=== PATIENT | female | born 1955 | race Caucasian/White ===

== ENCOUNTER 2023-11-17 08:59 | Outpatient (OUT) | payer MEDICARE, SELFPAY ==
[2023-11-17 09:32] LABS: Basophils Absolute Auto 0.1 10^3/uL (0.0-0.1); Basophils Percent Auto 1.1 % (0.2-2.0); Eosinophils Absolute Auto 0.3 10^3/uL (0.0-0.7); Eosinophils Percent Auto 7.1 % (0.9-7.0); Hematocrit 38.1 % (36.0-48.0); Hemoglobin 12.4 g/dL (12.0-16.0); Immature Granulocytes Abs Auto 0.01 10^3/uL (0.00-0.03); Immature Granulocytes Pct Auto 0.2 % (0.0-0.5); Lymphocytes Absolute Auto 1.6 10^3/uL (1.2-3.8); Lymphocytes Percent Auto 35.3 % (20.5-60.0); Mean Corpuscular HGB Conc 32.5 g/dL (29.9-35.2); Mean Corpuscular Hemoglobin 30.2 pg (26.7-34.0); Mean Corpuscular Volume 92.7 fL (81.0-99.0); Mean Platelet Volume 8.6 fL (9.5-13.5); Monocytes Absolute Auto 0.4 10^3/uL (0.3-0.8); Monocytes Percent Auto 8.2 % (1.7-12.0); Neutrophils Absolute Auto 2.2 10^3/uL (1.4-6.5); Neutrophils Percent Auto 48.1 % (43.0-75.0); Platelet Count 325 10^3/uL (150-450); Red Blood Count 4.11 10^6/uL (4.20-5.40); Red Cell Distribution Width 13.1 % (11.0-15.0); White Blood Count 4.6 10^3/uL (4.0-11.0)
[2023-11-17 09:55] LABS: Alanine Aminotransferase 33 U/L (14-59); Albumin Globulin Ratio 0.8; Albumin Level 3.5 g/dL (3.4-5.0); Alkaline Phosphatase 126 U/L (46-116); Anion Gap 15.7; Aspartate Amino Transferase 29 U/L (15-37); BUN Creatinine Ratio 13.7; Bilirubin Total 0.7 mg/dL (0.2-1.0); Calcium 9.5 mg/dL (8.5-10.1); Chloride 102 mmol/L (98-107); Estimated GFR (African America >60 (>=60); Estimated GFR (Non-African Ame >60 (>=60); Globulin 4.2 g/dL; Glucose 103 mg/dL (74-106); Potassium 4.7 mmol/L (3.5-5.1); Sodium 140 mmol/L (136-145); Total Protein 7.7 g/dL (6.4-8.2)
== END 2023-11-17 09:00 | disposition home or self-care (01) ==
LOC: LAB 09:06
PROVIDERS: PCP Family Medicine; Visit Provider Family Medicine
DX: R79.89 Other specified abnormal findings of blood chemistry (principal); R73.09 Other abnormal glucose
CPT/HCPCS: 36415; 80053; 85025

== ENCOUNTER 2024-03-24 11:27 | Outpatient (OUT) | payer MEDICARE, SELFPAY ==
--- NOTE | 2024-03-24 | ECG_ITS ---
The [facility] Test Date: 2024-03-24 Pat Name: RODERICK FAIRBANKS Department: Room: - Gender: Female Community Relations Manager: : 1955 Requested By: MADISON NORTH Order Number: [id number] Reading MD: RUBÉN JUAREZ Measurements Intervals Jakin Rate: 51 P: 68 MT: 162 QRS: 8 QRSD: 140 T: 71 QT: 494 QTc: 458 Interpretive Statements SINUS BRADYCARDIA RIGHT BUNDLE BRANCH BLOCK [120+ ms QRS DURATION, UPRIGHT V1, 40+ ms S IN I/aVL/V4/V5/V6] Compared to ECG 05/26/2019 14:48:16 Sinus tachycardia no longer present Electronically Signed On 03-26-2024 10:44:44 EDT by RUBÉN JUAREZ
== END 2024-03-24 11:28 | disposition home or self-care (01) ==
LOC: CARD 11:30
PROVIDERS: PCP Family Medicine; Visit Provider Family Medicine
DX: R00.1 Bradycardia, unspecified (principal)
CPT/HCPCS: 93005

== ENCOUNTER 2024-04-04 07:36 | Outpatient (RCR) | payer MEDICARE, SELFPAY ==
--- NOTE | 2023-12-03 15:04 | CR1_ITS ---
The [facility] Test Date: 2023-12-03 Pat Name: RODERICK FAIRBANKS Department: Room: - Gender: Female Day Porter: : 1955 Requested By: MADISON NORTH Order Number: [id number] Estiven MD: RUBÉN JUAREZ Interpretive Statements Session Date: Electronically Signed On 12-04-2023 12:13:36 EST by RUBÉN JUAREZ
--- NOTE | 2023-12-29 13:21 | CR1_ITS ---
The [facility] Test Date: 2023-12-29 Pat Name: RODERICK FAIRBANKS Department: Room: - Gender: Female Home Theater Experience Expert: : 1955 Requested By: MADISON NORTH Order Number: [id number] Estiven MD: RUBÉN JUAREZ Interpretive Statements Session Date: Electronically Signed On 12-30-2023 6:58:47 EST by RUBÉN JUAREZ
--- NOTE | 2024-01-26 12:59 | CR1_ITS ---
The [facility] Test Date: 2024-01-26 Pat Name: RODERICK FAIRBANKS Department: Room: - Gender: Female Chief Operating Officer: : 1955 Requested By: MADISON NORTH Order Number: [id number] Estiven MD: RUBÉN JUAREZ Interpretive Statements Session Date: Electronically Signed On 01-26-2024 23:04:04 EST by RUBÉN JUAREZ
--- NOTE | 2024-02-22 15:02 | CR1_ITS ---
The [facility] Test Date: 2024-02-22 Pat Name: RODERICK FAIRBANKS Department: Room: - Gender: Female Annealing Torch Operator: : 1955 Requested By: MADISON NORTH Order Number: [id number] Estiven MD: RUBÉN JUAREZ Interpretive Statements Session Date: Electronically Signed On 02-22-2024 22:58:29 EDT by RUBÉN JUAREZ
--- NOTE | 2024-03-23 14:15 | CR1_ITS ---
The [facility] Test Date: 2024-03-23 Pat Name: RODERICK FAIRBANKS Department: Room: - Gender: Female Clinical Rehab Specialist: : 1955 Requested By: MADISON NORTH Order Number: [id number] Estiven MD: RUBÉN JUAREZ Interpretive Statements Session Date: Electronically Signed On 03-23-2024 15:29:55 EDT by RUBÉN JUAREZ
--- NOTE | 2024-04-04 12:56 | CR1_ITS ---
The [facility] Test Date: 2024-04-04 Pat Name: RODERICK FAIRBANKS Department: Room: - Gender: Female Supervisor Composing Room: : 1955 Requested By: MADISON NORTH Order Number: [id number] Estiven MD: RUBÉN JUAREZ Interpretive Statements Session Date: Electronically Signed On 04-04-2024 22:56:54 EDT by RUBÉN JUAREZ
== END 2024-04-04 13:03 | disposition home or self-care (01) ==
LOC: CR 07:36
PROVIDERS: PCP Family Medicine
DX: Z95.2 Presence of prosthetic heart valve (principal)
CPT/HCPCS: 93798

== ENCOUNTER 2024-05-22 14:14 | Outpatient (RCR) | payer MEDICARE, SELFPAY | END 2024-06-14 17:02 | disposition home or self-care (01) | LOC: PT 14:14 | PROVIDERS: PCP Family Medicine; Visit Provider Family Medicine | DX: M25.511 Pain in right shoulder (principal); M54.89 Other dorsalgia | CPT/HCPCS: 97110; 97161 ==

== ENCOUNTER 2024-12-04 13:25 | Outpatient (OUT) | payer MEDICARE, SELFPAY ==
--- NOTE | 2024-12-04 13:30 | CT_ITS ---
The [address] [address] Patient Name: RODERICK FAIRBANKS MRN: [id number] date: 1955 Sex: F Assigned Patient Location: LAB Current Patient Location: LAB Accession/Order Number: [id number] Exam Date: 12/04/2024 13:55 Report Date: 12/04/2024 15:28 At the request of: MADISON NORTH Procedure: CT angio chest CT angio chest, 12/04/2024 1:55 PM EST INDICATION: Positive D Dimer COMPARISON: Prior CT of the abdomen pelvis dated 05/26/2019 TECHNIQUE: Axial low-dose images of 1 millimeters are obtained from the thoracic outlet with contrast . 3-D MIP images were obtained. Dose reduction techniques were achieved by using automated exposure control and/or adjustment of mA and/or kV according to patient size and/or use of iterative reconstruction technique. FINDINGS: No endoluminal filling defect within the main pulmonary arteries, lobar and lobular branches is noted. There is no obvious right ventricle strain. The ascending aorta measures 3.5 x 3.8 cm and pulmonary bifurcation. There is no suspicious lung lesion. There is bilateral dependent atelectasis. Bilateral centrilobular emphysematous changes are noted. The central tracheobronchial tree is unremarkable. No mediastinal lymph node enlargement by size criteria is noted. No pleural or pericardial effusion is noted. Large hiatal hernia is noted. Hypodensity within the left lobe of liver is stable. The remainder of visualized portions of the solid abdominal organs are unremarkable. Bone: There is no suspicious osteolytic or osteoblastic lesion. Status post median sternotomy. There is diffuse demineralization of bone. CT/CT angio chest IMPRESSION: No evidence of pulmonary embolus in the current study. Electronically authenticated by: CHEL ESCALANTE Date: 12/04/2024 15:28
== END 2024-12-04 13:26 | disposition home or self-care (01) ==
LOC: LAB 13:25
PROVIDERS: PCP Family Medicine; Visit Provider Family Medicine
DX: R79.89 Other specified abnormal findings of blood chemistry (principal)
CPT/HCPCS: 71275; Q9967

== ENCOUNTER 2025-07-17 11:50 | Emergency (ER) | payer MEDICARE, SELFPAY ==
[2025-07-17] VITALS (17 sets, daily range): BP systolic 95–119; BP diastolic 61–86; PULSE 88–108; TEMP 37.7; O2SAT 88–97; BMI 28.8
--- NOTE | 2025-07-17 12:03 | CT_ITS ---
The [address] [address] Patient Name: RODERICK FAIRBANKS MRN: [id number] date: 1955 Sex: F Assigned Patient Location: ED.MAIN Current Patient Location: ED.MAIN Accession/Order Number: [id number] Exam Date: 07/17/2025 13:06 Report Date: 07/17/2025 13:35 At the request of: REGINALDO CHACON DO Procedure: CT angio chest CT ANGIOGRAM OF THE CHEST, PULMONARY EMBOLISM PROTOCOL: CLINICAL INFORMATION: Shortness of breath and chest pain today. COMPARISON: Chest 12/04/2024 TECHNIQUE: Following intravenous injection of contrast CT scans of the chest were obtained using pulmonary embolism protocol. Coronal and sagittal reconstructed images, as well as volume rendered CT pulmonary angiographic images were also submitted.The CT exam was performed using one or more of the following dose reduction techniques: Automated exposure control, adjustment of the MA and/or Kv according to patient size, or use of the iterative reconstruction technique. FINDINGS: Pulmonary Vasculature: Contrast bolus is adequate for evaluation of pulmonary embolism. Pulmonary trunk appears nondilated. No filling defects are identified to suggest pulmonary embolism. Mediastinum : Thoracic aorta is normal in caliber. No pericardial effusion. Aortic valve replacement No lymphadenopathy. Fluid is seen within the distal esophagus without wall thickening. Moderate-sized hiatal hernia. Lungs: Scattered areas of tree-in-bud groundglass. No consolidation pneumothorax or pleural effusion. Smooth septal thickening involving the lung bases. Emphysema. Upper abdomen: No acute findings Soft tissue/bones: Soft tissues surrounding the chest wall demonstrate no acute findings. Osseous structures demonstrate degenerative change. Sternotomy wires are noted. CT/CT angio chest IMPRESSION: NO EVIDENCE OF ACUTE PULMONARY EMBOLISM. SCATTERED AREAS OF TREE-IN-BUD GROUNDGLASS. AN INFECTIOUS PROCESS WITH BRONCHIOLITIS IS SUSPECTED. CT FOLLOW-UP IS RECOMMENDED TO ENSURE RESOLUTION. MODERATE SIZE HIATAL HERNIA WITH FLUID SEEN WITHIN THE DISTAL ESOPHAGUS.. Impression dictated by: Troy Rojas Jr., D.O. 07/17/2025 1:35 PM Dictation Location: [place] [address] Electronically authenticated by: [id number] Y Date: 07/17/2025 13:35
--- NOTE | 2025-07-17 12:04 | ECG_ITS ---
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
--- OUTSIDE RECORDS SUMMARY | 2025-07-17 12:05 | XMS_ITS | Clinical Summary ---
Author Organization [employer] tem Address [id number] [address] [place] [address] Care Team Providers Care Blood Bank Attendant Name Role Phone Raina Anne MD Primary Care Provider [phone] Allergies Active Allergy Reactions Criticality Noted Date Comments Alendronate GI Disturbance 05/10/2018 severe leg cramps Latex Rash Low 05/10/2018 Meloxicam Other (See Comments) 05/10/2018 Shaking and memory changes Morphine Other (See Comments) 05/10/2018 BP changes Sulfa (Sulfonamide Antibiotics) Other (See Comments) 05/10/2018 Unknown childhood Tramadol Confusion 05/10/2018 Medications buPROPion XL (WELLBUTRIN XL) 150 mg 24 hr tablet Take 150 mg by mouth daily. 1 04/07/2018 Active omeprazole (PriLOSEC) 20 mg capsule TAKE 2 CAPSULES BY MOUTH EVERY MORNING 3 02/08/2018 Active amLODIPine (NORVASC) 2.5 mg tablet Take 2.5 mg by mouth daily. Active aspirin 81 mg Take 2 tablets (162 mg total) by mouth in the morning. Active calcium carbonate-vit D3-min (CALCIUM 600 + MINERALS) 600 mg calcium- 400 unit tablet Take by mouth. Active citalopram (CeleXA) 40 mg tablet Take 1 tablet (40 mg total) by mouth in the morning. Active gabapentin (NEURONTIN) 400 mg capsule Take 400 mg by mouth 3 (three) times a day. Active hydroxychloroqu ine (PLAQUENIL) 200 mg tablet Take 400 mg by mouth daily. Active polyethylene glycol (GLYCOLAX) 17 gram packet Take 17 g by mouth daily. Active predniSONE (DELTASONE) 2.5 mg tablet Take 2.5 mg by mouth daily. Active evolocumab (REPATHA SYRINGE) 140 mg/mL syringe Inject 140 mg under the skin every 14 (fourteen) days. Active cycloSPORINE (RESTASIS) 0.05 % ophthalmic emulsion 1 drop 2 (two) times a day. Active tiZANidine (ZANAFLEX) 4 mg tablet Take 4 mg by mouth every 6 (six) hours as needed for muscle spasms. Active rosuvastatin (CRESTOR) 40 mg tablet Take 1 tablet (40 mg total) by mouth in the morning. 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 Ptosis of eyelid, left 03/09/2019 Migraine variant, intractable 12/05/2018 Complicated migraine, intractable 12/05/2018 Ischemic cerebrovascular disease 10/11/2018 Vascular headache, not elsewhere classified 09/23 Vertigo 05/10/2018 Diplopia 05/10/2018 Ptosis of eyelid 05/10/2018 Peripheral polyneuropathy 05/10/2018 Family History Medical History Relation Name Comments Heart disease Father Kidney failure Father Diabetes Mother Heart attack Mother Kidney disease Mother Liver disease Mother Relation Name Status Comments Father Mother Alive Social History Tobacco Use Types Packs/Day Years Used Date Smoking Tobacco: Former Cigarettes Q uit: 02/20/2023 Smokeless Tobacco: Never Tobacco Cessation:Counseling Given: Not Answered Alcohol Use Standard Drinks/Week Comments No 0 (1 standard drink = 0.6 oz pur e alcohol) rarely PHQ-2 Answer Date Recorded Total Score 0 08/31/2023 Childcare Answer Date Recorded Childcare Unknown 05/01/2019 Employment Answer Date Recorded Employment Unknown 05/01/2019 Purpose - Life Answer Date Recorded Purpose and direction in life Unknown Comments No Sex and Gender Information Value Date Recorded Sex Assigned at Not on file Legal Sex Female 12:35 PM EDT Gender Identity Not on file Sexual Orientation Not on file Last Filed Vital Signs Vital Sign Reading Time Taken Comments Blood Pressure 113/76 08/31/2023 10:32 AM EDT Pulse 58 08/31/2023 10:32 AM EDT Temperature - - Respiratory Rate - - Oxygen Saturation - - Inhaled Oxygen Concentration - - Weight 75.1 kg (165 lb 9.6 oz) 08/31/2023 10:32 AM EDT Height 165.1 cm (5' 5 ) 08/31/2023 10:32 AM EDT Body Mass Index 27.56 08/31/2023 10:32 AM EDT Plan of Treatment Health Maintenance Due Date Last Done Comments DTaP,Tdap and Td Vaccines (1 - Tdap) 1976 Zoster (Shingles) Vaccine (1 of 2) 2007 Fall Risk Screening 2022 COVID-19 Vaccine (2023-2 5 season) 2024 10/23/2021, 02/06/2021, 01/16/2021 Adult BMI Screening 08/31/2024 08/31/2023 Depression Screening 08/31/2024 08/31/2023 Tobacco Screening 08/31/2024 08/31/2023 Influenza Vaccine 07/23/2025 10/23/2021, , 08/24/2016 Medical Devices Implanted Type Area Telegraph Service Rater Device Identifier Shelf Expiration Date Model / Serial / Lot Prosthetic Valve- 4 Implanted:Qty: 1 on 10/25/2014 Prosthetic Valve Heart trifecta tissue heart valve [id number]-[id number] / [id number] / Insurance MEDICARE Care Teams Blood Bank Attendant Relationship Specialty Start Date End Date Raina Anne MD [address] [place] [address] PCP - General 12/05/18
--- OUTSIDE RECORDS SUMMARY | 2025-07-17 12:05 | XMS_ITS | Encounter Summary ---
Author Organization [facility] Address [address] [place] [address] Care Team Providers Care Marketing Strategist Name Role Phone Luli Dixon MD Unavailable [phone] Leonardo Venegas MD Unavailable [phone] Alena Rajan MD, PhD Unavailable [phone] Alena Rajan MD, PhD Unavailable [phone] Raina Anne MD Primary Care Provider [phone] Source Comments In the event this information is protected by the Federal Confidentiality of Alcohol and Drug AbusePatient Records regulations: The Federal rules restrict any use of the information to criminally investigate or prosecute any alcohol or drug abuse patient.[facility] Encounter Details Date Type Department Care Team (Late st Contact Info) Description 01/29/2024 Patient Msg Medical Records [address] [place] [address] Provider, Ccf Questionnaire Submission Social History Tobacco Use Types Packs/Day Years Used Date Smoking Tobacco: Former Cigarettes 0.3 30 0 02/1993 - 02/2023 Smokeless Tobacco: Never Alcohol Use Standard Drinks/Week Comments Never 0 (1 standard drink = 0.6 oz pur e alcohol) Area Deprivation Index Answer Date Bishnu rded National Score (1-100), lower number is lower ri sk 61 10/25/2023 State Score (1-10), lower number is lower risk 4 10/25/2023 Data from: https://www.neighborhoodatlas.medicine.[facility]/. Last address used for calculation [address] [place] [address] 10/25/2023 Comments No Sex and Gender Information Value Date Recorded Sex Assigned at Not on file Legal Sex Female 12:53 PM EDT Gender Identity Not on file Sexual Orientation Not on file documented as of this encounter Functional Status * Are you deaf or do you have serious difficulty hearing? Answer Date of Assessment Author Yes 10/30/2023 11:22 AM Ruth Ann Tena RN * Are you blind or do you have serious difficulty seeing, even when wearing glasses? Answer Date of Assessment Author Yes 10/30/2023 11:22 AM Ruth Ann Tena RN * Do you have serious difficulty walking or climbing stairs? Answer Date of Assessment Author Yes 10/30/2023 11:22 AM Ruth Ann Tena RN * Do you have difficulty dressing or bathing? Answer Date of Assessment Author Yes 10/30/2023 11:22 AM Ruth Ann Tena RN * Because of a physical, mental, or emotional condition, do you have difficulty doing errands alone such as visiting a doctor's office or shopping? Answer Date of Assessment Author Yes 10/30/2023 11:22 AM Ruth Ann Tena RN documented as of this encounter Mental Status * Because of a physical, mental, or emotional condition, do you have serious difficulty concentrating, remembering, or making decisions? Answer Entry Date Author Yes 10/30/2023 11:22 AM Ruth Ann Tena RN documented in this encounter Plan of Treatment Not on file documented as of this encounter Visit Diagnoses Not on filedocumented in this encounter Care Teams Marketing Strategist Relationship Specialty Start Date End Date Raina Anne MD [address] [place] [id number] PCP - General Family Medicine 10/25/23 Luli Dixon MD [address] [place], [place] [id number] Surgeon Cardiac Surg 10/04/23 Leonardo Venegas MD [address] [place] [address] Referring Cardiac Surg 10/04/23 Alena Rajan MD, PhD [address] [place] [address] Cardiology 10/08/23 Alena Rajan MD, PhD [address] [place] [address] Primary Staff Physician Cardiology 10/25/23 documented as of this encounter
--- OUTSIDE RECORDS SUMMARY | 2025-07-17 12:05 | XMS_ITS | Encounter Summary ---
Author Organization Address [address] [place] [address] Care Team Providers Care Manager Cafe Name Role Phone Luli Dixon MD Unavailable [phone] Leonardo Venegas MD Unavailable [phone] Alena Rajan MD, PhD Unavailable [phone] Alena Rajan MD, PhD Unavailable [phone] Raina Anne MD Primary Care Provider Source Comments In the event this information is protected by the Federal Confidentiality of Alcohol and Drug AbusePatient Records regulations: The Federal rules restrict any use of the information to criminally investigate or prosecute any alcohol or drug abuse patient. Reason for Visit * Reason Comments PSG Check In Encounter Details Date Type Department Care Team (Late st Contact Info) Description 08/22/2024 Abstract Neurology [address] [place] [address] [facility] [address] [place] [address] PSG Check In Social History Tobacco Use Types Packs/Day Years [...] is lower risk 4 10/25/2023 Data from: https://www.neighborhoodatlas.medicine.[facility]/. Last address used for calculation [address] [facility] [facility] 10/25/2023 Comments No Sex and Gender Information [...] on filedocumented in this encounter Care Teams Manager Cafe Relationship Specialty Start Date End Date Raina Anne MD [address] [place] [address] PCP - General Family Medicine 10/25/23 Luli Dixon MD [address] [place] [address] Surgeon Cardiac Surg 10/04/23 Leonardo Venegas MD [address] [place] [address] Referring Cardiac Surg 10/04/23 Alena Rajan MD, PhD [address] [place] [address] Cardiology 10/08/23 Alena Rajan MD, PhD [address] [place] [address] Primary Staff Physician Cardiology 10/25/23 documented as of this encounter
--- OUTSIDE RECORDS SUMMARY | 2025-07-17 12:05 | XMS_ITS | Encounter Summary ---
Author Organization [facility] Address [address] [place] [address] Care Team Providers Care Director Broadcast Name Role Phone Luli Dixon MD Unavailable [phone] Leonardo Venegas MD Unavailable [phone] Alena Rajan MD, PhD Unavailable [phone] Alena Rajan MD, PhD Unavailable [phone] Raina Anne MD Primary Care Provider [phone] Source Comments In the event this information is protected by the Federal Confidentiality of Alcohol and Drug AbusePatient Records regulations: The Federal rules restrict any use of the information to criminally investigate or prosecute any alcohol or drug abuse patient.[facility] Encounter Details Date Type Department Care Team (Late st Contact Info) Description 12/23/2023 Patient Msg Cardiology [address] [place] [address] Guilherme Ayers MD [address] [place] [address] echocadiogram. Social History Tobacco Use Types Packs/Day Years [...] is lower risk 4 10/25/2023 Data from: https://www.neighborhoodatlas.medicine.[facility]/. Last address used for calculation [address] [place] [address] 10/25/2023 Comments No Sex and Gender Information [...] on filedocumented in this encounter Care Teams Director Broadcast Relationship Specialty Start Date End Date Raina Anne MD [address] [place] [address] PCP - General Family Medicine 10/25/23 Luli Dixon MD [address] [place] [address] Surgeon Cardiac Surg 10/04/23 Leonardo Venegas MD [address] [place] [address] Referring Cardiac Surg 10/04/23 Alena Rajan MD, PhD [address] [facility] [place] [address] Cardiology 10/08/23 Alena Rajan MD, PhD [address] [place] [address] Primary Staff Physician Cardiology 10/25/23 documented as of this encounter
--- OUTSIDE RECORDS SUMMARY | 2025-07-17 12:05 | XMS_ITS | Encounter Summary ---
Author Organization [facility] Address [facility] [place] [address] Care Team Providers Care Cytotechnologist Supervisor Name Role Phone Luli Dixon MD Unavailable [phone] Leonardo Venegas MD Unavailable [phone] Alena Rajan MD, PhD Unavailable [phone] Alena Rajan MD, PhD Unavailable [phone] Raina Anne MD Primary Care Provider [phone] Source Comments In the event this information is protected by the Federal Confidentiality of Alcohol and Drug AbusePatient Records regulations: The Federal rules restrict any use of the information to criminally investigate or prosecute any alcohol or drug abuse patient.[facility] Encounter Details Date Type Department Care Team (Late st Contact Info) Description 04/08/2024 Patient Msg Cardiology [address] [place] [address] Provider, Ccf Checking in - almost 6 months since your valve surgery! Social History Tobacco Use Types Packs/Day Years [...] is lower risk 4 10/25/2023 Data from: https://www.neighborhoodatlas.medicine.[facility]/. Last address used for calculation [address] [facility] [facility] 10/25/2023 Comments No Sex and Gender Information [...] on filedocumented in this encounter Care Teams Cytotechnologist Supervisor Relationship Specialty Start Date End Date Raina Anne MD [address] [place] [address] PCP - General Family Medicine 10/25/23 Luli Dixon MD [address] [place] [address] Surgeon Cardiac Surg 10/04/23 Leonardo Venegas MD [address] [place] [address] Referring Cardiac Surg 10/04/23 Alena Rajan MD, PhD [address] [place] [address] Cardiology 10/08/23 Alena Rajan MD, PhD [address] [place] [address] Primary Staff Physician Cardiology 10/25/23 documented as of this encounter
--- OUTSIDE RECORDS SUMMARY | 2025-07-17 12:05 | XMS_ITS | Encounter Summary ---
Author Organization [facility] Address [address] [place] [address] Care Team Providers Care Detective Precinct Name Role Phone Luli Dixon MD Unavailable [phone] Leonardo Venegas MD Unavailable [phone] Alena Rajan MD, PhD Unavailable [phone] Alena Rajan MD, PhD Unavailable [phone] Raina Anne MD Primary Care Provider [phone] Source Comments In the event this information is protected by the Federal Confidentiality of Alcohol and Drug AbusePatient Records regulations: The Federal rules restrict any use of the information to criminally investigate or prosecute any alcohol or drug abuse patient.[facility] Encounter Details Date Type Department Care Team (Late st Contact Info) Description 01/29/2024 Patient Msg Medical Records [address] [place] [address] Provider, Ccf Questionnaire Submission Social History Tobacco [...] is lower risk 4 10/25/2023 Data from: https://www.neighborhoodatlas.medicine.[facility]/. Last address used for calculation [address] [place] [address] 10/25/2023 Comments No Sex and Gender Information [...] on filedocumented in this encounter Care Teams Detective Precinct Relationship Specialty Start Date End Date Raina Anne MD [address] [place] [address] PCP - General Family Medicine 10/25/23 Luli Dixon MD [address] [place], [place] [address] Surgeon Cardiac Surg 10/04/23 Leonardo Venegas MD [address] [place] [address] Referring Cardiac Surg 10/04/23 Alena Rajan MD, PhD [address] [place] [address] Cardiology 10/08/23 Alena Raajn MD, PhD [address] [place] [address] Primary Staff Physician Cardiology 10/25/23 documented as of this encounter
--- OUTSIDE RECORDS SUMMARY | 2025-07-17 12:05 | XMS_ITS | Encounter Summary ---
Author Organization [facility] Address [address] [place] [address] Care Team Providers Care Instrument Technician Apprentice Name Role Phone Luli Dixon MD Unavailable [phone] Leonardo Venegas MD Unavailable [phone] Alena Rajan MD, PhD Unavailable [phone] Alena Rajan MD, PhD Unavailable [phone] Raina Anne MD Primary Care Provider [phone] Source Comments In the event this information is protected by the Federal Confidentiality of Alcohol and Drug AbusePatient Records regulations: The Federal rules restrict any use of the information to criminally investigate or prosecute any alcohol or drug abuse patient.[facility] Encounter Details Date Type Department Care Team (Late st Contact Info) Description 08/21/2024 Patient Msg Neurology [address] [place] [address] Provider, Ccf Please confirm your sleep study Social History Tobacco Use Types Packs/Day Years Used Date Smoking Tobacco: Former Cigarettes 0.3 30 0 02/1993 - 02/2023 Smokeless Tobacco: Never Alcohol Use Standard Drinks/Week Comments Never 0 (1 standard drink = 0.6 oz pur e alcohol) Area Deprivation Index Answer Date Ibshnu rded National Score (1-100), lower number is lower ri sk 61 10/25/2023 State Score (1-10), lower number is lower risk 4 10/25/2023 Data from: https://www.neighborhoodatlas.medicine.[facility]/. Last address used for calculation [address] [facility] 10/25/2023 Comments No Sex and Gender [...] on filedocumented in this encounter Care Teams Instrument Technician Apprentice Relationship Specialty Start Date End Date Raina Anne MD [address] [place] [address] PCP - General Family Medicine 10/25/23 Luli Dixon MD [address] [place] [address] Surgeon Cardiac Surg 10/04/23 Leonardo Venegas MD [address] [place] [address] Referring Cardiac Surg 10/04/23 Alena Rajan MD, PhD [address] [facility] [place] [address] Cardiology 10/08/23 Alena Rajan MD, PhD [address] [place] [address] Primary Staff Physician Cardiology 10/25/23 documented as of this encounter
--- OUTSIDE RECORDS SUMMARY | 2025-07-17 12:05 | XMS_ITS | Encounter Summary ---
Author Organization [facility] Address [address] [place] [address] Care Team Providers Care Inspector Welded Parts Name Role Phone Luli Dixon MD Unavailable [phone] Leonardo Venegas MD Unavailable [phone] Alena Rajan MD, PhD Unavailable [phone] Alena Rajan MD, PhD Unavailable [phone] Raina Anne MD Primary Care Provider [phone] Source Comments In the event this information is protected by the Federal Confidentiality of Alcohol and Drug AbusePatient Records regulations: The Federal rules restrict any use of the information to criminally investigate or prosecute any alcohol or drug abuse patient.[facility] Encounter Details Date Type Department Care Team (Late st Contact Info) Description 10/25/2024 Patient Msg Cardiology [address] [place] [address] Provider, Cclesly Happy Anniversary! One year since valve surgery! Social History Tobacco Use Types [...] is lower risk 4 10/25/2023 Data from: https://www.neighborhoodatlas.medicine.[facility]/. Last address used for calculation [address] [facility] 10/25/2023 Comments No Sex and Gender Information [...] on filedocumented in this encounter Care Teams Inspector Welded Parts Relationship Specialty Start Date End Date Raina Anne MD [address] [place] [address] PCP - General Family Medicine 10/25/23 Luli Dixon MD [address] [place] [address] Surgeon Cardiac Surg 10/04/23 Leonardo Venegas MD [address] [place] [address] Referring Cardiac Surg 10/04/23 Alena Rajan MD, PhD [address] [place] [address] Cardiology 10/08/23 Alena Rajan MD, PhD [address] [place] [address] Primary Staff Physician Cardiology 10/25/23 documented as of this encounter
--- OUTSIDE RECORDS SUMMARY | 2025-07-17 12:05 | XMS_ITS | Encounter Summary ---
Author Organization [facility] Address [address] [place] [address] Care Team Providers Care Roll Tester Name Role Phone Luli Dixon MD Unavailable [phone] Leonardo Venegas MD Unavailable [phone] Alena Rajan MD, PhD Unavailable [phone] Alena Rajan MD, PhD Unavailable [phone] Raina Anne MD Primary Care Provider [phone] Source Comments In the event this information is protected by the Federal Confidentiality of Alcohol and Drug AbusePatient Records regulations: The Federal rules restrict any use of the information to criminally investigate or prosecute any alcohol or drug abuse patient.[facility] Encounter Details Date Type Department Care Team (Late st Contact Info) Description 08/23/2024 Patient Msg Neurology [address] [place] [address] Provider, Ccf Please confirm your sleep [...] risk 4 10/25/2023 Data from: https://www.neighborhoodatlas.medicine.[facility]/. Last address used for calculation [address] [facility] 10/25/2023 Comments No Sex and Gender [...] on filedocumented in this encounter Care Teams Roll Tester Relationship Specialty Start Date End Date Raina Anne MD [address] [place] [address] PCP - General Family Medicine 10/25/23 Luli Dixon MD [address] [place] [address] Surgeon Cardiac Surg 10/04/23 Leonardo Venegas MD [address] [place] [address] Referring Cardiac Surg 10/04/23 Alena Rajan MD, PhD [address] [facility] [place] [address] Cardiology 10/08/23 Alena Rajan MD, PhD [address] [place] [address] Primary Staff Physician Cardiology 10/25/23 documented as of this encounter
--- OUTSIDE RECORDS SUMMARY | 2025-07-17 12:05 | XMS_ITS | Encounter Summary ---
Author Organization [facility] tem Address [facility] [place] [facility] [id number] [address] [place] [address] Care Team Providers Care Marble Polisher Hand Name Role Phone Raina Anne MD Primary Care Provider [phone] Reason for Visit * Reason Onset Date Comments Insurance 06/30/2023 Encounter Details Date Type Department Care Team (Late st Contact Info) Description 06/30/2023 Telephone [facility] Neurology [address] [place] [address] Jodi Garay Insurance Social History Tobacco Use Types Packs/Day Years Used Date Smoking Tobacco: Every Day Smokeless Tobacco: Never Alcohol Use Standard Drinks/Week Comments No 0 (1 standard drink = 0.6 oz pur e alcohol) rarely Childcare Answer Date Recorded Childcare Unknown 05/01/2019 Employment Answer Date Recorded Employment Unknown 05/01/2019 Purpose - Life Answer Date Recorded Purpose and direction in life Unknown Comments No Sex and Gender Information Value Date Recorded Sex Assigned at Not on file Legal Sex Female 12:35 PM EDT Gender Identity Not on file Sexual Orientation Not on file documented as of this encounter Miscellaneous Notes * Telephone Encounter - Jodi Garya - 06/30/2023 12:47 PM EDT Received call today 06/30/23 12:56 from patient who stated that her MRI order wasn't covered at [facility] and I confirmed that her insurance is not in network with our office and she will be responsible for bills received from office. She said she will need a referral sent to another doctor. I informed her she will need to contact her insurance to find a provider in network in her area and she will need to let us know who she needs referral sent to - she voiced understanding. documented in this encounter Plan of Treatment Not on file documented as of this encounter Visit Diagnoses Not on filedocumented in this encounter Care Teams Marble Polisher Hand Relationship Specialty Start Date End Date Raina Anne MD [address] [place] [id number] PCP - General 12/05/18 documented as of this encounter
--- OUTSIDE RECORDS SUMMARY | 2025-07-17 12:05 | XMS_ITS | Encounter Summary ---
Author Organization [facility] Address [address] [place] [address] Care Team Providers Care Configuration Release Manager Name Role Phone Luli Dixon MD Unavailable [phone] Leonardo Venegas MD Unavailable Alena Rajan MD, PhD Unavailable [phone] Alena Rajan MD, PhD Unavailable [phone] Raina Anne MD Primary Care Provider [phone] Source Comments In the event this information is protected by the Federal Confidentiality of Alcohol and Drug AbusePatient Records regulations: The Federal rules restrict any use of the information to criminally investigate or prosecute any alcohol or drug abuse patient.[facility] Encounter Details Date Type Department Care Team (Late st Contact Info) Description 11/25/2023 Patient Msg Cardiology [address] [place] [address] Provider, Ccf Checking in at one month after valve surgery Social History Tobacco Use Types Packs/Day Years [...] is lower risk 4 10/25/2023 Data from: https://www.neighborhoodatlas.medicine.[facility]/. Last address used for calculation [address] [facility] 10/25/2023 Comments No Sex and Gender Information [...] on filedocumented in this encounter Care Teams Configuration Release Manager Relationship Specialty Start Date End Date Raina Anne MD [facility] [place] [address] PCP - General Family Medicine 10/25/23 Luli Dixon MD [address] [place] [address] Surgeon Cardiac Surg 10/04/23 Leonardo Venegas MD [address] [place] [address] Referring Cardiac Surg 10/04/23 Alena Rajan MD, PhD [address] [place] [address] Cardiology 10/08/23 Alena Rajan MD, PhD [address] [place] [address] Primary Staff Physician Cardiology 10/25/23 documented as of this encounter
--- OUTSIDE RECORDS SUMMARY | 2025-07-17 12:05 | XMS_ITS | Encounter Summary ---
Author Organization [facility] Address [address] [place] [address] Care Team Providers Care Washing Machine Installer Name Role Phone Luli Dixon MD Unavailable [phone] Leonardo Venegas MD Unavailable [phone] Alena Rajan MD, PhD Unavailable [phone] Alena Rajan MD, PhD Unavailable [phone] Raina Anne MD Primary Care Provider [phone] Source Comments In the event this information is protected by the Federal Confidentiality of Alcohol and Drug AbusePatient Records regulations: The Federal rules restrict any use of the information to criminally investigate or prosecute any alcohol or drug abuse patient.[facility] Encounter Details Date Type Department Care Team (Late st Contact Info) Description 01/09/2024 Patient Msg Cardiology [address] [place] [address] Provider, Ccf How are you feeling since your valve surgery? Social History Tobacco Use Types Packs/Day Years [...] is lower risk 4 10/25/2023 Data from: https://www.neighborhoodatlas.medicine.[facility]/. Last address used for calculation [address] [facility] 10/25/2023 Comments No Sex and Gender [...] on filedocumented in this encounter Care Teams Washing Machine Installer Relationship Specialty Start Date End Date Raina Anne MD [address] [place] [address] PCP - General Family Medicine 12/4/23 Luli Dixon MD [address] [place] [address] Surgeon Cardiac Surg 10/04/23 Leonardo Venegas MD [address] [place] [address] Referring Cardiac Surg 10/04/23 Alena Rajan MD, PhD [address] [place] [address] Cardiology 10/08/23 Alena Rajan MD, PhD [address] [place], [place] [address] Primary Staff Physician Cardiology 10/25/23 documented as of this encounter
--- OUTSIDE RECORDS SUMMARY | 2025-07-17 12:05 | XMS_ITS | Clinical Summary ---
Author Organization [facility] Address [address] [place], [place] [address] Care Team Providers Care Roof Tile Layer Name Role Phone Luli Dixon MD Unavailable [phone] Leonardo Venegas MD Unavailable [phone] Alena Rajan MD, PhD Unavailable [phone] Alena Rajan MD, PhD Unavailable [phone] Raina Anne MD Primary Care Provider [phone] Allergies Active Allergy Reactions Criticality Noted Date Comments Alendronate Unknown 10/05/2023 Latex Unknown 10/05/2023 Meloxicam Unknown 10/05/2023 Morphine Unknown 10/05/2023 Pravastatin Other: See Comments 01/12/2024 Sulfa (Sulfonamide Antibiotics) Unknown 09/22 Tramadol Unknown 10/05/2023 Medications omeprazole (PRILOSEC) 40 mg capsule Take 40 mg by mouth. Active citalopram (CELEXA) 40 mg tablet Take 1 tablet by mouth every afternoon. 3 Active aspirin, enteric coated (ASPIRIN, ENTERIC COATED) 81 mg EC tablet Take 81 mg by mouth. Active fluticasone-ume clidin-vilanter (TRELEGY ELLIPTA) 200-62.5-25 mcg inhalation powderIndicatio ns:Chronic cough,Centrilob ular emphysema (HCC) Inhale 1 Puff as instructed once daily. 60 Each 11 5 12/25/19 26 Active rosuvastatin (CRESTOR) 40 mg tablet TAKE 1 TABLET BY MOUTH EVERY DAY 90 tablet 3 5 Active Active Problems Patient Care Coordination No te Formatting of this note migh t be different from the original. Indication for Surgery: Severe bioprosthetic AV stenosis Preop LVEF: 63% Grade I DD Pre-op RVF: Normal. RVSP 39 mmHg. 2+TR. severe prosthetic (pkmn grad 66/43 mmHg). 1+AR. Cath: mild CAD EKG: NSR, CRBBB Cards: Dr. Alena Rajan Postop LVEF: Normal Post-op RVF: Normal Important/Relevant PMH/PSH: s/p AVR '14, CAD, HTN, HLD, TIA, AAA, SLE with secondary fibromyalgia, hyperlipidemia, peripheral neuropathy, abdominal aortic aneurysm, and SLE and secondary fibromyalgia. Preoperative Hospital Course: symptomatic with fatigue and exertional dyspnea Airway Difficulty: Easy, Grade 1 view, Rivera Pacing Wires: Vent wires pulled 10/29/2023 Chronological List of Surgeries and Major Events (Diagnosis): 10/26/2023: Redo Sternotomy x1: Aortic Valve Replacement with 21 Epic Max (removal of 23 mm Trifecta Valve) A/P of Major Active Problems (excluding routine care and common problems): Transfer to SDU on 10/27/2023 (pod 1) - s/p Redo AVR- asa. Surg path reviewed. - h/o Hyperlipidemia- statin - Crestor - Hypertension - (preop on Norvasc)- SBP 115- 120. HR 70s. controlled on Metop. Trend BP - Rhythm: (EKG pre-op: NSR, CRBBB). Prolonged QTc postop. SR on telemetry. monitor, avoid QT prolonging agents - Pulmonary: Post-op respiratory insufficiency, hypoxemia and mild hypercarbia, Atelectasis and Vascular congestion. Weaned to room air, SpO2 97%. CXR reviewed, bibasilar atelectasis, small pleural effusions. continue BPH, diuresis, mobilize OOB, wean O2 as tolerates. - FVO +1.7 kg from admit weight. NA 135. Transition to oral diuretic Monitor - Coagulopathy/Thrombocytopenia- Plt count 205 K- WNL . no blood transfusion requirement, monitor platelets - Endo - Perioperative insulin resistance and hyperglycemia - Insulin gtt transition to SSI. BG controlled on CMP - Post-op Pain - controlled with prn Tylenol and Oxycodone. encourage oob, ambulation with assist. - h/o SLE- not on immunosuppression/steroids recently - h/o peripheral neuropathy and fibromyalgia not on chronic pain medications - h/o depression - mood appropriate. continue home Celexa dose - Chronic constipation- reports had a BM once per week. +flatulence. +BM 10/29 Dispo: [facility] [place]. supportive daughter at bedside. No skilled needs per OT. Cardiac rehab provided education. CM following. Discharge Planning: Anticipated Discharge Date: 10/30 Barriers to Discharge: No Barriers to Discharge Care Management Discharge Needs: none Needs Prior to Discharge: None Problem Noted Date Diagnosed Date Disorder of artery or arteriole 01/04/2024 S/P AVR 12/23/2023 Aortic valve disorder 10/29/2023 Encounter for support and co ordination of transition of care 10/28/2023 Overview (10/30/2023): Indication for Surgery: Severe bioprosthetic AV stenosis Preop LVEF: 63% Grade I DD Pre-op RVF: Normal. RVSP 39 mmHg. 2+TR. severe prosthetic (pkmn grad 66/43 mmHg). 1+AR. Cath: mild CAD EKG: NSR, CRBBB Cards: Dr. Alena Rajan Postop LVEF: Normal Post-op RVF: Normal Important/Relevant PMH/PSH: s/p AVR '14, CAD, HTN, HLD, TIA, AAA, SLE with secondary fibromyalgia, hyperlipidemia, peripheral neuropathy, abdominal aortic aneurysm, and SLE and secondary fibromyalgia. Preoperative Hospital Course: symptomatic with fatigue and exertional dyspnea Airway Difficulty: Easy, Grade 1 view, Rivera Pacing Wires: Vent wires pulled 10/29/2023 Chronological List of Surgeries and Major Events (Diagnosis): 10/26/2023: Redo Sternotomy x1: Aortic Valve Replacement with 21 Epic Max (removal of 23 mm Trifecta Valve) A/P of Major Active Problems (excluding routine care and common problems): Transfer to SDU on 10/27/2023 (pod 1) - s/p Redo AVR- asa. Surg path reviewed. - h/o Hyperlipidemia- statin - Crestor - Hypertension - (preop on Norvasc)- SBP 115- 120. HR 70s. controlled on Metop. Trend BP - Rhythm: (EKG pre-op: NSR, CRBBB). Prolonged QTc postop. SR on telemetry. monitor, avoid QT prolonging agents - Pulmonary: Post-op respiratory insufficiency, hypoxemia and mild hypercarbia, Atelectasis and Vascular congestion. Weaned to room air, SpO2 97%. CXR reviewed, bibasilar atelectasis, small pleural effusions. continue BPH, diuresis, mobilize OOB, wean O2 as tolerates. - FVO +1.7 kg from admit weight. NA 135. Transition to oral diuretic Monitor - Coagulopathy/Thrombocytopenia- Plt count 205 K- WNL . no blood transfusion requirement, monitor platelets - Endo - Perioperative insulin resistance and hyperglycemia - Insulin gtt transition to SSI. BG controlled on CMP - Post-op Pain - controlled with prn Tylenol and Oxycodone. encourage oob, ambulation with assist. - h/o SLE- not on immunosuppression/steroids recently - h/o peripheral neuropathy and fibromyalgia not on chronic pain medications - h/o depression - mood appropriate. continue home Celexa dose - Chronic constipation- reports had a BM once per week. +flatulence. +BM 10/29 Dispo: [place], [place]. supportive daughter at bedside. No skilled needs per OT. Cardiac rehab provided education. CM following. Discharge Planning: Anticipated Discharge Date: 10/30 Barriers to Discharge: No Barriers to Discharge Care Management Discharge Needs: none Needs Prior to Discharge: None Atelectasis 10/27/2023 Coagulopathy 10/26/2023 Cardiac insufficiency following cardiac surgery 10/26/2023 Discharge planning issues 10/25/2023 Overview (10/25/2023): 67 yo female from [place], [place] here for [facility] who may benefit from [facility] Prosthetic aortic valve stenosis 10/05/2023 Overview (10/30/2023): History: severe prosthetic Assessment: s/p 10/26/2023: Redo Sternotomy x1: Aortic Valve Replacement with 21 Epic Max (removal of 23 mm Trifecta Valve) Plan: ASA. Surg path reviewed PPTEE: Post Procedure Run 1 The left ventricle is normal in size. Left ventricular systolic function is mildly decreased. There is trivial mitral valve regurgitation. There is trivial tricuspid valve regurgitation. Epic Max prosthetic aortic valve size #21. The maximum velocity in the aortic valve is 220.0 cm/s. The aortic valve peak gradient is 19 mmHg. Aorta intact post decannulation. Coronary artery disease Dyslipidemia Overview (10/30/2023): Last set of lipids revealed: Total Chol 112, HDL 50, LDL 30, TG 161 (10/29/2023) Plan: continue Crestor Fibromyalgia Essential hypertension Peripheral neuropathy Systemic lupus erythematosus Postoperative pain Resolved Problems Problem Noted Date Diagnosed Date Resolved Date Respiratory failure, post-operative 10/26/2023 06/20/2024 Preop testing 10/25/2023 10/28/2023 Overview (10/25/2023): [facility] PRE[facility]OP CHECKLIST Informed Consent Completed: Yes STS Score: CAD: No Is intended procedure a CABG: No - is a beta todd ordered? No - reason: ni H & P completed: YES Dr. Rajan 10/25/23 PA/LAT: N/A CT: Completed MRI: N/A LE US: N/A Cath: Yes - reviewed: Yes EKG: Completed Is patient on Amiodarone? No Echo: completed EF %: 63 PI's: N/A Carotid: completed Mapping: N/A Dental: Cleared PFT's: N/A Recent Labs 10/25/23 1129 10/25/23 1044 WBC -- 6.00 HB -- 13.5 HCT -- 40.6 PLT -- 237 INR -- 0.9 CREAT 0.90 -- UA: Normal HCG:N/A ABO/ABO Confirmed: Yes Blood ordered: Yes 2 units prbc redo SA Swab: Yes - results: Pending Last Dose of Anticoagulation: remain on 81 mg ASA Anticoagulant & Antiplatelet Medications Patient Encounter Information Not Found Op Note: N/A Pacer Check: NA Implants: yes: 2013 MINI AVR Consults: NA DM: No Cardiac Surgical prep: N/A SIGNATURE: Viviane Smart RN DATE of SERVICE: 10/25/2023 TIME of SERVICE: 2:24 PM CHECKED BY: Immunizations Immunization Administration Dates Next Due COVID-19 original vaccine, a ge 12+ yr, monovalent (Tysdo - PURPLE TOP) 10/23/2021,02/06/2021,01/16/2021 COVID-19 vaccine, age 12+ yr (Spinnakr-Site Tour COMIRNATY) 09/22/2023 COVID-19 vaccine, unspecified formulation 2020,02/06/2021,01/16/2021 influenza (HD-IIV3) vaccine, age 65+ yr, high dose, trivalent, PF (FLUZONE HIGH-DOSE) 08/24/2016 influenza (IIV4) vaccine, ag e 6 mo - 64 yr, quadrivalent, PF (AFLURIA, FLUARIX, FLULAVAL, FLUZONE) 10/23/2021 influenza (aIIV4) vaccine, a ge 65+ yr, quadrivalent, PF (FLUAD QUAD) 09/22/2023 influenza vaccine, unspecified formulation 08/22 pneumococcal conjugate (PCV2 0) vaccine, 20 valent (PREVNAR 20) 09/22/2023 Family History Medical History Relation Comments No Known Problems Brother No Known Problems Daughter Coronary Artery Disease Father Diabetes Father Heart disease Father leaky valve Kidney failure Father Heart Attack Maternal Aunt 1 Heart Attack Maternal Aunt 2 Heart Attack Maternal Grandfather Stroke Maternal Grandmother Arrhythmia Maternal Uncle 1 PPM Coronary Artery Disease Maternal Uncle 2 Bypass Heart Attack Mother Bicuspid aortic valve Niece No Known Problems Paternal Grandfather Stroke Paternal Grandmother No Known Problems Sister 1 No Known Problems Sister 2 No Known Problems Sister 3 No Known Problems Sister 4 No Known Problems Sister 5 No Known Problems Sister 6 No Known Problems Sister 7 No Known Problems Sister 8 RBBB Son Relation Status Comments Brother Alive Daughter Alive Father Maternal Aunt 1 Alive Maternal Aunt 2 Alive Maternal Grandfather Maternal Grandmother Maternal Uncle 1 Alive Maternal Uncle 2 Alive Maternal cousin Alive x3 Sudden cardia c Heart Defect Mother Niece Alive Paternal Grandfather Paternal Grandmother Sister 1 Alive Sister 2 Alive Sister 3 Alive Sister 4 Alive Sister 5 Alive Sister 6 Alive Sister 7 Alive Sister 8 Alive Son Alive Social History Tobacco Use Types Packs/Day Years Used Date Smoking Tobacco: Former Cigarettes 0.3 30 0 02/1993 - 02/2023 Smokeless Tobacco: Never Tobacco Cessation:Counseling Given: Not Answered Alcohol Use Standard Drinks/Week Comments Never 0 (1 standard drink = 0.6 oz pur e alcohol) Area Deprivation Index Answer Date Bishnu rded National Score (1-100), lower number is lower ri sk 61 10/25/2023 State Score (1-10), lower number is lower risk 4 10/25/2023 Data from: https://www.neighborhoodatlas.medicine.[facility]/. Last address used for calculation [address] 10/25/2023 Comments No Sex and Gender Information Value Date Recorded Sex Assigned at Not on file Legal Sex Female 12:53 PM EDT Gender Identity Not on file Sexual Orientation Not on file Last Filed Vital Signs Vital Sign Reading Time Taken Comments Blood Pressure 116/74 12/25/2024 10:11 AM EST Pulse 68 12/25/2024 10:11 AM EST Temperature 36.2 C (97.2 F) 12/25/2024 10:11 AM EST Respiratory Rate 18 12/25/2024 10:11 AM EST Oxygen Saturation 97% 12/25/2024 10:11 AM EST Inhaled Oxygen Concentration - - Weight 72.8 kg (160 lb 7.9 oz) 12/25/2024 10:00 AM EST Height 165.1 cm (5' 5 ) 06/20/2024 11:58 AM EDT Body Mass Index 26.71 06/20/2024 11:58 AM EDT Plan of Treatment Health Maintenance Due Date Last Done Comments Cervical Cancer Screening 1968 Annual PCP Team Chronic Dise ase Visit 1975 Anxiety Screening 1975 Depression Screening 1975 Hepatitis C Screening 1975 DTaP,Tdap,Td Vaccine (1 - Tdap) [address] Colonography 2002 Cologuard (FIT-DNA) 2002 Colonoscopy 2002 Colorectal Cancer Screening 2002 Fecal Occult Blood 2002 Sigmoidoscopy 2002 Shingrix Vaccine (1 of 2) 2007 RSV Vaccine (1 - Risk 60-74 years 1-dose series) 2017 Bone Density Screening 2022 LDL Cholesterol 10/29/2024 10/29/2023 Advance Directive Discussion 11/22/2024 Medicare Advantage Annual We llness Visit 11/22/2024 Influenza Vaccine (#1) 2025 , 09/22/2023, 10/23/2021, Additional history exists Diabetes Screening 03/31/2027 03/31/2024, 0 12/23/2023, 11/10/2023, Additional history exists Lipid Screening 10/29/2028 10/29/2023 Pneumococcal Vaccine: 50+ Completed 09/22/2023 Medical Devices Implanted Type Area Chaperon Device Identifier Shelf Expiration Date Model / Serial / Lot Lane Thk1.65mm Ptfe 4x.5in Cardiovascular Sterile - [id number] Implanted:Qty: 1 on 10/26/2023 at [facility] Implant N/A: Heart [employer]ARD [employer] 04/18/2028 [id number] / / [id number] Valve Aortic Epic Max 21mm - [id number] Implanted:Qty: 1 on 10/26/2023 by Luli Dixon MD at [facility] Valve [employer] 05/26/2027 EMAX-21 / [id number] / Procedures Procedure Name Priority Date/Time Associated Diagnosis Comments COMPREHENSIVE METABOLIC PANEL STAT 03/31/2024 10:56 PM EDT LIPID PANEL, FASTING Routine 10/29/2023 6:12 AM EST from Last 3 Months or Most Recently Relevant to Health Maintenance Results * COMPREHENSIVE METABOLIC PANEL (03/31/2024 10:56 PM EDT) Protein, Total 7.0 6.3 - 8.0 g/dL 03/31/2024 11:31 PM EDT [facility] Albumin 4.2 3.9 - 4.9 g/dL 03/31/2024 11:31 PM EDT [facility] Calcium, Total 9.1 8.5 - 10.2 mg/dL 03/31/2024 11:31 PM EDT [facility] Bilirubin, Total 0.6 0.2 - 1.3 mg/dL 03/31/2024 11:31 PM EDT [facility] Alkaline Phosphatase 77 34 - 123 U/L 03/31/2024 11:31 PM [facility] AST 19 13 - 35 U/L 03/31/2024 11:31 PM [facility] ALT 12 7 - 38 U/L 03/31/2024 11:31 PM [facility] Glucose 96 74 - 99 mg/dL 03/31/2024 11:31 PM [facility] Comment: The [place] Diabetes Association (ADA) provides guidance for cutoff values for fasting glucose and random glucose. The ADA defines fasting as no caloric intake for at least 8 hours. Fasting plasma glucose results between 100 to 125 mg/dL indicate increased risk for diabetes (prediabetes). Fasting plasma glucose results greater than or equal to 126 mg/dL meet the criteria for diagnosis of diabetes. In the absence of unequivocal hyperglycemia, results should be confirmed by repeat testing. In a patient with classic symptoms of hyperglycemia or hyperglycemic crisis, random plasma glucose results greater than or equal to 200 mg/dL meet the criteria for diagnosis of diabetes. Reference: Standards of Medical Care in Diabetes 2016, [place] Diabetes Association. Diabetes Care. 2016.39(Suppl 1). BUN 13 7 - 21 mg/dL 03/31/2024 11:31 PM [facility] Creatinine 0.77 0.58 - 0.96 mg/dL 03/31/2024 11:31 PM [facility] Sodium 137 136 - 144 mmol/L 03/31/2024 11:31 PM [facility] Potassium 3.9 3.7 - 5.1 mmol/L 03/31/2024 11:31 PM [facility] Chloride 103 97 - 105 mmol/L 03/31/2024 11:31 PM [facility] CO2 22 22 - 30 mmol/L 03/31/2024 11:31 PM [facility] Anion Gap 12 9 - 18 mmol/L 03/31/2024 11:31 PM [facility] Estimated Glomerular Filtration Rate 85 >=60 mL/min/1.7 3m 03/31/2024 11:31 PM [facility] Comment:Estimated Glomerular Filtration Rate (eGFR) is calculated using the 2020 CKD-EPI creatinine equation. This equation utilizes serum creatinine, sex, and age as parameters. The creatinine assay has traceable calibration to isotope dilution- mass spectrometry. Refer to KDIGO guidelines for clinical interpretation. In patients with unstable renal function, e.g. those with acute kidney injury, the eGFR may not accurately reflect actual GFR. Blood BLOOD SPECIMEN / Unknown Venipuncture / Unknown 03/31/2024 10:56 PM EDT 03/31/2024 11:04 PM EDT us Roz Sullivan MD LABORATORY Final Result [facility] [address] [place] [address], * (ABNORMAL) LIPID PANEL BASIC (10/29/2023 6:12 AM EST) Cholesterol, Total 112 <200 mg/dL 10/29/2023 9:42 AM EST [facility] Comment: <200 mg/dL, Desirable 200-239 mg/dL, Borderline high >239 mg/dL, High Triglyceride 161(H) <150 mg/dL 10/29/2023 9:42 AM EST [facility] Comment: <150 mg/dL, Normal 150-199 mg/dL, Borderline high 200-499 mg/dL, High >499 mg/dL, Very high HDL Cholesterol 50 >39 mg/dL 9:42 AM EST [facility] Comment: 40-59 mg/dL, Acceptable >59 mg/dL, High: Negative risk factor for coronary heart disease <40 mg/dL, Low: Positive risk factor for coronary heart disease Non HDL Cholesterol 62 <130 mg/dL 10/29/2023 9:42 AM EST [facility] Comment: <130 mg/dL, Optimal 130-159 mg/dL, Near optimal/above optimal 160-189 mg/dL, Borderline high 190-219 mg/dL, High >219 mg/dL, Very high Secondary prevention optimal non HDL Cholesterol levels are recommended to be <100 mg/dL Fasting Time 8 hrs 10/29/2023 9:42 AM EST [facility] VLDL Cholesterol 32(H) <30 mg/dL 10/29/20 9:42 AM EST [facility] TC:HDL Ratio 2.24 <5.10 10/29/2023 9:42 AM EST [facility] LDL Cholesterol, Calculated 30 <100 mg/dL 10/29/2023 9:42 AM EST [facility] Comment: <100 mg/dL, Optimal 100-129 mg/dL, Near optimal/above optimal 130-159 mg/dL, Borderline high 160-189 mg/dL, High >189 mg/dL, Very high Secondary prevention optimal LDL Cholesterol levels are recommended to be < 70 mg/dL LDL:HDL Ratio 0.60 <2.54 10/29/2023 9:42 AM EST [facility] Comment: Reference: 1. National Cholesterol Education Program ATP III Guideline At-A-Glance Quick Desk Reference: National Heart, Lung, and Blood Dawn. National Institutes of Health. 2001: NIH Publication No. 01-3305. 2. An International Atherosclerosis Society position paper: global recommendations for the management of dyslipidemia: executive summary, Atherosclerosis. 2014: 232(2):410-413. Blood BLOOD SPECIMEN / Unknown Venipuncture / Unknown 10/29/2023 6:12 AM EST 10/29/2023 6:41 AM EST us Michaelle Hoover APRN.[facility] Final Re sult [facility] [address] [place] [address], from Last 3 Months or Most Recently Relevant to Health Maintenance Insurance MEDICARE HMO Care Teams Roof Tile Layer Relationship Specialty Start Date End Date Raina Anne MD [address] [place] [phone] PCP - General Family Medicine 10/25/23 Luli Dixon MD [address] [place], [place] [id number] Surgeon Cardiac Surg 10/04/23 Leonardo Venegas MD [address] [place] [address] Referring Cardiac Surg 10/04/23 Alena Rajan MD, PhD [address] [place] [address] Cardiology 10/08/23 Alena Rajan MD, PhD [address] [place], [place] [id number] Primary Staff Physician Cardiology 10/25/23
--- OUTSIDE RECORDS SUMMARY | 2025-07-17 12:15 | XMS_ITS | CCD ---
Author Organization [facility] Care Team Providers Care Enrollment Management Manager Name Role Phone NADJA RICHTER Admitting Unavailable NADJA RICHTER Attending Unavailable MADISON NORTH Referring Unavailable MADISON NORTH Primary Care Unavailable OR Procedure Practitioner Unavailab NADJA Ervin Surgeon Unavailable OR Procedure Practitioner Unavailab JONO Garcia Surgeon Unavailable Madison North Unavailable TOMASA, DR WOODS Attending Unavailable MOUKARBEL, DR WOODS Consulting Unavailable MOUKATOBIAS, DR WOODS Admitting Unavailable NORTH, DR MADISON Echevarria Primary Care Unavailable ALGHOTHANI, MOHAMAD Attending Unavailable ALGHOTHANI, MOHAMAD Consulting Unavailable ALGHOTHANI, MOHAMAD Admitting Unavailable NORTH, DR MADISON Echevarria Primary Care Unavailable RGACE, SANTI Consulting Unavailable GRACE, SANTI Admitting Unavailable GRACE, SANTI Attending Unavailable NORTH, DR MADISON Echevarria Primary Care Unavailable GRACE, SANTI Consulting Unavailable GRACE, SANTI Admitting Unavailable GRACE, SANTI Attending Unavailable NORTH, DR MADISON Echevarria Primary Care Unavailable ALGHOTHANI, MOHAMAD Consulting Unavailable ALGHOTHANI, MOHAMAD Admitting Unavailable NORTH, DR MADISON Echevarria Primary Care Unavailable ALGHOTHANI, MOHAMAD Attending Unavailable ALGHOTHANI, MOHAMAD Admitting Unavailable ALGHOTHANI, MOHAMAD Attending Unavailable NORTH, DR MADISON Echevarria Primary Care Unavailable TREVA, DR KIERAN Sherwood Consulting Unavailable ALGHOTHANI, MOHAMAD Consulting Unavailable CAN, DR MADISON Echevarria Consulting Unavailable CAN, DR MADISON Echevarria Primary Care Unavailable CAN, DR MADISON Echevarria Admitting Unavailable NORTH, DR MADISON Echevarria Attending Unavailable NORTH, DR MADISON Echevarria Primary Care Unavailable GRACE, SANTI Admitting Unavailable GRACE, SANTI Attending Unavailable GRACE, SANTI Consulting Unavailable Zack MALHOTRA, Luli Washington Unavailable [phone] Km Venegas MD, Leonardo Unavailable Satinder MALHOTRA, PhD, Alena Unavailable Satinder MALHOTRA, PhD, Alena Unavailable Madison North MD Primary Care Provider Madison North MD Primary Care Provider MD Madison North Primary Care Provider KEVIN Richardson Attending Provider Madison North Primary Care Unavailable Bia Richardson Attending Unavailable Bia Richardson Admitting Unavailable DO Paco Thomason Attending Unavailable Andrew Castellanos Attending Unavailable Andrew Castellanos Admitting Unavailable [facility] Cardio, XXXX Consulting Unavailable MADISON NORTH Primary Care Physician [phone] MD Khanh Chaudhari Consulting Unavailable Andrew Castellanos Admitting Unavailable Andrew Castellanos Attending Unavailable Khanh Chaudhari Consulting Unavailable Khanh Chaudhari Consulting Unavailable [facility] Cardio, XXXX Consulting Unavailable NORTH, MADISON E Primary Care Unavailable COZ YATACO, ABIMAEL O Referring Unavailable NORTH, MADISON E Primary Care Unavailable JHONY TOBIN Attending Unavailabl e COZ YATACO, ABIMAEL O Referring Unavailable NORTH, MADISON E Primary Care Unavailable JHONY TOBIN Referring Unavailabl e NORTH, MADISON E Primary Care Unavailable COZ YATACO, ABIMAEL O Referring Unavailable NORTH, MADISON E Primary Care Unavailable COZ YATACO, ABIMAEL O Attending Unavailable COZ YATACO, ABIMAEL O Referring Unavailable NORTH, MADISON E Primary Care Unavailable COZ YATACO, ABIMAEL O Referring Unavailable NORTH, MADISON E Primary Care Unavailable SELF Referring Unavailable NORTH, MADISON E Primary Care Unavailable SELF Referring Unavailable NORTH, MADISON E Primary Care Unavailable COZ YATACO, ABIMAEL O Attending Unavailable SELF Referring Unavailable NORTH, MADISON E Primary Care Unavailable PEGGY GARCIA Attending Unavailable CHASIDY MAY Attending Unavailable Allergies Allergy Classification Reported Allergen(s) Allergy Type Date of Onset Reaction(s) Facility (12 sources) Alendronate; Translations: [Fosamax] Drug Allergy 12-02-19 16 [facility] (20 sources) Latex; Translations: [Latex] Drug allergy (disorder) 01-25-20 13 Eruption of skin (disorder) [facility] (2 sources) meloxicam Drug Allergy 04-27-20 11 [facility] (20 sources) Morphine; Translations: [morphine] Drug Allergy 11-06-20 14 Hives [facility] Comment on above: Onset Date: 02/03/20 19 (11 sources) Sulfonamides (Antibiotic); Translations: [SULFA (SULFONAMIDE ANTIBIOTICS)] Drug allergy (disorder) 04-27-20 11 Hives [facility] (2 sources) traMADol Drug Allergy 12-14-19 14 [facility] (6 sources) Alendronate; Translations: [alendronate] Drug Allergy 05-10-20 18 Unknown, Leg cramps [facility] (20 sources) Latex Propensity to adverse reactions 10-05-20 23 Unknown [facility] (20 sources) meloxicam; Translations: [meloxicam] Drug Allergy 11-09-20 14 Unknown [facility] (12 sources) Pravastatin Drug Allergy 01-12-20 24 Other: See Comments [facility] (3 sources) Sulfonamides (Antibiotic) Drug allergy Unknown [facility] Other (20 sources) Alendronate Drug Allergy 10-05-20 23 Unknown [facility] (20 sources) Morphine; Translations: [morphine] Drug Allergy 02-03-20 19 Unknown [facility] (20 sources) Sulfonamides (Antibiotic) Propensity to adverse reactions to drug 10-05-20 23 Unknown [facility] (20 sources) traMADol; Translations: [TRAMADOL] Drug Allergy 11-09-20 14 Unknown [facility] Comment on above: Onset Date: 02/03/20 19 (1 source) Allergies Reconciled Propensity to adverse reactions Unknown [facility] Other (1 source) Sulf-10 Drug allergy 01-26-20 19 Unknown [facility] Other (1 source) Mobic *ANALGESICS - ANTI-INFLAMMATOR Y* Propensity to adverse reactions 01-26-20 Comment:Freete xt Needs Updated. [facility] Other (1 source) patient allergy list reviewed by nurse or physicia Propensity to adverse reactions 05-29-20 Comment:Done [facility] Other (7 sources) Alendronate Drug Allergy 01-12-20 Hives [facility] (7 sources) Mobic *ANALGESICS - ANTI-INFLA Allergy to substance 11-17-20 Comment:Freete xt Needs Updated. [facility] Comment on above: Free Text Allergy: M obic *ANALGESICS - ANTI-INFLAMMATORY*; Onset Date: 01/25/2019 (12 sources) Sulfonamides (Antibiotic); Translations: [sulfa drugs] Propensity to adverse reactions (disorder) Unsure [facility] Rep[facility] Medications Current Medications Medication Drug Class(es) Dates Sig (Normalized) Sig (Original) acetaminophen 325 mg oral tablet (4 sources) Start: 10-30-2023 End: 11-29-2023 take 2 tablets by mouth every four hours as needed acetaminophen (TYLENOL) 325 mg tablet Take 2 tablets by mouth every 4 hours as needed for pain. 120 tablet 1 10/30/2023 11/29/2023 Active Comment on above: Take 2 tablets by mo [facility] every 4 hours as needed for pain. [id number] 200 actuat albuterol 0.09 mg/actuat metered dose inhaler (3 sources) beta2-Adrenergic Agonist Start: 08-25-2024 take 1 puff(s) by inhalation every four to six hours as needed Albuterol Sulfate 90 mcg/actuation HFA aerosol inhaler Active 2 PUFF INHALATION EVERY 4-6 HOURS as needed for bronchospasm 8.5 August 24, 2024 11:00pm Albuterol (Eqv-ProAir HFA) 90 mcg/inh inhalation aerosol (1 source) Start: 11-18-2024 Albuterol (Eqv-ProAir HFA) 90 mcg/inh inhalation aerosol Refill(s) 0 Start Date: 11/18/24 Status: Ordered amoxicillin 875 mg / clavulanate 125 mg oral tablet (9 sources) Penicillin-class Antibacterial Start: 11-20-2024 take 1 tablet by mouth every twelve hours Augmentin 875 mg oral tablet = 1 tab(s), Oral, q12hr, # 8 tab(s), Refills(s) 0, Pharmacy: [facility]/pharmacy #[id number], 162.6, cm, 11/18/24 6:11:00 EST, Height/Length Dosing, 72.6, kg, 11/18/24 6:11:00 EST, Weight Dosing Start Date: 11/20/24 Status: Ordered Start: 09-06-2024 End: 11-24-2024 take 1 tablet by mouth twice daily Amoxicillin-Pot Clavulanate 875-125 mg tablet Discontinued 1 TAB PO Twice daily September 05, 2024 11:00pm November 24, 2024 11:05am Start: 02-01-2024 End: 04-05-2024 take 1 tablet by mouth twice daily Amoxicillin-Pot Clavulanate 875-125 mg tablet Discontinued 1 TAB PO Twice daily January 31, 2024 11:00pm April 05, 2024 7:39am Aspir-81 81 MG (3 sources) take 1 tablet by mouth once in the morning Aspir-81 81 MG 1 tablet Orally Q am for 30 day(s) Active aspirin 81 mg delayed release oral tablet (20 sources) Platelet Aggregation Inhibitor, Nonsteroidal Anti-inflammatory Drug Start: 01-12-2024 take 1 tablet by mouth once daily aspirin 81 mg Oral EC Tab 81 mg = 1 tab(s), Oral, Daily, Refills(s) 0 Start Date: 11/18/24 Status: Ordered aspirin, enteric coated (ASPIRIN, ENTERIC COATED) 81 mg EC tablet Take 162 mg by mouth. 0 Active Comment on above: Take 162 mg by mouth . Take 81 mg by mouth. azithromycin 250 mg oral tablet (1 source) Macrolide Antimicrobial Start: 11-20-20 take 2 tablets by mouth once daily azithromycin 250 mg Tab 500 mg = 2 tab(s), Oral, Daily, # 4 tab(s), Refills(s) 0, Pharmacy: [facility]/pharmacy #[id number], 162.6, cm, 11/18/24 6:11:00 EST, Height/Length Dosing, 72.6, kg, 11/18/24 6:11:00 EST, Weight Dosing Start Date: 11/20/24 Status: Ordered citalopram 40 mg oral tablet (20 sources) Serotonin Reuptake Inhibitor Start: 04-26-20 End: 10-31-20 take 1 tablet by mouth once daily Citalopram 40 mg tablet Active 0 .ROUTE .COMPLEX 90 October 31, 2024 8:29am TAKE 1 TABLET BY MOUTH EVERY DAY Start: 07-22-2023 End: 04-26-2024 take 1 tablet by mouth once citalopram (CELEXA) 40 mg tablet Take 1 tablet by mouth every afternoon. 07/22/2023 Active Comment on above: Take 1 tablet by matt every afternoon. ergocalciferol 1.25 mg oral capsule (2 sources) Provitamin D2 Compound Start: 11-24-19 take 1 capsule by mouth every week Ergocalciferol (Vitamin D2) (Vitamin D2) 1,250 mcg (50,000 unit) capsule Active 1250 MCG PO every week November 24, 2024 12:00am Start: 11-20-2024 take 1 capsule by mo [facility] every week ergocalciferol 50,000 intl units Cap 50,000 International_Unit = 1 cap(s), Oral, qWeek, # 4 cap(s), Refills(s) 0, Pharmacy: [facility]/pharmacy #[id number], 162.6, cm, 11/18/24 6:11:00 EST, Height/Length Dosing, 72.6, kg, 11/18/24 6:11:00 EST, Weight Dosing Start Date: 11/20/24 Status: Ordered Gnhpddpxelu-Tbexcjmiz-Kzanky er (3 sources) Start: 08-25-2024 Iacmwcdwins-Zyudukfbc-Wscfdb er (Trelegy Ellipta) 200-62.5-25 mcg blister with device Active INHALATION August 24, 2024 11:00pm Start: 08-25-2024 Fluticasone-Um eclidin-Vilanter (Trelegy Ellipta) 200-62.5-25 mcg blister with device Active INHALATION August 25, 2024 12:00am fdjvizymdvl-eyzzqhreu-sukcwg er (TRELEGY ELLIPTA) 200-62.5-25 mcg inhalation powder (6 sources) Start: 12-25-2024 End: 12-25-2025 take 1 puff(s) by inhalation once daily asiwijmdsvs-sybmfhbqq-rrytgjki (TRELEGY ELLIPTA) 200-62.5-25 mcg inhalation powder Indications: Chronic cough , Centrilobular emphysema (HCC) Inhale 1 Puff as instructed once daily. 60 Each 11 12/25/2024 12/25/2025 Active Start: 06-20-2024 End: 12-25-2024 take 1 puff(s) by inhalation once daily tsdiyqweqqe-zmgbgokxb-ordlvxle (TRELEGY ELLIPTA) 200-62.5-25 mcg inhalation powder Indications: Chronic cough , Centrilobular emphysema (HCC) Inhale 1 Puff as instructed once daily. 60 Each 5 06/20/2024 12/25/2024 Discontinued Start: 06-20-2024 End: 12-17-2024 take 1 puff(s) by inhalation once daily hmxghxfzsox-bgsiblpqf-csyyhouq (TRELEGY ELLIPTA) 200-62.5-25 mcg inhalation powder Indications: Chronic cough , Centrilobular emphysema (HCC) Inhale 1 Puff as instructed once daily. 60 Each 5 06/20/2024 12/17/2024 Active Iron (1 source) Iron Active oxyCODONE hydrochloride 5 mg oral tablet (4 sources) Opioid Agonist Start: 3 End: 3 take 1 tablet by mouth every six hours as needed for pain oxyCODONE IR (ROXICODONE) 5 mg immediate release tablet Indications: Postoperative pain Take 1 tablet by mouth every 6 hours as needed for pain for up to 7 days. 28 tablet 0 10/30/2023 11/06/2023 Active Comment on above: Take 1 tablet by [place] every 6 hours as needed for pain for up to 7 days. potassium chloride 20 meq powder for oral solution (4 sources) Start: 3 End: 3 take 20 mEq by mouth once daily potassium chloride (KLOR-CON) 20 mEq packet Take 20 mEq by mouth once daily for 10 days. 10 Packet 0 10/30/2023 11/09/2023 Active Comment on above: Take 20 mEq by mouth once daily for 10 days. rosuvastatin calcium 40 mg oral tablet (20 sources) HMG-CoA Reductase Inhibitor Start: 3 End: 5 take 1 tablet by mouth once daily rosuvastatin (CRESTOR) 40 mg tablet TAKE 1 TABLET BY MOUTH EVERY DAY 90 tablet 3 03/23/2025 Active Comment on above: Take 40 mg by mouth. Take 1 tablet by matt th once daily. Trelegy Ellipta 200 mcg-62.5 mcg-25 mcg/inh inhalation powder (1 source) Start: Trelegy Ellipta 200 mcg-62.5 mcg-25 mcg/inh inhalation powder 1 inh, Inhalation, Daily, Refill(s) 0 Start Date: 11/18/24 Status: Ordered Completed/Discontinued Medications Medication Drug Class(es) Dates Sig (Normalized) Sig (Original) amLODIPine 5 mg oral tablet (16 sources) Dihydropyridine Calcium Channel Todd End: 06-20-2024 take 1 tablet by mouth every twenty-four hours amLODIPine (NORVASC) 5 mg tablet Take 5 mg by mouth every 24 hours. 0 06/20/2024 Discontinued amLODIPine (NORV ASC) 2.5 mg tablet Take 2.5 mg by mouth. 0 Suspended take 1 tablet by matt th every twenty-four hours amLODIPine Besylate 5 MG 1 tablet Orally Once a day Active Comment on above: Take 2.5 mg by mouth . bisacodyl 10 mg rectal suppository (14 sources) Stimulant Laxative Start: 01-12-2024 End: 05-21-2024 Bisacodyl (Dulcolax (Bisacodyl)) 10 mg suppository Discontinued 10 MG OR Daily as needed January 12, 2024 12:00am May 21, 2024 12:14pm Start: 10-31-2023 End: 01-29-2024 take 2 tablets by mouth once daily bisacodyl EC (DULCOLAX) 5 mg EC tablet Take 2 tablets by mouth once daily. 60 tablet 2 10/31/2023 01/29/2024 Active Dulcolax Active Comment on above: Take 2 tablets by mo ut once daily. 24 hr buPROPion hydrochloride 150 mg extended release oral tablet (3 sources) Aminoketone Start: 8 End: take 1 tablet by mouth every twenty-four hours buPROPion XL (WELLBUTRIN XL) 150 mg 24 hr tablet Take 150 mg by mouth. 0 04/07/2018 10/25/2023 Discontinued Comment on above: Take 150 mg by mouth . calcium carbonate-Vit D3-minerals (CALTRATE) 600 mg calcium- 400 unit tab (3 sources) End: calcium carbonate-Vit D3-minerals (CALTRATE) 600 mg calcium- 400 unit tab Take by mouth as directed. 0 10/25/2023 Discontinued calcium carbonat e-Vit D3-minerals (CALTRATE) 600 mg calcium- 400 unit tab Take by mouth as directed. 0 Active Comment on above: Take by mouth as dir ected. cefdinir 300 mg oral capsule (3 sources) Cephalosporin Antibacterial Start: 08-25-20 End: 09-06-20 24 take 1 capsule by mouth twice daily Cefdinir 300 mg capsule Discontinued 300 MG PO Twice daily August 24, 2024 11:00pm September 06, 2024 7:14am cephalexin 500 mg oral capsule (4 sources) Cephalosporin Antibacterial Start: 05-21-20 End: 08-25-20 take 1 capsule by mouth three times daily Cephalexin 500 mg capsule Discontinued 500 MG PO Three times daily 11 06May 20, 2024 11:00pm August 25, 2024 8:24am ciprofloxacin 250 mg oral tablet (3 sources) Quinolone Antimicrobial Start: 05-26-20 End: 08-25-20 take 1 tablet by mouth every twelve hours Ciprofloxacin Hcl 250 mg tablet Discontinued 250 MG PO Every 12 hours 08 26May 25, 2024 11:00pm August 25, 2024 8:24am cycloSPORINE (RESTASIS) 0.05 % ophthalmic emulsion (3 sources) End: 10-25-20 cycloSPORINE (RESTASIS) 0.05 % ophthalmic emulsion 1 Drop. 0 10/25/2023 Discontinued cycloSPORINE (RE STASIS) 0.05 % ophthalmic emulsion 1 Drop. 0 Active Comment on above: 1 Drop. esomeprazole 40 mg delayed release oral capsule (6 sources) Proton Pump Inhibitor End: 024 take 1 capsule by mouth once daily esomeprazole (NEXIUM) 40 mg capsule Take 1 capsule by mouth once daily. 0 06/20/2024 Discontinued 1 ml evolocumab 140 mg/ml prefilled syringe (5 sources) PCSK9 Inhibitor End: 023 inject 140 mg by subcutaneous injection every other week evolocumab 140 mg/mL Inject 140 mg subcutaneously every 2 weeks. 0 10/25/2023 Discontinued Comment on above: Inject 140 mg subcut aneously every 2 weeks. furosemide 20 mg oral tablet (5 sources) Loop Diuretic Start: End: take 1 tablet by mouth once daily furosemide (LASIX) 20 mg tablet Take 1 tablet by mouth once daily for 10 days. 10 tablet 0 10/30/2023 12/23/2023 Discontinued (Course of therapy completed) Comment on above: Take 1 tablet by matt th once daily for 10 days. gabapentin 400 mg oral capsule (5 sources) Anti-epileptic Agent End: 023 gabapentin (NEURONTIN) 400 mg capsule Take 400 mg by mouth. 0 10/25/2023 Discontinued take 1 tablet by mouth twice dwain ly Neurontin 300 mg one tablet Orally twice a day for 30 day(s) Active Comment on above: Take 400 mg by mouth . hydroxychloroquine sulfate 200 mg oral tablet (5 sources) Antimalarial, Antirheumatic Agent End: 10-25-20 hydrOXYchloroQUINE (PLAQUENIL) 200 mg tablet Take 400 mg by mouth. 0 10/25/2023 Discontinued take 1 tablet by matt th every twenty-four hours Plaquenil 200 MG 1 tablet with food or milk Orally Once a day Active Comment on above: Take 400 mg by mouth . 24 hr metoprolol succinate 25 mg extended release oral tablet (20 sources) beta-Adrenergic Todd Start: 11-19-2024 End: 11-19-2024 metoprolol succinate 25 mg ER Tab 12.5 mg = 0.5 tab(s), Tab-ER, Oral, NOW, Start date 11/19/24 11:06:00 AM EST, Hold for sbp 110 or less or HR 55 or less, 11/19/24 11:06:00 EST Start Date: 11/19/24 Stop Date: 11/19/24 Status: Completed Start: 06-20-2024 End: 06-20-2025 take 0.5 tablet by mouth once daily metoprolol tartrate, short acting, (LOPRESSOR) 25 mg tablet Take 0.5 tablets by mouth once daily. 45 tablet 3 06/20/2024 12/25/2024 Discontinued (Other) Start: 05-21-2024 End: 11-24-2024 Metoprolol Tartrate 25 mg ta blet Discontinued 12.5 MG PO Once May 21, 2024 12:15pm November 24, 2024 10:51am Start: 05-21-2024 take 12.5 mg by mouth once Met oprolol Tartrate Active 12.5 MG PO Once May 21, 2024 1:15pm Start: 01-12-2024 End: 05-21-2024 take 1 tablet by mouth twice daily Metoprolol Tartrate 25 mg tablet Discontinued 12.5 MG PO Twice daily January 12, 2024 12:00am May 21, 2024 12:16pm FreeText[employer] tablet twice a day; Note: Source Status: Taking; Provider: Can Wallace ( ) Start: 01-12-2024 End: 05-21-2024 take 1 tablet by mouth twice daily Metoprolol Tartrate Discontinued 12.5 MG PO Twice daily January 12, 2024 1:00am May 21, 2024 1:16pm [employer] tablet twice a day; Note: Source Status: Taking; Provider: Can Wallace ( ) Start: 01-04-2024 End: 01-03-2025 take 0.5 tablet by mouth every twelve hours metoprolol tartrate, short acting, (LOPRESSOR) 25 mg tablet Take 0.5 tablets by mouth every 12 hours. 90 tablet 3 01/04/2024 06/20/2024 Discontinued Start: 10-30-2023 End: 01-28-2024 take 1 tablet by mouth every twelve hours metoprolol tartrate, short acting, (LOPRESSOR) 25 mg tablet Take 1 tablet by mouth every 12 hours. 180 tablet 0 10/30/2023 01/04/2024 Discontinued take 1 tablet by matt th every twelve hours Metoprolol Tartrate 25 MG 1 tablet twice a day Active Comment on above: Take 1 tablet by matt th every 12 hours. Take 0.5 tablets by mouth every 12 hours. mupirocin 0.02 mg/mg topical ointment (1 source) RNA Synthetase Inhibitor Antibacterial Start: mupirocin (BACTROBAN) 2 % ointment Apply a small amount in each nostril using a cotton swab twice the day before surgery and once the morning of surgery. 22 g 0 10/25/2023 Suspended Comment on above: Apply a small amount in each nostril using a cotton swab twice the day before surgery and once the morning of surgery. omeprazole 40 mg delayed release oral capsule (20 sources) Proton Pump Inhibitor Start: 3 End: 4 take 1 capsule by mouth once daily Omeprazole 40 mg capsule,delayed release(DR/EC) Discontinued 40 MG PO Daily January 12, 2024 12:00am May 21, 2024 12:16pm [employer] capsule 30 minutes before morning meal Orally Once a day; Note: Source Status: Taking; Refills: 3; Qty: 90 Capsule; Provider: Can Echevarria Start: 02-06-2010 take 1 capsule by mo [facility] every twelve hours Omeprazole 20 MG 1 capsule Orally BID for 30 day(s) Jan, Active Comment on above: Take 40 mg by mouth. phenazopyridine hydrochloride 200 mg oral tablet (4 sources) Start: 4 End: 4 take 1 tablet by mouth three times daily as needed for pain Phenazopyridine (Pyridium) 200 mg tablet Discontinued 200 MG PO Three times daily as needed for pain 9 3 May 20, 2024 11:00pm August 25, 2024 8:24am predniSONE 2.5 mg oral tablet (5 sources) End: 3 predniSONE (DELTASONE) 2.5 mg tablet Take 2.5 mg by mouth. 0 10/25/2023 Discontinued Prednisone 1 tab Oral Active Comment on above: Take 2.5 mg by mouth . therapeutic multivitamin-minerals (THERA-M PLUS) 9 mg iron-400 mcg tablet (5 sources) Start: 10-31-2023 End: 12-23-2023 therapeutic multivitamin-minerals (THERA-M PLUS) 9 mg iron-400 mcg tablet Take 1 tablet by mouth daily with breakfast. 30 tablet 2 10/31/2023 12/23/2023 Discontinued (Course of therapy completed) Start: 10-31-2023 End: 01-29-2024 therapeutic multivitamin-min erals (THERA-M PLUS) 9 mg iron-400 mcg tablet Take 1 tablet by mouth daily with breakfast. 30 tablet 2 10/31/2023 01/29/2024 Active Comment on above: Take 1 tablet by matt daily with breakfast. tiZANidine 4 mg oral tablet (3 sources) Central alpha-2 Adrenergic Agonist End: 3 take 1 tablet by mouth every six hours as needed tiZANidine (ZANAFLEX) 4 mg tablet Take 4 mg by mouth every 6 hours as needed. 0 10/25/2023 Discontinued Comment on above: Take 4 mg by mouth e very 6 hours as needed. topiramate 25 mg oral tablet (6 sources) End: 4 take 1 tablet by mouth twice daily topiramate (TOPAMAX) 25 mg tablet Take 25 mg by mouth two times a day. 0 06/20/2024 Discontinued Problems Active Problems Problem Classification Problem Date Documented Da te Episodic/Chronic Abdominal hernia (6 sources) Hiatal hernia; Translations: [Hiatal hernia] Episodic Acute myocardial infarction (9 sources) Non-ST elevation (NSTEMI) myocardial infarction; Translations: [I21.4] Onset: 4 Chronic Aortic; peripheral; and visceral artery aneurysms (2 sources) Aortic ectasia, unspecified site; Translations: [Aortic ectasia, unspecified site] Onset: 2 Chronic Cardiac dysrhythmias (1 source) Cardiac arrhythmia, unspecified; Translations: [Cardiac arrhythmia, unspecified] Onset: 9 Chronic Cardiac dysrhythmias (9 sources) Bradycardia; Translations: [Bradycardia, unspecified] 03-24-2024 Episodic Chronic obstructive pulmonary disease and bronchiectasis (5 sources) Centriacinar emphysema; Translations: [Centrilobular emphysema] Onset: 4 06-20-2024 Chronic Chronic obstructive pulmonary disease and bronchiectasis (3 sources) Bronchitis; Translations: [Bronchitis, not specified as acute or chronic] 09-04-2024 Episodic Coagulation and hemorrhagic disorders (18 sources) Blood coagulation disorder; Translations: [Coagulation defect, unspecified] Onset: 3 10-26-2023 Chronic Complications of surgical procedures or medical care (18 sources) Cardiac insufficiency following cardiac surgery; Translations: [Postprocedural cardiac insufficiency following cardiac surgery] Onset: 3 10-26-2023 Chronic Conditions associated with dizziness or vertigo (3 sources) Dizziness; Translations: [Dizziness] Episodic Coronary atherosclerosis and other heart disease (20 sources) Atherosclerotic heart disease of [place] coronary artery without angina pectoris; Translations: [Coronary arteriosclerosis] Onset: 3 10-26-2023 Chronic Deficiency and other anemia (1 source) Anemia; Translations: [Anemia, unspecified] Onset: 4 Episodic Diabetes mellitus without complication (1 source) Other abnormal glucose Episodic Diseases of white blood cells (1 source) Elevated white blood cell count, unspecified; Translations: [Leukocytosis, unspecified type] Onset: 4 Chronic Disorders of lipid metabolism (20 sources) Pure hypercholesterolemia; Translations: [Pure hypercholesterolemia] Onset: 2 10-26-2023 Chronic Esophageal disorders (10 sources) Gastroesophageal reflux disease; Translations: [GERD [Gastroesophageal reflux disease]] Onset: 9 Chronic Essential hypertension (20 sources) Hypertensive disorder; Translations: [Essential (primary) hypertension] Onset: 4 10-26-2023 Chronic Genitourinary symptoms and ill-defined conditions (10 sources) Blood in urine; Translations: [Hematuria] Onset: 9 05-21-2024 Episodic Headache; including migraine (3 sources) Headache; Translations: [Headache, Unspecified] Episodic Heart valve disorders (20 sources) Aortic valve stenosis; Translations: [Aortic stenosis] Onset: 2 Chronic Malaise and fatigue (9 sources) Fatigue; Translations: [Fatigue] Onset: 9 Episodic Mood disorders (5 sources) Major depressive disorder, single episode, unspecified; Translations: [Depression] Onset: 4 Chronic Mood disorders (1 source) Mood disorders; Translations: [Depression, unspecified] Nonspecific chest pain (20 sources) Tight chest; Translations: [Chest pressure] Onset: 3 Episodic Nutritional deficiencies (3 sources) Vitamin D deficiency; Translations: [Vitamin D deficiency, unspecified] Chronic Osteoporosis (7 sources) Osteoporosis; Translations: [Osteoporosis 5th Digit] Onset: 9 Chronic Other aftercare (1 source) Long-term current use of drug therapy; Translations: [Other 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 terminal operator (current) drug therapy] Onset: 4 Episodic Other aftercare (1 source) Encounter for follow-up examination after completed treatment for conditions other than malignant neoplasm; Translations: [Other follow-up examination] 11-24-2024 Episodic Other bone disease and musculoskeletal deformities (1 source) Idiopathic aseptic necrosis of left femur; Translations: [Idiopathic aseptic necrosis of left femur] Chronic Other circulatory disease (18 sources) Disorder of artery; Translations: [Disorder of arteries and arterioles, unspecified] Onset: 4 10-07-2023 Chronic Other circulatory disease (3 sources) Ecchymosis; Translations: [Ecchymosis] Episodic Other circulatory disease (1 source) Elevated blood-pressure reading, without diagnosis of hypertension; Translations: [Elevated blood-pressure reading, without diagnosis of hypertension] Episodic Other circulatory disease (1 source) History of transient ischemic attack; Translations: [Personal history of transient ischemic attack (TIA), and cerebral infarction without residual deficits] Onset: 4 Episodic Other connective tissue disease (3 sources) Pain in limb; Translations: [Lower extremity pain] Episodic Other connective tissue disease (3 sources) Muscle weakness; Translations: [Muscle weakness] Episodic Other connective tissue disease (18 sources) Fibromyalgia; Translations: [Fibromyalgia] 10-26-2023 Episodic Other ear and sense organ disorders (3 sources) Otalgia; Translations: [Earache] Episodic Other ear and sense organ disorders (1 source) Impacted cerumen; Translations: [Impacted cerumen, left ear] Episodic Other ear and sense organ disorders (1 source) Otalgia, unspecified ear; Translations: [Otalgia, unspecified ear] Episodic Other gastrointestinal disorders (2 sources) Constipation; Translations: [Constipation, unspecified] Episodic Other gastrointestinal disorders (1 source) Constipation, unspecified; Translations: [Constipation] Episodic Other infections; including parasitic (3 sources) Post-viral disorder; Translations: [Post-COVID syndrome] 04-05-2024 Chronic Other infections; including parasitic (3 sources) Personal history of other infectious and parasitic diseases; Translations: [History of COVID-19] 04-05-2024 Episodic Other lower respiratory disease (4 sources) Shortness of breath; Translations: [SHORTNESS OF BREATH] Onset: 3 Episodic Other lower respiratory disease (2 sources) Dyspnea; Translations: [Dyspnea, unspecified] 04-05-2024 Episodic Other lower respiratory disease (1 source) Snoring; Translations: [Snoring] 06-20-2024 Episodic Other nervous system disorders (18 sources) Peripheral nerve disease ; Translations: [Polyneuropathy, unspecified] 10-26-2023 Chronic Other nervous system disorders (18 sources) Postoperative pain ; Translations: [Other acute postprocedural pain] 10-26-2023 Episodic Other non-traumatic joint disorders (9 sources) Pain in right shoulder; Translations: [Right shoulder pain] 03-24-2024 Episodic Other nutritional; endocrine; and metabolic disorders (1 source) Body mass index 25-29 - overweight; Translations: [Body mass index (BMI) 26.0-26.9, adult] Episodic Other upper respiratory disease (1 source) Allergic rhinitis; Translations: [Allergic rhinitis, unspecified] Chronic Other upper respiratory infections (4 sources) Chronic sinusitis; Translations: [Sinusitis, Chronic] Chronic Other upper respiratory infections (14 sources) Viral upper respiratory tract infection; Translations: [Acute upper respiratory infection, unspecified] 01-21-2024 Episodic Otitis media and related conditions (4 sources) Left mastoiditis; Translations: [Unspecified mastoiditis, left ear] 09-06-2024 Episodic Pneumonia (except that caused by tuberculosis or sexually transmitted disease) (9 sources) Pneumonia, unspecified organism; Translations: [J18.9] Onset: 4 Episodic Residual codes; unclassified (3 sources) Tobacco user; Translations: [Tobacco use disorder, current] Episodic Spondylosis; intervertebral disc disorders; other back problems (20 sources) Backache; Translations: [Back pain] Onset: 9 04-05-2024 Episodic Substance-related disorders (1 source) Nicotine dependence, cigarettes, uncomplicated; Translations: [NICOTINE DEPEND CIGARETTES UNCOMP] Onset: 3 Chronic Systemic lupus erythematosus and connective tissue disorders (20 sources) Systemic lupus erythematosus; Translations: [Systemic lupus erythematosus, unspecified] Onset: 9 10-26-2023 Chronic Unclassified (1 source) CONTACT W/AND (SUSP) EXPOS COVID-19; Translations: [CONTACT W/AND (SUSP) EXPOS COVID-19] Onset: 3 Unclassified (1 source) Post-COVID syndrome; Translations: [Post-COVID syndrome] Onset: 4 Unclassified (1 source) History of COVID-19; Translations: [History of COVID-19] Onset: 4 Urinary tract infections (5 sources) Acute urinary tract infection; Translations: [Urinary tract infection, site not specified] 05-21-2024 Episodic Viral infection (7 sources) Disease caused by 2019-nCoV; Translations: [COVID-19] 02-01-2024 Episodic Past or Other Problems Problem Classification Problem Date Documented Da te Episodic/Chronic Administrative/social admission (20 sources) Discharge status; Translations: [Encounter for administrative examinations, unspecified] Onset: 10-25-2023 10-25-2023 Episodic Blindness and vision defects (1 source) Unspecified visual disturbance; Translations: [Unspecified visual disturbance] Onset: 01-25-2019 Episodic Complication of device; implant or graft (20 sources) Prosthetic aortic valve stenosis; Translations: [Stenosis of other cardiac prosthetic devices, implants and grafts, initial encounter] Onset: 10-05-2023 10-05-2023 Episodic Complications of surgical procedures or medical care (19 sources) Postprocedural respiratory failure; Translations: [Acute postprocedural respiratory failure] Onset: 10-26-2023 Resolved: 06-20-2024 10-26-2023 Episodic Immunizations and screening for infectious disease (4 sources) Contact with or exposure to other viral diseases; Translations: [Exposure to 2018 novel coronavirus] Onset: 06-20-2024 01-21-2024 Episodic Other gastrointestinal disorders (1 source) Other constipation; Translations: [Other constipation] Onset: 01-25-2019 Episodic Other lower respiratory disease (2 sources) Dyspnea, unspecified; Translations: [DYSPNEA UNSPECIFIED] Onset: 03-15-2023 Episodic Other lower respiratory disease (4 sources) Chronic cough; Translations: [Chronic cough] Onset: 06-20-2024 06-20-2024 Episodic Other lower respiratory disease (1 source) Other forms of dyspnea; Translations: [LONGO (dyspnea on exertion)] Onset: 03-31-2024 Episodic Other nervous system disorders (1 source) Altered sensation of skin; Translations: [Disturbance of skin sensation] Onset: 01-25-2019 Episodic Other screening for suspected conditions (not mental disorders or infectious disease) (5 sources) Other specified abnormal findings of blood chemistry; Translations: [Blood chemistry abnormal] Onset: 03-31-2024 Episodic Pleurisy; pneumothorax; pulmonary collapse (17 sources) Atelectasis; Translations: [Atelectasis] Onset: 10-27-2023 10-28-2023 Episodic Residual codes; unclassified (1 source) Insomnia, unspecified; Translations: [Insomnia, unspecified] Onset: 01-25-2019 Episodic Results Test Name Value Interpretation Reference Range Facility Office Visiton 02-26-2025 Follow-up visit [id number] Jailene Fairbanks 1955 F Date Provider Department Center 02/26/2025 Amado-PEGGY GARCIA SANDIE [facility] Family History Problem Relation Age of Onset Coronary artery disease Mother Coronary artery disease Father Family Status - Relation Status Age at Mother Father Sister Alive Brother Alive Level of Service:68095 OR OFFICE/OUTPATIENT ESTABLISHED MOD MDM 30 MIN Normal [facility] CNOVon 12-25-2024 CNOV Office Visit (PMNA11 ) JAILENE FAIRBANKS ([id number]) 1955 F Date Time Provider Department 12/25/24 10:30 AM ABIMAEL LUNA [id number] During your visit today, we recorded the following information about you: Temperature Pulse Respiration Blood pressure 97.2 degrees 68/minute 18/minute 116/74 Abimael Luna MD 12/25/2024 11:06 AM Signed . DEPARTMENT OF PULMONARY MEDICINE OUTPATIENT VISIT DATE December 25, 2024 OUTPATIENT VISIT TYPE ESTABLISHED PATIENT Ms. Fairbanks is a 69 year old female who presents to the [facility] [place] for follow up on chronic cough and shortness of breath. HPI: 69 year old female with past medical history of hypertension, hyperlipidemia, possible lupus, and aortic valve replacement who is here today for follow up on cough and shortness of breath. She was recently admitted to the hospital for concern of ACS and pneumonia. She was hospitalized for 3 days. She reported her symptoms were shortness of breath and pain in the mid back. Since then, she reports shortness of breath that occurs at rest. She describes it is associated with fluttering sensation in the chest. She has not had a Holter in several years. She is doing well from the respiratory standpoint. She is using the inhaler on a regular basis. The cough has improved significantly. Review of Systems: GEN: No fevers/chills, night sweats, or weight changes HENT: No rhinorrhea, pharyngitis, sinus drainage, congestion, or oral ulcers EYES: No sudden vision changes CV: No chest pain, palpitations RESP: As above GI: No nausea/vomiting/consti pation/diarrhea, no acid reflux : No dysuria, no hematuria MSK: No joint swelling NEURO: No sudden weakness or numbness SKIN: No rash Past Medical History: PAST MEDICAL HISTORY Diagnosis Date AAA (abdominal aortic aneurysm) (HCC) Coronary artery disease Dyslipidemia Fibromyalgia Hypertension Irregular heart beat Peripheral neuropathy Prosthetic aortic valve stenosis Systemic lupus erythematosus (HCC) TIA (transient ischemic attack) Unsure when- Comfirmed with Neurology Past Surgical History: PAST SURGICAL HISTORY Procedure Laterality Date ANKLE SURGERY HX Left HEMORRHOID;BAND LIGAT, SNGL/MUL HYSTERECTOMY LEFT HEART CATH,PERCUTANEOUS multiple PAST SURGICAL HISTORY OF 10/25/2014 AVR PAST SURGICAL HISTORY OF C section x2 PAST SURGICAL HISTORY OF R tibia and fibula surgery Work and Social Histories: Social History Tobacco Use Smoking status: Former Current packs/day: 0.00 Average packs/day: 0.3 packs/day for 30.0 years (7.5 ttl pk-yrs) Types: Cigarettes Start date: 02/1993 Quit date: 02/2023 Years since quittin.8 Smokeless tobacco: Never Substance Use Topics Alcohol use: Never Drug use: Never Occupation/Exposures: Unchanged since last office visit Family History: FAMILY HISTORY Problem Relation Age of Onset Heart Attack Mother Heart disease Father leaky valve Kidney failure Father Coronary Artery Disease Father Diabetes Father No Known Problems Sister No Known Problems Sister No Known Problems Sister No Known Problems Sister No Known Problems Sister No Known Problems Sister No Known Problems Sister No Known Problems Sister No Known Problems Brother Stroke Maternal Grandmother Heart Attack Maternal Grandfather Stroke Paternal Grandmother No Known Problems Paternal Grandfather other (Bicuspid aortic valve) Niece Heart Attack Maternal Aunt Heart Attack Maternal Aunt Arrhythmia Maternal Uncle PPM Coronary Artery Disease Maternal Uncle Bypass other (RBBB) Son No Known Problems Daughter Allergies: Alendronate, Latex, Meloxicam, Morphine, Pravastatin, Sulfa (Sulfonamide Antibiotics), and Tramadol Outpatient Medications: rosuvastatin (CRESTOR) 40 mg tablet Take 1 tablet by mouth once daily. omeprazole (PRILOSEC) 40 mg capsule Take 40 mg by mouth. citalopram (CELEXA) 40 mg tablet Take 1 tablet by mouth every afternoon. aspirin, enteric coated (ASPIRIN, ENTERIC COATED) 81 mg EC tablet Take 81 mg by mouth. fluticasone-umeclidin- vilanter (TRELEGY ELLIPTA) 200-62.5-25 mcg inhalation powder Inhale 1 Puff as instructed once daily. metoprolol tartrate, short acting, (LOPRESSOR) 25 mg tablet Take 0.5 tablets by mouth once daily. PHYSICAL EXAMINATION BP 116/74 Pulse 68 Temp (Src) 97.2 (Temporal) Resp 18 SpO2 97% General appearance: well appearing, in no acute distress, and alert Skin: skin color, texture, turgor normal, no rashes or lesions Respiratory: Lungs clear to auscultation. No wheezing, rhonchi, rales. Percussion normal, good diaphragmatic excursion. Cardiovascular: RRR without murmur, gallop, or rubs. No ectopy S1, S2 normal. Neurological Examination: Alert and Oriented to Place, Person, Time and Situation and Patient follows c (more content not included)... Normal [facility] NITRIC OXIDE, EXHALEDon 02-0 Troy Caceres, [employer] 12/25/2024 10:05 AM ALLERGY AND IMMUNOLOGY ORAL EXHALED NITRIC OXIDE SERVICE DATE: 12/25/2024 SERVICE TIME: 10:04 AM Oral Exhaled Nitric Oxide measurement: 6.0 (ppb) Normal: Adult <25 ppb, pediatric (<12 years) <20 ppb High Normal / Increased: Adult 25-50 ppb, pediatric (<12 years) 20-35 ppb Moderately raised exhaled Nitric Oxide may indicate underlying inflammation, but note that: Cold and influenza can raise exhaled Nitric Oxide and some patients have higher baseline exhaled Nitric Oxide levels than others. High: Adult >50 ppb, pediatric (<12 years) >35 ppb Indicative of ongoing eosinophilic inflammation. Symptomatic patient likely to respond to steroids. Possible causes (if already on steroids): Poor compliance, recent allergen exposure, steroid dose inadequate, and steroid resistance. Note that not all patients with high exhaled nitric oxide levels display symptoms. Oral Exhaled Nitric Oxide measurement (Previous Encounters) Test Date Oral Exhaled Nitric Oxide (ppb) 12/25/2024 6.0 NAME: Troy Caceres, [employer] PATIENT NAME: Jailene Fairbanks DATE: December 25, 2024 TIME: 10:04 AM [facility] Office Visiton 12-04-2024 Follow-up visit [id number] Jailene Fairbanks 1955 F Date Provider Department Center 12/04/2024 [id number] MAY SANDIE [facility] Family History Problem Relation Age of Onset Coronary artery disease Mother Coronary artery disease Father Family Status - Relation Status Age at Mother Father Level of Service:94187 OR OFFICE/OUTPATIENT ESTABLISHED MOD MDM 30 MIN Reason for Visit and Comments: Valve Disorder [3372] Hypertension [787077] - Says metoprolol was recently stopped due to hypotension. Hyperlipidemia [182] - Lipids were drawn on 11/19/2024 while inpatient. Post-Cath [731] - Had heart cath 2 weeks ago while admitted to [facility] for NSTEMI. Coronary Artery Disease [187] Normal [facility] Coding Queryon 11-27-2024 Coding Query Coding Query From: Earl VELAZQUEZ, Alexandra To: Andrew Castellanos DO; Cc: Hansa Dior; Sent: 11/24/2024 14:54:18 EST ! Subject: Coding Query Due Date/Time: 11/27/2024 14:54:00 EST Caller Name: JAILENE FAIRBANKS; Caller Number: H Documentation in the medical record indicates this patient has been admitted with or diagnosed as having: NSTEMI The following is also documented in the medical record: dc summary-Troponins continued to be trended and did increase to as high as 190. Due to patient's history cardiology was consulted and followed patient. Due to patient's history cardiology recommended heart cath. D-dimer was done and was negative so PE was ruled out. IV antibiotics were continued for pneumonia treatment. Patient remained on room air throughout stay. Labs were monitored. Patient had left heart cath on 11/20 which was negative. Echo was done and was negative for acute findings. Based on your medical judgment, can you please clarify if the diagnosis is: [___]Ruled in [___]Ruled out [___]Other (please specify): In responding to this request, please exercise your independent professional judgement. The fact that a question is asked does not imply that any particular answer is desired or expected. Thank you! Alexandra [phone] ruled out From: Andrew Castellanos DO To: Alexandra Elliott RN; Sent: 11/27/2024 07:28:04 EST Subject: RE: Coding Query Caller Name: JAILENE FAIRBANKS; Caller Number: H [facility] Coding Queryon 11-24-2024 Coding Query Coding Query From: Alexandra Elliott RN To: Andrew Castellanos DO; Cc: Hansa Dior; Sent: 11/24/2024 14:54:18 EST ! Subject: Coding Query Due Date/Time: 11/27/2024 14:54:00 EST Caller Name: JAILENE FAIRBANKS; Caller Number: H Documentation in the medical record indicates this patient has been admitted with or diagnosed as having: NSTEMI The following is also documented in the medical record: dc summary-Troponins continued to be trended and did increase to as high as 190. Due to patient's history cardiology was consulted and followed patient. Due to patient's history cardiology recommended heart cath. D-dimer was done and was negative so PE was ruled out. IV antibiotics were continued for pneumonia treatment. Patient remained on room air throughout stay. Labs were monitored. Patient had left heart cath on 11/20 which was negative. Echo was done and was negative for acute findings. Based on your medical judgment, can you please clarify if the diagnosis is: [___]Ruled in [___]Ruled out [___]Other (please specify): In responding to this request, please exercise your independent professional judgement. The fact that a question is asked does not imply that any particular answer is desired or expected. Thank you! Alexandra [phone] [facility] Interdisciplinary Note - Gómez e Manageron 11-23-2024 Interdisciplinary Note - Fan Mail Clerk Interdisciplinary Note - Fan Mail Clerk SW spoke with patient in room. Daughter in room. Patient is alert and oriented and participates in discharge planning. Patient is from home lives with spouse. Dr. Castellanos is following, see notes, saw patient earlier today. Patient was admitted on 11/18/24. Has a consult with Cardio. Patient verified PCP, insurance and DME. Reviewed Medicare rights second copy given, denies any questions. This patient will have family transport home. Patient white board updated, and SW contact information provided. There was a consult to review Advance Directives. Patient did not want a copy at this time. Patient d/c before able to complete consult. [facility] Comment on above: Result Comment: Elec tronically Signed By: Ana PORTERW, Ronit\.br\Date and Time Signed: 11/23/24 14:32 EST C Sputumon 11-22-2024 Bacteria identified Respiratory culture Nom (Sput) Microbiology PROCEDURE: Sputum Culture [R1] SOURCE: Sputum BODY SITE: COLLECTED DATE/TIME: 11/20/2024 10:35 EST RECEIVED DATE/TIME: 11/20/2024 11:35 EST START DATE/TIME: 11/20/2024 11:35 EST FREE TEXT SOURCE: Andrew Castellanos DO. Jasmin BOWMAN, Andrew Paul. FINAL REPORTS Final Report [] Verified Date/Time: 11/22/2024 10:45 EST 1+ Normal upper respiratory freeman isolated STAINS Gram Stain Report [] Verified Date/Time: 11/21/2024 08:54 EST Occasional White Blood Cells Occasional epithelial cells Occasional Gram Positive Cocci Performing Locations R1: [facility], [address] [place] [address], [id number] , , Normal [facility] Comment on above: Performed By: #### [id number] #### [facility] [address] [place] [id number] U Legi Agon 11-22-2024 L. pneumophila 1 Ag IA Ql (U) Negative Invalid Interpretation Code Negative [facility] Comment on above: Result Comment: Pres umptive negative for L. pneumophila serogroup 1 antigen in urine, suggesting no recent or current infection. Legionnaires' disease cannot be ruled out since other serogroups and species may also cause disease. Performed at: [facility] [id number] [place], [place] [id number] MD Will Glass Performed By: #### 2 [id number] #### [facility] [address] [place] [phone] MRSA Screenon 11-21-2024 MRSA DNA FACUNDO+probe Ql (Unsp spec) Microbiology PROCEDURE: MRSA Screen [R1] SOURCE: Nasal BODY SITE: COLLECTED DATE/TIME: 11/19/2024 13:15 EST RECEIVED DATE/TIME: 11/19/2024 14:24 EST START DATE/TIME: 11/19/2024 14:24 EST FREE TEXT SOURCE: SALVATORE ESCALERACNP-BROOKS, Munira CHASE AGACNP-BROOKS, Munira FINAL REPORTS Final Report [] Verified Date/Time: 11/21/2024 10:18 EST MRSA Negative. Performing Locations R1: This test was performed at: [facility], [address] [place] [address], [id number]- , , Normal [facility] Comment on above: Performed By: #### 1 [id number] #### [facility] [address] [place] [id number] CHEMISTRYOrdered By: SYSTEM SYSTEM on 11-20-2024 25-hydroxyvitamin D3 [Mass/Vol] 20.4 ng/mL Low 30.0 - 100.0 ng/mL Remisol Chem CHEMISTRYOrdered By: Yuiry Zimmerman on 11-20-2024 HbA1c (Bld) [Mass fraction] 5.8 % Normal <=5.9% [facility] ChemAutoSS [id number] 11-20-2024 HbA1c (Bld) [Mass fraction] 5.8 % Normal <=5.9 [facility] Comment on above: Performed By: #### 7 [id number] #### [facility] [address] [place] [address] Inpatient Patient Summaryon 11-20-2024 Inpatient Patient Summary Inpatient Patient Summary JAILENE FAIRBANKS :1955 Visit Date:11/18/2024 Inpatient Discharge Instructions Your Care Team Admitting Physician - Andrew Castellanos DO Consulting Physician - Fara MALHOTRA, Khanh Shields [facility] Cardio, XXXX Reason for Your Visit Back pain Your Diagnosis Pneumonia NSTEMI (non-ST elevated myocardial infarction) Elevated d-dimer Aortic valve stenosis Anemia COPD with asthma Hypertension HLD (hyperlipidemia) Depression Chronic GERD History of TIA (transient ischemic attack) On deep vein thrombosis (DVT) prophylaxis Back pain Chills Shortness of breath Tests Performed Legionella Antigen Urine -- Results Pending -- Sputum Culture -- Results Pending -- CV Cardiovascular -- Results Pending -- Echo Transthoracic Complete XR Chest Single View Please visit your patient portal for your results or contact your primary care physician. This Is Your Medications List albuterol (Albuterol (Eqv-ProAir HFA) 90 mcg/inh inhalation aerosol) amoxicillin-clavulanat e (Augmentin 875 mg oral tablet) aspirin (aspirin 81 mg Oral EC Tab) azithromycin (azithromycin 250 mg Tab) citalopram (citalopram 40 mg Tab) ergocalciferol (ergocalciferol 50,000 intl units Cap) fluticasone/umeclidini um/vilanterol (Trelegy Ellipta 200 mcg-62.5 mcg-25 mcg/inh inhalation powder) omeprazole (omeprazole 40 mg Cap-DR) rosuvastatin (rosuvastatin 40 mg Tab) [Image Removed: STOP]Stop taking these medications metoprolol (metoprolol succinate 25 mg ER Tab) Procedure History Cardiac catheterization, left heart (11/20/2024), Aortic valve, Aortic valve. Discharge Vitals Temperature (Axillary) 36.7 ???C Heart Rate (Monitored) 59 Respiratory Rate 17 Blood Pressure 102/67 Weight 74 kg What to do next Instructions From Your Doctor Event Name Event Result Pending Diagnostic Test Results None Discharge Instructions Please return to ER if symptoms change or worsen. Please follow-up with PCP as instructed. New Follow Up Appointments after Discharge Follow Up with Follow up with Count Team Clerk When: Follow Up with CAN MALHOTRA, NATALY WALLACE When: Within 3 to 5 days Comments: Call for followup appointment Where: [address] [place] [address]- Medications What How Much When Instructions Next Dose New amoxicillin-clavulanat e (Augmentin 875 mg oral tablet) 1 Tablets By Mouth Every 12 hours Pickup at [facility]/pharmacy #[id number] 11/21 at 9AM New azithromycin (azithromycin 250 mg Tab) 2 Tablets By Mouth Every day Pickup at [facility]/pharmacy #[id number] 11/21 at 9AM New ergocalciferol (ergocalciferol 50,000 intl units Cap) 1 Capsules By Mouth Every week Pickup at [facility]/pharmacy #[id number] 11/27 Unchanged albuterol (Albuterol (Eqv-ProAir HFA) 90 mcg/ inh inhalation aerosol) 11/20 as ordered Unchanged aspirin (aspirin 81 mg Oral EC Tab) 1 Tablets By Mouth Every day 11/21 resume Unchanged citalopram (citalopram 40 mg Tab) 1 Tablets By Mouth Every day 11/21 at 9AM Unchanged fluticasone/ umeclidinium/ vilanterol (Trelegy Ellipta 200 mcg-62.5 mcg-25 mcg/ inh inhalation powder) 1 Inhalation Inhalation Every day 11/21 at 9AM Unchanged omeprazole (omeprazole 40 mg Cap-DR) 1 Capsules By Mouth Every day 11/21 at 9AM Unchanged rosuvastatin (rosuvastatin 40 mg Tab) 1 Tablets By Mouth Every day 11/21 at 9AM Pharmacy Information [facility]/pharmacy #[id number]: [address], [place] [id number] [phone] What How Much When Comments Stop Taking metoprolol (metoprolol succinate 25 mg ER Tab) 0.5 Tablets By Mouth Every day Test Results CBC BMP WBC: 8.7 E9/L (11/19/24 07:05:00) Glucose Lvl: 95 mg/dL (11/19/24 07:05:00) RBC: 4 E12/L Low (11/19/24 07:05:00) BUN: 11 mg/dL (11/19/24 07:05:00) HGB: 11.9 gm/dL Low (11/19/24 07:05:00) Creatinine: 0.7 mg/dL (11/19/24 07:05:00) Hct: 35.2 % (11/19/24 07:05:00) BUN/Creat Ratio: 16 (11/19/24 07:05:00) MCV: 87.5 fL (11/19/24 07:05:00) Sodium Lvl: 137 mmol/L (11/19/24 07:05:00) MCH: 29.7 pg (11/19/24 07:05:00) Potassium Lvl: 3.8 mmol/L (11/19/24 07:05:00) MCHC: 33.9 gm/dL (11/19/24 07:05:00) Chloride: 104 mmol/L (11/19/24 07:05:00) RDW: 14.7 % High (11/19/24 07:05:00) CO2: 25 mmol/L (11/19/24 07:05:00) Platelet: 224 E9/L (11/19/24 07:05:00) AGAP: 12 mEq/L (11/19/24 07:05:00) MPV: 7.5 fL (11/19/24 07:05:00) Calcium Lvl: 8.8 mg/dL Low (11/19/24 07:05:00) Allergies Fosamax (Leg cramps) Latex (Rash) meloxicam (Tremors) morphine (Unsure) sulfa drugs (Unsure) Problems Ongoing - Any problem that you are currently receiving treatment for. Aortic valve stenosis Chronic GERD COPD without exacerbation Depression HLD (hyperlipidemia) Hypertension [employer] [place], [place] CARDIOVASCULAR DISCHARGE INSTRUCTIONS Diet: ??? Resume pre-procedure diet. ??? Increase water intake the next 2 days to flush dye out of the b (more content not included)... Normal [facility] Vitamin D 25 Hydroxyon 11-20 25-hydroxyvitamin D3 [Mass/Vol] 20.4 ng/mL Low 30.0-100.0 [facility] Comment on above: Performed By: #### 5 [id number] #### [facility] [address] [place] [address] BMPon 11-19-2024 Anion gap [Moles/Vol] 12 mmol/L Normal 6-16 [facility] Comment on above: Performed By: #### 2 [id number] #### [facility] [address] [place] [address] Calcium [Mass/Vol] 8.8 mg/dL Low 8.9-11.1 [facility] Comment on above: Performed By: #### 2 [id number] #### [facility] [address] [place] [address] Chloride [Moles/Vol] 104 mmol/L Normal 101-111 [facility] Comment on above: Performed By: #### 2 [id number] #### [facility] [address] [place] [address] CO2 [Moles/Vol] 25 mmol/L Normal 21-31 [facility] Comment on above: Performed By: #### 2 [id number] #### [facility] [address] [place] [address] Creatinine [Mass/Vol] 0.7 mg/dL Normal 0.5-1.3 [facility] Comment on above: Performed By: #### 2 [id number] #### [facility] [address] [place] [address] Glucose [Mass/Vol] 95 mg/dL Normal 55-199 [facility] Comment on above: Performed By: #### 2 [id number] #### [facility] [address] [place] [address] Potassium [Moles/Vol] 3.8 mmol/L Normal 3.5-5.3 [facility] Comment on above: Performed By: #### 2 [id number] #### [facility] [address] [place] [address] Sodium [Moles/Vol] 137 mmol/L Normal 135-145 [facility] Comment on above: Performed By: #### 2 [id number] #### [facility] [address] [place] [address] Urea nitrogen [Mass/Vol] 11 mg/dL Normal 5-21 [facility] Comment on above: Performed By: #### 2 [id number] #### [facility] [address] [place] [address] Urea nitrogen/Creatinine [Mass ratio] 16 No Units Normal 10-20 [facility] Comment on above: Performed By: #### 2 [id number] #### [facility] [address] [place] [address] CBC w/ Auto Diffon 4 RBC size Nom (Bld) NORMAL Invalid Interpretation Code [facility] Comment on above: Performed By: #### 2 [id number] #### [facility] [address] [place] [address] Basophils/100 WBC (Bld) 0.3 % Normal 0.0-2.0 [facility] Comment on above: Performed By: #### 2 [id number] #### [facility] [address] [place] [address] Basophils/Leukocytes Auto (Bld) [Pure # fraction] 0.0 E9/L Normal 0.0-0.2 [facility] Comment on above: Performed By: #### 2 [id number] #### [facility] [address] [place] [address] Eosinophils (Bld) [#/Vol] 0.1 E9/L Normal 0.0-0.5 [facility] Comment on above: Performed By: #### 2 517051 #### [facility] [address] [place] [address] Eosinophils/100 WBC (Bld) 1.3 % Normal 0.0-8.0 [facility] Comment on above: Performed By: #### 2 [id number] #### [facility] [address] [place] [address] Erythrocyte distribution width (RBC) [Ratio] 14.7 % High 10.9-14.2 [facility] Comment on above: Performed By: #### 2 [id number] #### [facility] [address] [place] [address] Hematocrit (Bld) [Volume fraction] 35.2 % Normal 34.0-46.0 [facility] Comment on above: Performed By: #### 2 [id number] #### [facility] [address] [place] [address] Hemoglobin (Bld) [Mass/Vol] 11.9 g/dL Low 12.0-16.0 [facility] Comment on above: Performed By: #### 2 [id number] #### [facility] [address] [place] [address] Lymphocytes (Bld) [#/Vol] 1.9 E9/L Normal 1.0-4.0 [facility] Comment on above: Performed By: #### 2 [id number] #### [facility] [address] [place] [address] Lymphocytes/100 WBC (Bld) 21.5 % Normal 14.0-50.0 [facility] Comment on above: Performed By: #### 2 [id number] #### [facility] [address] [place] [address] MCH (RBC) [Entitic mass] 29.7 pg Normal 27.0-34.0 [facility] Comment on above: Performed By: #### 2 800394 #### [facility] [address] [place] [address] MCHC (RBC) [Mass/Vol] 33.9 g/dL Normal 31.4-36.0 [facility] Comment on above: Performed By: #### 2 [id number] #### [facility] [address] [place] [address] MCV (RBC) [Entitic vol] 87.5 fL Normal 80.0-100.0 [facility] Comment on above: Performed By: #### 2 [id number] #### [facility] [address] [place] [address] Monocytes (Bld) [#/Vol] 0.4 E9/L Normal 0.2-1.0 [facility] Comment on above: Performed By: #### 2 [id number] #### [facility] [address] [place] [address] Neutrophils (Bld) [#/Vol] 6.3 E9/L Normal 2.0-7.5 [facility] Comment on above: Performed By: #### 2 [id number] #### [facility] [address] [place] [address] Neutrophils/100 WBC (Bld) 72.6 % Normal 36.0-75.0 [facility] Comment on above: Performed By: #### 2 [id number] #### [facility] [address] [place] [address] Platelet mean volume (Bld) [Entitic vol] 7.5 fL Normal 6.4-10.8 [facility] Comment on above: Performed By: #### 2 [id number] #### [facility] [address] [place] [address] Platelets (Bld) [#/Vol] 224.0 E9/L Normal 150.0-500.0 [facility] Comment on above: Performed By: #### 2 [id number] #### [facility] [address] [place] [address] RBC (Bld) [#/Vol] 4.0 E12/L Low 4.3-5.9 [facility] Comment on above: Performed By: #### 2 [id number] #### [facility] [address] [place] [address] WBC corrected for nucl RBC Auto (Bld) [#/Vol] 8.7 E9/L Normal 4.0-11.0 [facility] Comment on above: Performed By: #### 2 [id number] #### [facility] [address] [place] [address] CHEMISTRYOrdered By: SYSTEM SYSTEM on 11-19-2024 Albumin [Mass/Vol] 3.8 g/dL Normal 3.3 - 5.0 gm/dL [facility] Albumin/Globulin [Mass ratio] 1.3 {ratio} Normal 1.1 - 2.2 [facility] ALP [Catalytic activity/Vol] 58 [iU]/d Normal 21 - 98 Int._Unit/L [facility] ALT No additional P-5'-P [Catalytic activity/Vol] 8 [iU]/d Normal 6 - 46 Int._Unit/L [facility] Anion gap [Moles/Vol] 12 mmol/L Normal 6 - 16 mEq/L [facility] AST [Catalytic activity/Vol] 14 [iU]/d Normal 5 - 43 Int._Unit/L [facility] Bilirubin [Mass/Vol] 1.2 mg/dL High 0.0 - 1 .1 mg/dL [facility] Bilirubin.direct [Mass/Vol] 0.2 mg/dL Normal 0.0 - 0.4 mg/dL [facility] Bilirubin.indirect [Mass or moles/Vol] 1.0 mg/dL High 0.1 - 0.9 mg/dL [facility] Calcium [Mass/Vol] 8.8 mg/dL Low 8.9 - 11. 1 mg/dL [facility] Chloride [Moles/Vol] 104 mmol/L Normal 101 - 1 11 mmol/L [facility] Cholesterol [Mass/Vol] 124 mg/dL Normal 120 - 200 mg/dL [facility] Cholesterol in HDL [Mass/Vol] 71 mg/dL Invalid Interpretation Code [facility] Comment on above: Result Comment: '>= 60 LOW RISK' '<= 40 HIGH RISK' Cholesterol in LDL [Mass/Vol] 32 mg/dL Normal <=129mg/dL [facility] Cholesterol in VLDL [Mass/Vol] 22 mg/dL Normal 7 - 40 mg/dL [facility] CO2 [Moles/Vol] 25 mmol/L Normal 21 - 31 mmol/L [facility] Cobalamin (Vitamin B12) [Mass/Vol] 134 pg/mL Normal 50 - 1500 pg/mL [facility] Creatinine [Mass/Vol] 0.7 mg/dL Normal 0.5 - 1.3 mg/dL [facility] eGFR 95 mL/min/1.73 m2 Normal >=59mL/min / 1.73 m2 [facility] Ferritin [Mass/Vol] 99 ng/mL Normal 11 - 307 ng/mL [facility] Folate [Mass/Vol] 13.7 ng/mL Normal >=6.7ng/mL [facility] Globulin (S) [Mass/Vol] 2.9 g/dL Normal 1.4 - 4.0 gm/dL [facility] Glucose [Mass/Vol] 95 mg/dL Normal 55 - 199 mg/dL [facility] Iron [Mass/Vol] 49 ug/dL Normal 35 - 153 mcg/dL [facility] Iron binding capacity [Mass/Vol] 343 ug/dL Normal 250 - 400 mcg/dL [facility] LDH 183 [iU]/d Normal 93 - 218 Int._Unit/L [facility] Potassium [Moles/Vol] 3.8 mmol/L Normal 3.5 - 5.3 mmol/L [facility] Protein [Mass/Vol] 6.7 g/dL Normal 6.0 - 7.8 gm/dL [facility] Sodium [Moles/Vol] 137 mmol/L Normal 135 - 145 mmol/L [facility] Transferrin [Mass/Vol] 245 mg/dL Normal 200 - 370 mg/dL [facility] Triglyceride [Mass/Vol] 109 mg/dL Normal <=149mg/dL [facility] TSH Qn 0.73 m[IU]/L Normal 0.34 - 5.60 mcIU/mL [facility] Urea nitrogen [Mass/Vol] 11 mg/dL Normal 5 - 21 mg/dL [facility] Urea nitrogen/Creatinine [Mass ratio] 16 mg/mg Normal 10 - 20 [facility] Ferritinon 11-19-2024 Ferritin [Mass/Vol] 99 ng/mL Normal 11-307 [facility] Comment on above: Performed By: #### 2 [id number] #### [facility] [address] [place] [address] Folateon 11-19-2024 Folate [Mass/Vol] 13.7 ng/mL Normal >=6.7 [facility] Comment on above: Performed By: #### 2 [id number] #### [facility] [address] [place] [address] HEMATOLOGYOrdered By: SYSTEM SYSTEM on 11-19-2024 Basophils/100 WBC (Bld) 0.3 % Normal 0.0 - 2.0 % [facility] Basophils/Leukocytes Auto (Bld) [Pure # fraction] 0.0 E9/L Normal 0.0 - 0.2 E9/L [facility] Eosinophils (Bld) [#/Vol] 0.1 E9/L Normal 0.0 - 0.5 E9/L [facility] Eosinophils/100 WBC (Bld) 1.3 % Normal 0.0 - 8.0 % [facility] Erythrocyte distribution width (RBC) [Ratio] 14.7 % High 10.9 - 14.2 % [facility] Hematocrit (Bld) [Volume fraction] 35.2 % Normal 34.0 - 46.0 % [facility] Hemoglobin (Bld) [Mass/Vol] 11.9 g/dL Low 12.0 - 16.0 gm/dL [facility] Lymphocytes (Bld) [#/Vol] 1.9 E9/L Normal 1.0 - 4.0 E9/L [facility] Lymphocytes/100 WBC (Bld) 21.5 % Normal 14.0 - 50.0 % [facility] MCH (RBC) [Entitic mass] 29.7 pg Normal 27. 0 - 34.0 pg [facility] MCHC (RBC) [Mass/Vol] 33.9 g/dL Normal 31.4 - 36.0 gm/dL [facility] MCV (RBC) [Entitic vol] 87.5 fL Normal 80.0 - 100.0 fL [facility] Monocytes (Bld) [#/Vol] 0.4 E9/L Normal 0.2 - 1.0 E9/L [facility] Monocytes/100 WBC (Bld) 4.3 % Normal 4.0 - 14.0 % [facility] Neutrophils (Bld) [#/Vol] 6.3 E9/L Normal 2.0 - 7.5 E9/L [facility] Neutrophils/100 WBC (Bld) 72.6 % Normal 36.0 - 75.0 % [facility] Platelet mean volume (Bld) [Entitic vol] 7.5 fL Normal 6.4 - 10.8 fL [facility] Platelets (Bld) [#/Vol] 224.0 E9/L Normal 150. 0 - 500.0 E9/L [facility] RBC (Bld) [#/Vol] 4.0 E12/L Low 4.3 - 5.9 E12/L [facility] RBC size Nom (Bld) NORMAL *NA* (11/19/24 7:05 AM) Invalid Interpretation Code [facility] Reticulocytes/100 RBC (Bld) 1.4 % Normal 0.5 - 2.2 % [facility] WBC corrected for nucl RBC Auto (Bld) [#/Vol] 8.7 E9/L Normal 4.0 - 11.0 E9/L [facility] Hep Func Panelon 11-19-2024 Albumin [Mass/Vol] 3.8 g/dL Normal 3.3-5.0 [facility] Comment on above: Performed By: #### 2 [id number] #### [facility] [address] [place] [address] Albumin/Globulin (S) [Mass conc ratio] 1.3 Normal 1.1-2.2 [facility] Comment on above: Performed By: #### 2 [id number] #### [facility] [address] [place] [address] ALP [Catalytic activity/Vol] 58 Int._Unit/L Normal 21-98 [facility] Comment on above: Performed By: #### 2 [id number] #### [facility] [address] [place] [address] ALT No additional P-5'-P [Catalytic activity/Vol] 8 Int._Unit/L Normal 6-46 [facility] Comment on above: Performed By: #### 2 [id number] #### [facility] [address] [place] [address] AST [Catalytic activity/Vol] 14 Int._Unit/L Normal 5-43 [facility] Comment on above: Performed By: #### 2 [id number] #### [facility] [address] [place] [address] Bilirubin [Mass/Vol] 1.2 mg/dL High 0.0-1.1 [facility] Comment on above: Performed By: #### 2 847797 #### [facility] [address] [place] [address] Bilirubin.direct [Mass/Vol] 0.2 mg/dL Normal 0.0-0.4 [facility] Comment on above: Performed By: #### 2 [id number] #### [facility] [address] [place] [address] Bilirubin.indirect [Mass or moles/Vol] 1.0 mg/dL High 0.1-0.9 [facility] Comment on above: Performed By: #### 2 [id number] #### [facility] [address] [place] [address] Globulin (S) [Mass/Vol] 2.9 g/dL Normal 1.4-4.0 [facility] Comment on above: Performed By: #### 2 [id number] #### [facility] [address] [place] [address] Protein [Mass/Vol] 6.7 g/dL Normal 6.0-7.8 [facility] Comment on above: Performed By: #### 2 [id number] #### [facility] [address] [place] [address] Ironon 11-19-2024 Iron [Mass/Vol] 49 microgram/dL Normal 35-153 [facility] Comment on above: Performed By: #### 2 [id number] #### [facility] [address] [place] [address] LDHon 11-19-2024 LDH 183 Int._Unit/L Normal 93-218 [facility] Comment on above: Performed By: #### 2 [id number] #### [facility] [address] [place] [address] Laboratory - Microbiology an d Antimicrobial susceptibilityOrdered By: Lindsay Kapoor on 11-19-2024 MRSA DNA FACUNDO+probe Ql (Unsp spec) MRSA Negative. [facility] Lipid Panelon 11-19-2024 Cholesterol [Mass/Vol] 124 mg/dL Normal 120-200 [facility] Comment on above: Performed By: #### 2 [id number] #### [facility] [address] [place] [address] Cholesterol in HDL [Mass/Vol] 71 mg/dL Invalid Interpretation Code [facility] Comment on above: Result Comment: '>= 60 LOW RISK' '<= 40 HIGH RISK' Performed By: #### 2 [id number] #### [facility] [address] [place] [address] Cholesterol in LDL [Mass/Vol] 32 mg/dL Normal <=129 [facility] Comment on above: Performed By: #### 2 632237 #### [facility] [address] [place] [address] Cholesterol in VLDL [Mass/Vol] 22 mg/dL Normal 7-40 [facility] Comment on above: Performed By: #### 2 [id number] #### [facility] [address] [facility] [place] [address] Triglyceride [Mass/Vol] 109 mg/dL Normal <=149 [facility] Comment on above: Performed By: #### 2 [id number] #### [facility] [address] [place] [address] MICRO OTHER TESTSOrdered By: Kam Ochoa on 11-19-2024 Occult blood panel (Stl) Negative (11/19/24 8:14 PM) Normal Negative [facility] Man Sero Retic Counton 11-19-2024 Reticulocytes/100 RBC (Bld) 1.4 % Normal 0.5-2.2 [facility] Comment on above: Performed By: #### 2 [id number] #### [facility] [address] [place] [address] Stl Oclt Bldon 11-19-2024 Occult blood panel (Stl) Negative Normal Negative [facility] Comment on above: Performed By: #### 2 [id number] #### [facility] [address] [place] [address] TIBC Calculatedon 11-19-2024 Iron binding capacity [Mass/Vol] 343 microgram/dL Normal 250-400 [facility] Comment on above: Performed By: #### 1 [id number] #### [facility] [address] [place] [address] Transferrin [Mass/Vol] 245 mg/dL Normal 200-370 [facility] Comment on above: Performed By: #### 1 [id number] #### [facility] [address] [place] [address] TSH With T4fr Reflexon 11-19 TSH Qn 0.73 m[IU]/L Normal 0.34-5.60 [facility] Comment on above: Performed By: #### 1 [id number] #### [facility] [address] [place] [address] Vit B12on 11-19-2024 Cobalamin (Vitamin B12) [Mass/Vol] 134 pg/mL Normal 50-1500 [facility] Comment on above: Performed By: #### 2 545140 #### [facility] [address] [place] [address] eGFRon 11-19-2024 eGFR 95 mL/min/1.73 m2 Normal >=59 [facility] Comment on above: Performed By: #### 1 [id number] #### [facility] [address] [place] [address] BMPon 11-18-2024 Anion gap [Moles/Vol] 12 mmol/L Normal 6-16 [facility] Comment on above: Performed By: #### 2 790714 #### [facility] [address] [place] [address] Calcium [Mass/Vol] 8.6 mg/dL Low 8.9-11.1 [facility] Comment on above: Performed By: #### 2 [id number] #### [facility] [address] [place] [address] Chloride [Moles/Vol] 108 mmol/L Normal 101-111 [facility] Comment on above: Performed By: #### 2 808557 #### [facility] [address] [place] [address] CO2 [Moles/Vol] 22 mmol/L Normal 21-31 [facility] Comment on above: Performed By: #### 2 784962 #### [facility] [address] [place] [address] Creatinine [Mass/Vol] 0.7 mg/dL Normal 0.5-1.3 [facility] Comment on above: Performed By: #### 2 [id number] #### [facility] [address] [place] [address] Glucose [Mass/Vol] 108 mg/dL Normal 55-199 [facility] Comment on above: Performed By: #### 2 874356 #### [facility] [address] [place] [address] Potassium [Moles/Vol] 3.9 mmol/L Normal 3.5-5.3 [facility] Comment on above: Performed By: #### 2 534607 #### [facility] [address] [place] [address] Sodium [Moles/Vol] 138 mmol/L Normal 135-145 [facility] Comment on above: Performed By: #### 2 789046 #### [facility] [address] [place] [address] Urea nitrogen [Mass/Vol] 16 mg/dL Normal 5-21 [facility] Comment on above: Performed By: #### 2 051735 #### [facility] [address] [place] [address] Urea nitrogen/Creatinine [Mass ratio] 23 No Units High 10-20 [facility] Comment on above: Performed By: #### 2 235390 #### [facility] [address] [place] [address] BNPon 11-18-2024 Int Ctr BNP Pass Normal [facility] Comment on above: Performed By: #### 1 [id number] #### [facility] [address] [place] [address] Natriuretic peptide B (Bld) [Mass/Vol] 122 pg/mL High 5-80 [facility] Comment on above: Performed By: #### 1 [id number] #### [facility] [address] [place] [address] CBC w/ Auto Diffon 11-18- 4 Basophils/100 WBC (Bld) 0.6 % Normal 0.0-2.0 [facility] Comment on above: Performed By: #### 2 [id number] #### [facility] [address] [place] [address] Basophils/Leukocytes Auto (Bld) [Pure # fraction] 0.1 E9/L Normal 0.0-0.2 [facility] Comment on above: Performed By: #### 2 [id number] #### [facility] [address] [place] [address] Eosinophils (Bld) [#/Vol] 0.0 E9/L Normal 0.0-0.5 [facility] Comment on above: Performed By: #### 2 [id number] #### [facility] [address] [place] [address] Eosinophils/100 WBC (Bld) 0.4 % Normal 0.0-8.0 [facility] Comment on above: Performed By: #### 2 666854 #### [facility] [address] [place] [address] Erythrocyte distribution width (RBC) [Ratio] 14.3 % High 10.9-14.2 [facility] Comment on above: Performed By: #### 2 [id number] #### [facility] [address] [place] [address] Hematocrit (Bld) [Volume fraction] 36.6 % Normal 34.0-46.0 [facility] Comment on above: Performed By: #### 2 [id number] #### [facility] [address] [place] [address] Hemoglobin (Bld) [Mass/Vol] 12.5 g/dL Normal 12.0-16.0 [facility] Comment on above: Performed By: #### 2 [id number] #### [facility] [address] [place] [address] Lymphocytes (Bld) [#/Vol] 1.0 E9/L Normal 1.0-4.0 [facility] Comment on above: Performed By: #### 2 106228 #### [facility] [address] [place] [address] Lymphocytes/100 WBC (Bld) 11.6 % Low 14.0-50.0 [facility] Comment on above: Performed By: #### 2 778237 #### [facility] [address] [place] [address] MCH (RBC) [Entitic mass] 29.8 pg Normal 27.0-34.0 [facility] Comment on above: Performed By: #### 2 [id number] #### [facility] [address] [place] [address] MCHC (RBC) [Mass/Vol] 34.2 g/dL Normal 31.4-36.0 [facility] Comment on above: Performed By: #### 2 592970 #### [facility] [address] [place] [address] MCV (RBC) [Entitic vol] 87.1 fL Normal 80.0-100.0 [facility] Comment on above: Performed By: #### 2 086251 #### [facility] [address] [place] [address] Monocytes (Bld) [#/Vol] 0.3 E9/L Normal 0.2-1.0 [facility] Comment on above: Performed By: #### 2 381004 #### [facility] [address] [place] [address] Neutrophils (Bld) [#/Vol] 7.0 E9/L Normal 2.0-7.5 [facility] Comment on above: Performed By: #### 2 [id number] #### [facility] [address] [place] [address] Neutrophils/100 WBC (Bld) 83.6 % High 36.0-75.0 [facility] Comment on above: Performed By: #### 2 894615 #### [facility] [address] [place] [address] Platelet 198.0 E9/L Normal 150.0-500.0 [facility] Comment on above: Performed By: #### 2 585113 #### [facility] [address] [place] [address] Platelet mean volume (Bld) [Entitic vol] 7.0 fL Normal 6.4-10.8 [facility] Comment on above: Performed By: #### 2 [id number] #### [facility] [address] [place] [address] RBC (Bld) [#/Vol] 4.2 E12/L Low 4.3-5.9 [facility] Comment on above: Performed By: #### 2 489850 #### [facility] [address] [place] [address] WBC corrected for nucl RBC Auto (Bld) [#/Vol] 8.3 E9/L Normal 4.0-11.0 [facility] Comment on above: Performed By: #### 2 [id number] #### [facility] [address] [place] [address] CHEMISTRYOrdered By: SYSTEM SYSTEM on 11-18-2024 Troponin HS 159.00 pg/mL Invalid Interpretation Code 10.10 - 27.10 pg/mL Remisol Chem Comment on above: Result Comment: Crit ical Result Verified by Previous Result Critical Result I_TnIHS:159.0 Called to and read back by: DEVENDRA ALFORD at: 11/18/2024 17:45:46 by:[email or web address] Interpretive Data: T he 95% CI (Confidence Interval) PPV (Positive Predictive Value) for myocardial infarction in females is 38 pg/mL, in males 51 pg/mL. The results should be used in conjunction with clinical conditions of myocardial infarction. ([employer] High Sensitivity Troponin I Instructions For Use, [employer], June 2018) Troponin HS 195.50 pg/mL Invalid Interpretation Code 10.10 - 27.10 pg/mL Remisol Chem Comment on above: Result Comment: Crit ical Result Verified by Previous Result Critical Result I_TnIHS:195.5 Called to and read back by: JADA MANRIQUE at: 11/18/2024 15:16:33 by:[email or web address] Interpretive Data: T he 95% CI (Confidence Interval) PPV (Positive Predictive Value) for myocardial infarction in females is 38 pg/mL, in males 51 pg/mL. The results should be used in conjunction with clinical conditions of myocardial infarction. (Access High Sensitivity Troponin I Instructions For Use, [employer], June 2018) Troponin HS 156.40 pg/mL Invalid Interpretation Code 10.10 - 27.10 pg/mL Remisol Chem Comment on above: Result Comment: Crit ical Result I_TnIHS:156.4 Called to and read back by: BRIDGETTE OBANDO at: 11/18/2024 12:34:44 by:[email or web address] Critical Result Verified by Previous Result Interpretive Data: T he 95% CI (Confidence Interval) PPV (Positive Predictive Value) for myocardial infarction in females is 38 pg/mL, in males 51 pg/mL. The results should be used in conjunction with clinical conditions of myocardial infarction. ([employer] High Sensitivity Troponin I Instructions For Use, [employer], June 2018) Lactic Acid Lvl 1.9 mmol/L Normal 0.5 - 2.2 mmol/L Remisol Chem Anion gap [Moles/Vol] 12 mmol/L Normal 6 - 16 mEq/L Remisol Chem Calcium [Mass/Vol] 8.6 mg/dL Low 8.9 - 11. 1 mg/dL Remisol Chem Chloride [Moles/Vol] 108 mmol/L Normal 101 - 1 11 mmol/L Remisol Chem CO2 [Moles/Vol] 22 mmol/L Normal 21 - 31 mmol/L Remisol Chem Creatinine [Mass/Vol] 0.7 mg/dL Normal 0.5 - 1.3 mg/dL Remisol Chem eGFR 95 mL/min/1.73 m2 Normal >=59mL/min / 1.73 m2 Remisol Chem Glucose [Mass/Vol] 108 mg/dL Normal 55 - 199 mg/dL Remisol Chem Potassium [Moles/Vol] 3.9 mmol/L Normal 3.5 - 5.3 mmol/L Remisol Chem Procalcitonin 0.11 ng/mL Normal 0.00 - 0.50 ng/mL Remisol Chem Comment on above: Interpretive Data: < 0.5 ng/mL Low risk of severe sepsis and/or shock >2.0 ng/mL High risk of severe sepsis and/or shock Concentrations under 0.5 ng/mL do not exclude local infections or systemic infections in their initial stages (e.g.. under six hours from onset of illness). PCT concentrations between 0.5 and 2.0 ng/mL should be interpreted with consideration of the patient's history. In this range, it is recommended to retest PCT within 6 to 24 hours. Sodium [Moles/Vol] 138 mmol/L Normal 135 - 145 mmol/L Remisol Chem Urea nitrogen [Mass/Vol] 16 mg/dL Normal 5 - 21 mg/dL Remisol Chem Urea nitrogen/Creatinine [Mass ratio] 23 mg/mg High 10 - 20 Remisol Chem CHEMISTRYOrdered By: Pinky Duncan se on 11-18-2024 Natriuretic peptide B (Bld) [Mass/Vol] 122 pg/mL High 5 - 80 pg/mL [facility] [employer] COAGULATIONOrdered By: Pinky Salazar on 11-18-2024 Fibrin D-dimer FEU (PPP) [Mass/Vol] 547 ng/mL FEU Invalid Interpretation Code 215 - 500 ng/mL FEU [facility] Auto Coag Comment on above: Result Comment: Resu lts Verified By Repeat Analysis Results Called To Jada Manrique/aMnnie By ruiz And Read Back For Confirmation On 11/18/2024 15:00:46 EST. Interpretive Data: T his assay is intended for use as an aid in the diagnosis of DVT or PE. These conditions cannot be excluded with certainty solely on the basis of a D-dimer concentration being within the reference range This D-Dimer assay may be used in conjunction with a non-high clinical pretest probability assessment to exclude deep-vein thrombosis(DVT). For exclusion of venous thrombosis or pulmonary embolism the analyte D-Dimer should not be used as an aid in patients with: Therapeutic dose anticoagulant therapy for >24 hours Fibrinolytic therapy within previous 7 days Trauma or surgery within previous 4 weeks Disseminated malignacies Aortic aneurysm Sepsis, severe infections, pneumonia, severe skin infections Liver cirrhosis aPTT Coag (PPP) [Time] 27.5 s Normal 25.1 - 36.5 second(s) [facility] Auto Coag Comment on above: Interpretive Data: P arameter 15 days - 4 weeks 1 - 5 months 6 - 11 months 1 - 5 years 6 - 10 years 11 - 17 years PTT Mean: 35.4 (27.6-45.6) Mean: 33.5 (24.8-40.7) Mean: 32.4 (25.1-40.7) Mean: 31.6 (24.0-39.2) Mean: 31.6 (26.9-38.7) Mean: 31.0 (24.6-38.4) Pediatric Reference ranges were obtained from a study by Harry Cameron et al. prepared from 1437 samples obtained at 7 different centers using the same coagulation reagent and instrumentation as [facility]. Currently there are no coagulation studies available worldwide for children to 14 days, and no normal ranges. Heparin therapeutic range (represented by Anti-Factor Xa activity of 0.2 - 0.4 U/mL) corresponds to PTT of 56.6 - 109.0 sec. INR Coag (PPP) [Relative time] 0.86 {INR} Invalid Interpretation Code [facility] Auto Coag Comment on above: Interpretive Data: I NR results are specifically intended to assess patients stabilized on long-term Anticoagulation therapy suggested INR s Less Intensive Anticoagulation 2.0 3.0 Conventional Range 3.0 4.5 PT Coag (PPP) [Time] 9.6 s Normal 9.4 - 1 2.5 second(s) [facility] Auto Coag Comment on above: Interpretive Data: 1 5 days - 4 weeks 1 - 5 months 6 -11 months 1-5 years 6-10 years 11 -17 years Mean: 11.2 (9.5-12.6) Mean: 11.0 (9.7-12.8) Mean: 11.0 (9.8-13.0) Mean: 11.3 (9.9-13.4) Mean: 11.7 (10.0-14.6) Mean: 11.8 (10.0 - 14.1) Pediatric Reference ranges were obtained from a study by Harry Cameron et alClaudia prepared from 1437 samples obtained at 7 different centers using the same coagulation reagent and instrumentation as [facility]. Currently there are no coagulation studies available worldwide for children to 14 days, and no normal ranges. D-Dimeron 11-18-2024 Fibrin D-dimer FEU (PPP) [Mass/Vol] 547 [id number] Abnormal 215-500 [facility] Comment on above: Result Comment: Resu lts Verified By Repeat Analysis Results Called To Jada Manrique/Mannie By ruiz And Read Back For Confirmation On 11/18/2024 15:00:46 EST. This assay is intended for use as an aid in the diagnosis of DVT or PE. These conditions cannot be excluded with certainty solely on the basis of a D-dimer concentration being within the reference range This D-Dimer assay may be used in conjunction with a non-high clinical pretest probability assessment to exclude deep-vein thrombosis(DVT). For exclusion of venous thrombosis or pulmonary embolism the analyte D-Dimer should not be used as an aid in patients with: Therapeutic dose anticoagulant therapy for >24 hours Fibrinolytic therapy within previous 7 days Trauma or surgery within previous 4 weeks Disseminated malignacies Aortic aneurysm Sepsis, severe infections, pneumonia, severe skin infections Liver cirrhosis Performed By: #### [id number] #### [facility] [address] [place] [address] ED Clinical Summaryon 2023 ED Clinical Summary ED Clinical Summary [address] [address] ED Clinical Summary Person Information Name: JAILENE FAIRBANKS/[facility] Age: 69 Years : 1955 Sex: Female Language: Cymro PCP: MADISON NORTH MD Marital Status: MRN: Visit Id: Visit Reason: Back pain; Chills; Shortness of breath; CARDIAC Speciality: Acuity: 3 Enc Type: Inpatient Med Service: Medical Arrival: 11/18/2024 06:00:16 Discharge: LOS: 000 11:19 Checkin: 11/18/2024 06:00:16 Checkout: 11/18/2024 17:19:01 Dispo Type: Admitted as IP to this [facility] EVENTS: Event Name Event Status Request Date/Time Start Date/Time Complete Date/Time Arrive Complete 11/18/2024 06:00:16 11/18/2024 06:00:16 11/18/2024 06:00:16 Document Home Meds Request 11/18/2024 06:00:16 Triage Complete 11/18/2024 06:00:16 11/18/2024 06:11:02 11/18/2024 06:11:02 Dr Exam Complete 11/18/2024 06:01:08 11/18/2024 06:01:08 11/18/2024 06:01:08 Registration Complete 11/18/2024 06:01:08 11/18/2024 06:01:21 11/18/2024 06:30:35 Bed Assign Complete 11/18/2024 06:01:22 11/18/2024 06:01:22 11/18/2024 06:01:22 RN Exam Complete 11/18/2024 06:01:22 11/18/2024 06:27:37 11/18/2024 06:27:37 EKG Complete 11/18/2024 06:01:40 11/18/2024 06:03:58 Pending Labs Complete 11/18/2024 06:01:40 11/18/2024 08:39:28 Lab Complete 11/18/2024 06:01:40 11/18/2024 06:58:57 Patient Care Request 11/18/2024 06:01:40 RT Request 11/18/2024 06:01:40 X-Ray Complete 11/18/2024 06:01:40 11/18/2024 06:16:21 11/18/2024 06:49:39 Swab Complete 11/18/2024 06:01:40 11/18/2024 06:34:52 Pending Labs Complete 11/18/2024 06:16:54 11/18/2024 06:16:54 11/18/2024 06:38:51 Lab Complete 11/18/2024 06:16:54 11/18/2024 06:16:54 11/18/2024 06:38:51 Reg Complete Request 11/18/2024 06:30:35 Reg Bed Request Complete 11/18/2024 06:30:35 11/18/2024 06:30:35 11/18/2024 06:30:35 Wet Read Complete 11/18/2024 06:49:39 11/18/2024 07:12:59 11/18/2024 07:12:59 Dr Exam Complete 11/18/2024 07:08:23 11/18/2024 07:08:23 11/18/2024 07:08:23 Registration Complete 11/18/2024 07:08:23 11/18/2024 07:25:40 11/18/2024 07:25:40 Pending Labs Inlab 11/18/2024 07:14:12 Lab Inlab 11/18/2024 07:14:12 Meds Admin Complete 11/18/2024 07:14:12 11/18/2024 07:32:54 Pending Labs Complete 11/18/2024 07:15:13 11/18/2024 07:15:13 11/18/2024 07:15:14 Consult Request 11/18/2024 07:20:44 Hospitalist Consult Request 11/18/2024 07:20:44 Admit Request 11/18/2024 08:41:44 Patient Care Request 11/18/2024 08:41:44 Patient Care Request 11/18/2024 08:41:45 Patient Care Request 11/18/2024 08:41:45 Patient Care Request 11/18/2024 08:41:46 Patient Care Request 11/18/2024 08:41:46 Medicare Form Complete 11/18/2024 08:41:47 11/18/2024 08:56:17 Patient Care Request 11/18/2024 08:41:47 Patient Care Request 11/18/2024 08:41:47 Pending Labs Complete 11/18/2024 11:18:20 11/18/2024 12:34:53 Lab Complete 11/18/2024 11:18:20 11/18/2024 12:34:53 Patient Care Request 11/18/2024 11:22:51 Pending Labs Request 11/18/2024 11:22:51 Lab Request 11/18/2024 11:22:51 Meds Admin Request 11/18/2024 11:22:51 RT Tx/ABG Request 11/18/2024 11:22:51 Pending Labs Cancel 11/18/2024 11:38:45 11/18/2024 11:38:45 11/18/2024 11:51:48 Pending Labs Complete 11/18/2024 11:52:12 11/18/2024 11:52:12 11/18/2024 12:15:18 Pending Labs Complete 11/18/2024 12:37:34 11/18/2024 15:16:41 Pending Labs Complete 11/18/2024 13:55:31 11/18/2024 15:00:49 Lab Complete 11/18/2024 13:55:31 11/18/2024 15:00:49 Consult Request 11/18/2024 13:55:56 Pending Labs Inlab 11/18/2024 15:27:09 Echo Request 11/18/2024 15:27:29 Inpatient Bed Ready Complete 11/18/2024 17:19:02 11/18/2024 17:19:02 11/18/2024 17:19:02 ADDRESS: [address] [place] [phone] PHYS DOC NOTES: Addendum by Ryan Lange DO on November 18, 2024 07:19:59 EST MEDICAL INFORMATION: Prescriptions Given: PATIENT EDUCATION INFORMATION: Instructions: Follow up: DIAGNOSIS: 3:Depression; 4:Chronic GERD; 5:COPD without exacerbation; 6:Hypertension; 7:HLD (hyperlipidemia); 8:Aortic valve stenosis Normal [facility] ED Note-Physicianon 11-18-20 ED Note-Physician ED Note-Physician Basic Information Time Seen: Paco Thomason DO 11/18/2024 06:01 History of Present Illness HPI: Patient is a 69-year-old female with past medical history of COPD and aortic valve replacement who presents the ED via EMS from home for shortness of breath and upper back tightness. Patient states that tonight she woke from sleep feeling a tight sensation across her upper back as well as increased shortness of breath. She is also also have a cough as well as malaise. She denies fever or chills. She does have some mild nausea but no vomiting. She denies any chest pain or palpitations. ROS: Pertinent review of systems conducted and is negative except as noted above. Physical exam: General: nontoxic appearing and in no distress HEENT: Mucous membranes moist Neuro: awake and alert Neck: supple, trachea midline Card: Heart regular rate and rhythm no murmur Resp: Lungs clear to auscultation no wheeze or rhonchi Abd: Soft and nondistended. No tenderness to palpation with no rebound or guarding. Ext: No gross deformity or edema Physical Exam Vitals & Measurements T: 37.2 ???C(Oral) HR: 79(Peripheral) RR: 20 BP: 121/70 SpO2: 93% HT: 162.56 cm WT: 72.57 kg BMI: 27.46 Medical Decision Making MEDICAL DECISION MAKING Number and Complexity of Problems Differential Diagnosis: [] [facility] Data External documents reviewed: N/A My EKG interpretation: Noted in chart if applicable My CT interpretation: N/A My X-ray interpretation: Noted in chart if applicable My Ultrasound interpretation: N/A Decision rules/scores evaluated: N/A Discussed with: N/A Treatment and Disposition ED Course: Patient is nontoxic-appearing and in no distress. She describes upper back tightness as well as shortness of breath. Will obtain a cardiac workup. The ED as well as COVID and flu swabs. Patient was signed out to the oncoming physician pending final workup and disposition. Shared decision making: As above Code status: N/A Assessment/Plan Shortness of breath (R06.02: Shortness of breath) Orders: B-Type Natriuretic Peptide Basic Metabolic Panel CBC w/ Auto Diff ECG 12 Lead Adult ED Cardiac Monitoring eGFR Influenza A&B Ag Oxygen Saturation Oxygen Therapy PT & PTT Rapid COVID Antigen ([facility]) Saline Lock Insert Troponin 0 Hr. Troponin 1 Hr. XR Chest Single View Disposition Plan Discharge Prescription List Prescriptions No active prescription medications Follow-up No qualifying data available Problem List/Past Medical History Ongoing No qualifying data Historical No qualifying data Medications Inpatient No active inpatient medications Home No active home medications Allergies No active allergies Lab Results WBC: 8.3 E9/L (11/18/24 06:13:00) RBC: 4.2 E12/L Low (11/18/24 06:13:00) HGB: 12.5 gm/dL (11/18/24 06:13:00) Hct: 36.6 % (11/18/24 06:13:00) MCV: 87.1 fL (11/18/24 06:13:00) MCH: 29.8 pg (11/18/24 06:13:00) MCHC: 34.2 gm/dL (11/18/24 06:13:00) RDW: 14.3 % High (11/18/24 06:13:00) Platelet: 198 E9/L (11/18/24 06:13:00) MPV: 7 fL (11/18/24 06:13:00) Neutro Auto: 83.6 % High (11/18/24 06:13:00) Lymph Auto: 11.6 % Low (11/18/24 06:13:00) Grant Auto: 3.8 % Low (11/18/24 06:13:00) Eos Auto: 0.4 % (11/18/24 06:13:00) Basophil Auto: 0.6 % (11/18/24 06:13:00) Neutro Absolute: 7 E9/L (11/18/24 06:13:00) Lymph Absolute: 1 E9/L (11/18/24 06:13:00) Grant Absolute: 0.3 E9/L (11/18/24 06:13:00) Eos Absolute: 0 E9/L (11/18/24 06:13:00) Basophil Absolute: 0.1 E9/L (11/18/24 06:13:00) PT: 9.6 second(s) (11/18/24 06:13:00) INR: 0.86 (11/18/24 06:13:00) PTT: 27.5 second(s) (11/18/24 06:13:00) Glucose Lvl: 108 mg/dL (11/18/24 06:13:00) BUN: 16 mg/dL (11/18/24 06:13:00) Creatinine: 0.7 mg/dL (11/18/24 06:13:00) eGFR: 95 mL/min/1.73 m2 (11/18/24 06:13:00) BUN/Creat Ratio: 23 High (11/18/24 06:13:00) Sodium Lvl: 138 mmol/L (11/18/24 06:13:00) Potassium Lvl: 3.9 mmol/L (11/18/24 06:13:00) Chloride: 108 mmol/L (11/18/24 06:13:00) CO2: 22 mmol/L (11/18/24 06:13:00) AGAP: 12 mEq/L (11/18/24 06:13:00) Calcium Lvl: 8.6 mg/dL Low (11/18/24 06:13:00) Troponin HS: 36.2 pg/mL High (11/18/24 06:13:00) Influenzae A Ag: NEGATIVE1 (11/18/24 06:11:00) Influenzae B Ag: NEGATIVE1 (11/18/24 06:11:00) Rapid COVID Ag: Not Detected (11/18/24 06:11:00) Rapid COV Int NEG Ctl: Pass (11/18/24 06:11:00) Rapid COV Int POS Ctl: Pass (11/18/24 06:11:00) Diagnostic Results No qualifying data available. EKG Results EC11/18/24: SINUS RHYTHM RIGHT BUNDLE BRANCH BLOCK [120+ ms QRS DURATION, UPRIGHT V1, 40+ ms S IN I/aVL/V4/V5/V6] ABNORMAL ECG Signed By: Paco Thomason DO 11/18/2024 06:04:32 Patient signed out to me by the prior physician I did review full workup here in the emergency department. Blood cultures and lactate were obtained because of the patchy right-sided infiltrates on the chest x-ray. Patient is started on IV Rocephin given Zithrom (more content not included)... Normal [facility] Comment on above: Result Comment: Elec tronically Signed By: Ryan Lange DO\.br\Date and Time Signed: 11/18/24 07:20 EST ED Note-Physician ED Note-Physician Basic Information Time Seen: Paco Thomason DO 11/18/2024 06:01 History of Present Illness HPI: Patient is a 69-year-old female with past medical history of COPD and aortic valve replacement who presents the ED via EMS from home for shortness of breath and upper back tightness. Patient states that tonight she woke from sleep feeling a tight sensation across her upper back as well as increased shortness of breath. She is also also have a cough as well as malaise. She denies fever or chills. She does have some mild nausea but no vomiting. She denies any chest pain or palpitations. ROS: Pertinent review of systems conducted and is negative except as noted above. Physical exam: General: nontoxic appearing and in no distress HEENT: Mucous membranes moist Neuro: awake and alert Neck: supple, trachea midline Card: Heart regular rate and rhythm no murmur Resp: Lungs clear to auscultation no wheeze or rhonchi Abd: Soft and nondistended. No tenderness to palpation with no rebound or guarding. Ext: No gross deformity or edema Physical Exam Vitals & Measurements T: 37.2 ???C(Oral) HR: 79(Peripheral) RR: 20 BP: 121/70 SpO2: 93% HT: 162.56 cm WT: 72.57 kg BMI: 27.46 Medical Decision Making MEDICAL DECISION MAKING Number and Complexity of Problems Differential Diagnosis: [] [facility] Data External documents reviewed: N/A My EKG interpretation: Noted in chart if applicable My CT interpretation: N/A My X-ray interpretation: Noted in chart if applicable My Ultrasound interpretation: N/A Decision rules/scores evaluated: N/A Discussed with: N/A Treatment and Disposition ED Course: Patient is nontoxic-appearing and in no distress. She describes upper back tightness as well as shortness of breath. Will obtain a cardiac workup. The ED as well as COVID and flu swabs. Patient was signed out to the oncoming physician pending final workup and disposition. Shared decision making: As above Code status: N/A Assessment/Plan Shortness of breath (R06.02: Shortness of breath) Orders: B-Type Natriuretic Peptide Basic Metabolic Panel CBC w/ Auto Diff ECG 12 Lead Adult ED Cardiac Monitoring eGFR Influenza A&B Ag Oxygen Saturation Oxygen Therapy PT & PTT Rapid COVID Antigen ([facility]) Saline Lock Insert Troponin 0 Hr. Troponin 1 Hr. XR Chest Single View Disposition Plan Discharge Prescription List Prescriptions No active prescription medications Follow-up No qualifying data available Problem List/Past Medical History Ongoing No qualifying data Historical No qualifying data Medications Inpatient No active inpatient medications Home No active home medications Allergies No active allergies Lab Results WBC: 8.3 E9/L (11/18/24 06:13:00) RBC: 4.2 E12/L Low (11/18/24 06:13:00) HGB: 12.5 gm/dL (11/18/24 06:13:00) Hct: 36.6 % (11/18/24 06:13:00) MCV: 87.1 fL (11/18/24 06:13:00) MCH: 29.8 pg (11/18/24 06:13:00) MCHC: 34.2 gm/dL (11/18/24 06:13:00) RDW: 14.3 % High (11/18/24 06:13:00) Platelet: 198 E9/L (11/18/24 06:13:00) MPV: 7 fL (11/18/24 06:13:00) Neutro Auto: 83.6 % High (11/18/24 06:13:00) Lymph Auto: 11.6 % Low (11/18/24 06:13:00) Grant Auto: 3.8 % Low (11/18/24 06:13:00) Eos Auto: 0.4 % (11/18/24 06:13:00) Basophil Auto: 0.6 % (11/18/24 06:13:00) Neutro Absolute: 7 E9/L (11/18/24 06:13:00) Lymph Absolute: 1 E9/L (11/18/24 06:13:00) Grant Absolute: 0.3 E9/L (11/18/24 06:13:00) Eos Absolute: 0 E9/L (11/18/24 06:13:00) Basophil Absolute: 0.1 E9/L (11/18/24 06:13:00) PT: 9.6 second(s) (11/18/24 06:13:00) INR: 0.86 (11/18/24 06:13:00) PTT: 27.5 second(s) (11/18/24 06:13:00) Glucose Lvl: 108 mg/dL (11/18/24 06:13:00) BUN: 16 mg/dL (11/18/24 06:13:00) Creatinine: 0.7 mg/dL (11/18/24 06:13:00) eGFR: 95 mL/min/1.73 m2 (11/18/24 06:13:00) BUN/Creat Ratio: 23 High (11/18/24 06:13:00) Sodium Lvl: 138 mmol/L (11/18/24 06:13:00) Potassium Lvl: 3.9 mmol/L (11/18/24 06:13:00) Chloride: 108 mmol/L (11/18/24 06:13:00) CO2: 22 mmol/L (11/18/24 06:13:00) AGAP: 12 mEq/L (11/18/24 06:13:00) Calcium Lvl: 8.6 mg/dL Low (11/18/24 06:13:00) Troponin HS: 36.2 pg/mL High (11/18/24 06:13:00) Influenzae A Ag: NEGATIVE1 (11/18/24 06:11:00) Influenzae B Ag: NEGATIVE1 (11/18/24 06:11:00) Rapid COVID Ag: Not Detected (11/18/24 06:11:00) Rapid COV Int NEG Ctl: Pass (11/18/24 06:11:00) Rapid COV Int POS Ctl: Pass (11/18/24 06:11:00) Diagnostic Results No qualifying data available. EKG Results EC11/18/24: SINUS RHYTHM RIGHT BUNDLE BRANCH BLOCK [120+ ms QRS DURATION, UPRIGHT V1, 40+ ms S IN I/aVL/V4/V5/V6] ABNORMAL ECG Signed By: Paco Thomason DO 11/18/2024 06:04:32 Normal [facility] Comment on above: Result Comment: Elec tronically Signed By: Paco Thomason DO\.br\Date and Time Signed: 11/18/24 06:51 EST ED Patient Education Noteon 11-18-2024 ED Patient Education Note ED Patient Education Note Normal [facility] ED Patient Summaryon 024 ED Patient Summary ED Patient Summary [place] [id number] Patient Discharge Instructions Person Information Name: JAILENE FAIRBANKS Age: 69 Years Arrival Date: 11/18/2024 06:00:16 Discharge Diagnosis: 3:Depression; 4:Chronic GERD; 5:COPD without exacerbation; 6:Hypertension; 7:HLD (hyperlipidemia); 8:Aortic valve stenosis Primary Care Physician: MADISON NORTH MD Provider Information Primary Provider: Paco Thomason DO Advanced Endoscopy Specialty Technician:None The exam and treatment you received in the Emergency Department were for an urgent problem and are not intended as complete care. It is important that you follow up with a doctor, nurse practitioner, or physician???s photographer assistant for ongoing care. If your symptoms become worse or you do not improve as expected and you are unable to reach your usual health care provider, you should return to the Emergency Department. We are available 24 hours a day. JAILENE FAIRBANKS has been given the following list of patient education materials, prescriptions and follow-up instructions: Follow-up Instructions: In the event that this physician does not participate in your insurance network, please consult with your insurance company to find a nearby participating provider. Patient Education Materials: A MESSAGE TO ALL PATIENTS REGARDING OPIOIDS PRESCRIPTION OPIOIDS: WHAT YOU NEED TO KNOW Prescription opioids can be used to help relieve zcagqatt-[id number] pain and are often prescribed following a surgery or injury, or for certain health conditions. These medications can be an important part of the treatment but also come with serious risks. It is important to work with your healthcare provider to make sure you are getting the safest, most effective care. WHAT ARE THE RISKS AND SIDE EFFECTS OF OPIOID USE? Prescription opioids carry serious risks of addiction and overdose, especially with prolonged use. An opioid overdose, often marked by slowed breathing, can cause sudden . The use of prescription opioids can have a number of side effects as well, even when taken as directed: ??? Tolerance???meaning you might need to take more of the medication for the same pain relief ??? Physical dependence???meaning you have symptoms of withdrawal when a medication is stopped ??? Increased sensitivity to pain ??? Constipation ??? Nausea, vomiting, and dry mouth ??? Sleepiness and dizziness ??? Confusion ??? Depression ??? Low levels of testosterone that can result in lower sex drive, energy, and strength ??? Itching and sweating RISKS ARE GREATER WITH: ??? History of drug misuse, substance use disorder, or overdose ??? Mental health conditions (such as depression or anxiety) ??? Sleep apnea ??? Older age (65 years and older) ??? Avoid alcohol while taking prescription opioids. Also, unless specifically advised by your health care provider, medications to avoid include: ??? Benzodiazepines (such as Xanax or Valium) ??? Muscle relaxants (such as Soma or Flexeril) ??? Hypnotics (such as Ambien or Lunesta) ??? Other prescription opioids KNOW YOUR OPTIONS Talk to your health care provider about ways to manage your pain that don???t involve prescription opioids. Some of these options may actually work better and have fewer risks and side effects. Options may include: ??? Pain relievers such as acetaminophen, ibuprofen, and naproxen ??? Some medication that are also used for depression or seizures ??? Physical therapy and exercise ??? Cognitive behavioral therapy, a psychological, goal-directed approach, in which patients learn how to modify physical, behavioral, and emotional triggers of pain and stress. IF YOU ARE PRESCRIBED OPIOIDS FOR PAIN: ??? Never take opioids in greater amounts or more often than prescribed. ??? Follow up with your primary health care provider. o Work together to create a plan on how to manage your pain. o Talk about ways to help manage your pain that don???t involve prescription opioids. o Talk about any and all concerns and side effects. ??? Help prevent misuse and abuse o Never sell or share prescription opioids. o Never use another person???s prescription opioids. ??? Store prescription opioids in a secure place and out of reach of others (this may include visitors, children, friends, and family). ??? Safely dispose of unused prescription opioids: Find your community drug take-back program or your pharmacy mail-back program, or flush them down the toilet, following guidance from the Food and Drug Administration (www.fda.gov/Drugs/Res ourcesForYou). ??? Visit www.cdc.gov/drugoverdo se to learn about the risks of opioids abuse and overdose. ??? If you believe you may be struggling with addiction, tell your health care advocate and ask for guidance or call [facility]S National Helpline at 1- (more content not included)... Normal [facility] Documentationon 11-18-20 EMS Documentation Report Please click on link to see report Normal [facility] Comment on above: Result Comment: Miss ruby Attachment - attachment exceeds size limitation [id number] Can be viewed in source system HEMATOLOGYOrdered By: SYSTEM SYSTEM on 11-18-2024 Basophils/100 WBC (Bld) 0.6 % Normal 0.0 - 2.0 % Remisol Heme Basophils/Leukocytes Auto (Bld) [Pure # fraction] 0.1 E9/L Normal 0.0 - 0.2 E9/L Remisol Heme Eosinophils (Bld) [#/Vol] 0.0 E9/L Normal 0.0 - 0.5 E9/L Remisol Heme Eosinophils/100 WBC (Bld) 0.4 % Normal 0.0 - 8.0 % Remisol Heme Erythrocyte distribution width (RBC) [Ratio] 14.3 % High 10.9 - 14.2 % Remisol Heme Hematocrit (Bld) [Volume fraction] 36.6 % Normal 34.0 - 46.0 % Remisol Heme Hemoglobin (Bld) [Mass/Vol] 12.5 g/dL Normal 12.0 - 16.0 gm/dL Remisol Heme Lymphocytes (Bld) [#/Vol] 1.0 E9/L Normal 1.0 - 4.0 E9/L Remisol Heme Lymphocytes/100 WBC (Bld) 11.6 % Low 14.0 - 50.0 % Remisol Heme MCH (RBC) [Entitic mass] 29.8 pg Normal 27. 0 - 34.0 pg Remisol Heme MCHC (RBC) [Mass/Vol] 34.2 g/dL Normal 31.4 - 36.0 gm/dL Remisol Heme MCV (RBC) [Entitic vol] 87.1 fL Normal 80.0 - 100.0 fL Remisol Heme Monocytes (Bld) [#/Vol] 0.3 E9/L Normal 0.2 - 1.0 E9/L Remisol Heme Monocytes/100 WBC (Bld) 3.8 % Low 4.0 - 14.0 % Remisol Heme Neutrophils (Bld) [#/Vol] 7.0 E9/L Normal 2.0 - 7.5 E9/L Remisol Heme Neutrophils/100 WBC (Bld) 83.6 % High 36.0 - 75.0 % Remisol Heme Platelet 198.0 E9/L Normal 150.0 - 500.0 E9/L Remisol Heme Platelet mean volume (Bld) [Entitic vol] 7.0 fL Normal 6.4 - 10.8 fL Remisol Heme RBC (Bld) [#/Vol] 4.2 E12/L Low 4.3 - 5.9 E12/L Remisol Heme WBC corrected for nucl RBC Auto (Bld) [#/Vol] 8.3 E9/L Normal 4.0 - 11.0 E9/L Remisol Heme Influenza A&B Agon Influenzae A Ag Negative Normal Negative [facility] Comment on above: Performed By: #### 1 [id number] #### [facility] [address] [place] [address] Influenzae B Ag Negative Normal Negative [facility] Comment on above: Result Comment: Test sensitivity and specificity vary for age group, specimen type, antigen types, and prevalence of disease. Test results must be evaluated in conjunction with other clinical data available to the physician. Individuals who received nasally administered Influenza A vaccine may have positive test results up to 3 days after vaccination. Performed By: #### 1 [id number] #### [facility] [address] [place] [address] Lactic Acidon 11-18-2024 Lactic Acid Lvl 1.9 mmol/L Normal 0.5-2.2 [facility] Comment on above: Performed By: #### 2 [id number] #### [facility] [address] [place] [address] MICRO OTHER TESTSOrdered By: Bita Gaviria on 11-18-2024 Influenzae A Ag Negative (11/18/24 6:11 AM) Normal Negative [facility] Man Sero Influenzae B Ag Negative 3 (11/18/24 6:11 AM) Normal Negative [facility] Comment on above: Interpretive Data: T est sensitivity and specificity vary for age group, specimen type, antigen types, and prevalence of disease. Test results must be evaluated in conjunction with other clinical data available to the physician. Individuals who received nasally administered Influenza A vaccine may have positive test results up to 3 days after vaccination. Rapid COV Int NEG Ctl Pass (11/18/24 6:11 AM) Normal [facility] Man Sero Rapid COV Int POS Ctl Pass (11/18/24 6:11 AM) Normal [facility] Man Sero SARS-CoV+SARS-CoV-2 (COVID-19) Ag IA.rapid Ql (Resp) Not Detected 15 (11/18/24 6:11 AM) Normal Not Detected [facility] Comment on above: Interpretive Data: Liliana [employer]ha [employer] Veritor System for Rapid Detection of SARS-CoV-2 is a chromatographic digital immunoassay intended for the direct and qualitative detection of SARS-CoV-2 nucleocapsid antigens in nasal swabs from individuals who are suspected of COVID-19 by their healthcare provider within the first five days of the onset of symptoms. Negative results should be treated as presumptive, do not rule out SARS-CoV-2 infection and should not be used as the sole basis for treatment or patient management decisions, including infection control decisions. Negative results should be considered in the context of a patient s recent exposures, history and the presence of clinical signs and symptoms consistent with COVID-19, and confirmed with a molecular assay, if necessary, for patient management. For in vitro diagnostic use. In the [place], only for use under an Emergency Use Authorization. In the [place], this test has not been FDA cleared or approved; this test has been authorized by FDA under an EUA for use by authorized laboratories; use by laboratories certified under the CLIA, 42 U.S.C. 263a, that meet requirements to perform moderate, high, or waived complexity tests and at the Point of Care (POC), i.e., in patient care settings operating under a CLIA Certificate of Waiver, Certificate of Compliance, or Certificate of Accreditation. This test has been authorized only for the detection of proteins from SARS-CoV-2, not for any other viruses or pathogens; and, in the [facility], this test is only authorized for the duration of the declaration that circumstances exist justifying the authorization of emergency use of in vitro diagnostics for detection and/or diagnosis of the virus that causes COVID-19 under Section 564(b)(1) of the Act, 21 U.S.C. 360bbb-3(b)(1), unless the authorization is terminated or revoked sooner. No Panel InformationOrdered By: ANGPROCESSSERVER MICROBIOLOGY on 11-18-2024 Blood Culture Charcoal No growth at 2 da ys. Final to follow at 7 days. [facility] Blood Culture Charcoal No growth at 2 da ys. Final to follow at 7 days. [facility] PT & PTTon 11-18-2024 aPTT Coag (PPP) [Time] 27.5 second(s) Normal 25.1-36.5 [facility] Comment on above: Result Comment: Para meter 15 days - 4 weeks 1 - 5 months 6 - 11 months 1 - 5 years 6 - 10 years 11 - 17 years PTT Mean: 35.4 (27.6-45.6) Mean: 33.5 (24.8-40.7) Mean: 32.4 (25.1-40.7) Mean: 31.6 (24.0-39.2) Mean: 31.6 (26.9-38.7) Mean: 31.0 (24.6-38.4) Pediatric Reference ranges were obtained from a study by shaneka Leon al. prepared from 1437 samples obtained at 7 different centers using the same coagulation reagent and instrumentation as [facility]. Currently there are no coagulation studies available worldwide for children to 14 days, and no normal ranges. Heparin therapeutic range (represented by Anti-Factor Xa activity of 0.2 - 0.4 U/mL) corresponds to PTT of 56.6 - 109.0 sec. Performed By: #### 1 [id number] #### [facility] [address] [place] [address] INR Coag (PPP) [Relative time] 0.86 {INR} Invalid Interpretation Code [facility] Comment on above: Result Comment: INR results are specifically intended to assess patients stabilized on long-term Anticoagulation therapy suggested INR???s ???Less Intensive Anticoagulation??? 2.0 ??? 3.0 Conventional Range 3.0 ??? 4.5 Performed By: #### 1 [id number] #### [facility] [address] [place] [address] PT Coag (PPP) [Time] 9.6 second(s) Normal 9.4-12.5 [facility] Comment on above: Result Comment: 15 d ays - 4 weeks 1 - 5 months 6 -11 months 1-5 years 6-10 years 11 -17 years Mean: 11.2 (9.5-12.6) Mean: 11.0 (9.7-12.8) Mean: 11.0 (9.8-13.0) Mean: 11.3 (9.9-13.4) Mean: 11.7 (10.0-14.6) Mean: 11.8 (10.0 - 14.1) Pediatric Reference ranges were obtained from a study by Harry Cameron et al. prepared from 1437 samples obtained at 7 different centers using the same coagulation reagent and instrumentation as [facility]. Currently there are no coagulation studies available worldwide for children to 14 days, and no normal ranges. Performed By: #### 1 [id number] #### [facility] [address] [place] [address] Pre-Arrival Noteon Pre-Arrival Note Pre-Arrival Note Pre-Arrival Summary Name: , Current Date: 11/18/2024 06:01:38 EST Gender: Female Date of : Age: 69 Pre-Arrival Type: EMS ETA: 11/18/2024 05:57:00 EST Primary Care Physician: Presenting Problem: Pre-Arrival User: Alexei Aparicio RN Referring Source: Location: Completion Date/Time: 11/18/2024 05:27:00 [facility] Emergency Department Pre-Hospital Report Form Vital Signs: 128/80, hr78, rr20, spo2 96% Pre-Hospital Report: Treatment in Route: Response to Treatment: Misc. Issues: Normal [facility] Procalcitoninon 11-18-2024 Procalcitonin .11 ng/mL Normal .00-.50 [facility] Comment on above: Result Comment: <0.5 ng/mL Low risk of severe sepsis and/or shock >2.0 ng/mL High risk of severe sepsis and/or shock Concentrations under 0.5 ng/mL do not exclude local infections or systemic infections in their initial stages (e.g.. under six hours from onset of illness). PCT concentrations between 0.5 and 2.0 ng/mL should be interpreted with consideration of the patient's history. In this range, it is recommended to retest PCT within 6 to 24 hours. Performed By: #### 2 [id number] #### [facility] [address] [place] [address] Rapid COVID Antigen ([facility])on 11-18-2024 Rapid COV Int NEG Ctl Pass Normal [facility] Comment on above: Performed By: #### 2 [id number] #### [facility] [address] [place] [address] Rapid COV Int POS Ctl Pass Normal [facility] Comment on above: Performed By: #### 2 [id number] #### [facility] [address] [place] [address] SARS-CoV+SARS-CoV-2 (COVID-19) Ag IA.rapid Ql (Resp) Not detected Normal Not Detected [facility] Comment on above: Result Comment: The [employer]??? System for Rapid Detection of SARS-CoV-2 is a chromatographic digital immunoassay intended for the direct and qualitative detection of SARS-CoV-2 nucleocapsid antigens in nasal swabs from individuals who are suspected of COVID-19 by their healthcare provider within the first five days of the onset of symptoms. Negative results should be treated as presumptive, do not rule out SARS-CoV-2 infection and should not be used as the sole basis for treatment or patient management decisions, including infection control decisions. Negative results should be considered in the context of a patient???s recent exposures, history and the presence of clinical signs and symptoms consistent with COVID-19, and confirmed with a molecular assay, if necessary, for patient management. For in vitro diagnostic use. In the [place], only for use under an Emergency Use Authorization. In the [place], this test has not been FDA cleared or approved; this test has been authorized by FDA under an EUA for use by authorized laboratories; use by laboratories certified under the CLIA, 42 U.S.C. ???263a, that meet requirements to perform moderate, high, or waived complexity tests and at the Point of Care (POC), i.e., in patient care settings operating under a CLIA Certificate of Waiver, Certificate of Compliance, or Certificate of Accreditation. This test has been authorized only for the detection of proteins from SARS-CoV-2, not for any other viruses or pathogens; and, in the [facility], this test is only authorized for the duration of the declaration that circumstances exist justifying the authorization of emergency use of in vitro diagnostics for detection and/or diagnosis of the virus that causes COVID-19 under Section 564(b)(1) of the Act, 21 U.S.C. ??? 360bbb-3(b)(1), unless the authorization is terminated or revoked sooner. Performed By: #### 2 [id number] #### [facility] [address] [place] [address] Troponinon 11-18-2024 Troponin HS 156.40 pg/mL Abnormal 10.10-27.10 [facility] Comment on above: Result Comment: Crit ical Result I_TnIHS:156.4 Called to and read back by: BRIDGETTE OBANDO at: 11/18/2024 12:34:44 by:ARNAUD Critical Result Verified by Previous Result The 95% CI (Confidence Interval) PPV (Positive Predictive Value) for myocardial infarction in females is 38 pg/mL, in males 51 pg/mL. The results should be used in conjunction with clinical conditions of myocardial infarction. (Access High Sensitivity Troponin I Instructions For Use, [employer], June 2018) Performed By: #### 2 [id number] #### [facility] [address] [place] [address] Troponin 0 Hr.on 11-18-2024 Troponin HS 36.20 pg/mL High 10.10-27.10 [facility] Comment on above: Result Comment: The 95% CI (Confidence Interval) PPV (Positive Predictive Value) for myocardial infarction in females is 38 pg/mL, in males 51 pg/mL. The results should be used in conjunction with clinical conditions of myocardial infarction. (Access High Sensitivity Troponin I Instructions For Use, [employer], June 2018) Performed By: #### 1 [id number] #### [facility] [address] [place] [address] Troponin 1 Hr.on 11-18-2024 Troponin HS 71.00 pg/mL Abnormal 10.10-27.10 [facility] Comment on above: Order Comment: 713 Result Comment: Crit ical Result I_TnIHS:71.0 Called to and read back by: JADA MANRIQUE at: 11/18/2024 08:39:16 by:ARNAUD The 95% CI (Confidence Interval) PPV (Positive Predictive Value) for myocardial infarction in females is 38 pg/mL, in males 51 pg/mL. The results should be used in conjunction with clinical conditions of myocardial infarction. (Access High Sensitivity Troponin I Instructions For Use, [employer], June 2018) Performed By: #### 1 [id number] #### [facility] [address] [place] [address] Troponin 3 Hr.on 11-18-2024 Troponin HS 159.00 pg/mL Abnormal 10.10-27.10 [facility] Comment on above: Result Comment: Crit ical Result Verified by Previous Result Critical Result I_TnIHS:159.0 Called to and read back by: DEVENDRA ALFORD at: 11/18/2024 17:45:46 by:[id number] The 95% CI (Confidence Interval) PPV (Positive Predictive Value) for myocardial infarction in females is 38 pg/mL, in males 51 pg/mL. The results should be used in conjunction with clinical conditions of myocardial infarction. (Access High Sensitivity Troponin I Instructions For Use, [employer], June 2018) Performed By: #### 1 [id number] #### [facility] [address] [place] [address] Troponin HS 195.50 pg/mL Abnormal 10.10-27.10 [facility] Comment on above: Result Comment: Crit ical Result Verified by Previous Result Critical Result I_TnIHS:195.5 Called to and read back by: JADA MANRIQUE at: 11/18/2024 15:16:33 by:[id number] The 95% CI (Confidence Interval) PPV (Positive Predictive Value) for myocardial infarction in females is 38 pg/mL, in males 51 pg/mL. The results should be used in conjunction with clinical conditions of myocardial infarction. (Access High Sensitivity Troponin I Instructions For Use, [employer]June 2018) Performed By: #### 1 [id number] #### [facility] [address] [place] [address] XR Chest Single Viewon 11-18 XR Chest Single View Exam Date/Time: 11/18/2024 06:49 EST Reason for Exam: Chest pain Report IMPRESSION: RIGHT LUNG OPACITIES MAY REPRESENT PNEUMONIA IN THE APPROPRIATE CLINICAL SETTING HOWEVER CONTINUED FOLLOW-UP IS RECOMMENDED TO ENSURE RESOLUTION. EXAM: XR Chest Single View History: Chest pain Technique: Portable AP view of the chest. Comparison: None available Findings: Evidence of thoracic surgery. The cardiomediastinal silhouette is within normal limits. Patchy opacities of the right midlung and right lung base. No pneumothorax or pleural effusion. No acute osseous abnormality. Ordering Provider: Paco Thomason FINAL REPORT Dictated: 11/18/2024 8:53 am Aneudy Perez DO Signed (Electronic Signature): 11/18/2024 8:53 am Signed by: Aneudy Perez DO Transcribed by: AJ Technologist: MARY BEHT Technical Comments Radiation Dose: Ka,r in mGy = 0 DAP = 0 Normal [facility] eGFRon 11-18-2024 eGFR 95 mL/min/1.73 m2 Normal >=59 [facility] Comment on above: Performed By: #### 1 [id number] #### [facility] [address] [place] [address] A1AT SerPl-mCncon 06-20-2024 Alpha 1 antitrypsin [Mass/Vol] 158 mg/dL Normal 90-200 [facility] Comment on above: Order Comment: Speci men Type: BLOOD SPECIMENOrdering Facility: [facility] Address: [address] [place] [address] Performed By: #### 1 [id number], [id number] ####[facility] LABCLIA [id number] [place] [address] [place] ALDOLASE BLDon 06-20-2024 Aldolase [Catalytic activity/Vol] 5.5 mU/mL 1.5 - 8.1 U/L [facility] Comment on above: This test was poly hdz and its performance characteristics determined by [facility]'s [facility] [place] ([facility]). It has not been cleared or approved by the FDA. [facility] is regulated under CLIA as qualified to perform high-complexity testing. This test is used for clinical purposes. It should not be regarded as investigational or for research. [employer]on 06-20 A. alternata IgE Qn (S) <0.35 Normal <0.[address] [facility] Comment on above: Order Comment: Speci men Type: BLOOD SPECIMENOrdering Facility: [facility] Address: [address] [place] [address] Performed By: #### I NHALE ####[facility] LABIA [id number] [address] [place] A. alternata IgE RAST class (S) Class 0 Normal Class 0 [facility] Comment on above: Order Comment: Speci men Type: BLOOD SPECIMENOrdering Facility: [facility] Address: [address] [place] [address] Performed By: #### I NHALE ####[facility] LABIA [id number] [address] A. fumigatus IgE Qn (S) <0.35 Normal <0.[address] [facility] Comment on above: Order Comment: Speci men Type: BLOOD SPECIMENOrdering Facility: [facility] Address: [address] [place] [address] Performed By: #### I NHALE ####[facility] LABIA [id number] [place] [address] [place] Performed By: #### 6 025-1, [id number] ####[facility] LABIA [id number] [place] [address] [place] A. fumigatus IgE RAST class (S) Class 0 Normal Class 0 [facility] Comment on above: Order Comment: Speci men Type: BLOOD SPECIMENOrdering Facility: [facility] Address: [address] [place] [address] Performed By: #### I NHALE ####[facility] LABCLIA [id number] [place] [address] [place] Performed By: #### 6 025-1, 18071-0 ####[facility] LABCLIA [id number] [place] [address] [place] Cambodian house dust mite IgE Qn (S) <0.35 Normal <0.35 [facility] Comment on above: Order Comment: Speci men Type: BLOOD SPECIMENOrdering Facility: [facility] Address: [address] [place] [address] Performed By: #### I NHALE ####[facility] LABCLIA [id number] [place] [address] [place] Cambodian house dust mite IgE RAST class (S) Class 0 Normal Class 0 [facility] Comment on above: Order Comment: Speci men Type: BLOOD SPECIMENOrdering Facility: [facility] Address: [address] [place] [address] Performed By: #### I NHALE ####[facility] LABCLIA [id number] [place] [address] [place] Boxelder IgE Qn (S) <0.35 Normal <0.35 [facility] Comment on above: Order Comment: Speci men Type: BLOOD SPECIMENOrdering Facility: [facility] Address: [address] [place] [address] Performed By: #### I NHALE ####[facility] LABCLIA [id number] [place] [address] [place] Boxelder IgE RAST class (S) Class 0 Normal Class 0 [facility] Comment on above: Order Comment: Speci men Type: BLOOD SPECIMENOrdering Facility: [facility] Address: [address] [place] [address] Performed By: #### I NHALE ####[facility] LABCLIA [id number] [place] [address] [place] C. herbarum IgE Qn (S) <0.35 Normal <0.35 [facility] Comment on above: Order Comment: Speci men Type: BLOOD SPECIMENOrdering Facility: [facility] Address: [address] [place] [address] Performed By: #### I NHALE ####[facility] LABCLIA [id number] [place] [address] [place] C. herbarum IgE RAST class (S) Class 0 Normal Class 0 [facility] Comment on above: Order Comment: Speci men Type: BLOOD SPECIMENOrdering Facility: [facility] Address: [address] [place] [address] Performed By: #### I NHALE ####[facility] LABCLIA [id number] [place] [address] [place] Cat dander IgE Qn (S) <0.35 Normal <0.35 [facility] Comment on above: Order Comment: Speci men Type: BLOOD SPECIMENOrdering Facility: [facility] Address: [address] [place] [address] Performed By: #### I NHALE ####[facility] LABIA [id number] [place] [address] [place] Cat dander IgE RAST class (S) Class 0 Normal Class 0 [facility] Comment on above: Order Comment: Speci men Type: BLOOD SPECIMENOrdering Facility: [facility] Address: [address] [place] [address] Performed By: #### I NHALE ####[facility] LABIA [id number] [place] [address] [place] Common Ragweed IgE Qn (S) <0.35 Normal <0.35 [facility] Comment on above: Order Comment: Speci men Type: BLOOD SPECIMENOrdering Facility: [facility] Address: [address] [place] [address] Performed By: #### I NHALE ####[facility] LABCLIA [id number] [place] [address] [place] Common Ragweed IgE RAST class (S) Class 0 Normal Class 0 [facility] Comment on above: Order Comment: Speci men Type: BLOOD SPECIMENOrdering Facility: [facility] Address: [address] [place] [address] Performed By: #### I NHALE ####[facility] LABCLIA [id number] [place] [address] [place] Dog dander IgE Qn (S) <0.35 Normal <0.35 [facility] Comment on above: Order Comment: Speci men Type: BLOOD SPECIMENOrdering Facility: [facility] Address: [address] [place] [address] Performed By: #### I NHALE ####[facility] LABCLIA [id number] [place] [address] [place] Dog dander IgE RAST class (S) Class 0 Normal Class 0 [facility] Comment on above: Order Comment: Speci men Type: BLOOD SPECIMENOrdering Facility: [facility] Address: [address] [place] [address] Performed By: #### I NHALE ####[facility] LABCLIA [id number] [place] [address] [place] Cymro plantain IgE Qn (S) <0.35 Normal <0.35 [facility] Comment on above: Order Comment: Speci men Type: BLOOD SPECIMENOrdering Facility: [facility] Address: [address] [place] [address] Performed By: #### I NHALE ####[facility] LABCLIA [id number] [address] [place] [address] [place] Cymro plantain IgE RAST class (S) Class 0 Normal Class 0 [facility] Comment on above: Order Comment: Speci men Type: BLOOD SPECIMENOrdering Facility: [facility] Address: [address] [place] [address] Performed By: #### I NHALE ####[facility] LABCLIA [id number] [place] [address] [place] Goosefoot IgE Qn (S) <0.35 Normal <0.35 [facility] Comment on above: Order Comment: Speci men Type: BLOOD SPECIMENOrdering Facility: [facility] Address: [address] [place] [address] Performed By: #### I NHALE ####[facility] LABCLIA [id number] [place] [address] [place] Goosefoot IgE RAST class (S) Class 0 Normal Class 0 [facility] Comment on above: Order Comment: Speci men Type: BLOOD SPECIMENOrdering Facility: [facility] Address: [address] [place] [address] Performed By: #### I NHALE ####[facility] LABCLIA [id number] [place] [address] [place] House dust [place] IgE Qn (S) <0.35 Normal <0.35 [facility] Comment on above: Order Comment: Speci men Type: BLOOD SPECIMENOrdering Facility: [facility] Address: [address] [place] [address] Performed By: #### I NHALE ####[facility] LABCLIA [id number] [place] [address] [place] House dust IgE RAST class (S) Class 0 Normal Class 0 [facility] Comment on above: Order Comment: Speci men Type: BLOOD SPECIMENOrdering Facility: [facility] Address: [address] [place] [address] Performed By: #### I NHALE ####[facility] LABCLIA [id number] [place] [address] [place] blue grass IgE Qn (S) <0.35 Normal <0.35 [facility] Comment on above: Order Comment: Speci men Type: BLOOD SPECIMENOrdering Facility: [facility] Address: [address] [place] [address] Performed By: #### I NHALE ####[facility] LABCLIA [id number] [place] [address] [place] blue grass IgE RAST class (S) Class 0 Normal Class 0 [facility] Comment on above: Order Comment: Speci men Type: BLOOD SPECIMENOrdering Facility: [facility] Address: [address] [place] [address] Performed By: #### I NHALE ####[facility] LABCLIA [id number] [place] [address] [place] P. notatum IgE Qn (S) <0.35 Normal <0.35 [facility] Comment on above: Order Comment: Speci men Type: BLOOD SPECIMENOrdering Facility: [facility] Address: [address] [place] [address] Performed By: #### I NHALE ####[facility] LABCLIA [id number] [place] [address] [place] P. notatum IgE RAST class (S) Class 0 Normal Class 0 [facility] Comment on above: Order Comment: Speci men Type: BLOOD SPECIMENOrdering Facility: [facility] Address: [address] [place] [address] Performed By: #### I NHALE ####[facility] LABCLIA [id number] [place] [address] [place] Micah IgE Qn (S) <0.35 Normal <0.35 [facility] Comment on above: Order Comment: Speci men Type: BLOOD SPECIMENOrdering Facility: [facility] Address: [address] [place] [address] Performed By: #### I NHALE ####[facility] LABCLIA [id number] [place] [address] [place] Micah IgE RAST class (S) Class 0 Normal Class 0 [facility] Comment on above: Order Comment: Speci men Type: BLOOD SPECIMENOrdering Facility: [facility] Address: [address] [place] [address] Performed By: #### I NHALE ####[facility] LABCLIA [id number] [place] [address] [place] IgE Qn (S) <0.35 Normal <0.35 [facility] Comment on above: Order Comment: Speci men Type: BLOOD SPECIMENOrdering Facility: [facility] Address: [address] [place] [address] Performed By: #### I NHALE ####[facility] LABCLIA [id number] [place] [address] [place] IgE RAST class (S) Class 0 Normal Class 0 [facility] Comment on above: Order Comment: Speci men Type: BLOOD SPECIMENOrdering Facility: [facility] Address: [address] [place] [address] Performed By: #### I NHALE ####[facility] LABCLIA [id number] [place] [address] [place] [id number] 2023 Alpha 1 antitrypsin [Mass/Vol] 158 mg/dL 90 - 200 mg/dL [facility] SHARRI BY IFA SCREENon 06-20-20 24 Nuclear Ab Ql (S) Negative Normal Negative [facility] Comment on above: Order Comment: Speci men Type: BLOOD SPECIMENOrdering Facility: [facility] Address: [address] [place] [address] Result Comment: Anti -nuclear antibody test is used as an aid in diagnosis of systemic autoimmune diseases. Where positive and clinically warranted, follow-up using disease-specific testing is recommended. Low positive titers are not uncommon with advanced age, certain chronic infections, and malignancies among others. Test methodology: Indirect fluorescence immunoassay (IFA) using HEp-2 cells. Performed By: #### A NCA ANAIFS ####[facility] LABCLIA [id number] [place] [address] [place] ANTI NEUTRO CYTO ABon 2023 INTERPRETATION (ANCA) Weak P-ANCA patter n on confirmatory indirect immunofluorescence but negative anti-Proteinase III and anti-Myeloperoxidase results on multiplex flow immunoassay. This combination may suggest non-specific reactivity due to other autoimmune diseases, idiopathic pulmonary fibrosis, or P-ANCA vasculitis in remission. Anti nuclear antibody test may be considered. Clinical correlation is required. Normal [facility] Comment on above: Order Comment: Speci men Type: BLOOD SPECIMENOrdering Facility: [facility] Address: [address] [place] [address] Performed By: #### A NCA ANAIFS ####[facility] [id number] [place] [address] [place] Myeloperoxidase Ab Qn (S) <0.2 Normal <1.0 [facility] Comment on above: Order Comment: Speci pavithra Type: BLOOD SPECIMENOrdering Facility: [facility] Address: [address] [place] [address] Performed By: #### A NCA ANAIFS ####[facility] LABIA [id number] [place] [address] [place] Neutrophil cytoplasmic Ab.classic IF Ql (S) Negative Normal Negative [facility] Comment on above: Order Comment: Cindyi men Type: BLOOD SPECIMENOrdering Facility: [facility] Address: [address] [place] [address] Performed By: #### A NCA ANAIFS ####[facility] LABCLIA [id number] [place] [address] [place] Neutrophil cytoplasmic Ab.perinuclear IF Ql (S) Positive Abnormal Negative [facility] Comment on above: Order Comment: Speci men Type: BLOOD SPECIMENOrdering Facility: [facility] Address: [address] [place] [address] Performed By: #### A NCA, ANAIFS ####[facility] LABCLIA [id number] [place] [address] [place] Proteinase 3 Ab Qn (S) <0.2 Normal <1.0 [facility] Comment on above: Order Comment: Speci men Type: BLOOD SPECIMENOrdering Facility: [facility] Address: [address] [place] [address] Performed By: #### A NCA, ANAIFS ####[facility] LABIA [id number] [place] [address] [place] STAFF REVIEW (ANCA) Reviewed by Avinash Aparicio, Ph.D D(ABMLI) Normal [facility] Comment on above: Order Comment: Speci men Type: BLOOD SPECIMENOrdering Facility: [facility] Address: [address] [place] [address] Performed By: #### A NCA, ANAIFS ####[facility] LABIA [id number] [place] [address] [place] Activated partial thrombopla stin time (APTT).factor substitution in platelet poor plaon 06-20-2024 aPTT.factor substitution immediately after 1:4 addition of normal plasma Coag (PPP) [Time] 32.4 seconds 32.0-45.7 [facility] Activated partial thrombopla stin time (aPTT) using hexagonal phase phospholipid in plon 06-20-2024 aPTT W excess hexagonal phase phospholipid Coag (PPP) [Time] 45.6 seconds 34.0-51.8 [facility] Aldolase SerPl-cCncon 2023 Aldolase [Catalytic activity/Vol] 5.5 mU/mL Normal 1.5-8.1 [facility] Comment on above: Order Comment: Speci men Type: BLOOD SPECIMENOrdering Facility: [facility] Address: [address] [place] [address] Result Comment: This test was developed and its performance characteristics determined by [facility] [place] [facility] [place] ([facility]). It has not been cleared or approved by the FDA. -[facility] is regulated under CLIA as qualified to perform high-complexity testing. This test is used for clinical purposes. It should not be regarded as investigational or for research. Performed By: #### 1 761-6 ####[facility] LABCLIA [id number] [place] [address] [place] Aldolase [Catalytic activity /Vol]on 06-20-2024 Interpretation and review of laboratory results Normal [facility] Alternaria alternata IgE Ab [Units/volume] in Serumon 06-20-2024 A. alternata IgE Qn (S) <0.35 kU/l <0.35 [facility] Cambodian house dust mite IgE Ab [Units/volume] in Serumon 06-20-2024 Cambodian house dust mite IgE Qn (S) <0.35 kU/l <0.35 [facility] Anti factor Xa assayon 06-20 Heparin anti Xa Qn (Nonbiological fluid) <0.10 <0.10 [facility] Comment on above: This test was develo ped and its performance characteristics determined by [facility] [place] [facility] [place] ([facility]). It has not been cleared or approved by the FDA. -[facility] is regulated under CLIA as qualified to perform high-complexity testing. This test is used for clinical purposes. It should not be regarded as investigational or for research. Aspergillus fumigatus IgE Ab [Units/volume] in Serumon 06-20-2024 A. fumigatus IgE Qn (S) <0.35 kU/l <0.35 [facility] BETA 2 GLYCOPROTEIN, IGGon 0 06-20-2024 Beta 2 glycoprotein 1 IgG IA Qn <9 Normal <20 [facility] Comment on above: Order Comment: Speci pavithra Type: BLOOD SPECIMENOrdering Facility: [facility] Address: [address] [place] [address] Result Comment: <20 SGU Negative 20-80 SGU Low Positive >80 SGU High Positive These results were obtained with the [employer] QUANTA Lite B2 GPI IgG LILIAM. B2 GPI IgG values obtained with different manufacturers' assay methods may not be used interchangeably. The magnitude of the reported IgG levels cannot be correlated to an endpoint titer. Performed By: #### B ETA2G, BETA2M, 5076-5, ARSLAN MCCURDY ####[facility] LABCLIA [id number] [place] [address] [place] BETA 2 GLYCOPROTEIN, IGMon 0 06-20-2024 Beta 2 glycoprotein 1 IgM IA Qn 9 [facility]U Normal <20 [facility] Comment on above: Order Comment: Dustin arshad Type: BLOOD SPECIMENOrdering Facility: [facility] Address: [address] [place] [address] Result Comment: <20 SMU Negative 20-80 [facility]U Low Positive >80 [facility] High positive These results were obtained with the [employer] QUANTA Lite B2 GPI IgM LILIAM. B2 GPI IgM values obtained with different manufacturers' assay methods may not be used interchangeably. The magnitude of the reported IgM levels cannot be correlated to an endpoint titer. Performed By: #### B ETA2G, BETA2M, 5076-5, ARSLAN MCCURDY ####[facility] LABCLIA [id number] [place] [address] [place] Basophils Auto (Bld) [#/Vol] on 06-20-2024 Basophils (Bld) [#/Vol] 0.06 10*3/uL <0.11 [facility] Basophils/100 WBC Auto (Bld) on 06-20-2024 Basophils/100 WBC (Bld) 1.0 % [facility] Beta 2 glycoprotein 1 IgG Ab [Units/volume] in Serumon 06-20-2024 Beta 2 glycoprotein 1 IgG Qn (S) <9 SGU <20 [facility] Comment on above: <20 SGU [id number] 0 SGU Low Positive>80 SGU High PositiveThese results were obtained with the [employer] QUANTA Lite B2 GPI IgG LILIAM. B2 GPI IgG values obtained with different manufacturers' assay methods may not be used interchangeably. The magnitude of the reported IgG levels cannot be correlated to an endpoint titer. Beta 2 glycoprotein 1 IgM Ab [Units/volume] in Serumon 06-20-2024 Beta 2 glycoprotein 1 IgM Qn (S) 9 SMU <20 [facility] Comment on above: <20 SMU [id number] 0 SMU Low Positive>80 SMU High positiveThese results were obtained with the [employer] QUANTA Lite B2 GPI IgM LILIAM. B2 GPI IgM values obtained with different manufacturers' assay methods may not be used interchangeably. The magnitude of the reported IgM levels cannot be correlated to an endpoint titer. Blood manual differential co mment interpretation narrativeon 06-20-2024 Manual differential comment Gonzalez (Bld) [Interp] Auto [facility] Boxelder IgE Ab [Units/volum e] in Serumon 06-20-2024 Boxelder IgE Qn (S) <0.35 kU/l <0.35 [facility] C3 COMPLEMENTon 06-20-2024 Complement C3 [Mass/Vol] 159 mg/dL 86 - 166 mg/dL [facility] C3 SerPl-mCncon 06-20-2024 Complement C3 [Mass/Vol] 159 mg/dL Normal 86-166 [facility] Comment on above: Order Comment: Speci men Type: BLOOD SPECIMENOrdering Facility: [facility] Address: [address] [place] [address] Performed By: #### 4 485-9, 4498-2 ####[facility] LABCLIA [id number] [place] [address] [place] C4 COMPLEMENTon 06-20-2024 Complement C4 [Mass/Vol] 32 mg/dL 13 - 46 mg/dL [facility] C4 SerPl-mCncon 06-20-2024 Complement C4 [Mass/Vol] 32 mg/dL Normal 13-46 [facility] Comment on above: Order Comment: Speci men Type: BLOOD SPECIMENOrdering Facility: [facility] Address: [address] [place] [address] Performed By: #### 4 485-9, 4498-2 ####[facility] LABCLIA [id number] [address] CARDIOLIPIN IGG ABSon 2023 Cardiolipin IgG IA Qn (S) <9.0 Normal <15.0 [facility] Comment on above: Order Comment: Speci men Type: BLOOD SPECIMENOrdering Facility: [facility] Address: [address] [place] [address] Result Comment: <15 GPL Negative 15-20 GPL Indeterminate >20 GPL Positive The following results were obtained with the [employer] QUANTA Lite FRANCA IgG III LILIAM. Cardiolipin IgG values obtained with the different manufacturers' assay methods may not be used interchangeably. The magnitude of the reported IgG levels cannot be correlated to an endpoint titer. Performed By: #### B ETA2G, BETA2M, 5076-5, ARSLAN MCCURDY ####[facility] LABCLIA [id number] [place] [address] [place] CARDIOLIPIN IGM ABSon 2023 Cardiolipin IgM IA Qn (S) 9.6 MPL Normal <12.5 [facility] Comment on above: Order Comment: Speci men Type: BLOOD SPECIMENOrdering Facility: [facility] Address: [address] [place] [address] Result Comment: <12. 5 MPL Negative 12.5-20 MPL Indeterminate >20 MPL Positive The following results were obtained with the [employer] QUANTA Lite FRANCA IgM III LILIAM. Cardiolipin IgM values obtained with the different manufacturers' assay methods may not be used interchangeably. The magnitude of the reported IgM levels cannot be correlated to an endpoint titer. ??? Performed By: #### B ETA2G, BETA2M, 5076-5, ARSLAN MCCURDY ####[facility] LABCLIA [id number] [place] [address] [place] CBC W Auto Differential pane l (Bld)on 06-20-2024 Basophils (Bld) [#/Vol] 0.06 10*3/uL [facility] Basophils/100 WBC (Bld) 1.0 % [facility] Differential cell count method Nom (Bld) Auto [facility] Eosinophils (Bld) [#/Vol] 0.15 10*3/uL [facility] Eosinophils/100 WBC (Bld) 2.6 % [facility] Erythrocyte distribution width (RBC) [Ratio] 13.2 % 11.5 - 15.0 % [facility] Hematocrit (Bld) [Volume fraction] 40.5 % 36.0 - 46.0 % [facility] Hemoglobin (Bld) [Mass/Vol] 13.1 g/dL 11.5 - 15.5 g/dL [facility] Immature granulocytes (Bld) [#/Vol] [facility] Immature granulocytes/100 WBC (Bld) 0.2 % [facility] Lymphocytes (Bld) [#/Vol] 2.60 10*3/uL [facility] Lymphocytes/100 WBC (Bld) 44.8 % [facility] MCH (RBC) [Entitic mass] 29.2 pg 26. 0 - 34.0 pg [facility] MCHC (RBC) [Mass/Vol] 32.3 g/dL 30.5 - 36.0 g/dL [facility] MCV (RBC) [Entitic vol] 90.4 fL 80.0 - 100.0 fL [facility] Monocytes (Bld) [#/Vol] 0.37 10*3/uL [facility] Monocytes/100 WBC (Bld) 6.4 % [facility] Neutrophils (Bld) [#/Vol] 2.62 10*3/uL [facility] Neutrophils/100 WBC (Bld) 45.0 % [facility] Nucleated RBC (Bld) [#/Vol] [facility] Nucleated RBC/100 WBC (Bld) [Ratio] 0.0 % /100 WBC [facility] Platelet mean volume (Bld) [Entitic vol] 9.5 fL 9.0 - 12.7 fL [facility] Platelets (Bld) [#/Vol] 291 10*3/uL [facility] RBC (Bld) [#/Vol] 4.48 10*6/uL 3.90 - 5.2 0 m/uL [facility] WBC (Bld) [#/Vol] 5.81 10*3/uL [facility] Basophils (Bld) [#/Vol] 0.06 10*3/uL Normal <0.11 [facility] Comment on above: Order Comment: Speci men Type: BLOOD SPECIMENOrdering Facility: [facility] Address: [address] [place] [address] Performed By: #### 5 7021-8 ####[facility] LABCLIA [id number] [place] [address] [place] Basophils/100 WBC (Bld) 1.0 % Normal [facility] Comment on above: Order Comment: Speci men Type: BLOOD SPECIMENOrdering Facility: [facility] Address: [address] [place] [address] Performed By: #### 5 7021-8 ####[facility] LABCLIA [id number] [place] [address] [place] Differential cell count method Nom (Bld) Auto Normal [facility] Comment on above: Order Comment: Speci men Type: BLOOD SPECIMENOrdering Facility: [facility] Address: [address] [place] [address] Performed By: #### 5 7021-8 ####[facility] LABCLIA [id number] [place] [address] [place] Eosinophils (Bld) [#/Vol] 0.15 10*3/uL Normal <0.46 [facility] Comment on above: Order Comment: Speci men Type: BLOOD SPECIMENOrdering Facility: [facility] Address: [address] [place] [address] Performed By: #### 5 7021-8 ####[facility] LABCLIA [id number] [place] [address] [place] Eosinophils/100 WBC (Bld) 2.6 % Normal [facility] Comment on above: Order Comment: Speci men Type: BLOOD SPECIMENOrdering Facility: [facility] Address: [address] [place] [address] Performed By: #### 5 7021-8 ####[facility] LABIA [id number] [place] [address] [place] Erythrocyte distribution width (RBC) [Ratio] 13.2 % Normal 11.5-15.0 [facility] Comment on above: Order Comment: Speci men Type: BLOOD SPECIMENOrdering Facility: [facility] Address: [address] [place] [address] Performed By: #### 5 7021-8 ####[facility] LABIA [id number] [place] [address] [place] Hematocrit (Bld) [Volume fraction] 40.5 % Normal 36.0-46.0 [facility] Comment on above: Order Comment: Speci men Type: BLOOD SPECIMENOrdering Facility: [facility] Address: [address] [place] [address] Performed By: #### 5 7021-8 ####[facility] LABIA [id number] [place] [address] [place] Hemoglobin (Bld) [Mass/Vol] 13.1 g/dL Normal 11.5-15.5 [facility] Comment on above: Order Comment: Speci men Type: BLOOD SPECIMENOrdering Facility: [facility] Address: [address] [place] [address] Performed By: #### 5 7021-8 ####[facility] LABIA [id number] [place] [address] [place] Immature granulocytes (Bld) [#/Vol] 10*3/uL Normal <0.10 [facility] Comment on above: Order Comment: Speci men Type: BLOOD SPECIMENOrdering Facility: [facility] Address: [address] [place] [address] Performed By: #### 5 7021-8 ####[facility] LABCLIA [id number] [place] [address] [place] Immature granulocytes/100 WBC (Bld) 0.2 % Normal [facility] Comment on above: Order Comment: Speci men Type: BLOOD SPECIMENOrdering Facility: [facility] Address: [address] [place] [address] Performed By: #### 5 7021-8 ####[facility] LABCLIA [id number] [place] [address] [place] Lymphocytes (Bld) [#/Vol] 2.60 10*3/uL Normal 1.00-4.00 [facility] Comment on above: Order Comment: Speci men Type: BLOOD SPECIMENOrdering Facility: [facility] Address: [address] [place] [address] Performed By: #### 5 7021-8 ####[facility] LABIA [id number] [place] [address] [place] Lymphocytes/100 WBC (Bld) 44.8 % Normal [facility] Comment on above: Order Comment: Speci men Type: BLOOD SPECIMENOrdering Facility: [facility] Address: [address] [place] [address] Performed By: #### 5 7021-8 ####[facility] LABIA [id number] [place] [address] [place] MCH (RBC) [Entitic mass] 29.2 pg Normal 26.0-34.0 [facility] Comment on above: Order Comment: Speci men Type: BLOOD SPECIMENOrdering Facility: [facility] Address: [address] [place] [address] Performed By: #### 5 7021-8 ####[facility] LABCLIA [id number] [place] [address] [place] MCHC (RBC) [Mass/Vol] 32.3 g/dL Normal 30.5-36.0 [facility] Comment on above: Order Comment: Speci men Type: BLOOD SPECIMENOrdering Facility: [facility] Address: [address] [place] [address] Performed By: #### 5 7021-8 ####[facility] LABCLIA [id number] [place] [address] [place] MCV (RBC) [Entitic vol] 90.4 fL Normal 80.0-100.[address] [facility] Comment on above: Order Comment: Speci men Type: BLOOD SPECIMENOrdering Facility: [facility] Address: [address] [place] [address] Performed By: #### 5 7021-8 ####[facility] LABCLIA [id number] [place] [address] [place] Monocytes (Bld) [#/Vol] 0.37 10*3/uL Normal <0.87 [facility] Comment on above: Order Comment: Speci men Type: BLOOD SPECIMENOrdering Facility: [facility] Address: [address] [place] [address] Performed By: #### 5 7021-8 ####[facility] LABCLIA [id number] [place] [address] [place] Monocytes/100 WBC (Bld) 6.4 % Normal C [facility] Comment on above: Order Comment: Speci men Type: BLOOD SPECIMENOrdering Facility: [facility] Address: [address] [place] [address] Performed By: #### 5 7021-8 ####[facility] LABCLIA [id number] [place] [address] [place] Neutrophils (Bld) [#/Vol] 2.62 10*3/uL Normal 1.45-7.50 [facility] Comment on above: Order Comment: Speci men Type: BLOOD SPECIMENOrdering Facility: [facility] Address: [address] [place], [place] [address] Performed By: #### 5 7021-8 ####[facility] LABCLIA [id number] [place] [address] [place] Neutrophils/100 WBC (Bld) 45.0 % Normal [facility] Comment on above: Order Comment: Speci men Type: BLOOD SPECIMENOrdering Facility: [facility] Address: [address] [place] [address] Performed By: #### 5 7021-8 ####[facility] LABCLIA [id number] [place] [address] [place] Nucleated RBC (Bld) [#/Vol] 10*3/uL Normal <0.01 [facility] Comment on above: Order Comment: Speci men Type: BLOOD SPECIMENOrdering Facility: [facility] Address: [address] [place] [address] Performed By: #### 5 7021-8 ####[facility] LABIA [id number] [place] [address] [place] Nucleated RBC/100 WBC (Bld) [Ratio] 0.0 /100 WBC Normal [facility] Comment on above: Order Comment: Speci men Type: BLOOD SPECIMENOrdering Facility: [facility] Address: [address] [place] [address] Performed By: #### 5 7021-8 ####[facility] LABIA [id number] [place] [address] [place] Platelet mean volume (Bld) [Entitic vol] 9.5 fL Normal 9.0-12.7 [facility] Comment on above: Order Comment: Speci men Type: BLOOD SPECIMENOrdering Facility: [facility] Address: [address] [place] [address] Performed By: #### 5 7021-8 ####[facility] LABIA [id number] [address] [id number] [address] [place] Platelets (Bld) [#/Vol] 291 10*3/uL Normal 150-400 [facility] Comment on above: Order Comment: Speci men Type: BLOOD SPECIMENOrdering Facility: [facility] Address: [address] [place] [address] Performed By: #### 5 7021-8 ####[facility] LABCLIA [id number] [place] [address] [place] RBC (Bld) [#/Vol] 4.48 10*6/uL Normal 3.90-5.20 [facility] Comment on above: Order Comment: Speci men Type: BLOOD SPECIMENOrdering Facility: [facility] Address: [address] [place] [address] Performed By: #### 5 7021-8 ####[facility] LABIA [id number] [place] [address] [place] WBC (Bld) [#/Vol] 5.81 10*3/uL Normal 3.70-11.00 [facility] Comment on above: Order Comment: Speci men Type: BLOOD SPECIMENOrdering Facility: [facility] Address: [address] [place] [address] Performed By: #### 5 7021-8 ####[facility] LABIA [id number] [place] [address] [place] CK SerPl-cCncon 06-20-2024 CK [Catalytic activity/Vol] 61 U/L Normal 42-196 [facility] Comment on above: Order Comment: Speci men Type: BLOOD SPECIMENOrdering Facility: [facility] Address: [address] [place] [address] Performed By: #### 1 825-9, 2157-6 ####[facility] LABIA [id number] [place] [address] [place] CNOVon 06-20-2024 CNOV Office Visit (RHEUMN ) JAILENE FAIRBANKS ([id number]) 1955 F Date Time Provider Department 06/20/24 12:00 PM JHONY TOBIN RHEUMN During your visit today, we recorded the following information about you: Temperature Pulse Blood pressure Weight 97.4 degrees 60/minute 110/75 72.6 kg Height 1.651 m Jhony Tobin MD 06/21/2024 7:11 PM Signed Rheumatology Office Visit Note Date of Service: June 20, 2024 Reason for Consultation: Concern for lupus Consult Requested By: Abimael Luna MD HPI: This is a 68 year old female with PMH significant for COPD/emphysema, HTN, hyperlipidemia and aortic valve replacement who presents for concern of lupus Patient first diagnosed with presumed lupus around 10 years ago Symptoms included Raynaud's in hands/feet, photsensiitivity and + SHARRI Started on plaquenil which she took for 3 years, did not noticed any difference so eventually weaned herself of it. Since, raynauds has continued during winter time without digital ulcers. Otherwise, has been struggling with LONGO, had improved with aortic valve replacement last year but following surgery symptoms returned. 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 Started on trelegy with improvement in symptoms. Otherwise, denies active oral/nasal ulcers, sinus symptoms, sicca symptoms, lymphadenopathy, fever/weight changes, chest pain/palpitations, pleurisy, hemoptysis, raynaud's, digital ulcers, skin thickening or other rashes, clots or miscarriages, joint pain/swelling. Family Hx - cousin with MS. Emery non contributory PAST MEDICAL HISTORY Diagnosis Date AAA (abdominal aortic aneurysm) (HCC) Coronary artery disease Dyslipidemia Fibromyalgia Hypertension Irregular heart beat Peripheral neuropathy Prosthetic aortic valve stenosis Systemic lupus erythematosus (HCC) TIA (transient ischemic attack) Unsure when- Comfirmed with Neurology PAST SURGICAL HISTORY Procedure Laterality Date ANKLE SURGERY HX Left HEMORRHOID;BAND LIGAT, SNGL/MUL HYSTERECTOMY LEFT HEART CATH,PERCUTANEOUS multiple PAST SURGICAL HISTORY OF 10/25/2014 AVR PAST SURGICAL HISTORY OF C section x2 PAST SURGICAL HISTORY OF R tibia and fibula surgery FAMILY HISTORY Problem Relation Age of Onset Heart Attack Mother Heart disease Father leaky valve Kidney failure Father Coronary Artery Disease Father Diabetes Father No Known Problems Sister No Known Problems Sister No Known Problems Sister No Known Problems Sister No Known Problems Sister No Known Problems Sister No Known Problems Sister No Known Problems Sister No Known Problems Brother Stroke Maternal Grandmother Heart Attack Maternal Grandfather Stroke Paternal Grandmother No Known Problems Paternal Grandfather other (Bicuspid aortic valve) Niece Heart Attack Maternal Aunt Heart Attack Maternal Aunt Arrhythmia Maternal Uncle PPM Coronary Artery Disease Maternal Uncle Bypass other (RBBB) Son No Known Problems Daughter Social History Tobacco Use Smoking status: Former Packs/day: 0.25 Years: 30.00 Additional pack years: 0.00 Total pack years: 7.50 Types: Cigarettes Quit date: 02/2023 Years since quittin.3 Smokeless tobacco: Never Substance Use Topics Alcohol use: Never Drug use: Never Current Outpatient Medications Medication Sig fluticasone-umeclidin- vilanter (TRELEGY ELLIPTA) 200-62.5-25 mcg inhalation powder Inhale 1 Puff as instructed once daily. metoprolol tartrate, short acting, (LOPRESSOR) 25 mg tablet Take 0.5 tablets by mouth once daily. rosuvastatin (CRESTOR) 40 mg tablet Take 1 tablet by mouth once daily. omeprazole (PRILOSEC) 40 mg capsule Take 40 mg by mouth. citalopram (CELEXA) 40 mg tablet Take 1 tablet by mouth every afternoon. aspirin, enteric coated (ASPIRIN, ENTERIC COATED) 81 mg EC tablet Take 81 mg by mouth. No current facility-administered medications for this visit. No data to display Review Of Systems: A complete 14 review of system was performed and otherwise unremarkable except as detailed above. PHQ9 No data to display Reference Values for PHQ9 0 - 4: Minimal Depression 5 - 9: Mild Depression 10 - 14: Moderate Depression 15 - 19: Moderately Severe Depression 20 - 27: Severe Depression Physical Exam: BP 110/75 Pulse 60 Temp 36.3 ?C (97.4 ?F) (Temporal) Ht 165.1 cm (5' 5 ) Wt 72.6 kg (160 lb) BMI 26.63 kg/m? Physical Exam Constitutional: Appearance: Normal appearance. HENT: Head: Normocephalic and atraumatic. Nose: Nose normal. Mouth/Throat: Mouth: Mucous membranes are moist. Pharynx: Oropharynx is clear. Eyes: Extraocular Movements: Extraocular movements intact. Conjunctiva/sclera: Conjunctivae normal. Pupils: Pupils are equal, round, and reactive to light. Cardiovascular: Rate and Rh (more content not included)... Normal [facility] Office Visit (PMNA11 ) JAILENE FAIRBANKS ([id number]) 1955 F Date Time Provider Department 06/20/24 9:30 AM ABIMAEL LUNA PMNA11 During your visit today, we recorded the following information about you: Temperature Pulse Respiration Blood pressure 97.4 degrees 60/minute 18/minute 110/75 Weight 72.8 kg Abimael Luna MD 06/20/2024 11:03 AM Signed . DEPARTMENT OF PULMONARY MEDICINE OUTPATIENT VISIT DATE June 20, 2024 OUTPATIENT VISIT TYPE CONSULTATION Ms. Fairbanks presents to the [facility] [place], consultation requested by Dr. Madison North for an opinion regarding cough and shortness of breath. My final recommendations/evalua tion will be communicated back to the requesting physician by way of shared medical record or letter via US mail. HPI: Ms. Fairbanks is a 68 year old female with past medical history of hypertension, hyperlipidemia, possible lupus, and aortic valve replacement who is here today for evaluation of cough and shortness of breath. The patient reports that she was having exertional shortness of breath prior to surgery. It improved after surgery, however, she notices a decline again. She describes the episodes as shortness of breath on exertion, not associated with chest pain, nausea, vomiting, diaphoresis, lightheadedness. At times, she has an intermittent cough. She endorses postnasal drip. She has allergies for which she takes an antihistamine. She also endorses reflux that is managed with omeprazole. She used to smoke about a half pack per day for about 30 years, quit a year ago. Patient denies symptoms consistent with childhood asthma and reports limitation to exercise during teenage years. She has a strong family history of asthma. She snores and has witnessed episodes of apnea. She reports clear triggers to her symptoms including humid weather, strong smells, exposure to cats. Review of Systems: GEN: No fevers/chills, night sweats, or weight changes HENT: No rhinorrhea, pharyngitis, sinus drainage, congestion, or oral ulcers EYES: No sudden vision changes CV: No chest pain, palpitations RESP: As above GI: No nausea/vomiting/consti pation/diarrhea, : No dysuria, no hematuria MSK: No joint swelling NEURO: No sudden weakness or numbness SKIN: No rash The remainder of the review of systems is noncontributory Past Medical History: PAST MEDICAL HISTORY Diagnosis Date AAA (abdominal aortic aneurysm) (HCC) Coronary artery disease Dyslipidemia Fibromyalgia Hypertension Irregular heart beat Peripheral neuropathy Prosthetic aortic valve stenosis Systemic lupus erythematosus (HCC) TIA (transient ischemic attack) Unsure when- Comfirmed with Neurology Past Surgical History: PAST SURGICAL HISTORY Procedure Laterality Date ANKLE SURGERY HX Left HEMORRHOID;BAND LIGAT, SNGL/MUL HYSTERECTOMY LEFT HEART CATH,PERCUTANEOUS multiple PAST SURGICAL HISTORY OF 10/25/2014 AVR PAST SURGICAL HISTORY OF C section x2 PAST SURGICAL HISTORY OF R tibia and fibula surgery Work and Social Histories: Social History Tobacco Use Smoking status: Former Packs/day: 0.25 Years: 30.00 Additional pack years: 0.00 Total pack years: 7.50 Types: Cigarettes Quit date: 02/2023 Years since quittin.3 Smokeless tobacco: Never Substance Use Topics Alcohol use: Never Drug use: Never Occupation/Exposures: 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 Home Environment: Visible mold No, water damage No. Family History: FAMILY HISTORY Problem Relation Age of Onset Heart Attack Mother Heart disease Father leaky valve Kidney failure Father Coronary Artery Disease Father Diabetes Father No Known Problems Sister No Known Problems Sister No Known Problems Sister No Known Problems Sister No Known Problems Sister No Known Problems Sister No Known Problems Sister No Known Problems Sister No Known Problems Brother Stroke Maternal Grandmother Heart Attack Maternal Grandfather Stroke Paternal Grandmother No Known Problems Paternal Grandfather other (Bicuspid aortic valve) Niece Heart Attack Maternal Aunt Heart Attack Maternal Aunt Arrhythmia Maternal Uncle PPM Coronary Artery Disease Maternal Uncle Bypass other (RBBB) Son No Known Problems Daughter Allergies: Alendronate, Latex, Meloxicam, Morphine, Sulfa (Sulfonamide Antibiotics), and Tramadol Outpatient Medications: rosuvastatin (CRESTOR) 40 mg tablet Take 1 tablet by mouth once daily. omeprazole (PRILOSEC) 40 mg capsule Take 40 mg by mouth. citalopram (CELEXA) 40 mg tablet Take 1 tablet by mouth every afternoon. aspirin, enteric coated (ASPIRIN, ENTERIC COATED) 81 mg EC tablet Take 81 mg by mo (more content not included)... Normal [facility] CREATINE KINASE/CKon 024 CK [Catalytic activity/Vol] 61 U/L 42 - 196 U/L [facility] CT biopsyon 06-20-2024 CT biopsy 5.5 U/L 1.5-8.1 [facility] Comment on above: This test was poly ped and its performance characteristics determined by [facility]'s [facility] [place] ([facility]). It has not been cleared or approved by the FDA. [facility] is regulated under CLIA as qualified to perform high-complexity testing. This test is used for clinical purposes. It should not be regarded as investigational or for research. Cardiolipin IgA Ab [Units/vo lume] in Serum by Immunoassayon 06-20-2024 Cardiolipin IgA IA Qn (S) [APL'U] <12.0 [facility] Comment on above: <12 APL Negative 12- 20 APL Indeterminate >20 APL Positive The following results were obtained with the [employer] QUANTA Lite FRANCA IgA III LILIAM. Cardiolipin IgA values obtained with the different manufacturers' assay methods may not be used interchangeably. The magnitude of the reported IgA levels cannot be correlated to an endpoint titer. Cardiolipin IgA Ser IA-aCnco n 06-20-2024 Cardiolipin IgA IA Qn (S) <9.0 Normal <12.0 [facility] Comment on above: Order Comment: Speci men Type: BLOOD SPECIMENOrdering Facility: [facility] Address: [address] [place] [address] Result Comment: <12 APL Negative 12-20 APL Indeterminate >20 APL Positive The following results were obtained with the [employer] QUANTA Lite FRANCA IgA III LILIAM. Cardiolipin IgA values obtained with the different manufacturers' assay methods may not be used interchangeably. The magnitude of the reported IgA levels cannot be correlated to an endpoint titer. Performed By: #### B ETA2G, BETA2M, 5076-5, CARDI, CARDI ####[facility] LABCLIA [id number] [facility] [id number] [place] [address] [place] Cardiolipin IgG Ab [Units/vo lume] in Serum by Immunoassayon 06-20-2024 Cardiolipin IgG IA Qn (S) <9.0 GPL <15.0 [facility] Comment on above: <15 GPL [id number] GPL Indeterminate>20 GPL PositiveThe following results were obtained with the [employer] QUANTA Lite FRANCA IgG III LILIAM. Cardiolipin IgG values obtained with the different manufacturers' assay methods may not be used interchangeably. The magnitude of the reported IgG levels cannot be correlated to an endpoint titer. Cardiolipin IgM Ab [Units/vo lume] in Serum by Immunoassayon 06-20-2024 Cardiolipin IgM IA Qn (S) 9.6 MPL <12.5 [facility] Comment on above: <12.5 MPL Negative 1 2.5-20 MPL Indeterminate >20 MPL Positive The following results were obtained with the [employer] QUANTA Lite FRANCA IgM III LILIAM. Cardiolipin IgM values obtained with the different manufacturers' assay methods may not be used interchangeably. The magnitude of the reported IgM levels cannot be correlated to an endpoint titer.??? Centromere Ab IF Ql (S)on Centromere Ab Qn (S) <0.2 Normal <1.0 [facility] Comment on above: Order Comment: Speci men Type: BLOOD SPECIMEN [facility] Facility: [facility] Address: [address] [place] [address] Result Comment: Anti -centromere antibody is used as in aid in diagnosis of systemic sclerosis. Clinical correlation is required. Test Methodology: Multiplex flow immunoassay. Performed By: #### D NAAB #### [facility] LAB CLIA [id number] [address] [place] [address] [place] CENTROMERE AB QUAL Negative Normal Negative [facility] Comment on above: Order Comment: Speci men Type: BLOOD SPECIMEN [facility]ing Facility: [facility] Address: [address] [place] [address] Performed By: #### D NAAB #### [facility] CLIA [id number] [address] [place] [address] [place] Chromatin Ab Qnon 06-20-2024 CHROMATIN AB QUAL Negative Normal Negative [facility] Comment on above: Order Comment: Speci men Type: BLOOD SPECIMEN [facility]ing Facility: [facility] Address: [address] [place] [address] Performed By: #### D NAAB #### [facility] CLIA [id number] [address] [place] [address] [place] Chromatin Ab SerPl-aCncon Chromatin Ab Qn <0.2 Normal <1.0 [facility] Comment on above: Order Comment: Speci men Type: BLOOD SPECIMEN Ordering Facility: [facility] Address: [address] [place] [address] Result Comment: Test Methodology: Multiplex flow immunoassay. Performed By: #### D NAAB #### [facility] CLIA [id number] [address] [place] [address] [place] Cladosporium herbarum IgE Ab [Units/volume] in Serumon 06-20-2024 C. herbarum IgE Qn (S) <0.35 kU/l <0.35 [facility] Cyclic citrullinated peptide IgG Qnon 06-20-2024 CCP ANTIBODY IGG QUALITATIVE Negative Normal Negative [facility] Comment on above: Order Comment: Speci men Type: BLOOD SPECIMENOrdering Facility: [facility] Address: [address] [place] [address] Performed By: #### 3 3935-8 ####[facility] LABCLIA [id number] [place] [address] [place] DNA ANTIBODY DS BLDon 2023 DNA ANTIBODY 37 IU/mL Normal <=200 [facility] Comment on above: Order Comment: Speci men Type: BLOOD SPECIMEN [facility]ing Facility: [facility] Address: [address] [place] [address] Result Comment: Nega tive: <200 IU/mL Equivocal: 201-300 IU/mL Moderate Positive: 301-800 IU/mL Strong Positive: >801 IU/mL Performed By: #### D NAAB #### [facility] CLIA [id number] [address] [place] [address] [place] DNA ANTIBODY QUALITATIVE INTERPRETATION Negative Normal Negative [facility] Comment on above: Order Comment: Speci men Type: BLOOD SPECIMEN Ordering Facility: [facility] Address: [address] [place] [address] Performed By: #### D NAAB #### [facility] CLIA [id number] [address] [place] [address] [place] Dilute Diego's viper venom time (DRVVT) confirmatory teston 06-20-2024 dRVVT actual/normal Coag (PPP) [Relative time] 46.1 seconds 34.2-47.9 [facility] dRVVT actual/normal Coag (PPP) [Relative time] 0.0 delta seconds <7.1 [facility] Dog dander IgE Ab [Units/vol ume] in Serumon 06-20-2024 Dog dander IgE Qn (S) <0.35 kU/l <0.35 [facility] RAMON Jo1 Ab Ser-aCncon 2023 Ella-1 extractable nuclear Ab Qn (S) <0.2 Normal <1.0 [facility] Comment on above: Order Comment: Speci men Type: BLOOD SPECIMENOrdering Facility: [facility] Address: [address] [place] [address] Performed By: #### 2 9374-6, 27900-6, 10766-0, 12653-5, 50339-5, 69230-2, 92235-8, 32523-4 ####[facility] LABCLIA [id number] [place] [address] [place] RAMON [employer] DESIGNER Ab Ser-aCncon 2023 Ribonucleoprotein extractable nuclear Ab Qn (S) <0.2 Normal <1.0 [facility] Comment on above: Order Comment: Speci men Type: BLOOD SPECIMEN Ordering Facility: [facility] Address: [address] [place] [address] Performed By: #### D NAAB #### [facility] CLIA [id number] [address] [place] [address] [place] Order Comment: Speci men Type: BLOOD SPECIMENOrdering Facility: [facility] Address: [address] [place] [address] Performed By: #### 2 9374-6, 99876-8, 48724-2, 48483-8, 92774-1, 02517-3, 05060-8, 00045-2 ####[facility] [facility] LABCLIA [id number] [place] [address] [place] SM IgG Ser-aCncon 2023 Bradley extractable nuclear IgG Qn (S) <0.2 Normal <1.0 [facility] Comment on above: Order Comment: Speci men Type: BLOOD SPECIMENOrdering Facility: [facility] Address: [address] [place] [address] Performed By: #### 2 9374-6, 50389-5, 26534-6, 58176-9, 90753-5, 50555-1, 33549-0, 62249-4 ####[facility] LABCLIA [id number] [place] [address] [place] SS-A Ab Ser-aCncon 06-20 Sjogrens syndrome-A extractable nuclear Ab Qn (S) <0.2 Normal <1.0 [facility] Comment on above: Order Comment: Speci men Type: BLOOD SPECIMENOrdering Facility: [facility] Address: [address] [place] [address] Result Comment: Test Methodology: Multiplex flow immunoassay. Performed By: #### 2 9374-6, 72533-1, 92380-1, 80571-7, 87069-7, 97441-2, 40218-5, 24438-5 ####[facility] LABCLIA [id number] [place] [address] [place] SS-B Ab Ser-aCncon 06-20 Sjogrens syndrome-B extractable nuclear Ab Qn (S) <0.2 Normal <1.0 [facility] Comment on above: Order Comment: Speci men Type: BLOOD SPECIMEN Ordering Facility: [facility] Address: [address] [place] [address] Result Comment: Anti -SSB (anti-La) antibody is used as an aid in diagnosis of a variety of systemic autoimmune diseases, especially for Sjogren's syndrome and systemic lupus erythematosus. Clinical correlation is required. Test Methodology: Multiplex flow immunoassay. Performed By: #### D NAAB #### [facility] LAB CLIA [id number] [address] [place] [address] [place] Eosinophils/100 WBC Auto (Bl d)on 06-20-2024 Eosinophils/100 WBC (Bld) 2.6 % [facility] Erythrocyte distribution wid th Auto (RBC) [Ratio]on 06-20-2024 Erythrocyte distribution width (RBC) [Ratio] 13.2 % 11.5-15.0 [facility] Hematocrit Auto (Bld) [Volum e fraction]on 06-20-2024 Hematocrit (Bld) [Volume fraction] 40.5 % 36.0-46.0 [facility] Hemoglobin [Mass/volume] in Bloodon 06-20-2024 Hemoglobin (Bld) [Mass/Vol] 13.1 g/dL 11.5-15.5 [facility] House dust Anna Mark I gE Ab [Units/volume] in Serumon 06-20-2024 House dust [place] Mark IgE Qn (S) <0.35 kU/l <0.35 [facility] INR in Platelet poor plasma by Coagulation assayon 06-20-2024 INR Coag (PPP) [Relative time] 1.0 {INR} 0.9-1.3 [facility] Comment on above: Vitamin K Antagonist (VKA) Therapeutic Range: INR 2 to 3 (Target INR of 2.5)Note: For patients treated with VKA drugs, such as warfarin, the [place] [employer] 2012 Guideline recommends a therapeutic INR range of 2 to 3 (target INR of 2.5). This recommendation includes high-risk patients with antiphospholipid syndrome with previous arterial or venous thromboembolism, current-generation mechanical or bioprosthetic aortic heart valve replacement.Note: Patients with mechanical aortic valve replacement and additional risk factors for thromboembolic events (atrial fibrillation, previous thromboembolism, LV dysfunction, hypercoagulable conditions) or an older generation mechanical AVR (i.e., ball in-Cage) or any mechanical MVR should have a INR therapeutic range of 2.5 to 3.5 (target INR of 3).Porsche GH, et al. Chest 2012, 141:7S-47SNishimura RA, et al. JAC 2017, 70: 252-289 IgE SerPl-aCncon 06-20-2024 IgE Qn 105.0 kU/l Normal <114.0 [facility] Comment on above: Order Comment: Speci men Type: BLOOD SPECIMENOrdering Facility: [facility] Address: [address] [place] [address] Performed By: #### 6 025-1, 27965-8 ####[facility] LABCLIA [id number] [place] [address] [place] IgE [Units/volume] in Serum or Plasmaon 06-20-2024 IgE Qn 105.0 kU/l <114.0 [facility] Ella-1 extractable nuclear Ab Qn (S)on 06-20-2024 ELLA 1 ANTIBODY QUAL Negative Normal Negative [facility] Comment on above: Order Comment: Speci men Type: BLOOD SPECIMENOrdering Facility: [facility] Address: [address] [place] [address] Result Comment: Anti -ELLA-1 antibody is used as an aid in diagnosis of polymyositis and dermatomyositis especially with pulmonary involvement. A negative result cannot rule out polymyositis or dermatomyositis. Clinical correlation is required. Test Methodology: Multiplex flow immunoassay. Performed By: #### 2 9374-6, 71248-4, 12781-7, 99767-4, 25792-1, 27929-8, 59425-1, 28515-9 ####[facility] LABCLIA [id number] [place] [address] [place] blue grass IgE Ab [ Units/volume] in Serumon 06-20-2024 [place] blue grass IgE Qn (S) <0.35 kU/l <0.35 [facility] LUNG DIFFUSION CAPACITY (NIK O)on 06-20-2024 DLCO (ml/min/mmHg) 11.36 ml/min/mmHg [facility] DLCO/VA (ml/min/mmHg/L) 2.95 ml/m in/mmHg /L [facility] HVV33-91% POST (L/S) 1.56 L/S [facility] QBH18-11% PRE (L/S) 1.23 L/S [facility] FEV1 PRE (L) 1.89 L [facility] FEV1/FVC POST (%) 68 % [facility] FEV1/FVC PRE (%) 71 % [facility] FEV1_POST (L) 2.02 L [facility] FVC POST (L) 2.97 L [facility] FVC PRE (L) 2.68 L [facility] PEF POST (L/S) 4.94 L/S [facility] PEF PRE (L/S) 5.16 L/S [facility] VA (L) 3.85 L [facility] LUPUS PANELon 06-20-2024 aPTT Coag (Bld) [Time] 34.8 s Normal 30.2-43.0 Cl [facility] Comment on above: Order Comment: Speci men Type: BLOOD SPECIMENOrdering Facility: [facility] Address: [address] [place] [address] Performed By: #### L UPPL ####[facility] LABIA [id number] [place] [address] [place] aPTT Coag (Bld) [Time] 33.9 s Normal 31.5-38.3 [facility] Comment on above: Order Comment: Speci men Type: BLOOD SPECIMENOrdering Facility: [facility] Address: [address] [place] [address] Performed By: #### L UPPL ####[facility] [id number] [place] [address] [place] aPTT Coag (Bld) [Time] 28.6 s Normal 24.0-35.1 [facility] Comment on above: Order Comment: Speci men Type: BLOOD SPECIMENOrdering Facility: [facility] Address: [address] [place] [address] Performed By: #### L UPPL ####[facility] [id number] [place] [address] [place] aPTT W excess hexagonal phase phospholipid Coag (PPP) [Time] 45.6 seconds Normal 34.0-51.8 [facility] Comment on above: Order Comment: Speci men Type: BLOOD SPECIMENOrdering Facility: [facility] Address: [address] [place] [address] Performed By: #### L UPPL ####[facility] [id number] [place] [address] [place] Coagulation factor X activated act Coag Qn (PPP) <0.10 Normal <0.10 [facility] Comment on above: Order Comment: Speci men Type: BLOOD SPECIMENOrdering Facility: [facility] Address: [address] [place] [address] Result Comment: This test was developed and its performance characteristics determined by [facility]'s [facility] [place] ([facility]). It has not been cleared or approved by the FDA. -[facility] is regulated under CLIA as qualified to perform high-complexity testing. This test is used for clinical purposes. It should not be regarded as investigational or for research. Performed By: #### L UPPL ####[facility] [id number] [address] STATES OF [facility] Delta dRVVT Coag (PPP) [Time diff] 0.0 delta seconds Normal <7.1 [facility] Comment on above: Order Comment: Speci men Type: BLOOD SPECIMENOrdering Facility: [facility] Address: [address] [place] [address] Performed By: #### L UPPL ####[facility] [id number] [address] [place] dRVVT Coag (PPP) [Time] 31.0 s Low 32.0-45.[address] [facility] Comment on above: Order Comment: Speci men Type: BLOOD SPECIMENOrdering Facility: [facility] Address: [address] [place] [address] Performed By: #### L UPPL ####[facility] [id number] [address] OF [place] dRVVT factor substitution immediately after 1:2 addition of normal plasma Coag (PPP) [Time] 32.4 seconds Normal 32.0-45.7 [facility] Comment on above: Order Comment: Speci men Type: BLOOD SPECIMENOrdering Facility: [facility] Address: [address] [place] [address] Performed By: #### L UPPL ####[facility] [id number] [address] [place] dRVVT W excess hexagonal phase phospholipid actual/normal Coag (PPP) [Relative time] 46.1 seconds Normal 34.2-47.9 [facility] Comment on above: Order Comment: Speci men Type: BLOOD SPECIMENOrdering Facility: [facility] Address: [address] [place] [address] Performed By: #### L UPPL ####[facility] LABCLIA [id number] [place] [address] [place] dRVVT/dRVVT.excess phospholipid Coag (PPP) [Ratio] 0.96 Normal <1.32 [facility] Comment on above: Order Comment: Speci men Type: BLOOD SPECIMENOrdering Facility: [facility] Address: [address] [place] [address] Performed By: #### L UPPL ####[facility] LABCLIA [id number] [place] [address] [place] PLATELET NEUT 0.0 Seconds Normal <1.9 [facility] Comment on above: Order Comment: Speci men Type: BLOOD SPECIMENOrdering Facility: [facility] Address: [address] [place] [address] Performed By: #### L UPPL ####[facility] LABIA [id number] [place] [address] [place] Thrombin time Coag (PPP) [Time] 17.6 seconds Normal <18.6 [facility] Comment on above: Order Comment: Speci men Type: BLOOD SPECIMENOrdering Facility: [facility] Address: [address] [place] [address] Performed By: #### L UPPL ####[facility] LABIA [id number] [place] [address] [place] Laboratory - Chemistry and C hemistry - challengeon 06-20-2024 Protein/Creatinine (U) [Mass ratio] 0.19 mg/mg High <0.15 [facility] Comment on above: Adult Proteinuria Ca tegories: <0.15 mg/mg is considered normal to mildly increased 0.15 - 0.50 mg/mg is considered moderately increased >0.50 mg/mg is considered severely increased KDIGO. (2013). KDIGO 2012 Clinical Practice Guideline for the Evaluation and Management of Chronic Kidney Disease. Official Journal of the International Society of Nephrology, 3(1), 1-150. Order Comment: Speci men Type: URINE SPECIMENOrdering Facility: [facility] Address: [address] [place] [address] Result Comment: Adul t Proteinuria Categories: <0.15 mg/mg is considered normal to mildly increased 0.15 - 0.50 mg/mg is considered moderately increased >0.50 mg/mg is considered severely increased KDIGO. (2013). KDIGO 2012 Clinical Practice Guideline for the Evaluation and Management of Chronic Kidney Disease. Official Journal of the International Society of Nephrology, 3(1), 1-150. Performed By: #### 2 890-2 ####[facility] LABCLIA [id number] [place] [address] [place] Bilirubin Ql (U) Negative Negative [facility] Glucose (U) [Mass/Vol] Negative Negative [facility] Ketones Ql (U) Negative Negative [facility] pH (U) 5.5 [pH] <8.5 [facility] Specific gravity (U) [Rel density] 1.025 1.005-1.030 [facility] CK [Catalytic activity/Vol] 61 U/L 42-196 [facility] Laboratory - Hematology and Cell countson 06-20-2024 Eosinophils (Bld) [#/Vol] 0.15 10*3/uL <0.46 [facility] Immature granulocytes/100 WBC (Bld) 0.2 % [facility] Laboratory - Specimen inform ationon 06-20-2024 Appearance (U) Clear Clear [facility] Color (U) Yellow Yellow [facility] Laboratory - Urinalysison Bacteria LM.HPF (Urine sed) [#/Area] Negative Negative [facility] Hyaline casts LM Ql (Urine sed) 1-3 /LPF Abnormal 0 /LPF [facility] Leukocyte esterase Test strip Ql (U) Negative Negative [facility] Nitrite Ql (U) Negative Negative [facility] Protein Ql (U) 1+ Abnormal Negative [facility] Leukocytes [#/volume] correc bob for nucleated erythrocytes in Blood by Automated counon 06-20-2024 WBC corrected for nucl RBC Auto (Bld) [#/Vol] 5.81 k/uL 3.70-11.00 [facility] Lymphocytes Auto (Bld) [#/Vo l]on 06-20-2024 Lymphocytes (Bld) [#/Vol] 2.60 10*3/uL 1.00-4.00 [facility] Lymphocytes/100 WBC Auto (Bl d)on 06-20-2024 Lymphocytes/100 WBC (Bld) 44.8 % [facility] MCH Auto (RBC) [Entitic mass ]on 06-20-2024 MCH (RBC) [Entitic mass] 29.2 pg 26.0-34.0 [facility] MCHC Auto (RBC) [Mass/Vol]on 06-20-2024 MCHC (RBC) [Mass/Vol] 32.3 g/dL 30.5-36.0 Fir [facility] MCV Auto (RBC) [Entitic vol] on 06-20-2024 MCV (RBC) [Entitic vol] 90.4 fL 80.0-100.0 F [facility] Monocytes Auto (Bld) [#/Vol] on 06-20-2024 Monocytes (Bld) [#/Vol] 0.37 10*3/uL <0.87 [facility] Monocytes/100 WBC Auto (Bld) on 06-20-2024 Monocytes/100 WBC (Bld) 6.4 % F [facility] Myeloperoxidase Ab [Units/vo lume] in Serum by Immunoassayon 06-20-2024 Myeloperoxidase Ab IA Qn (S) <0.2 AI <1.0 [facility] Neutrophils Auto (Bld) [#/Vo l]on 06-20-2024 Neutrophils (Bld) [#/Vol] 2.62 10*3/uL 1.45-7.50 [facility] Neutrophils/100 WBC Auto (Bl d)on 06-20-2024 Neutrophils/100 WBC (Bld) 45.0 % [facility] No Panel Informationon 06-20 Interpretation and review of laboratory results Normal [facility] Interpretation and review of laboratory results Normal [facility] Interpretation and review of laboratory results Abnormal [facility] Urine Occult Blood Negative Negative [facility] Urine Random Creatinine 142.8 mg/dL 20.0-300.0 [facility] Urine RBC 3-5 /HPF Abnormal 0-2 /HPF [facility] Urine Squamous Epithelial Cells None Seen [HPF] [facility] Urine Urobilinogen 0.2 EU/dL 0.2-1.0 EU/dL [facility] Urine WBC 0-5 /HPF 0-5 /HPF [facility] Dilute Diego Viper Venom Screen 31.0 seconds Low 32.0-45.7 [facility] Lupus Anticoag DRVVT Screen Ratio 0.96 <1.32 [facility] Platelet Neutralization 0.0 s <1.9 F [facility] [address] [place] [address] Test Date: 2024-06-20 Pat Name: JAILENE FAIRBANKS Department: Room: 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 Start of test and EOFE criteria met. Medications and Allergies were reviewed for possible drug interactions per policy. No contraindications or sensitivities were noted. Meds taken: NO before testing. 2 puffs Albuterol (180 mcg) delivered by MDI via holding chamber. HR pre =60/min, HR post =62/min. Current ATS/ERS acceptability and repeatability standards for DLCO met with 2 acceptable maneuvers. Post BD: Current ATS/ERS acceptability and repeatability standards for spirometry met. Start of test and EOFE criteria met.//XY IMPRESSION: Spirometry is normal. There is no significant response to bronchodilator. The diffusing capacity (corrected for hemoglobin) is reduced. The reduced kCO (DLCO/VA) reflects an alteration of the normal transfer/diffusion of CO from the alveolar regions to the blood. Clinical correlation recommended. Electronically Signed On 06-20-2024 12:42:31 EDT by Troy Corona MD ID: [id number] Name: JAILENE FAIRBANKS Race: White Ht: 63.74 in Wt: 160.50 lbs Age: 68 Gender: Female : 1955 Dx: Personal history of COVID-19 Smoking Hx: Non-smoker Doctor: ABIMAEL LUNA Test Date: 06/20/2024 Site: Tech: [employer]os PRE-BRONCH POST-BRONCH Pre LLN Pred ULN %Pred Post %Pred %Chg SPIROMETRY FVC (L) 2.68 2.00 2.80 3.62 95 2.97 106 10 FEV1 (L) 1.89 1.55 2.20 2.81 85 2.02 91 5 FEV1/FVC 0.71 0.67 0.79 0.89 89 0.68 85 -3 PEF L/s (L/sec) 5.16 4.15 5.85 7.55 88 4.94 84 -4 FEF50 (L/sec) 2.15 1.55 3.16 4.77 67 2.25 71 5 FIF50 (L/sec) 2.95 2.99 1 FEF50/FIF50 0.73 90-100 0.75 3 FIVC (L) 2.59 2.82 8 HEA46-02 (L/sec) 1.23 0.95 1.99 3.43 61 1.56 78 26 Time (sec) 10.53 14.12 34 FET PEF (sec) 0.12 0.09 -23 PETER (L) 0.09 0.11 24 Vol Extrap % (%) 3 4 11 LUNG DIFFUSION DLCOunc (ml/min/mmHg) 11.36 14.62 20.79 26.96 54 VA (L) 3.85 3.92 5.02 6.12 76 DLunc/VA (ml/min/mmHg/L) 2.95 3.04 4.35 5.67 67 BHT (sec) 10.80 IVC (L) 2.59 Comments: Pre BD: Current ATS/ERS acceptability and repeatability standards for spirometry met. Start of test and EOFE criteria met. Medications and Allergies were reviewed for possible drug interactions per policy. No contraindications or sensitivities were noted. Meds taken: NO before testing. 2 puffs Albuterol (180 mcg) delivered by MDI via holding chamber. HR pre =60/min, HR post =62/min. Current ATS/ERS acceptability and repeatability standards for DLCO met with 2 acceptable maneuvers. Post BD: Current ATS/ERS acceptability and repeatability standards for spirometry met. Start of test and EOFE criteria met.//XY PULMONARY FUNCTION LAB [facility] Alternaria alternata IgE Allergen Class 0 Class 0 [facility] Anti p155/140 (TIF-1a/y) Negative Negative [facility] Comment on above: Performed By: MYAH robbins[address] [place] [id number] Director: Jacobo Velasco MD, PhDCLIA Number: [id number] Anti-Centromere Ab Interpretation Negative Negative [facility] Anti-Double Strand DNA Antibody 37 [IU]/mL <=200 [facility] Comment on above: Negative: <200 IU/mL Equivocal: 201-300 IU/mLModerate Positive: 301-800 IU/mLStrong Positive: >801 IU/mL Anti-ds DNA IgG Ab (Crithidia) Negative Negative [facility] Anti-Phospholipid Antibody Interp [facility] Anti-Bradley Antibody Interpretation Negative Negative [facility] Comment on above: Anti-Sm (Bradley) anti body is used as an aid in diagnosis of systemic lupus erythematosus and its presence is associated with renal disease. A negative result cannot rule out systemic lupus erythematosus. Clinical correlation is required. Test Methodology: Multiplex flow immunoassay. Aspergillus fumigatus Allergen IgE Class 0 Class 0 [facility] Cat Dander IgE Allergen Class 0 Class 0 F [facility] Chromatin Qualitative Negative Negative [facility] Cladosporium herbarum IgE Allergen Class 0 Class 0 [facility] Common Ragweed Allergen IgE Ab Class 0 Class 0 [facility] Cyclic Citrullinated Peptide IgG Ab <15 Units <20 [facility] Cyclic Citrullinated Peptide Interp Negative Negative [facility] Dermatophagoides farinae IgE Allerg Class 0 Class 0 [facility] Dog Dander IgE Allergen Class 0 Class 0 F [facility] EJ Antibody Negative Negative [facility] Cymro Plantain Allergen IgE Ab Class 0 Class 0 [facility] Goosefoot Allergen Class 0 Class 0 [facility] Housed[facility] & Mites Allergen IgE Ab Class 0 Class 0 [facility] Immature Granulocyte # (Auto) <0.03 k/uL <0.10 [facility] ELLA-1 Antibody Interpretation Negative Negative [facility] Comment on above: Anti-ELLA-1 antibody i s used as an aid in diagnosis of polymyositis and dermatomyositis especially with pulmonary involvement. A negative result cannot rule out polymyositis or dermatomyositis. Clinical correlation is required.Test Methodology: Multiplex flow immunoassay. [place] Blue (April) Grass IgE Ab Class 0 Class 0 [facility] Alcantar's Quarters/Goosefoot IgE Intrp <0.35 kU/l <0.35 [facility] Maple Tree Allergen IgE Antibody Class 0 Class 0 [facility] MDA5 Antibody Negative Negative [facility] Miscellaneous Test Comment See Note [facility] Comment on above: INTERPRETIVE INFORMA TION: Dermatomyositis and Polymyositis PanelIf present, myositis-specific antibodies (MSA) are specific for myositis, and may be useful in establishing diagnosis as well as prognosis. MSAs are generally regarded as mutually exclusive with rare exceptions; the occurrence of two or more MSAs should be carefully evaluated in the context of patient's clinical presentation. Myositis-associated antibodies (MAA) may be found in patients with CTD, including overlap syndromes, and are generally not specific for myositis. The following table will help in identifying the association of any antibodies found as either MSAs or Zhang. Antibody Specificity . . . . . . . . . . . . MSA . . . . MAAJo-1 (histidyl-tRNA synthetase) Ab, IgG . . XPL-12 (alanyl-tRNA synthetase) Antibody . . XPL-7 (threonyl-tRNA synthetase) Antibody . . XEJ (glycyl-tRNA synthetase) Antibody . . . . XOJ (isoleucyl-tRNA synthetase) Antibody . . XSRP (Signal Recognition Particle) Ab . . . . XMi-2 (nuclear helicase protein) Antibody . . XP155/140 Antibody . . . . . . . . . . . . . XTIF-1 gamma (155 kDA) Ab . . . . . . . . . XSAE1 (SUMO activating enzyme) Ab . . . . . . XMDA5 (CADM-140) Ab . . . . . . . . . . . . . XNXP2 (Nuclear matrix protein-2) Ab . . . . . XThis test was developed and its performance characteristics determined by [facility]. It has not been cleared or approved by the [place] Food and Drug Administration. This test was performed in a CLIA certified laboratory and is intended for clinical purposes. Myositis SAE1 (SUMO Act Enzyme) Ab Negative Negative [facility] Myositis TIF1-gamma Antibody Negative Negative [facility] NXP-2 Antibody Negative Negative [facility] OJ Antibody Negative Negative [facility] Penicillium notatum Allergen (RAST) <0.35 kU/l <0.35 [facility] Penicillium notatum IgE Antibody Class 0 Class 0 [facility] Perinuclear ANCA (p-ANCA) Antibody Positive Abnormal Negative [facility] PL-12 Antibody Negative Negative [facility] PL-7 Antibody Negative Negative [facility] WEB SITE DESIGNER Antibody <0.2 AI <1.0 [facility] WEB SITE DESIGNER Antibody Interpretation Negative Negative [facility] Scl-70 (Scleroderma) Antibody <0.2 AI <1.0 [facility] Comment on above: Scl-70/Scleroderma a ntibody test is used as an aid in diagnosis of systemic sclerosis especially the diffuse cutaneous form. A negative result cannot rule out systemic sclerosis. The final interpretation should consider clinical picture and other test results such as anti-centromere antibody. Test Methodology: Multiplex flow immunoassay. Scl-70 Antibody Negative Negative [facility] Signal Recognition Particle (SRP) Negative Negative [facility] SS-A Antibody Interpretation Negative Negative [facility] SS-B Antibody Interpretation Negative Negative [facility] Micah Grass Allergen IgE Antibody Class 0 Class 0 [facility] [facility] All[facility]en IgE Ab Class 0 Class 0 [facility] Nucleated RBC Auto (Bld) [#/ Vol]on 06-20-2024 Nucleated RBC (Bld) [#/Vol] 10*3/uL <0.01 [facility] Nucleated erythrocytes [Pres ence] in Blood by Automated counton 06-20-2024 Nucleated RBC Auto Ql (Bld) 0.0 /100{WBC} [facility] POLYMYOSITIS AND DERMATOMYOS ITIS PANELon 06-20-2024 EJ (GLYCYL-TRNA SYNTHETASE) ANTIBODY Negative Normal Negative [facility] Comment on above: Order Comment: Cindyi pavithra Type: BLOOD SPECIMENOrdering Facility: [facility] Address: [address] [place] [address] Performed By: #### M YOSPL ####[facility] [id number] [place] [address] ELLA-1 (HISTIDYL-TRNA SYNTHETASE) AB, IGG 1 AU/mL Normal 0-40 [facility] Comment on above: Order Comment: Cindyi pavithra Type: BLOOD SPECIMENOrdering Facility: [facility] Address: [address] [place] [address] Result Comment: INTE RPRETIVE INFORMATION: Ella-1 Antibody, IgG 29 AU/mL or less.........Negative 30-40 AU/mL..............Equivocal 41 AU/mL or greater......Positive Presence of Ella-1 (antihistidyl transfer RNA [t-RNA] synthetase) antibody is associated with polymyositis and may also be seen in patients with dermatomyositis. Ella-1 antibody is associated with pulmonary involvement (interstitial lung disease), Raynaud phenomenon, arthritis, and shift mechanic's hands (implicated in antisynthetase syndrome). Performed By: #### M YOSPL ####[facility]IESCLIA [id number] [place] [address] MDA5 (CADM-140) AB Negative Normal Negative [facility] Comment on above: Order Comment: Cindyi pavithra Type: BLOOD SPECIMENOrdering Facility: [facility] Address: [address] [place] [address] Performed By: #### M YOSPL ####[facility]CLIA [id number] [place] [address] ME-2 (NUCLEAR HELICASE PROTEIN) ANTIBODY Negative Normal Negative [facility] Comment on above: Order Comment: Cindyi pavithra Type: BLOOD SPECIMENOrdering Facility: [facility] Address: [address] [place] [address] Performed By: #### M YOADRIENNEL ####[facility] [id number] [place] [address] MYOSITIS INTERPRETIVE INFORMATION See Note Normal [facility] Comment on above: Order Comment: Speci men Type: BLOOD SPECIMENOrdering Facility: [facility] Address: [address] [place], [place] [id number] Result Comment: INTE RPRETIVE INFORMATION: Dermatomyositis and Polymyositis Panel If present, myositis-specific antibodies (MSA) are specific for myositis, and may be useful in establishing diagnosis as well as prognosis. MSAs are generally regarded as mutually exclusive with rare exceptions; the occurrence of two or more MSAs should be carefully evaluated in the context of patient's clinical presentation. Myositis-associated antibodies (MAA) may be found in patients with CTD, including overlap syndromes, and are generally not specific for myositis. The following table will help in identifying the association of any antibodies found as either MSAs or Zhang. Antibody Specificity . . . . . . . . . . . . MSA . . . . MAA Ella-1 (histidyl-tRNA synthetase) Ab, IgG . . X PL-12 (alanyl-tRNA synthetase) Antibody . . X PL-7 (threonyl-tRNA synthetase) Antibody . . X EJ (glycyl-tRNA synthetase) Antibody . . . . X OJ (isoleucyl-tRNA synthetase) Antibody . . X SRP (Signal Recognition Particle) Ab . . . . X Mi-2 (nuclear helicase protein) Antibody . . X P155/140 Antibody . . . . . . . . . . . . . X TIF-1 gamma (155 kDA) Ab . . . . . . . . . X SAE1 (SUMO activating enzyme) Ab . . . . . . X MDA5 (CADM-140) Ab . . . . . . . . . . . . . X NXP2 (Nuclear matrix protein-2) Ab . . . . . X This test was developed and its performance characteristics determined by [facility]. It has not been cleared or approved by the [place] Food and Drug Administration. This test was performed in a CLIA certified laboratory and is intended for clinical purposes. Performed By: #### M YOSPL ####[facility]IESCLIA [id number] [place] [address] NXP2 (NUCLEAR MATRIX PROTEIN-2) AB Negative Normal Negative [facility] Comment on above: Order Comment: Speci men Type: BLOOD SPECIMENOrdering Facility: [facility] Address: [address] [place] [address] Performed By: #### M YOSPL ####[facility]IESCLIA [id number] [place] [address] OJ (ISOLEUCYL-TRNA SYNTHETASE) ANTIBODY Negative Normal Negative [facility] Comment on above: Order Comment: Speci men Type: BLOOD SPECIMENOrdering Facility: [facility] Address: [address] [place] [address] Performed By: #### M YOSPL ####[facility]IESCLIA [id number] [place] [address] P155/140 ANTIBODY Negative Normal Negative [facility] Comment on above: Order Comment: Speci men Type: BLOOD SPECIMENOrdering Facility: [facility] Address: [address] [place] [address] Result Comment: Perf ormed By: [facility] [address] [place] [address] Parking Enforcement Technician: Jacobo Velasco MD, PhD CLIA Number: [id number] Performed By: #### M YOSPL ####[facility]IESCLIA [id number] [place] [address] PL-12 (ALANYL-TRNA SYNTHETASE) ANTIBODY Negative Normal Negative [facility] Comment on above: Order Comment: Speci men Type: BLOOD SPECIMENOrdering Facility: [facility] Address: [address] [place] [address] Performed By: #### M YOSPL ####[facility]IESCLIA [id number] [place] [address] PL-7 (THREONYL-TRNA SYNTHETASE) ANTIBODY Negative Normal Negative [facility] Comment on above: Order Comment: Speci men Type: BLOOD SPECIMENOrdering Facility: [facility] Address: [address] [place] [address] Performed By: #### M YOSPL ####[facility] HOSPITALIA [id number] [place] [address] SAE1 (SUMO ACTIVATING ENZYME) AB Negative Normal Negative [facility] Comment on above: Order Comment: Specyadira arshad Type: BLOOD SPECIMENOrdering Facility: [facility] Address: [address] [place] [address] Performed By: #### M YOSPL ####[facility]ENTERCLIA [id number] [place] [address] SRP (SIGNAL RECOGNITION PARTICLE) AB Negative Normal Negative [facility] Comment on above: Order Comment: Dustin arshad Type: BLOOD SPECIMENOrdering Facility: [facility] Address: [address] [place] [address] Performed By: #### M YOSPL ####[facility] CENTERCLIA [id number] [place] [address] TIF-1 GAMMA (155 KDA) AB Negative Normal Negative [facility] Comment on above: Order Comment: Speci pavithra Type: BLOOD SPECIMENOrdering Facility: [facility] Address: [address] [place] [address] Performed By: #### M YOSPL ####[facility] HOSPITALIA [id number] [place] [address] PT panel Coag (PPP)on 2023 INR Coag (PPP) [Relative time] 1.0 {INR} Normal 0.9-1.3 [facility] Comment on above: Order Comment: Dustin arshad Type: BLOOD SPECIMEN [facility]ing [facility]: [facility] Address: [address] [place] [address] Result Comment: Krystina min K Antagonist (VKA) Therapeutic Range: INR 2 to 3 (Target INR of 2.5) Note: For patients treated with VKA drugs, such as warfarin, the [place] [employer] 2012 Guideline recommends a therapeutic INR range of 2 to 3 (target INR of 2.5). This recommendation includes high-risk patients with antiphospholipid syndrome with previous arterial or venous thromboembolism, current-generation mechanical or bioprosthetic aortic heart valve replacement. Note: Patients with mechanical aortic valve replacement and additional risk factors for thromboembolic events (atrial fibrillation, previous thromboembolism, LV dysfunction, hypercoagulable conditions) or an older generation mechanical AVR (i.e., ball in-Cage) or any mechanical MVR should have a INR therapeutic range of 2.5 to 3.5 (target INR of 3). Porsche LÓPEZ, et al. Chest 2012, 141:7S-47S Tom RUBIO, et al. [facility] 2017, 70: 252-289 Performed By: #### D NAAB #### [facility] CLIA [id number] [address] [place] [address] [place] PT Coag (PPP) [Time] 10.3 s Normal 9.7-13.0 [facility] Comment on above: Order Comment: Speci men Type: BLOOD SPECIMEN [facility]: [facility] Address: [address] [place] [address] Performed By: #### D NAAB #### [facility] CLIA [id number] [address] [place] [address] [place] Platelet mean volume Auto (B ld) [Entitic vol]on 06-20-2024 Platelet mean volume (Bld) [Entitic vol] 9.5 fL 9.0-12.7 [facility] Platelets Auto (Bld) [#/Vol] on 06-20-2024 Platelets (Bld) [#/Vol] 291 10*3/uL 150-400 [facility] Prot/Creat Uron 06-20-2024 Protein (U) [Mass/Vol] 27 mg/dL High 0-20 [facility] Comment on above: Order Comment: Speci men Type: URINE SPECIMENOrdering Facility: [facility] Address: [address] [place] [address] Performed By: #### 2 890-2 ####[facility] LABCLIA [id number] [place] [address] [place] Protein/Creatinine (U) [Mass ratio]on 06-20-2024 Creatinine (U) [Mass/Vol] 142.8 mg/dL Normal 20.0-300.0 [facility] Comment on above: Order Comment: Speci men Type: URINE SPECIMENOrdering Facility: [facility] Address: [address] [place] [address] Performed By: #### 2 890-2 ####[facility] LABCLIA [id number] [address] [place] [address] [place] Proteinase 3 Ab [Units/volum e] in Serum by Immunoassayon 06-20-2024 Proteinase 3 Ab IA Qn (S) <0.2 AI <1.0 [facility] Prothrombin time (PT)on 05-24 PT Coag (PPP) [Time] 10.3 s 9.7-13.0 [facility] RBC Auto (Bld) [#/Vol]on RBC (Bld) [#/Vol] 4.48 10*6/uL 3.90-5.20 [facility] RNA POLYMERASE III ABon 05-24 RNA POLYMERASE III AB 10 Units Normal 0-19 [facility] Comment on above: Order Comment: Speci men Type: BLOOD SPECIMENOrdering Facility: [facility] Address: [address] [place] [address] Result Comment: INTE RPRETIVE INFORMATION: RNA Polymerase III Antibody, IgG 19 Units or less ......Negative 20 - 39 Units .........Weak Positive 40 - 80 Units .........Moderate Positive 81 Units or greater ...Strong Positive The presence of RNA polymerase III IgG antibody, when considered in conjunction with other laboratory and clinical findings, is an aid in the diagnosis of systemic sclerosis (SSc) with increased incidence of skin involvement and renal crisis with the diffuse cutaneous form of SSc. RNA polymerase III IgG antibody occur in about 11-23 percent of SSc patients, and typically in the absence of anti-centromere and anti-Scl-70 antibodies. A negative result indicates no detectable IgG antibodies to the dominant antigen of RNA polymerase III and does not rule out the possibility of SSc. False-positive results may also occur due to non-specific binding of immune complexes. Strong clinical correlation is recommended. If clinical suspicion remains, consider additional testing for other antibodies associated with SSc, including centromere, Scl-70, U3-WEB SITE DESIGNER, PM/Scl, or Th/To. Performed By: [facility] [address] [place] [address] Parking Enforcement Technician: Jacobo Velasco MD, PhD CLIA Number: [id number] Performed By: #### R NAIII ####[facility]OR[facility]IESCLIA [id number] [place] [id number] RNA polymerase III IgG Ab [U nits/volume] in Serum or Plasma by Immunoassayon 06-20-2024 RNA polymerase III IgG IA Qn 10 Units 0-19 [facility] Comment on above: INTERPRETIVE INFORMA TION: RNA Polymerase III Antibody, IgG 19 Units or less ......Negative 20 - 39 Units .........Weak Positive 40 - 80 Units .........Moderate Positive 81 Units or greater ...Strong PositiveThe presence of RNA polymerase III IgG antibody, when considered in conjunction with other laboratory and clinical findings, is an aid in the diagnosis of systemic sclerosis (SSc) with increased incidence of skin involvement and renal crisis with the diffuse cutaneous form of SSc. RNA polymerase III IgG antibody occur in about 11-23 percent of SSc patients, and typically in the absence of anti-centromere and anti-Scl-70 antibodies.A negative result indicates no detectable IgG antibodies to the dominant antigen of RNA polymerase III and does not rule out the possibility of SSc. False-positive results may also occur due to non-specific binding of immune complexes. Strong clinical correlation is recommended.If clinical suspicion remains, consider additional testing for other antibodies associated with SSc, including centromere, Scl-70, U3-WEB SITE DESIGNER, PM/Scl, or Th/To.Performed By: [facility] [place], [place] [address]Owzxixcdsr Director: Jacobo Velasco MD, PhDCLIA Number: [id number] Ribonucleoprotein extractabl e nuclear Ab Qn (S)on 06-20-2024 ANTI-WEB SITE DESIGNER QUAL Negative Normal Negative [facility] Comment on above: Order Comment: Speci men Type: BLOOD SPECIMENOrdering Facility: [facility] Address: [address] [place] [address] Performed By: #### 2 9374-6, 36301-0, 70380-3, 18447-4, 86669-5, 51328-4, 73704-6, 91472-5 ####[facility] LABCLIA [id number] [address] [address] [place] RIBOSOMAL WEB SITE DESIGNER QUAL Negative Normal Negative [facility] Comment on above: Order Comment: Specyadira arshad Type: BLOOD SPECIMEN [facility]: [facility] Address: [address] [place] [address] Result Comment: Anti -Ribosomal RNA (Ribosomal P) antibody is used as an aid in diagnosis of systemic autoimmune diseases especially systemic lupus erythematosus and mixed connective tissue disease. Cross-reactivity with Anti-bradley antibody is not uncommon. Clinical correlation is required. Test Methodology: Multiplex flow immunoassay. Performed By: #### D NAAB #### [facility] CLIA [id number] [address] [place] [address] [place] Ribosomal P Ab [Units/volume ] in Serumon 06-20-2024 Ribosomal P Ab Qn (S) Negative Negative [facility] Comment on above: Anti-Ribosomal RNA ( Ribosomal P) antibody is used as an aid in diagnosis of systemic autoimmune diseases especially systemic lupus erythematosus and mixed connective tissue disease. Cross-reactivity with Anti-bradley antibody is not uncommon. Clinical correlation is required. Test Methodology: Multiplex flow immunoassay. SCL-70 extractable nuclear I gG IA Qn (S)on 06-20-2024 SCLERODERMA AB QUAL Negative Normal Negative [facility] Comment on above: Order Comment: Dustin arshad Type: BLOOD SPECIMENOrdering Facility: [facility] Address: [address] [place] [address] Performed By: #### 2 9374-6, 19667-7, 51196-7, 85625-7, 33927-4, 49886-0, 88569-3, 17041-0 ####[facility] LABCLIA [id number] [place] [address] [place] SCLERODERMA IGG AB <0.2 Normal <1.0 [facility] Comment on above: Order Comment: Speci men Type: BLOOD SPECIMENOrdering Facility: [facility] Address: [address] [place] [address] Result Comment: Scl- 70/Scleroderma antibody test is used as an aid in diagnosis of systemic sclerosis especially the diffuse cutaneous form. A negative result cannot rule out systemic sclerosis. The final interpretation should consider clinical picture and other test results such as anti-centromere antibody. Test Methodology: Multiplex flow immunoassay. Performed By: #### 2 9374-6, 10141-3, 41572-3, 21953-0, 02657-2, 93594-2, 42928-4, 90968-3 ####[facility] LABCLIA [id number] [place] [address] [place] Serum Cymro plantain IgE a ntibody assay (units/volume)on 06-20-2024 Cymro plantain IgE Qn (S) <0.35 kU/l <0.35 [facility] Serum Ella-1 extractable nucle ar antibody assay (units/volume)on 06-20-2024 Ella-1 extractable nuclear Ab Qn (S) 1 AU/mL 0-40 [facility] Comment on above: INTERPRETIVE INFORMA TION: Ella-1 Antibody, IgG 29 AU/mL or less.........Negative 30-40 AU/mL..............Equivocal 41 AU/mL or greater......PositivePresence of Ella-1 (antihistidyl transfer RNA [t-RNA] synthetase) antibody is associated with polymyositis and may also be seen in patients with dermatomyositis. Ella-1 antibody is associated with pulmonary involvement (interstitial lung disease), Raynaud phenomenon, arthritis, and shift mechanic's hands (implicated in antisynthetase syndrome). Serum Sjogrens syndrome-A ex tractable nuclear antibody assay (units/volume)on 06-20-2024 Sjogrens syndrome-A extractable nuclear Ab Qn (S) <0.2 AI <1.0 [facility] Comment on above: Test Methodology: Mu ltiplex flow immunoassay. Serum Sjogrens syndrome-B ex tractable nuclear antibody assay (units/volume)on 06-20-2024 Sjogrens syndrome-B extractable nuclear Ab Qn (S) <0.2 AI <1.0 [facility] Comment on above: Anti-SSB (anti-La) a ntibody is used as an aid in diagnosis of a variety of systemic autoimmune diseases, especially for Sjogren's syndrome and systemic lupus erythematosus. Clinical correlation is required. Test Methodology: Multiplex flow immunoassay. Serum Bradley extractable nucl ear antigen (RAMON) antibody assay (units/volume)on 06-20-2024 Bradley extractable nuclear Ab Qn (S) <0.2 AI <1.0 [facility] Serum [id number] me asurementon 06-20-2024 Alpha 1 antitrypsin [Mass/Vol] 158 mg/dL 90-200 [facility] Serum cat dander IgG antibod y assay (units/volume)on 06-20-2024 Cat dander IgG Qn (S) <0.35 kU/l <0.35 [facility] Serum centromere protein B a ntibody assay (units/volume)on 06-20-2024 Centromere protein B Ab Qn (S) <0.2 AI <1.0 [facility] Comment on above: Anti-centromere anti body is used as in aid in diagnosis of systemic sclerosis. Clinical correlation is required. Test Methodology: Multiplex flow immunoassay. Serum classic neutrophil cyt oplasmic antibody titer by immunofluorescenceon 06-20-2024 Neutrophil cytoplasmic Ab.classic IF (S) [Titer] Negative Negative [facility] Serum mitochondria M2 IgG an tibody assay (units/volume)on 06-20-2024 Mitochondria M2 IgG Qn (S) Negative Negative [facility] Serum nuclear antibody titer on 06-20-2024 Nuclear Ab (S) [Titer] Negative Negative [facility] Comment on above: Anti-nuclear antibod y test is used as an aid in diagnosis of systemic autoimmune diseases. Where positive and clinically warranted, follow-up using disease-specific testing is recommended. Low positive titers are not uncommon with advanced age, certain chronic infections, and malignancies among others.Test methodology: Indirect fluorescence immunoassay (IFA) using HEp-2 cells. Serum or plasma chromatin an tibody assay (units/volume)on 06-20-2024 Chromatin Ab Qn <0.2 AI <1.0 [facility] Comment on above: Test Methodology: Mu ltiplex flow immunoassay. Serum or plasma complement C 3 measurement (mass/volume)on 06-20-2024 Complement C3 [Mass/Vol] 159 mg/dL 86-166 [facility] Serum or plasma complement C 4 measurement (mass/volume)on 06-20-2024 Complement C4 [Mass/Vol] 32 mg/dL 13-46 [facility] Serum short ragweed specific IgE antibody assayon 06-20-2024 Common Ragweed IgE Qn (S) <0.35 kU/l <0.35 [facility] Sjogrens syndrome-A extracta ble nuclear Ab Qn (S)on 06-20-2024 SSA ANTIBODY QUAL Negative Normal Negative [facility] Comment on above: Order Comment: Speci men Type: BLOOD SPECIMENOrdering Facility: [facility] Address: [address] [place] [address] Performed By: #### 2 9374-6, 57478-9, 94579-4, 40906-3, 82707-1, 76104-7, 93483-5, 88326-5 ####[facility] LABCLIA [id number] [place] [address] [place] Sjogrens syndrome-B extracta ble nuclear Ab Qn (S)on 06-20-2024 SSB ANTIBODY QUAL Negative Normal Negative [facility] Comment on above: Order Comment: Speci men Type: BLOOD SPECIMEN [facility]ing [facility]: [facility] Address: [address] [place] [address] Performed By: #### D NAAB #### [facility] CLIA [id number] [address] [place] [address] [place] Bradley extractable nuclear Ig G Qn (S)on 06-20-2024 SM ANTIBODY QUAL Negative Normal Negative [facility] Comment on above: Order Comment: Speci men Type: BLOOD SPECIMENOrdering Facility: [facility] Address: [address] [place] [address] Result Comment: Anti -Sm (Bradley) antibody is used as an aid in diagnosis of systemic lupus erythematosus and its presence is associated with renal disease. A negative result cannot rule out systemic lupus erythematosus. Clinical correlation is required. Test Methodology: Multiplex flow immunoassay. Performed By: #### 2 9374-6, 22084-4, 86937-1, 72338-7, 73766-1, 83595-2, 90158-8, 75092-1 ####[facility] LABCLIA [id number] [place] [address] [place] TH/TO ANTIBODYon 06-20-2024 Th-To Ab Line blot Ql (S) Negative Normal Negative [facility] Comment on above: Order Comment: Speci men Type: BLOOD SPECIMEN [facility] Address: [address] [place] [address] Performed By: #### D NAAB #### [facility] CLIA [id number] [address] [place] [address] [place] TT plason 06-20-2024 Thrombin time Coag (PPP) [Time] 17.6 seconds <18.6 [facility] Th-To Ab [Units/volume] in S maye by Line bloton 06-20-2024 Th-To Ab Line blot Qn (S) Negative Negative [facility] Micah IgE Ab [Units/volume ] in Serumon 06-20-2024 Micah IgE Qn (S) <0.35 kU/l <0.35 [facility] Urinalysis complete panel (U )on 06-20-2024 Bacteria LM.HPF (Urine sed) [#/Area] Negative Negative /HPF [facility] Bilirubin Ql (U) Negative Negative [facility] Clarity (Unsp spec) Clear Clear Jamil [facility] Color (U) Yellow [facility] Epithelial cells LM.HPF (Urine sed) [#/Area] None Seen /HPF [facility] Glucose Test strip (U) [Mass/Vol] Negative Negative [facility] Hem[facility]l (U) [facility] Hyaline casts (Urine sed) [#/Area] 1-3 /LPF Abnormal 0 /LPF [facility] Ketones Ql (U) Negative Negative [facility] Leukocyte esterase Test strip Ql (U) Negative Negative [facility] Nitrite Ql (U) Negative Negative [facility] pH (U) 5.5 [pH] NINF - 8.5 [facility] Protein (U) [Mass/Vol] 1+ Abnormal Negative [facility] RBC LM.HPF (Urine sed) [#/Area] 3-5 /HPF Abnormal 0-2 /HPF [facility] Specific gravity (U) [Rel density] 1.025 1.005 - 1.030 [facility] Urobilinogen Ql (U) 0.2 EU/dL 0.2-1.0 EU/dL [facility] WBC LM.HPF (Urine sed) [#/Area] 0-5 /HPF 0-5 /HPF [facility] This test was developed and its performance characteristics determined by [facility]'s [facility] [place] ([facility] It has not been cleared or approved by the FDA. -[facility] is regulated under CLIA as qualified to perform high-complexity testing. This test is used for clinical purposes. It should not be regarded as investigational or for research. [facility] Bacteria LM.HPF (Urine sed) [#/Area] Negative Normal Negative [facility] Comment on above: Order Comment: Speci men Type: BLOOD SPECIMEN Ordering Facility: [facility] Address: [address] [place] [address] Performed By: #### D NAAB #### [facility] CLIA [id number] [address] [place] [address] [place] Bilirubin Ql (U) Negative Normal Negative [facility] Comment on above: Order Comment: Speci men Type: BLOOD SPECIMEN Ordering Facility: [facility] Address: [address] [place] [address] Performed By: #### D NAAB #### [facility] CLIA [id number] [address] [place] [address] [place] Clarity (Unsp spec) Clear Normal Clear [facility] Comment on above: Order Comment: Speci men Type: BLOOD SPECIMEN Ordering Facility: [facility] Address: [address] [place] [address] Performed By: #### D NAAB #### [facility] CLIA [id number] [address] [place] [address] [place] [facility] Color (U) Yellow Normal Yellow [facility] Comment on above: Order Comment: Speci men Type: BLOOD SPECIMEN Ordering Facility: [facility] Address: [address] [place] [address] Performed By: #### D NAAB #### [facility] CLIA [id number] [address] [place] [address] [place] Epithelial cells LM.HPF (Urine sed) [#/Area] None Seen Normal [facility] Comment on above: Order Comment: Speci men Type: BLOOD SPECIMEN Ordering Facility: [facility] Address: [address] [place] [address] Performed By: #### D NAAB #### [facility] CLIA [id number] [address] [place] [address] [place] Glucose Test strip (U) [Mass/Vol] Negative Normal Negative [facility] Comment on above: Order Comment: Speci men Type: BLOOD SPECIMEN Ordering Facility: [facility] Address: [address] [place] [address] Performed By: #### D NAAB #### [facility] CLIA [id number] [address] [place] [address] [place] Hemoglobin Ql (U) Negative Normal Negative [facility] Comment on above: Order Comment: Speci men Type: BLOOD SPECIMEN Ordering Facility: [facility] Address: [address] [place] [address] Performed By: #### D NAAB #### [facility] CLIA [id number] [address] [place] [address] [place] Hyaline casts (Urine sed) [#/Area] 1-3 /LPF Abnormal 0 /LPF [facility] Comment on above: Order Comment: Speci men Type: BLOOD SPECIMEN Ordering Facility: [facility] Address: [address] [place] [address] Performed By: #### D NAAB #### [facility] CLIA [id number] [address] [place] [address] [place] Ketones Ql (U) Negative Normal Negative [facility] Comment on above: Order Comment: Speci men Type: BLOOD SPECIMEN Ordering Facility: [facility] Address: [address] [place] [address] Performed By: #### D NAAB #### [facility] CLIA [id number] [address] [place] [address] [place] Leukocyte esterase Test strip Ql (U) Negative Normal Negative [facility] Comment on above: Order Comment: Speci men Type: BLOOD SPECIMEN Ordering Facility: [facility] Address: [address] [place] [address] Performed By: #### D NAAB #### [facility] CLIA [id number] [address] [place] [address] [place] Nitrite Ql (U) Negative Normal Negative [facility] Comment on above: Order Comment: Speci men Type: BLOOD SPECIMEN Ordering Facility: [facility] Address: [address] [place] [address] Performed By: #### D NAAB #### [facility] CLIA [id number] [address] [place] [address] [place] pH (U) 5.5 [pH] Normal <8.5 [facility] Comment on above: Order Comment: Speci men Type: BLOOD SPECIMEN Ordering Facility: [facility] Address: [address] [place] [address] Performed By: #### D NAAB #### [facility] CLIA [id number] [address] [place] [address] [place] Protein (U) [Mass/Vol] 1+ Abnormal Negative Cl [facility] Comment on above: Order Comment: Speci men Type: BLOOD SPECIMEN Ordering Facility: [facility] Address: [address] [place] [address] Performed By: #### D NAAB #### [facility] CLIA [id number] [address] [place] [address] [place] RBC LM.HPF (Urine sed) [#/Area] 3-5 /HPF Abnormal 0-2 /HPF [facility] Comment on above: Order Comment: Speci men Type: BLOOD SPECIMEN Ordering Facility: [facility] Address: [address] [place] [address] Performed By: #### D NAAB #### [facility] CLIA [id number] [address] [place] [address] [place] Specific gravity (U) [Rel density] 1.025 Normal 1.005-1.030 [facility] Comment on above: Order Comment: Speci men Type: BLOOD SPECIMEN Ordering Facility: [facility] Address: [address] [place] [address] Performed By: #### D NAAB #### [facility] CLIA [id number] [address] [place] [address] [place] Urobilinogen Ql (U) 0.2 EU/dL Normal 0.2-1.0 EU/dL [facility] Comment on above: Order Comment: Speci men Type: BLOOD SPECIMEN Ordering Facility: [facility] Address: [address] [place] [address] Performed By: #### D NAAB #### [facility] CLIA [id number] [address] [place] [address] [place] WBC LM.HPF (Urine sed) [#/Area] 0-5 /HPF Normal 0-5 /HPF [facility] Comment on above: Order Comment: Speci men Type: BLOOD SPECIMEN Ordering Facility: [facility] Address: [address] [place] [address] Performed By: #### D NAAB #### [facility] CLIA [id number] [address] [place] [address] [place] [address] [place] Urine protein/creatinine rat ioon 06-20-2024 Protein/Creatinine (U) [Ratio] 0.19 mg/mg High <0.15 [facility] Comment on above: Adult Proteinuria Ca tegories:<0.15 mg/mg is considered normal to mildly increased0.15 - 0.50 mg/mg is considered moderately increased>0.50 mg/mg is considered severely increasedKDIGO. (2013). KDIGO 2012 Clinical Practice Guideline for the Evaluation and Management of Chronic Kidney Disease. Official Journal of the International Society of Nephrology, 3(1), 1150. [place] IgE Ab [Units/volu me] in Serumon 06-20-2024 [place] IgE Qn (S) <0.35 kU/l <0.35 [facility] XR CHEST 2V FRONTAL/LATon XR CHEST 2V FRONTAL/LAT * * *Final Repor t* * * DATE OF EXAM: Jun 20 2024 8:28AM AOX 5291 - XR CHEST 2V FRONTAL/LAT / PROCEDURE REASON: Dyspnea, unspecified type * * * * Physician Interpretation * * * * EXAMINATION: CHEST RADIOGRAPH (2 VIEW FRONTAL and LATERAL) CLINICAL HISTORY: Dyspnea, unspecified type MQ: XC2_6 EXAM DATE/TIME: 06/20/2024 8:28 AM COMPARISON: PA and lateral CXR 04/01/2024 RESULT: Lines, tubes, and devices: None. Lungs and pleura: The lungs are clear of consolidation. There is been improvement of linear/discoid atelectasis or scarring noted at the left lung base on the prior exam. No pleural effusion or pneumothorax is identified. Cardiomediastinal silhouette: Again demonstrated are postoperative changes of median sternotomy and aortic valve replacement. The heart size and pulmonary vascular pattern are within normal limits. There is a small hiatal hernia. Bones and soft tissues: There are mild degenerative changes in the thoracic spine. IMPRESSION: No acute disease identified in the lungs or mediastinum. Mercerizing Range Feeder: JONI Transcribe Date/Time: Jun 20 2024 2:17P Dictated by : ISIDRA ROBERTS MD This examination was interpreted and the report reviewed and electronically signed by: ISIDRA ROBERTS MD on Jun 20 2024 2:18PM EST [id number] Normal [facility] XR Chest PA and Lateralon IMPRESSION: No acute disease identified in the lungs or mediastinum. Mercerizing Range Feeder: JONI Transcribe Date/Time: Jun 20 2024 2:17P Dictated by : ISIDRA ROBERTS MD This examination was interpreted and the report reviewed and electronically signed by: ISIDRA ROBERTS MD on Jun 20 2024 2:18PM EST DIVISION OF RADIOLOGY * * *Final Report* * * DATE OF EXAM: Jun 20 2024 8:28AM AOX 5291 - XR CHEST 2V FRONTAL/LAT / PROCEDURE REASON: Dyspnea, unspecified type * * * * Physician Interpretation * * * * EXAMINATION: CHEST RADIOGRAPH (2 VIEW FRONTAL & LATERAL) CLINICAL HISTORY: Dyspnea, unspecified type MQ: XC2_6 EXAM DATE/TIME: 06/20/2024 8:28 AM COMPARISON: PA and lateral CXR 04/01/2024 RESULT: Lines, tubes, and devices: None. Lungs and pleura: The lungs are clear of consolidation. There is been improvement of linear/discoid atelectasis or scarring noted at the left lung base on the prior exam. No pleural effusion or pneumothorax is identified. Cardiomediastinal silhouette: Again demonstrated are postoperative changes of median sternotomy and aortic valve replacement. The heart size and pulmonary vascular pattern are within normal limits. There is a small hiatal hernia. Bones and soft tissues: There are mild degenerative changes in the thoracic spine. DIVISION OF RADIOLOGY Provider, [facility] - 06/20/2024 * * *Final Report* * * DATE OF EXAM: Jun 20 2024 8:28AM AOX 5291 - XR CHEST 2V FRONTAL/LAT / PROCEDURE REASON: Dyspnea, unspecified type * * * * Physician Interpretation * * * * EXAMINATION: CHEST RADIOGRAPH (2 VIEW FRONTAL & LATERAL) CLINICAL HISTORY: Dyspnea, unspecified type MQ: XC2_6 EXAM DATE/TIME: 06/20/2024 8:28 AM COMPARISON: PA and lateral CXR 04/01/2024 RESULT: Lines, tubes, and devices: None. Lungs and pleura: The lungs are clear of consolidation. There is been improvement of linear/discoid atelectasis or scarring noted at the left lung base on the prior exam. No pleural effusion or pneumothorax is identified. Cardiomediastinal silhouette: Again demonstrated are postoperative changes of median sternotomy and aortic valve replacement. The heart size and pulmonary vascular pattern are within normal limits. There is a small hiatal hernia. Bones and soft tissues: There are mild degenerative changes in the thoracic spine. IMPRESSION IMPRESSION: No acute disease identified in the lungs or mediastinum. Mercerizing Range Feeder: PSCB Transcribe Date/Time: Jun 20 2024 2:17P Dictated by : ISIDRA ROBERTS MD This examination was interpreted and the report reviewed and electronically signed by: ISIDRA ROBERTS MD on Jun 20 2024 2:18PM [facility] Radiology Study observation (narrative) [facility] XR Chest PA and LateralOrder ed By: Ccf Provider on 06-20-2024 [facility] aPTT Coag (PPP) [Time]on aPTT Coag (Bld) [Time] 28.6 s 24.0-35.1 [facility] aPTT Coag (Bld) [Time] 34.8 s 30.2-43.0 [facility] aPTT PPPon 06-20-2024 aPTT Coag (PPP) [Time] 28.5 s Normal 23.0-32.4 [facility] Comment on above: Order Comment: Speci men Type: BLOOD SPECIMEN Ordering Facility: [facility] Address: [address] [place] [address] Performed By: #### D NAAB #### [facility] CLIA [id number] [address] [place] [address] [place] aPTT.lupus sensitive.factor substitution in Platelet poor plasma by Coagulation assayon 06-20-2024 aPTT.lupus sensitive.factor substitution immediately after 4:1 addition of normal plasma Coag (PPP) [Time] 33.9 s 31.5-38.3 [facility] cCP IgG SerPl-aCncon 024 Cyclic citrullinated peptide IgG Qn <15 Normal <20 [facility] Comment on above: Order Comment: Speci men Type: BLOOD SPECIMENOrdering Facility: [facility] Address: [address] [place] [address] Performed By: #### 3 [id number] ####[facility] [id number] [address] [id number] [address] [place] Urine Cultureon 05-21-2024 Bacteria identified Cx Nom (U) ORGANISM: Escherichia coli (MDRO) (O:ESCCOLMDRO) [place] Count 20,000 Organism Comments Suspected Extended Spectrum Beta Lactamase. ESBL1 Confirmatory Tests are Needed to ESBL2 Differentiate ESBL From Other Beta Lactamases. Aerobic MAGALI Charge (NMIC56) --- SUSCEPTIBILITY -- ORGANISM: O:ESCCOLMDRO ANTIBIOTIC INTERPRETATION MAGALI Amikacin S <16 Amoxacillin/K Clavulanate R >16 Ampicillin R >16 Ampicillin/Sulbactam R >16 Aztreonam R 16 Cefazolin R >16 Cefepime S <2 Ceftazidime R >16 Ceftazidime/Avibactam S <4 Ceftolozane/Tazobactam S <2 Ceftriaxone R >32 Cefuroxime R >16 Ciprofloxacin S <0.25 Ertapenem S <0.5 Gentamicin S <2 Levofloxacin S <0.5 Meropenem S <1 Meropenem/Vaborbactam S <2 Nitrofurantoin S <32 Piperacillin/Tazobacta m S <8 Tetracycline S <4 Tigecycline S <2 Tobramycin S <2 Trimethoprim/Sulfameth oxazole S <0.5 S = SUSCEPTIBLE I = INTERMEDIATE R = RESISTANT BLANK = DATA NOT AVAILABLE, OR DRUG NOT ADVISABLE OR TESTED R* = RESISTANCE DUE TO EXTENDED SPECTRUM BETA-LACTAMASES ESBL = EXTENDED SPECTRUM BETA-LACTAMASE TFG = THYMIDINE-DEPENDENT STRAIN JORGE LUIS = BETA-LACTAMASE POSITIVE IB = INDUCIBLE BETA-LACTAMASE. APPEARS IN PLACE OF 'S' WITH SPECIES KNOWN TO POSSESS INDUCIBLE BETA-LACTAMASES. POTENTIALLY THEY MAY BECOME RESISTANT TO ALL B-LACTAM DRUGS. PERFORMED BY: [facility] [address] [id number] PATHOLOGIST MANUFACTURING PRODUCTION TECHNICIAN NIKO BACH M.D. Normal [facility] Comment on above: Performed By: #### C UU #### [facility] [address] [id number] [facility] Bacteria Bld Culton 04-01-20 24 Bacteria identified Cx Nom (Bld) CULTURE, BLOOD: No growth 5 days Normal [facility] Comment on above: Performed By: #### 6 00-7 ####[facility] [id number] [facility] [place] [id number] [place] Bacterial blood cultureOrder ed By: Madison North on 04-01-2024 Bacteria identified Cx Nom (Bld) [facility] CT CHEST WO IVCONon 04-01-[address] CHEST WO IVCON * * *Final Report* * * DATE OF EXAM: Apr 01 2024 5:33AM [facility] 0541 - CT CHEST WO IVCON / PROCEDURE REASON: Respiratory illness, nondiagnostic xray * * * * Physician Interpretation * * * * EXAMINATION: CHEST CT WITHOUT CONTRAST CLINICAL HISTORY: Further characterization of left lower findings on chest radiograph. Leukocytosis. Technique: Spiral CT acquisition of the chest from the thoracic inlet to the upper abdomen without contrast. MQ: CTCWO_6 CT Radiation dose: Integrated Dose-length product (DLP) for this visit = 320 mGy*cm CT Dose Reduction Employed: Automated exposure control (AEC) Comparison: CTA chest 10/25/2023 RESULT: Limitations: None. Lines, tubes, and devices: None. Lung parenchyma and airways: Mildly hyperinflated lungs with centrilobular emphysematous changes with mild peribronchial thickening consistent with chronic bronchitis/COPD. The central airways are patent. Bilateral peripheral groundglass and bandlike opacities most compatible with atelectasis/scarring. Mild subpleural reticulation in the anterior left upper lobe (4:83), unchanged from prior CTA 10/25/2023. No new focal consolidation. No suspicious pulmonary nodule. Pleural space: No pleural effusion. No pleural thickening. No pneumothorax. Lower neck, lymph nodes, and mediastinum: The imaged thyroid gland is normal. Small sliding-type hiatal hernia containing the gastric fundus with no distention or findings to suggest acute obstruction. No lymphadenopathy in the supraclavicular, axillary, mediastinal, or hilar regions. Heart, pericardium, and thoracic vessels: The thoracic aorta and main pulmonary artery are normal in caliber. Aortic valve replacement. The cardiac chambers are normal in size. Multivessel coronary artery atherosclerotic calcifications are noted, although the study is not optimized for coronary assessment. No pericardial effusion or thickening. Bones and soft tissues: Median sternotomy. No destructive bone lesion. Chest wall is unremarkable. Upper abdomen: No acute abnormality in the imaged upper abdomen. The gallbladder size is at the upper limits of normal Localizer images: Unremarkable. IMPRESSION: No CT evidence of acute abnormality. No thoracic lymphadenopathy. Mercerizing Range Feeder: JONI Transcribe Date/Time: Apr 01 2024 5:57A Dictated by : FARIBA BARBER MD This examination was interpreted and the report reviewed and electronically signed by: JOAO ARANGO MD on Apr 01 2024 6:21AM EST [id number] Normal [facility] D dimer FEU PPP-mCncon 04-01 Fibrin D-dimer FEU (PPP) [Mass/Vol] 570 ng/mL FEU High <500 [facility] Comment on above: Order Comment: Speci men Type: BLOOD SPECIMENOrdering Facility: [facility] Address: [address] [place] [address] Performed By: #### 4 8065-7 ####[facility] LABCLIA [id number] [place] [address] [place] ECHOon 04-01-2024 Echocardiography Echocardiography Report: Transthoracic Echo [facility] ER Date of service: 04/01/2024 5:53:35 AM SUPERVISOR Ordering physician: MARK BUENROSTRO Indication: Shortness of Breath Technologist: Beto Suarez [facility] Fellow: Luis Collazo MD Interpreting physician: Barry Vizcarra MD PATIENT: Name: JAILENE FAIRBANKS : 1955 Age: 68 years Gender: F History of hypertension, dyslipidemia, coronary artery disease and valvular heart disease. Previous cardiovascular interventions: Aortic valve replacement (10/26/2023, 2013) Primary rhythm: sinus. Height: 165.10 cm BSA: 1.82 m Weight: 72.12 kg BMI: 26.5 kg/m Heart rate 60 bpm Blood pressure 117/70 mmHg Technically difficult exam due to suboptimal positioning, body habitus and no access to contrast. Color Doppler was utilized to interrogate the cardiac valves assessed and spectral Doppler was utilized to determine the flow velocities and pressure gradients reported in this exam. MEASUREMENTS: Value Indexed Normal Max aortic dimension 3.8 cm Ao < 3.8 Left atrial volume 45 ml (4ch A-L) 25 ml/m Rossi <= 34 LV ID (diastole) 4.6 cm (2D) 2.53 cm/m LV ID (systole) 2.7 cm (2D) 1.48 cm/m IVS, leaflet tips 1.0 cm (2D) Posterior wall thickness 0.7 cm (2D) Left ventricular mass 128 g (2D) 70 g/m Ejection Fraction 55 % (visual est.) EF > 54 FINDINGS: LEFT VENTRICLE Left ventricular systolic function is normal. Grade I left ventricular diastolic dysfunction. The findings are consistent with normal filling pressures. Mitral annular lateral E/e': 8.0. Mitral annular septal E/e': 11.0. Wall Motion: All scored segments are normal. RIGHT VENTRICLE The right ventricle is normal in size. Right ventricular systolic function is low normal. RV systolic tissue Doppler velocity is 6.4 cm/s. Estimated right ventricular systolic pressure is likely underestimated due to a weak or incomplete tricuspid regurgitation signal and is, at least, 37 mmHg consistent with mild pulmonary hypertension. Estimated right atrial pressure is 8 mmHg based on IVC assessment. LEFT ATRIUM The left atrial cavity is normal in size. Pulmonary Veins: The pulmonary venous pattern showed normal systolic flow. RIGHT ATRIUM The right atrial cavity is normal in size. Inferior Vena Cava: The inferior vena cava appears normal measuring 1.3 cm. The vessel decreases less than 50 percent with inspiration. MITRAL VALVE The mitral valve leaflets are structurally normal. There is mild mitral annular calcification observed posterior. There is no mitral valve regurgitation. The pressure half time is 70 msec. The peak mitral E/A ratio is 0.86. The average mitral E/e' ratio is 9.5. The mitral flow deceleration time is 242 msec. TRICUSPID VALVE The tricuspid valve leaflets are structurally normal. There is mild (1+) tricuspid valve regurgitation. AORTIC VALVE Epic#21 prosthetic valve. There is no aortic valve regurgitation. The peak gradient is 12 mmHg (peak velocity = 176.0 cm/s). The mean gradient is 7 mmHg. The LVOT mean velocity is 68.6 cm/s. The aortic VTI is 39.1 cm. The mean velocity in the aortic valve is 126.0 cm/s. The dimensionless valve index is 0.59. PULMONIC VALVE The pulmonic valve was not seen or not interrogated. There is no pulmonic valve regurgitation. AORTA The visualized aorta is borderline dilated. Measurements - Mid ascending aorta 3.8 cm. CONCLUSIONS: - Technically difficult exam due to suboptimal positioning, body habitus and no access to contrast. - Exam indication: Shortness of Breath - Left ventricular systolic function is normal. EF = 55 5% (visual est.) Grade I left ventricular diastolic dysfunction. - The right ventricle is normal in size. Right ventricular systolic function is low normal. - The visualized aorta is borderline dilated with a maximal dimension of 3.8 cm. - Epic#21 prosthetic aortic valve. There is no aortic valve regurgitation. The peak gradient is 12 mmHg, the mean gradient is 7 mmHg and the dimensionless valve index is 0.59. - Exam was compared with the prior echocardiographic exam performed on 12/23/23; similar findings. * * * Final * * * [employer] : [id number] Normal [facility] ED NOTEon 04-01-2024 ED NOTE HNO ID: [id number] Author: TREMAINE LYN LPN Service: Emergency Medicine Author Type: LICENSED NURSE Type: ED Notes Filed: 04/01/2024 12:10 Note Text: Patient received written and verbal discharge instructions. Patient verbalizes understanding. All questions answered. Instructed to follow up with primary care doctor or follow-up doctor. No acute distress noted upon discharge. Instructed to come back to the emergency room if symptoms worsen. Pt verbalized understanding. All belongings with patient. Pt ambulated with steady gait. Normal [facility] ED PROV NOTEon 04-01-2024 ED PROV NOTE HNO ID: [id number] Author: JONO LEIVA APRN.DEBORAH Service: Emergency Medicine Author Type: Nurse Practitioner Type: ED Provider Notes Filed: 04/01/2024 12:02 Note Text: ED Provider Note Patient Name: Jailene Fairbanks : 1955 SERVICE DATE: 03/31/24 History Patient presents with: Chest Pain: Patient had a aortic valve done in October, the patient has been sob on and off, pain on and off in the chest, cold sweats x 2 days. Patient is a 68-year-old female who has known aortic valve disease who presents to ER with a chief complaint of increasing shortness of breath and dyspnea on exertion. He also has associated pain of the chest and diaphoresis for the last 2 days. No clear exacerbating or alleviating factors. She denies fevers chills. She denies any GI symptoms. Recent travel or sick contacts. PAST MEDICAL HISTORY Diagnosis Date AAA (abdominal aortic aneurysm) (HCC) Coronary artery disease Dyslipidemia Fibromyalgia Hypertension Irregular heart beat Peripheral neuropathy Prosthetic aortic valve stenosis Systemic lupus erythematosus (HCC) TIA (transient ischemic attack) Unsure when- Comfirmed with Neurology PAST SURGICAL HISTORY Procedure Laterality Date ANKLE SURGERY HX Left HEMORRHOID;BAND LIGAT, SNGL/MUL HYSTERECTOMY LEFT HEART CATH,PERCUTANEOUS multiple PAST SURGICAL HISTORY OF 10/25/2014 AVR PAST SURGICAL HISTORY OF C section x2 PAST SURGICAL HISTORY OF R tibia and fibula surgery FAMILY HISTORY Problem Relation Age of Onset Heart Attack Mother Heart disease Father leaky valve Kidney failure Father Coronary Artery Disease Father Diabetes Father No Known Problems Sister No Known Problems Sister No Known Problems Sister No Known Problems Sister No Known Problems Sister No Known Problems Sister No Known Problems Sister No Known Problems Sister No Known Problems Brother Stroke Maternal Grandmother Heart Attack Maternal Grandfather Stroke Paternal Grandmother No Known Problems Paternal Grandfather other (Bicuspid aortic valve) Niece Heart Attack Maternal Aunt Heart Attack Maternal Aunt Arrhythmia Maternal Uncle PPM Coronary Artery Disease Maternal Uncle Bypass other (RBBB) Son No Known Problems Daughter Social History Tobacco Use Smoking status: Former Packs/day: 0.25 Years: 30.00 Additional pack years: 0.00 Total pack years: 7.50 Types: Cigarettes Quit date: 02/2023 Years since quittin.1 Smokeless tobacco: Never Substance and Sexual Activity Alcohol use: Never Drug use: Never Sexual activity: Not on file ALLERGIES Allergen Reactions Alendronate Unknown Latex Unknown Meloxicam Unknown Morphine Unknown Sulfa (Sulfonamide * Unknown Tramadol Unknown Review of Systems Constitutional: Positive for diaphoresis. Negative for chills, fatigue and fever. HENT: Negative for congestion, ear pain, nosebleeds, sore throat and trouble swallowing. Eyes: Negative for pain and visual disturbance. Respiratory: Positive for shortness of breath. Negative for apnea, cough, chest tightness and wheezing. Cardiovascular: Positive for chest pain. Negative for palpitations and leg swelling. Gastrointestinal: Negative for abdominal pain, constipation, diarrhea, nausea and vomiting. Endocrine: Negative for cold intolerance, heat intolerance and polyuria. Genitourinary: Negative for difficulty urinating and frequency. Musculoskeletal: Negative for back pain, joint swelling, myalgias and neck pain. Skin: Negative for color change, rash and wound. Allergic/Immunologic: Negative for immunocompromised state. Neurological: Positive for light-headedness. Negative for dizziness, seizures, syncope, weakness, numbness and headaches. Psychiatric/Behavioral : Negative for hallucinations, self-injury and suicidal ideas. Physical Exam Vitals [03/31/24 2229] BP Pulse Temp Temp src Resp SpO2 Weight Height 137/84 64 36.7 ?C (98 ?F) Oral 20 97 % 72.1 kg (159 lb) -- Physical Exam Vitals and nursing note reviewed. Constitutional: General: She is not in acute distress. Appearance: She is well-developed and normal weight. She is not ill-appearing, toxic-appearing or diaphoretic. HENT: Head: Normocephalic and atraumatic. Nose: Nose normal. Eyes: Extraocular Movements: Extraocular movements intact. Conjunctiva/sclera: Conjunctivae normal. Pupils: Pupils are equal, round, and reactive to light. Neck: Vascular: No JVD. Cardiovascular: Rate and Rhythm: Normal rate and regular rhythm. Pulses: Carotid pulses are 2+ on the right side and 2+ on the left side. Radial pulses are 2+ on the right side and 2+ on the left side. Dorsalis pedis pulses are 2+ on the right side and 2+ on the left side. Posterior tibial pulses are 2+ on the right side and 2+ on the left side. Heart sounds: Murmur heard. No friction rub. Pulmonary: Effort: Pulmonary effort is (more content not included)... Normal [facility] Fibrin D-dimer FEU (PPP) [Ma ss/Vol]on 04-01-2024 D DIMER AGE-RELATED CUTOFF 660 ng/mL FEU Normal [facility] Comment on above: Order Comment: Speci men Type: BLOOD SPECIMENOrdering Facility: [facility] Address: [address] [place] [address] Performed By: #### 4 8065-7 ####[facility] LABCLIA [id number] [place] [address] [place] Fibrin D-dimer [Presence] in Platelet poor plasma by Latex agglutinationon 04-01-2024 Fibrin D-dimer LA Ql (PPP) 570 ng/mL FEU High <500 [facility] No Panel Informationon 04-01 D-Dimer Comment 660 ng/mL FEU [facility] UrinalysisOrdered By: Madison North on 04-01-2024 Urinalysis complete panel (U) [facility] Urinalysis complete panel (U )on 04-01-2024 Bacteria LM.HPF (Urine sed) [#/Area] Negative Normal Negative [facility] Comment on above: Order Comment: Speci men Type: URINE SPECIMENOrdering Facility: [facility] Address: [address] [place] [address] Performed By: #### 2 4356-8 ####[facility] LABCLIA [id number] [place] [address] [place] Bilirubin Ql (U) Negative Normal Negative [facility] Comment on above: Order Comment: Speci men Type: URINE SPECIMENOrdering Facility: [facility] Address: [address] [place] [address] Performed By: #### 2 4356-8 ####[facility] LABCLIA [id number] [place] [address] [place] Clarity (Unsp spec) Clear Normal Clear [facility] Comment on above: Order Comment: Speci men Type: URINE SPECIMENOrdering Facility: [facility] Address: [address] [place] [address] Performed By: #### 2 4356-8 ####[facility] LABCLIA [id number] [place] [address] [place] Color (U) Yellow Normal Yellow [facility] Comment on above: Order Comment: Speci men Type: URINE SPECIMENOrdering Facility: [facility] Address: [address] [place] [address] Performed By: #### 2 4356-8 ####[facility] LABCLIA [id number] [place] [address] [place] Epithelial cells LM.HPF (Urine sed) [#/Area] None Seen Normal [facility] Comment on above: Order Comment: Speci men Type: URINE SPECIMENOrdering Facility: [facility] Address: [address] [place] [address] Performed By: #### 2 4356-8 ####[facility] LABCLIA [id number] [place] [address] [place] Glucose Test strip (U) [Mass/Vol] Negative Normal Negative [facility] Comment on above: Order Comment: Speci men Type: URINE SPECIMENOrdering Facility: [facility] Address: [address] [place] [address] Performed By: #### 2 4356-8 ####[facility] LABCLIA [id number] [place] [address] [place] Hemoglobin Ql (U) Negative Normal Negative [facility] Comment on above: Order Comment: Speci men Type: URINE SPECIMENOrdering Facility: [facility] Address: [address] [place] [address] Performed By: #### 2 4356-8 ####[facility] LABCLIA [id number] [place] [address] [place] Hyaline casts (Urine sed) [#/Area] 0 /[LPF] Normal 0 /LPF [facility] Comment on above: Order Comment: Speci men Type: URINE SPECIMENOrdering Facility: [facility] Address: [address] [place] [address] Performed By: #### 2 4356-8 ####[facility] LABCLIA [id number] [place] [address] [place] Ketones Ql (U) Negative Normal Negative [facility] Comment on above: Order Comment: Speci men Type: URINE SPECIMENOrdering Facility: [facility] Address: [address] [place] [address] Performed By: #### 2 4356-8 ####[facility] LABCLIA [id number] [place] [address] [place] Leukocyte esterase Test strip Ql (U) Trace Abnormal Negative [facility] Comment on above: Order Comment: Speci men Type: URINE SPECIMENOrdering Facility: [facility] Address: [address] [place] [address] Performed By: #### 2 4356-8 ####[facility] LABCLIA [id number] [place] [address] [place] Nitrite Ql (U) Negative Normal Negative [facility] Comment on above: Order Comment: Speci men Type: URINE SPECIMENOrdering Facility: [facility] Address: [address] [place] [address] Performed By: #### 2 4356-8 ####[facility] LABCLIA [id number] [place] [address] [place] pH (U) 6.0 [pH] Normal <8.5 [facility] Comment on above: Order Comment: Speci men Type: URINE SPECIMENOrdering Facility: [facility] Address: [address] [place] [address] Performed By: #### 2 4356-8 ####[facility] LABIA [id number] [place] [address] [place] Protein (U) [Mass/Vol] Negative Normal Negative [facility] Comment on above: Order Comment: Speci men Type: URINE SPECIMENOrdering Facility: [facility] Address: [address] [place] [address] Performed By: #### 2 4356-8 ####[facility] LABIA [id number] [place] [address] [place] RBC LM.HPF (Urine sed) [#/Area] 0-2 /HPF Normal 0-2 /HPF [facility] Comment on above: Order Comment: Speci men Type: URINE SPECIMENOrdering Facility: [facility] Address: [address] [place] [address] Performed By: #### 2 4356-8 ####[facility] [id number] [place] [address] [place] Specific gravity (U) [Rel density] 1.012 Normal 1.005-1.030 [facility] Comment on above: Order Comment: Speci men Type: URINE SPECIMENOrdering Facility: [facility] Address: [address] [place] [address] Performed By: #### 2 4356-8 ####[facility] [id number] [place] [address] [place] Urobilinogen Ql (U) 0.2 EU/dL Normal 0.2-1.0 EU/dL [facility] Comment on above: Order Comment: Speci men Type: URINE SPECIMENOrdering Facility: [facility] Address: [address] [place] [address] Performed By: #### 2 4356-8 ####[facility] [id number] [place] [address] [place] WBC LM.HPF (Urine sed) [#/Area] 0-5 /HPF Normal 0-5 /HPF [facility] Comment on above: Order Comment: Speci men Type: URINE SPECIMENOrdering Facility: [facility] Address: [address] [place] [id number] Performed By: #### 2 4356-8 ####[facility] LABCLIA [id number] [facility] [id number] [place] XR CHEST 2V FRONTAL/LATon XR CHEST 2V FRONTAL/LAT * * *Final Repor t* * * DATE OF EXAM: Apr 01 2024 1:34AM EGX [id number] - XR CHEST 2V FRONTAL/LAT / PROCEDURE REASON: Chest Pain * * * * Physician Interpretation * * * * EXAMINATION: CHEST RADIOGRAPH (2 VIEW FRONTAL and LATERAL) CLINICAL HISTORY: Chest Pain MQ: [id number] EXAM DATE/TIME: 04/01/2024 1:34 AM COMPARISON: Chest radiograph 11/10/2023 RESULT: Lines, tubes, and devices: Status post median sternotomy and aortic valve replacement. Lungs and pleura: Redemonstration of left lower lobe bandlike densities consistent with chronic atelectasis/scarring. No significant pleural effusion or pneumothorax. No focal consolidation. Cardiomediastinal silhouette: Stable cardiomediastinal silhouette. Bones and soft tissues: Hiatal hernia. Degenerative changes in the thoracic spine. IMPRESSION: No acute radiographic abnormality. Redemonstration of bandlike densities in left lower lobe consistent with chronic atelectasis/scarring. Hiatal hernia. [employer]cer[employer] Range Feeder: JONI Transcribe Date/Time: Apr 01 2024 1:35A Dictated by : FARIBA BARBER MD This examination was interpreted and the report reviewed and electronically signed by: JOAO ARANGO MD on Apr 01 2024 1:57AM EST [id number] Normal [facility] Basophils Auto (Bld) [#/Vol] on 03-31-2024 Basophils (Bld) [#/Vol] 0.04 10*3/uL <0.11 [facility] Basophils/100 WBC Auto (Bld) on 03-31-2024 Basophils/100 WBC (Bld) 0.4 % F [facility] Blood manual differential co mment interpretation narrativeon 03-31-2024 Manual differential comment Gonzalez (Bld) [Interp] Auto [facility] CBC W Auto Differential pane l (Bld)on 03-31-2024 Basophils (Bld) [#/Vol] 0.04 10*3/uL Normal <0.11 [facility] Comment on above: Order Comment: Speci men Type: BLOOD SPECIMEN [facility]ing Facility: [facility] Address: [address] [place] [address] Performed By: #### 5 7021-8 #### [facility] LAB CLIA [id number] [address] [place] [address] [place] Basophils/100 WBC (Bld) 0.4 % Normal C [facility] Comment on above: Order Comment: Speci men Type: BLOOD SPECIMEN Ordering Facility: [facility] Address: [address] [place] [address] Performed By: #### 5 7021-8 #### [facility] LAB CLIA [id number] [address] [place] [address] [place] Differential cell count method Nom (Bld) Auto Normal [facility] Comment on above: Order Comment: Speci men Type: BLOOD SPECIMEN Ordering Facility: [facility] Address: [address] [place] [address] Performed By: #### 5 7021-8 #### [facility] CLIA [id number] [address] [place] [address] [place] Eosinophils (Bld) [#/Vol] 0.14 10*3/uL Normal <0.46 [facility] Comment on above: Order Comment: Speci men Type: BLOOD SPECIMEN Ordering Facility: [facility] Address: [address] [place] [address] Performed By: #### 5 7021-8 #### [facility] CLIA [id number] [address] [place] [address] [place] Eosinophils/100 WBC (Bld) 1.3 % Normal [facility] Comment on above: Order Comment: Speci men Type: BLOOD SPECIMEN [facility]ing Facility: [facility] Address: [address] [place] [address] Performed By: #### 5 7021-8 #### [facility] CLIA [id number] [address] [place] [address] [place] Erythrocyte distribution width (RBC) [Ratio] 14.0 % Normal 11.5-15.0 [facility] Comment on above: Order Comment: Speci men Type: BLOOD SPECIMEN Ordering Facility: [facility] Address: [address] [place] [address] Performed By: #### 5 7021-8 #### [facility] LAB CLIA [id number] [address] [place] [address] [place] Hematocrit (Bld) [Volume fraction] 36.7 % Normal 36.0-46.0 [facility] Comment on above: Order Comment: Speci men Type: BLOOD SPECIMEN Ordering Facility: [facility] Address: [address] [place] [address] Performed By: #### 5 7021-8 #### [facility] CLIA [id number] [address] [place] [address] [place] Hemoglobin (Bld) [Mass/Vol] 12.3 g/dL Normal 11.5-15.5 [facility] Comment on above: Order Comment: Speci men Type: BLOOD SPECIMEN Ordering Facility: [facility] Address: [address] [place] [address] Performed By: #### 5 7021-8 #### [facility] CLIA [id number] [address] [place] [address] [place] Immature granulocytes (Bld) [#/Vol] 0.03 10*3/uL Normal <0.10 [facility] Comment on above: Order Comment: Speci men Type: BLOOD SPECIMEN [facility]ing Facility: [facility] Address: [address] [place] [address] Performed By: #### 5 7021-8 #### [facility] CLIA [id number] [address] [place] [address] [place] Immature granulocytes/100 WBC (Bld) 0.3 % Normal [facility] Comment on above: Order Comment: Speci men Type: BLOOD SPECIMEN Ordering Facility: [facility] Address: [address] [place] [address] Performed By: #### 5 7021-8 #### [facility] CLIA [id number] [address] [place] [address] [place] Lymphocytes (Bld) [#/Vol] 2.91 10*3/uL Normal 1.00-4.00 [facility] Comment on above: Order Comment: Speci men Type: BLOOD SPECIMEN Ordering Facility: [facility] Address: [address] [place] [address] Performed By: #### 5 7021-8 #### [facility] CLIA [id number] [address] [place] [address] [place] Lymphocytes/100 WBC (Bld) 26.4 % Normal [facility] Comment on above: Order Comment: Speci men Type: BLOOD SPECIMEN Ordering Facility: [facility] Address: [address] [place] [address] Performed By: #### 5 7021-8 #### [facility] CLIA [id number] [address] [place] [address] [place] MCH (RBC) [Entitic mass] 28.7 pg Normal 26.0-34.0 [facility] Comment on above: Order Comment: Speci men Type: BLOOD SPECIMEN Ordering Facility: [facility] Address: [address] [place] [address] Performed By: #### 5 7021-8 #### [facility] CLIA [id number] [address] [place] [address] [place] MCHC (RBC) [Mass/Vol] 33.5 g/dL Normal 30.5-36.0 [facility] Comment on above: Order Comment: Speci men Type: BLOOD SPECIMEN Ordering Facility: [facility] Address: [address] [place] [address] Performed By: #### 5 7021-8 #### [facility] CLIA [id number] [address] [place] [address] [place] MCV (RBC) [Entitic vol] 85.7 fL Normal 80.0-100.[address] [facility] Comment on above: Order Comment: Speci men Type: BLOOD SPECIMEN Ordering Facility: [facility] Address: [address] [place] [address] Performed By: #### 5 7021-8 #### [facility] CLIA [id number] [address] [place] [address] [place] Monocytes (Bld) [#/Vol] 0.49 10*3/uL Normal <0.87 [facility] Comment on above: Order Comment: Speci men Type: BLOOD SPECIMEN Ordering Facility: [facility] Address: [address] [place] [address] Performed By: #### 5 7021-8 #### [facility] CLIA [id number] [address] [place] [address] [place] Monocytes/100 WBC (Bld) 4.5 % Normal [facility] Comment on above: Order Comment: Speci men Type: BLOOD SPECIMEN Ordering Facility: [facility] Address: [address] [place] [address] Performed By: #### 5 7021-8 #### [facility] CLIA [id number] [address] [place] [address] [place] Neutrophils (Bld) [#/Vol] 7.40 10*3/uL Normal 1.45-7.50 [facility] Comment on above: Order Comment: Speci men Type: BLOOD SPECIMEN Ordering Facility: [facility] Address: [address] [place] [address] Performed By: #### 5 7021-8 #### [facility] CLIA [id number] [address] [place] [address] [place] Neutrophils/100 WBC (Bld) 67.1 % Normal [facility] Comment on above: Order Comment: Speci men Type: BLOOD SPECIMEN Ordering Facility: [facility] Address: [address] [place] [address] Performed By: #### 5 7021-8 #### [facility] CLIA [id number] [address] [place] [address] [place] Nucleated RBC (Bld) [#/Vol] 10*3/uL Normal <0.01 [facility] Comment on above: Order Comment: Speci men Type: BLOOD SPECIMEN Ordering Facility: [facility] Address: [address] [place] [address] Performed By: #### 5 7021-8 #### [facility] CLIA [id number] [address] [place] [address] [place] Nucleated RBC/100 WBC (Bld) [Ratio] 0.0 /100 WBC Normal [facility] Comment on above: Order Comment: Speci men Type: BLOOD SPECIMEN Ordering Facility: [facility] Address: [address] [place] [address] Performed By: #### 5 7021-8 #### [facility] CLIA [id number] [address] [place] [address] [place] Platelet mean volume (Bld) [Entitic vol] 9.0 fL Normal 9.0-12.7 [facility] Comment on above: Order Comment: Speci men Type: BLOOD SPECIMEN Ordering Facility: [facility] Address: [address] [place] [address] Performed By: #### 5 7021-8 #### [facility] CLIA [id number] [address] [place] [address] [place] Platelets (Bld) [#/Vol] 233 10*3/uL Normal 150-400 [facility] Comment on above: Order Comment: Speci men Type: BLOOD SPECIMEN Ordering Facility: [facility] Address: [address] [place] [address] Performed By: #### 5 7021-8 #### [facility] CLIA [id number] [address] [place] [address] [place] RBC (Bld) [#/Vol] 4.28 10*6/uL Normal 3.90-5.20 [facility] Comment on above: Order Comment: Speci men Type: BLOOD SPECIMEN Ordering Facility: [facility] Address: [address] [place] [address] Performed By: #### 5 7021-8 #### [facility] CLIA [id number] [address] [place] [address] [place] WBC (Bld) [#/Vol] 11.01 10*3/uL High 3.70-11.00 [facility] Comment on above: Order Comment: Speci men Type: BLOOD SPECIMEN Ordering Facility: [facility] Address: [address] [place] [address] Performed By: #### 5 7021-8 #### [facility] CLIA [id number] [address] [place] [address] [place] Comprehensive metabolic 2000 panelon 03-31-2024 Albumin [Mass/Vol] 4.2 g/dL Normal 3.9-4.9 [facility] Comment on above: Order Comment: Speci men Type: BLOOD SPECIMENOrdering Facility: [facility] Address: [address] [place] [address] Performed By: #### 2 4323-8, 86912-0, [id number], 49720-9 ####[facility] LABCLIA [id number] [place] [address] [place] ALP [Catalytic activity/Vol] 77 U/L Normal 34-123 [facility] Comment on above: Order Comment: Speci men Type: BLOOD SPECIMENOrdering Facility: [facility] Address: [address] [place] [address] Performed By: #### 2 4323-8, 38801-5, [id number], 83806-6 ####[facility] LABCLIA [id number] [place] [address] [place] [place] ALT [Catalytic activity/Vol] 12 U/L Normal 7-38 [facility] Comment on above: Order Comment: Speci men Type: BLOOD SPECIMENOrdering Facility: [facility] Address: [address] [place] [address] Performed By: #### 2 4323-8, 62884-3, [id number], 80556-2 ####[facility] LABCLIA [id number] [place] [address] [place] Anion gap [Moles/Vol] 12 mmol/L Normal 9-18 [facility] Comment on above: Order Comment: Speci men Type: BLOOD SPECIMENOrdering Facility: [facility] Address: [address] [place] [address] Performed By: #### 2 4323-8, 02564-4, [id number], 07990-1 ####[facility] LABCLIA [id number] [place] [address] [place] AST [Catalytic activity/Vol] 19 U/L Normal 13-35 [facility] Comment on above: Order Comment: Speci men Type: BLOOD SPECIMENOrdering Facility: [facility] Address: [address] [place] [address] Performed By: #### 2 4323-8, 19457-8, [id number], 96946-2 ####[facility] LABCLIA [id number] [place] [id number] [place] Bilirubin [Mass/Vol] 0.6 mg/dL Normal 0.2-1.3 [facility] Comment on above: Order Comment: Speci men Type: BLOOD SPECIMENOrdering Facility: [facility] Address: [address] [place] [address] Performed By: #### 2 4323-8, 78749-3, [id number], 90142-3 ####[facility] LABCLIA [id number] [place] [address] [place] Calcium [Mass/Vol] 9.1 mg/dL Normal 8.5-10.2 [facility] Comment on above: Order Comment: Speci men Type: BLOOD SPECIMENOrdering Facility: [facility] Address: [address] [place] [address] Performed By: #### 2 4323-8, 54018-5, [id number], 81684-4 ####[facility] LABCLIA [id number] [place] [address] [place] Chloride [Moles/Vol] 103 mmol/L Normal 97-105 [facility] Comment on above: Order Comment: Speci men Type: BLOOD SPECIMENOrdering Facility: [facility] Address: [address] [place] [address] Performed By: #### 2 4323-8, 71716-5, [id number], 40231-9 ####[facility] LABCLIA [id number] [place] [address] [place] CO2 [Moles/Vol] 22 mmol/L Normal 22-30 [facility] Comment on above: Order Comment: Speci men Type: BLOOD SPECIMENOrdering Facility: [facility] Address: [address] [place] [address] Performed By: #### 2 4323-8, 08254-3, [id number], 38622-8 ####[facility] LABCLIA [id number] [place] [address] [place] Creatinine [Mass/Vol] 0.77 mg/dL Normal 0.58-0.96 [facility] Comment on above: Order Comment: Dustin arshad Type: BLOOD SPECIMENOrdering Facility: [facility] Address: [address] [place] [address] Performed By: #### 2 4323-8, 23847-2, [id number], 77091-7 ####[facility] LABCLIA [id number] [address] STATES OF [facility] Creatinine and Glomerular filtration rate.predicted panel (S/P/Bld) 85 mL/min/1.73m??? Normal >=60 [facility] Comment on above: Order Comment: Dustin arshad Type: BLOOD SPECIMENOrdering Facility: [facility] Address: [address] [place] [address] Result Comment: Veronica mated Glomerular Filtration Rate (eGFR) is calculated using the 2020 CKD-EPI creatinine equation. This equation utilizes serum creatinine, sex, and age as parameters. The creatinine assay has traceable calibration to isotope dilution-mass spectrometry. Refer to KDIGO guidelines for clinical interpretation. In patients with unstable renal function, e.g. those with acute kidney injury, the eGFR may not accurately reflect actual GFR. Performed By: #### 2 4323-8, 16620-3, [id number], 80680-0 ####[facility] LABCLIA [id number] [place] [address] [place] Glucose [Mass/Vol] 96 mg/dL Normal 74-99 [facility] Comment on above: Order Comment: Dustin arshad Type: BLOOD SPECIMENOrdering Facility: [facility] Address: [address] [place] [address] Result Comment: The [place] Diabetes Association (ADA) provides guidance for cutoff [...] Standards of Medical Care in Diabetes 2016, [place] [employer] Association. Diabetes Care. 2016.39(Suppl 1). Performed By: #### 2 4323-8, 02356-1, [id number], 94923-4 ####[facility] LABCLIA [id number] [place] [address] [place] Potassium [Moles/Vol] 3.9 mmol/L Normal 3.7-5.1 [facility] Comment on above: Order Comment: Speci men Type: BLOOD SPECIMENOrdering Facility: [facility] Address: [address] [place] [address] Performed By: #### 2 4323-8, 56865-5, [id number], 10733-8 ####[facility] LABCLIA [id number] [place] [address] [place] Protein [Mass/Vol] 7.0 g/dL Normal 6.3-8.0 [facility] Comment on above: Order Comment: Cindyi men Type: BLOOD SPECIMENOrdering Facility: [facility] Address: [address] [place] [address] Performed By: #### 2 4323-8, 22286-4, [id number], 60160-2 ####[facility] LABCLIA [id number] [place] [address] [place] Sodium [Moles/Vol] 137 mmol/L Normal 136-144 [facility] Comment on above: Order Comment: Speci men Type: BLOOD SPECIMENOrdering Facility: [facility] Address: [address] [place] [address] Performed By: #### 2 4323-8, 96607-2, [id number], 77764-0 ####[facility] LABCLIA [id number] [place] [address] [facility] [place] Urea nitrogen [Mass/Vol] 13 mg/dL Normal 7-21 [facility] Comment on above: Order Comment: Speci men Type: BLOOD SPECIMENOrdering Facility: [facility] Address: [address] [place] [address] Performed By: #### 2 4323-8, 71772-9, [id number], 68785-8 ####[facility] LABCLIA [id number] [address] [place] [id number] 03-31-2024 ECG01 Ventricular Rate : 6 6 BPM Atrial Rate : 66 BPM P-R Interval : 150 ms QRS Duration : 132 ms Q-T Interval : 496 ms QTC Calculation(Bazett) : 519 ms Calculated P [place] : 15 degrees Calculated R [place] : -6 degrees Calculated T [place] : 17 degrees NORMAL SINUS RHYTHM COMPLETE RIGHT BUNDLE BRANCH BLOCK ABNORMAL ECG Confirmed by PAIGE NORWOOD M.D. ([id number]), story editor DA WEINSTEIN ([id number]) on 04/02/2024 7:54:58 AM NAME : JAILENE FAIRBANKS PID : [id number] : 1955 Gender : Female Race : ORD : Procedure Date : Mar 31 2024 22:33:14 Edit Date : Apr 02 2024 07:55:03 Diagnosis: NORMAL SINUS RHYTHM COMPLETE RIGHT BUNDLE BRANCH BLOCK ABNORMAL ECG Confirmed by PAIGE NORWOOD M.D. (Kathy), story editor DA WEINSTEIN ([id number]) on 04/02/2024 7:54:58 AM Test Reason : Location : 2 : EDNS 001 Overread By : PAIGE NORWOOD M.D. Edited By : DA WEINSTEIN Referred By : , Acquired by : Monica DALEY [facility] ED PROV NOTEon 03-31-2024 ED PROV NOTE HNO ID: [id number] Author: MARK BUENROSTRO MD Service: Emergency Medicine Author Type: Physician Type: ED Provider Notes Filed: 04/01/2024 07:37 Note Text: ED Provider Note Patient Name: Jailene Fairbanks : 1955 SERVICE DATE: 5/10/24 History Patient presents with: Chest Pain: Patient had a aortic valve done in October, the patient has been sob on and off, pain on and off in the chest, cold sweats x 2 days. HPI Jailene Fairbanks is a 68 year old female with a PMHx significant for hypertension, bioprosthetic aortic valve replacement x 2, CAD presenting to the ED for dyspnea on exertion. Patient reports over the past few weeks she has had worsening dyspnea on exertion. Reports that she can only move short distances without becoming dyspneic and diaphoretic. Reports associated chest pain during these episodes. At rest, she does not have any symptoms. Reports that she has felt as though she might pass out but has not had syncope. Denies orthopnea, PND, lower extremity edema, fevers, chills. PAST MEDICAL HISTORY Diagnosis Date AAA (abdominal aortic aneurysm) (HCC) Coronary artery disease Dyslipidemia Fibromyalgia Hypertension Irregular heart beat Peripheral neuropathy Prosthetic aortic valve stenosis Systemic lupus erythematosus (HCC) TIA (transient ischemic attack) Unsure when- Comfirmed with Neurology PAST SURGICAL HISTORY Procedure Laterality Date ANKLE SURGERY HX Left HEMORRHOID;BAND LIGAT, SNGL/MUL HYSTERECTOMY LEFT HEART CATH,PERCUTANEOUS multiple PAST SURGICAL HISTORY OF 10/25/2014 AVR PAST SURGICAL HISTORY OF C section x2 PAST SURGICAL HISTORY OF R tibia and fibula surgery FAMILY HISTORY Problem Relation Age of Onset Heart Attack Mother Heart disease Father leaky valve Kidney failure Father Coronary Artery Disease Father Diabetes Father No Known Problems Sister No Known Problems Sister No Known Problems Sister No Known Problems Sister No Known Problems Sister No Known Problems Sister No Known Problems Sister No Known Problems Sister No Known Problems Brother Stroke Maternal Grandmother Heart Attack Maternal Grandfather Stroke Paternal Grandmother No Known Problems Paternal Grandfather other (Bicuspid aortic valve) Niece Heart Attack Maternal Aunt Heart Attack Maternal Aunt Arrhythmia Maternal Uncle PPM Coronary Artery Disease Maternal Uncle Bypass other (RBBB) Son No Known Problems Daughter Social History Tobacco Use Smoking status: Former Packs/day: 0.25 Years: 30.00 Additional pack years: 0.00 Total pack years: 7.50 Types: Cigarettes Quit date: 02/2023 Years since quittin.1 Smokeless tobacco: Never Substance and Sexual Activity Alcohol use: Never Drug use: Never Sexual activity: Not on file ALLERGIES Allergen Reactions Alendronate Unknown Latex Unknown Meloxicam Unknown Morphine Unknown Sulfa (Sulfonamide * Unknown Tramadol Unknown Review of Systems Constitutional: Negative for chills and fever. HENT: Negative for sore throat. Respiratory: Positive for shortness of breath. Negative for cough. Cardiovascular: Positive for chest pain. Negative for leg swelling. Gastrointestinal: Negative for abdominal pain, diarrhea, nausea and vomiting. Genitourinary: Negative for dysuria and hematuria. Musculoskeletal: Negative for myalgias. Skin: Negative for rash. Allergic/Immunologic: Negative for immunocompromised state. Neurological: Positive for light-headedness. Negative for dizziness and syncope. Physical Exam Vitals [03/31/242228] BP Pulse Temp Temp src Resp SpO2 Weight Height 137/84 64 36.7 ?C (98 ?F) Oral 20 97 % 72.1 kg (159 lb) -- Physical Exam Vitals and nursing note reviewed. Constitutional: General: She is not in acute distress. Appearance: Normal appearance. HENT: Head: Normocephalic and atraumatic. Right Ear: External ear normal. Left Ear: External ear normal. Mouth/Throat: Mouth: Mucous membranes are moist. Eyes: Extraocular Movements: Extraocular movements intact. Conjunctiva/sclera: Conjunctivae normal. Cardiovascular: Rate and Rhythm: Normal rate and regular rhythm. Pulses: Normal pulses. Radial pulses are 2+ on the right side and 2+ on the left side. Dorsalis pedis pulses are 2+ on the right side and 2+ on the left side. Heart sounds: Murmur heard. No friction rub. No gallop. Pulmonary: Effort: Pulmonary effort is normal. Breath sounds: No wheezing, rhonchi or rales. Abdominal: General: Bowel sounds are normal. There is no distension. Palpations: Abdomen is soft. Tenderness: There is no abdominal tenderness. Musculoskeletal: General: Normal range of motion. Cervical back: Neck supple. Right lower leg: No edema. Left lower leg: No edema. Skin: General: Skin is warm and dry. Capillary Refill: Capillary refill takes less than 2 seconds. Findings: No rash. (more content not included)... Normal [facility] Eosinophils/100 WBC Auto (Bl d)on 03-31-2024 Eosinophils/100 WBC (Bld) 1.3 % [facility] Erythrocyte distribution wid th Auto (RBC) [Ratio]on 03-31-2024 Erythrocyte distribution width (RBC) [Ratio] 14.0 % 11.5-15.0 [facility] HIGH SENSITIVITY TROPONIN T (INITIAL)on 03-31-2024 Troponin T.cardiac High sensitivity method [Mass/Vol] 9 ng/L Normal <12 [facility] Comment on above: Order Comment: Dustin arshad Type: BLOOD SPECIMENOrdering Facility: [facility] Address: [address] [place] [address] Result Comment: When assessing risk for acute coronary syndromes: In patients undergoing blood draw greater than or equal to 2 hours from symptom onset, with history of very low to moderate risk and non-ischemic ECG, an initial hs-Troponin T less than 12 ng/L AND a 1 hour delta hs-Troponin T less than 3 ng/L should be considered very low risk for 30 day MACE. Performed By: #### 2 4323-8, 47150-1, [id number], 72695-0 ####[facility] LABCLIA [id number] [place] [address] [place] HIGH SENSITIVITY TROPONIN T (SECOND)on 03-31-2024 Troponin T.cardiac High sensitivity method [Mass/Vol] 11 ng/L Normal <12 [facility] Comment on above: Order Comment: Dustin arshad Type: BLOOD SPECIMENOrdering Facility: [facility] Address: [address] [place] [address] Result Comment: When assessing risk for acute coronary syndromes: In patients undergoing blood draw greater than or equal to 2 hours from symptom onset, with history of very low to moderate risk and non-ischemic ECG, an initial hs-Troponin T less than 12 ng/L AND a 1 hour delta hs-Troponin T less than 3 ng/L should be considered very low risk for 30 day MACE. Performed By: #### L [id number] ####[facility] LABCLIA [id number] [place] [address] [place] Hematocrit Auto (Bld) [Volum e fraction]on 03-31-2024 Hematocrit (Bld) [Volume fraction] 36.7 % 36.0-46.0 [facility] Hemoglobin [Mass/volume] in Bloodon 03-31-2024 Hemoglobin (Bld) [Mass/Vol] 12.3 g/dL 11.5-15.5 [facility] Laboratory - Chemistry and C hemistry - challengeon 03-31-2024 Albumin [Mass/Vol] 4.2 g/dL 3.9-4.9 [facility] ALP [Catalytic activity/Vol] 77 U/L 34-123 [facility] ALT [Catalytic activity/Vol] 12 U/L 7-38 [facility] AST [Catalytic activity/Vol] 19 U/L 13-35 [facility] Bilirubin [Mass/Vol] 0.6 mg/dL 0.2-1.3 [facility] Calcium [Mass/Vol] 9.1 mg/dL 8.5-10.2 [facility] Chloride [Moles/Vol] 103 mmol/L 97-105 [facility] CO2 [Moles/Vol] 22 mmol/L 22-30 [facility] Creatinine [Mass/Vol] 0.77 mg/dL 0.58-0.96 [facility] Glucose [Mass/Vol] 96 mg/dL 74-99 [facility] Comment on above: The [place] Diabete s Association (ADA) provides guidance for cutoff values for fasting glucose and random glucose. The ADA defines fasting as no caloric intake for at least 8 hours. Fasting plasma glucose results between 100 to 125 mg/dL indicate increased risk for diabetes (prediabetes).Fasting plasma glucose results greater than or equal to 126 mg/dL meet the criteria for diagnosis of diabetes. In the absence of unequivocal hyperglycemia, results should be confirmed by repeat testing. In a patient with classic symptoms of hyperglycemia or hyperglycemic crisis, random plasma glucose results greater than or equal to 200 mg/dL meet the criteria for diagnosis of diabetes.Reference: Standards of Medical Care in Diabetes 2016, [place] Diabetes Association. Diabetes Care. 2016.39(Suppl 1). Magnesium [Mass/Vol] 2.2 mg/dL 1.7-2.3 [facility] Potassium [Moles/Vol] 3.9 mmol/L 3.7-5.1 [facility] Sodium [Moles/Vol] 137 mmol/L 136-144 [facility] Urea nitrogen [Mass/Vol] 13 mg/dL 7-21 [facility] Laboratory - Hematology and Cell countson 03-31-2024 Eosinophils (Bld) [#/Vol] 0.14 10*3/uL <0.46 [facility] Immature granulocytes (Bld) [#/Vol] 0.03 10*3/uL <0.10 [facility] Immature granulocytes/100 WBC (Bld) 0.3 % [facility] Leukocytes [#/volume] correc bob for nucleated erythrocytes in Blood by Automated counon 03-31-2024 WBC corrected for nucl RBC Auto (Bld) [#/Vol] 11.01 k/uL High 3.70-11.00 [facility] Lymphocytes Auto (Bld) [#/Vo l]on 03-31-2024 Lymphocytes (Bld) [#/Vol] 2.91 10*3/uL 1.00-4.00 [facility] Lymphocytes/100 WBC Auto (Bl d)on 03-31-2024 Lymphocytes/100 WBC (Bld) 26.4 % [facility] MCH Auto (RBC) [Entitic mass ]on 03-31-2024 MCH (RBC) [Entitic mass] 28.7 pg 26.0-34.0 [facility] MCHC Auto (RBC) [Mass/Vol]on 03-31-2024 MCHC (RBC) [Mass/Vol] 33.5 g/dL 30.5-36.0 [facility] MCV Auto (RBC) [Entitic vol] on 03-31-2024 MCV (RBC) [Entitic vol] 85.7 fL 80.0-100.0 [facility] Magnesium SerPl-mCncon 03-31 Magnesium [Mass/Vol] 2.2 mg/dL Normal 1.7-2.3 [facility] Comment on above: Order Comment: Speci men Type: BLOOD SPECIMENOrdering Facility: [facility] Address: [address] [place] [address] Performed By: #### 2 4323-8, 88716-6, [id number], 93660-4 ####[facility] LABCLIA [id number] [facility] [id number] [address] [place] Monocytes Auto (Bld) [#/Vol] on 03-31-2024 Monocytes (Bld) [#/Vol] 0.49 10*3/uL <0.87 [facility] Monocytes/100 WBC Auto (Bld) on 03-31-2024 Monocytes/100 WBC (Bld) 4.5 % [facility] NT-proBNP SerPl-mCncon 03-31 Natriuretic peptide.B prohormone N-Terminal [Mass/Vol] 366 pg/mL High <125 [facility] Comment on above: Order Comment: Speci men Type: BLOOD SPECIMENOrdering Facility: [facility] Address: [address] [place] [address] Performed By: #### 2 4323-8, 02198-3, [id number], 04773-1 ####[facility] LABCLIA [id number] [address] [place] Natriuretic peptide.B prohor ignacio N-Terminal [Mass/volume] in Serum or Plasmaon 03-31-2024 Natriuretic peptide.B prohormone N-Terminal [Mass/Vol] 366 pg/mL High <125 [facility] Neutrophils Auto (Bld) [#/Vo l]on 03-31-2024 Neutrophils (Bld) [#/Vol] 7.40 10*3/uL 1.45-7.50 [facility] Neutrophils/100 WBC Auto (Bl d)on 03-31-2024 Neutrophils/100 WBC (Bld) 67.1 % [facility] No Panel Informationon 03-31 Troponin T Hi Sens Cardiac Interven 11 ng/L <12 [facility] Comment on above: When assessing risk for acute coronary syndromes: In patients undergoing blood draw greater than or equal to 2 hours from symptom onset, with history of very low to moderate risk and non-ischemic ECG, an initial hs-Troponin T less than 12 ng/L AND a 1 hour delta hs-Troponin T less than 3 ng/L should be considered very low risk for 30 day MACE. Estimated GFR (CKD-EPI) 85 mL/min/1.73m??? >=60 [facility] Comment on above: Estimated Glomerular Filtration Rate (eGFR) is calculated using the 2020 CKD-EPI creatinine equation. This equation utilizes serum creatinine, sex, and age as parameters. The creatinine assay has traceable calibration to isotope dilution-mass spectrometry. Refer to KDIGO guidelines for clinical interpretation. In patients with unstable renal function, e.g. those with acute kidney injury, the eGFR may not accurately reflect actual GFR. Nucleated RBC Auto (Bld) [#/ Vol]on 03-31-2024 Nucleated RBC (Bld) [#/Vol] 10*3/uL <0.01 [facility] Nucleated erythrocytes [Pres ence] in Blood by Automated counton 03-31-2024 Nucleated RBC Auto Ql (Bld) 0.0 /100{WBC} [facility] Platelet mean volume Auto (B ld) [Entitic vol]on 03-31-2024 Platelet mean volume (Bld) [Entitic vol] 9.0 fL 9.0-12.7 [facility] Platelets Auto (Bld) [#/Vol] on 03-31-2024 Platelets (Bld) [#/Vol] 233 10*3/uL 150-400 [facility] Protein [Mass/volume] in Ser um or Plasmaon 03-31-2024 Protein [Mass/Vol] 7.0 g/dL 6.3-8.0 [facility] RBC Auto (Bld) [#/Vol]on RBC (Bld) [#/Vol] 4.28 10*6/uL 3.90-5.20 [facility] Serum or plasma anion gap de terminationon 03-31-2024 Anion gap [Moles/Vol] 12 mmol/L 9- [facility] CNPNon 03-24-2024 CNPN Telephone (PATRICIAN) JAILENE FAIRBANKS ([id number]) 1955 F Date Time Provider Department 03/24/24 KELLE DE LEON During your visit today, we recorded the following information about you: Madison Bullock 03/24/2024 12:28 PM Signed March 24, 2024 Patient Contact Number: [phone] Patient last seen within the last year: yes Date of last office visit: 12/23/2023 Reason For Call: Dizziness Physician: Kelle Polanco Patient was informed that non-urgent calls may be returned within the next three business days. Yes Patient went to [facility] and HR is in the 50's had EKG Has been feeling dizzy for a few weeks Emy Rios PA-C 03/24/2024 5:04 PM Signed Called patient and she notes she saw her local doctor and got an EKG done. Her doctor said her heart rate was low (in the 50s). Patient doesn't know what the EKG strip showed. She also has been experiencing dizziness. Discussed taking 6.25 mg BID but would be difficult to cut her pill into quarters. I advised then to take her metoprolol 12.5 mg once daily instead of twice to see how she feels. Advised to monitor heart rate in the morning and at night time to see how it runs. If it starts to run high in the evening time, can trial switching to long acting metoprolol. Patient verbalized understanding and will reach out with further questions or concerns. Emy Garcia PA-C Allergies As of Date: 03/24/2024 Noted Allergy Reaction ALENDRONATE 10/05/2023 16 - Unknown LATEX 10/05/2023 16 - Unknown MELOXICAM 10/05/2023 16 - Unknown MORPHINE 10/05/2023 16 - Unknown SULFA (SULFONAMIDE ANTIBIOTICS) 10/05/2023 16 - Unknown TRAMADOL 10/05/2023 16 - Unknown Date Reviewed: 01/04/2024 Reviewed by: Kelle De Leon MD - Fully Assessed Reason for Visit: Other [3945] Prescriptions as of 03/24/2024 - metoprolol tartrate, short acting, (LOPRESSOR) 25 mg tablet Take 0.5 tablets by mouth every 12 hours. - rosuvastatin (CRESTOR) 40 mg tablet Take 1 tablet by mouth once daily. - omeprazole (PRILOSEC) 40 mg capsule Take 40 mg by mouth. - citalopram (CELEXA) 40 mg tablet Take 1 tablet by mouth every afternoon. - aspirin, enteric coated (ASPIRIN, ENTERIC COATED) 81 mg EC tablet Take 81 mg by mouth. Problem List As Of Date 03/24/2024 Noted Resolved Prosthetic aortic valve stenosis [T82.857A] 10/05/2023 Discharge planning issues [Z75.8] 10/25/2023 Preop testing [Z01.818] 10/25/2023 10/28/2023 Coronary artery disease [I25.10] Dyslipidemia [E78.5] Fibromyalgia [M79.7] Essential hypertension [I10] Peripheral neuropathy [G62.9] Systemic lupus erythematosus (HCC) [M32.9] Postoperative pain [G89.18] Respiratory failure, post-operative (HCC) [J95.*10/26/2023 Coagulopathy (HCC) [D68.9] 10/26/2023 Cardiac insufficiency following cardiac surgery*10/26/2023 Atelectasis [J98.11] 10/27/2023 Encounter for support and coordination of trans*10/28/2023 Aortic valve disorder [I35.9] 10/29/2023 S/P AVR [Z95.2] 12/23/2023 Disorder of artery or arteriole (HCC) [I77.9] 01/04/2024 Encounter Status:Closed by EMY GARCIA on 03/24/24 Normal [facility] No Panel InformationOrdered By: Emy Root on 01-21-2024 COVID/Influenza Antigen (POC) [facility] CREATININE, BLOOD (POC)on Creatinine [Mass/Vol] 0.90 mg/dL 0.7 - 1.4 mg/dL [facility] eGFR (POCT) [facility] CTA CHEST (GATED) W IVCONon 10-25-2023 [facility] Laboratory - Microbiology an d Antimicrobial susceptibilityon 10-25-2023 S. aureus and MRSA panel FACUNDO+probe (Nose) Negative Negative [facility] Covid-19 PCR (CVDTBH)on 01-21 SARS-CoV-2 (COVID-19) RNA FACUNDO+probe Ql (Unsp spec) Not detected Normal NOT DETECTED [facility] Comment on above: Result Comment: This test is not yet approved or cleared by the [place] FDA. When there are no FDA-approved or cleared tests available, and other criteria are met, FDA can make tests available under an emergency access mechanism called an Emergency Use Authorization (EUA). The EUA for this test is supported by the [place] of Health and Human Service's (HHS's) declaration that circumstances exist to justify the emergency use of in vitro diagnostics for the detection and/or diagnosis of the virus that causes COVID-19. This EUA will remain in effect (meaning this test can be used) for the duration of the COVID-19 declaration justifying emergency of IVDs, unless it is terminated or revoked by FDA (after which the test may no longer be used). When diagnostic testing is negative, the possibility of a false negative should be considered in the context of a patient's recent exposures and the presence of clinical signs and symptoms consistent with SARS-CoV-2. Performed By: #### C VDTB #### [facility] [address] [place] [address] Dr. Sharif Barger PROF CHEM 8 (BAS METB)on Anion gap [Moles/Vol] 13.5 mmol/L Normal [place] Comment on above: Performed By: #### B MP #### [facility] [address] [place] [address] Dr. Sharif Barger Calcium [Mass/Vol] 9.1 mg/dL Normal 8.5-10.1 [facility] Comment on above: Performed By: #### B MP #### [facility] [address] [place] [address] Dr. Sharif Barger Chloride [Moles/Vol] 104 mmol/L Normal 98-107 [facility] Comment on above: Performed By: #### B MP #### [facility] [address] [place] [address] Dr. Sharif Barger CO2 [Moles/Vol] 25.0 mmol/L Normal 21.0-32.[address] [facility] Comment on above: Performed By: #### B MP #### [facility] [address] [address] [address] Sharif Barger Creatinine [Mass/Vol] 0.80 mg/dL Normal 0.55-1.02 [facility] Comment on above: Performed By: #### B MP #### [facility] [address] [address] [address] Sharif Barger EGFR-AF AFGHAN >60 Normal >=60 [facility] Comment on above: Performed By: #### B MP #### [facility] [address] [address] [address] Sharif Barger EGFR-NON AF AFGHAN >60 Normal >=60 [facility] Comment on above: Performed By: #### B MP #### [facility] [address] [place] [address] Dr. Sharif Barger Glucose [Mass/Vol] 101 mg/dL Normal 74-106 [facility] Comment on above: Performed By: #### B MP #### [facility] [address] [address] [address] Sharif Barger Potassium [Moles/Vol] 4.5 mmol/L Normal 3.5-5.1 [facility] Comment on above: Performed By: #### B MP #### [facility] [address] [place] [address] Dr. Sharif Barger Sodium [Moles/Vol] 138 mmol/L Normal 136-145 [facility] Comment on above: Performed By: #### B MP #### [facility] [address] [address] [address] Sharif Barger Urea nitrogen [Mass/Vol] 12.0 mg/dL Normal 7.0-18.0 [facility] Comment on above: Performed By: #### B MP #### [facility] [address] [place] [address] Dr. Sharif Barger Urea nitrogen/Creatinine [Mass ratio] 15.0 mg/mg Normal [facility] Comment on above: Performed By: #### B MP #### [facility] [address] [place] [address] Dr. Sharif Barger CBC AUTO DIFFon 02-10-2023 BASO # 0.0 103/ul Normal 0.0-0.1 [facility] Comment on above: Performed By: #### C BC #### [facility] [address] [place] [address] Dr. Sharif Barger Basophils/100 WBC (Bld) 0.7 % Normal 0.2-2.0 [facility] Comment on above: Performed By: #### C BC #### [facility] [address] [place] [address] Dr. Sharif Barger EO # 0.1 103/ul Normal 0.0-0.7 [facility] Comment on above: Performed By: #### C BC #### [facility] [address] [place] [address] Dr. Sharif Barger Eosinophils/100 WBC (Bld) 1.5 % Normal 0.9-7.0 [facility] Comment on above: Performed By: #### C BC #### [facility] [address] [place] [address] Dr. Sharif Barger Erythrocyte distribution width (RBC) [Ratio] 13.2 % Normal 11.0-15.0 [facility] Comment on above: Performed By: #### C BC #### [facility] [address] [place] [address] Dr. Sharif Barger Hematocrit (Bld) [Volume fraction] 39.8 % Normal 36.0-48.0 [facility] Comment on above: Performed By: #### C BC #### [facility] [address] [place] [address] Dr. Sharif Barger Hemoglobin (Bld) [Mass/Vol] 13.1 g/dL Normal 12.0-16.0 [facility] Comment on above: Performed By: #### C BC #### [facility] [address] [place] [address] Dr. Sharif Barger IG # 0.01 10e3/ul Normal 0.00-0.03 [facility] Comment on above: Performed By: #### C BC #### [facility] [address] [place] [address] Dr. Sharif Barger IG % 0.2 % Normal 0.0-0.5 [facility] Comment on above: Performed By: #### C BC #### [facility] [address] [place] [address] Dr. Sharif Barger LYMPH # 2.3 103/ul Normal 1.2-3.8 [facility] Comment on above: Performed By: #### C BC #### [facility] [address] [place] [address] Dr. Sharif Barger Lymphocytes/100 WBC (Bld) 39.0 % Normal 20.5-60.0 [facility] Comment on above: Performed By: #### C BC #### [facility] [address] [place] [address] Dr. Sharif Barger MANUAL DIFF REQ NO Normal [facility] Comment on above: Performed By: #### C BC #### [facility] [address] [place] [address] Dr. Sharif Barger MCH (RBC) [Entitic mass] 29.2 pg Normal 26.7-34.0 [facility] Comment on above: Performed By: #### C BC #### [facility] [address] [place] [address] Dr. Sharif Barger MCHC (RBC) [Mass/Vol] 32.9 g/dL Normal 29.9-35.2 [facility] Comment on above: Performed By: #### C BC #### [facility] [address] [place] [address] Dr. Sharif Barger MCV (RBC) [Entitic vol] 88.8 fL Normal 81.0-99.0 [facility] Comment on above: Performed By: #### C BC #### [facility] [address] [place] [address] Dr. Sharif Barger MONO # 0.4 103/ul Normal 0.3-0.8 [facility] Comment on above: Performed By: #### C BC #### [facility] [address] [place] [address] Dr. Sharif Barger Monocytes/100 WBC (Bld) 6.2 % Normal 1.7-12.0 [facility] Comment on above: Performed By: #### C BC #### [facility] [address] [place] [address] Dr. Sharif Barger NEUT # 3.1 103/ul Normal 1.4-6.5 [facility] Comment on above: Performed By: #### C BC #### [facility] [address] [place] [address] Dr. Sharif Barger Neutrophils/100 WBC (Bld) 52.4 % Normal 43.0-75.0 [facility] Comment on above: Performed By: #### C BC #### [facility] [address] [place] [address] Dr. Sharif Barger Platelet mean volume (Bld) [Entitic vol] 9.5 fL Normal 9.5-13.5 [facility] Comment on above: Performed By: #### C BC #### [facility] [address] [place] [address] Dr. Sharif Barger PLT 234 103/ul Normal 150-450 [facility] Comment on above: Performed By: #### C BC #### [facility] [address] [place] [address] Dr. Sharif Barger RBC 4.48 106/ul Normal 4.20-5.40 [facility] Comment on above: Performed By: #### C BC #### [facility] [address] [place] [address] Dr. Sharif Barger WBC 6.0 103/ul Normal 4.0-11.0 [facility] Comment on above: Performed By: #### C BC #### [facility] [address] [place] [address] Dr. Sharif Barger ECHOCARDIO M/2D COMPLETEon 0 01-27-2023 ECHOCARDIO M/2D COMPLETE Patient: JAILENE FAIRBANKS Exam Date: 01/27/2023 : 1955 Gender:F Ordering : NAAT BAIN Admission #: [id number] Family : DR MADISON NORTH M.D. Order #: [id number] CLICK HERE TO VIEW EXAM ECHOCARDIOGRAM REPORT PROCEDURE: CARDIO PULMONARY ECHOCARDIO M/2D COMP INDICATIONS: Aortic stenosis, H/O AVR; [address] [facility] COMPARISON: None. DESCRIPTION: COMPLETE ECHOCARDIOGRAM Real-time transthoracic echocardiography with 2D, M-mode, spectral and color flow Doppler performed. QUALITY: Technical quality was limited. 65 150# 124/78 HR 59 LEFT VENTRICLE: Normal chamber size. Normal left ventricular wall thickness. Global left ventricular systolic function is normal. No obvious regional wall motion abnormality. LV EF: Visual estimation of left ventricular ejection fraction is 60-65%. DIASTOLIC: Diastolic function is indeterminate. ATRIAL SEPTUM: LEFT ATRIUM: Mild dilatation. RIGHT ATRIUM: Normal chamber size. RIGHT VENTRICLE: Normal chamber size. Normal right ventricular systolic function. TRICUSPID VALVE: Normal mobility and thickness. No stenosis with trivial regurgitation. No evidence of pulmonary hypertension. RVSP 24 mmHg MITRAL VALVE: Mildly thickened with normal mobility. No evidence of mitral valve stenosis. Mitral annular calcification. AORTIC VALVE: Bioprosthetic valve appears well seated in the aortic position with abnormally high Doppler flows suggesting severe stenosis. DVI 0.28 CORNELIUS 0.8 cm?, mean gradient 45 mmHg, peak velocity 4.3 m/s. (previously moderate stenosis; DVI 0.29, mean 23 mmHg 08/27/2021). Mild perivalvular aortic insufficiency. AORTIC ROOT: The aortic sinuses are normal in size. Ascending aorta is mildly enlarged at 4.1 cm. PULMONIC VALVE: Not well visualized. Trivial regurgitation. PERICARDIUM: No evidence of pericardial effusion. IVC: Collapses with inspirations. IVC is normal in size. PLEURA: CONCLUSION: 1. Normal left ventricular systolic function. LVEF is 60 to 65%. 2. Normal right ventricular size and systolic function. 3. Bioprosthetic aortic valve is well-seated. Doppler flows suggest severe bioprosthetic valve stenosis. Mild perivalvular regurgitation. 4. Normal right-sided pressures. 5. Mildly enlarged ascending aorta, measuring 4.1 cm. Adult Echocardiography Procedure Report Left Ventricle Left Atrium Mitral Valve Right Ventricle Aorta Aortic Valve AoV Area (Peak Kimberly): 0.80 cm2, 0.80 cm2, 0.80 cm2, 0.80 cm2, 0.80 cm2, 0.86 cm2, 0.80 cm2, 0.86 cm2 AoV Area (VTI): 0.72 cm2, 0.72 cm2 Peak Velocity(Antegrade Flow): 4.29 m/s, 4.29 m/s Peak Gradient(Antegrade Flow): 73.62 mm[Hg], 73.62 mm[Hg] Mean Velocity(Antegrade Flow): 3.18 m/s Mean Gradient(Antegrade Flow): 44.70 mm[Hg] Velocity Time Integral: 118.63 cm Tricuspid Valve Peak Velocity (Regurgitant Flow): 2.28 m/s Peak Velocity: 0.39 m/s Pulmonic Valve Peak Velocity: 0.75 m/s, 0.90 m/s Right Atrium Dictated by: Peggy Garcia M.D. on 01/28/2023 at 10:07 Approved by: Peggy Garcia M.D. on 01/28/2023 at 10:17 Normal [facility] STRESS/REST MULTIon 12-17 NM STRESS/REST MULTI Patient: JAILENE FIARBANKS Exam Date: 12/17/2022 : 1955 Gender:F Ordering : NATA BAIN Admission #: [id number] Family : Order #: [id number] CLICK HERE TO VIEW EXAM RADIOLOGY REPORT PROCEDURE: RADIONUCLIDE IMAGING STRESS/REST MULTI COMPARISON: None. INDICATIONS: Chest pain TECHNIQUE: Exam Description: Rest/Stress one day protocol gated SPECT Rest Imagin.4 mCi Tc-99m Cardiolite IV on 12/17/2022 Stress Imaging 29.4 mCi Tc-99m Cardiolite IV on 12/17/2022 Exercise Protocol: 0.4 mg Lexiscan given IV Heart Rate (bpm): Rest: 62 Max: 99 PMHR: 63 Blood Pressure: Rest: 110/78 Max: 124/80 Symptoms: Rest and peak stress ECG findings were pending and the exercise portion of the study was pending per attending physician Dr. BARNETT . For more details please see separate cardiac stress test report. FINDINGS: QUALITY OF STUDY: Excellent. PERFUSION DEFECT: None. LOCATION: N/A SIZE: N/A. SEVERITY: N/A. TYPE: N/A. WALL MOTION: Normal. LV SIZE: Normal. 44 mL. TID / TCD: None; 0.9 LVEF: Normal. Calculated EF 79%. SUMMARY: Myocardial perfusion imaging study is NORMAL. CONCLUSION: 1. Normal nuclear medicine myocardial perfusion scan. Dictated by: Kieran Metcalf M.D. on 12/17/2022 at 15:49 Approved by: Kieran Metcalf M.D. on 12/17/2022 at 15:50 Normal [facility] CBC AUTO DIFFon 12-03-2022 BASO # 0.0 103/ul Normal 0.0-0.1 [facility] Comment on above: Performed By: #### C BC #### [facility] [address] [address] [address] Sharif Barger Basophils/100 WBC (Bld) 0.5 % Normal 0.2-2.0 [facility] Comment on above: Performed By: #### C BC #### [facility] [address] [place] [address] Dr. Sharif Barger EO # 0.1 103/ul Normal 0.0-0.7 [facility] Comment on above: Performed By: #### C BC #### [facility] [address] [address] [address] Sharif Barger Eosinophils/100 WBC (Bld) 0.8 % Critically low 0.9-7.0 [facility] Comment on above: Performed By: #### C BC #### [facility] [address] [place] [address] Dr. Sharif Barger Erythrocyte distribution width (RBC) [Ratio] 13.3 % Normal 11.0-15.0 [facility] Comment on above: Performed By: #### C BC #### [facility] [address] [place] [address] Dr. Sharif Barger Hematocrit (Bld) [Volume fraction] 44.8 % Normal 36.0-48.0 [facility] Comment on above: Performed By: #### C BC #### [facility] [address] [place] [address] Dr. Sharif Barger Hemoglobin (Bld) [Mass/Vol] 13.7 g/dL Normal 12.0-16.0 [facility] Comment on above: Performed By: #### C BC #### [facility] [address] [place] [address] Dr. Sharif Barger IG # 0.02 10e3/ul Normal 0.00-0.03 [facility] Comment on above: Performed By: #### C BC #### [facility] [address] [place] [address] Dr. Sharif Barger IG % 0.3 % Normal 0.0-0.5 [facility] Comment on above: Performed By: #### C BC #### [facility] [address] [place] [address] Dr. Sharif Barger LYMPH # 3.3 103/ul Normal 1.2-3.8 [facility] Comment on above: Performed By: #### C BC #### [facility] [address] [place] [address] Dr. Sharif Barger Lymphocytes/100 WBC (Bld) 42.0 % Normal 20.5-60.0 [facility] Comment on above: Performed By: #### C BC #### [facility] [address] [place] [address] Dr. Sharif Barger MANUAL DIFF REQ NO Normal [facility] Comment on above: Performed By: #### C BC #### [facility] [address] [place] [address] Dr. Sharif Barger MCH (RBC) [Entitic mass] 29.2 pg Normal 26.7-34.0 [facility] Comment on above: Performed By: #### C BC #### [facility] [address] [place] [address] Dr. Sharif Barger MCHC (RBC) [Mass/Vol] 30.6 g/dL Normal 29.9-35.2 [facility] Comment on above: Performed By: #### C BC #### [facility] [address] [place] [address] Dr. Sharif Barger MCV (RBC) [Entitic vol] 95.5 fL Normal 81.0-99.0 [facility] Comment on above: Performed By: #### C BC #### [facility] [address] [place] [address] Dr. Sharif Barger MONO # 0.4 103/ul Normal 0.3-0.8 [facility] Comment on above: Performed By: #### C BC #### [facility] [address] [place] [address] Dr. Sharif Barger Monocytes/100 WBC (Bld) 5.5 % Normal 1.7-12.0 [facility] Comment on above: Performed By: #### C BC #### [facility] [address] [place] [address] Dr. Sharif Barger NEUT # 4.0 103/ul Normal 1.4-6.5 [facility] Comment on above: Performed By: #### C BC #### [facility] [address] [place] [address] Dr. Sharif Barger Neutrophils/100 WBC (Bld) 50.9 % Normal 43.0-75.0 [facility] Comment on above: Performed By: #### C BC #### [facility] [address] [place] [address] Dr. Sharif Barger Platelet mean volume (Bld) [Entitic vol] 9.6 fL Normal 9.5-13.5 [facility] Comment on above: Performed By: #### C BC #### [facility] [address] [place] [address] Dr. Sharif Barger PLT 241 103/ul Normal 150-450 [facility] Comment on above: Performed By: #### C BC #### [facility] [address] [place] [address] Dr. Sharif Barger RBC 4.69 106/ul Normal 4.20-5.40 [facility] Comment on above: Performed By: #### C BC #### [facility] [address] [place] [address] Dr. Sharif Barger WBC 7.8 103/ul Normal 4.0-11.0 [facility] Comment on above: Performed By: #### C BC #### [facility] [address] [place] [address] Dr. Sharif Barger PROF CHEM 8 (BAS METB)on 01- 12-2023 Anion gap [Moles/Vol] 12.9 mmol/L Normal [facility] Comment on above: Performed By: #### B MP, TSH #### [facility] [address] [place] [address] Dr. Sharif Barger Calcium [Mass/Vol] 9.7 mg/dL Normal 8.5-10.1 [facility] Comment on above: Performed By: #### B MP, TSH #### [facility] [address] [place] [address] Dr. Sharif Barger Chloride [Moles/Vol] 101 mmol/L Normal 98-107 [facility] Comment on above: Performed By: #### B MP, TSH #### [facility] [address] [place] [address] Dr. Sharif Barger CO2 [Moles/Vol] 28.9 mmol/L Normal 21.0-32.[address] [facility] Comment on above: Performed By: #### B MP, TSH #### [facility] [address] [place] [address] Dr. Sharif Barger Creatinine [Mass/Vol] 0.86 mg/dL Normal 0.55-1.02 [facility] Comment on above: Performed By: #### B MP, TSH #### [facility] [address] [place] [address] Dr. Sharif Barger EGFR-AF AFGHAN >60 Normal >=[address] [facility] Comment on above: Performed By: #### B TAMI, TSH #### [facility] [address] [place] [address] Dr. Sharif Barger EGFR-NON AF AFGHAN >60 Normal >=60 [facility] Comment on above: Performed By: #### B MP, TSH #### [facility] [address] [place] [address] Dr. Sharif Barger Glucose [Mass/Vol] 143 mg/dL Critically high 74-106 [facility] Comment on above: Performed By: #### B MP, TSH #### [facility] [address] [place] [address] Dr. Sharif Barger Potassium [Moles/Vol] 3.8 mmol/L Normal 3.5-5.1 [facility] Comment on above: Performed By: #### B MP, TSH #### [facility] [address] [address] [address] Sharif Barger Sodium [Moles/Vol] 139 mmol/L Normal 136-145 [facility] Comment on above: Performed By: #### B MP, TSH #### [facility] [address] [address] [address] Sharif Barger Urea nitrogen [Mass/Vol] 9.0 mg/dL Normal 7.0-18.0 [facility] Comment on above: Performed By: #### B MP, TSH #### [facility] [address] [place] [address] Dr. Sharif Barger Urea nitrogen/Creatinine [Mass ratio] 10.5 mg/mg Normal [facility] Comment on above: Performed By: #### B TAMI, TSH #### [facility] [address] [place] [address] Dr. Sharif Barger TSHon 12-03-2022 TSH 1.162 uIU/mL Normal 0.358-3.740 [facility] Comment on above: Performed By: #### B MP, TSH #### [facility] [address] [place] [address] Dr. Sharif Barger ECHOCARDIO M/2D COMPLETEon 1 ECHOCARDIO M/2D COMPLETE Patient: JAILENE FAIRBANKS Exam Date: 09/02/2022 : 1955 Gender:F Ordering : SANTI EDWARDS Admission #: [id number] Family : DR MADISON NORTH M.D. Order #: [id number] CLICK HERE TO VIEW EXAM ECHOCARDIOGRAM REPORT PROCEDURE: CARDIO PULMONARY ECHOCARDIO M/2D COMP INDICATIONS: Aortic valve disorder, H/O AVR; [address] pericardial Trifecta, Lupus COMPARISON: None. DESCRIPTION: COMPLETE ECHOCARDIOGRAM Real-time transthoracic echocardiography with 2D, M-mode, spectral and color flow Doppler performed. QUALITY: Technical quality was good. 65 160# 136/82 HR 72 LEFT VENTRICLE: Normal chamber size. Normal left ventricular wall thickness. Global left ventricular systolic function is normal. No regional wall motion abnormalities. LV EF: Visual estimation of left ventricular ejection fraction is 60%. DIASTOLIC: Grade II diastolic dysfunction. ATRIAL SEPTUM: LEFT ATRIUM: Mildly dilated. RIGHT ATRIUM: Normal chamber size. RIGHT VENTRICLE: Normal chamber size. Normal right ventricular systolic function. TRICUSPID VALVE: Normal mobility and thickness. No stenosis with mild regurgitation. No evidence of pulmonary hypertension. RVSP is 24 mmHg MITRAL VALVE: Mildly thickened with normal mobility. No evidence of mitral valve stenosis. Mild mitral annular calcification. Trivial mitral regurgitation. AORTIC VALVE: Severely calcified aortic valve. Doppler velocity suggest moderate aortic valve stenosis. Bioprosthetic valve appears well seated in the aortic position with increased Doppler flows as previously seen. Max velocity 3.5 m/s, DVI 0.28, mean 24 mmHg. (AV velocity; 3.1 m/s 08/27/2021, 2.7 m/s 08/20/2020). Mild aortic regurgitation. AORTIC ROOT: Normal diameter and appearance. Ascending aorta is mildly enlarged at 4.1 cm. PULMONIC VALVE: There is normal thickness and mobility. No stenosis. Trivial regurgitation. PERICARDIUM: No evidence of pericardial effusion. IVC: Collapses with inspirations. IVC is small in size. PLEURA: CONCLUSION: 1. Normal left ventricular systolic function. LVEF is 60%. 2. Grade 2 diastolic dysfunction. 3. Normal right ventricular size and systolic function. 4. Bioprosthetic aortic valve is well-seated with restricted leaflet mobility and abnormally elevated Doppler velocities suggestive of moderate stenosis. Mild prosthesis regurgitation is seen. 5. Mild tricuspid regurgitation. 6. Normal right-sided pressures. 7. Mildly dilated ascending aorta measuring 4.1 cm. Adult Echocardiography Procedure Report Left Ventricle LVEDD (3.7 - 5.6 cm): 4.76 cm LVESD (2.2 - 4.0 cm): 2.94 cm LVPW thickness (0.5 - 1.0 cm): 0.83 cm LVOT Max Gradient: 3.95 mm[Hg], 3.95 mm[Hg] Peak Velocity (LVOT): 0.99 m/s, 0.99 m/s Mean Velocity (LVOT): 0.73 m/s LVOT Diameter 1.93 cm Left Ventricular Ejection Fraction: 68.46 %, 68.46 % Left Atrium LA Volume Index (2D A2C): 48.17 ml, 48.17 ml Left Atrium Systolic Dimension: 3.79 cm Mitral Valve MV E to A Ratio: 0.84 Mitral Valve A-Wave Peak Velocity: 0.77 m/s Mitral Valve E-Wave Peak Velocity: 0.65 m/s Right Ventricle RV Internal Diastolic Dimension: 3.11 cm Aorta AO Root Diam: 3.17 cm, 3.20 cm Ascending Ao Diam: 4.07 cm, 4.04 cm Aortic Valve AoV Area (Peak Kimberly): 0.83 cm2, 0.83 cm2, 0.83 cm2, 0.83 cm2, 0.83 cm2, 0.83 cm2, 0.83 cm2, 0.83 cm2 AoV Area (VTI): 0.93 cm2, 0.93 cm2 Peak Velocity(Antegrade Flow): 3.52 m/s, 3.52 m/s Peak Gradient(Antegrade Flow): 49.50 mm[Hg], 49.50 mm[Hg] Mean Velocity(Antegrade Flow): 2.27 m/s Mean Gradient(Antegrade Flow): 24.30 mm[Hg] Velocity Time Integral: 76.31 cm Tricuspid Valve Peak Velocity (Regurgitant Flow): 2.30 m/s Peak Velocity: 0.38 m/s Pulmonic Valve Peak Velocity: 1.04 m/s, 0.84 m/s Peak Gradient: 4.34 mm[Hg], 2.82 mm[Hg] Right Atrium Dictated by: Peggy Garcia M.D. on 09/03/2022 at 18:48 Approved by: Peggy Garcia M.D. on 09/03/2022 at 18:55 Normal [facility] *MRSA/MSSA DNA NASALon 11-20 *MRSA/MSSA DNA NASAL Clinical Report: (D ) Specimen: NASAL SWAB Collected: 11/20/2019 12:17 Status: Final Last Updated: 11/21/2019 13:08 MSSA DNA (Final) Negative MRSA DNA (Final) Negative Normal [facility] Comment on above: Performed By: #### 3 [id number] #### [address] Operative Reporton 9 Operative Report MR#: [id number] [facility] Pt. Name: Jailene Fairbanks Room #: 4AB [id number] Discharge Date: Birthdate: 1955 OPERATIVE REPORT DATE OF SURGERY: 11/20/2019 SURGEON: Nadja Richter M.D. PREOPERATIVE DIAGNOSIS: Recurrent hiatal hernia. POSTOPERATIVE DIAGNOSIS: Recurrent hiatal hernia. OPERATION PERFORMED: Laparoscopic redo hiatal hernia repair and Hansel fundoplication. ANESTHESIA: General endotracheal anesthesia. INDICATION: The patient is a 64-year-old white female, developed recurrent hiatal hernia. Laparoscopic redo hiatal hernia repair and Hansel fundoplication were offered to the patient. Informed consent was obtained. SURGERY: The patient was brought to the operating room, laid on the operating table in supine position. General anesthesia was initiated. Then, she was converted to lithotomy position. Her abdomen was prepped and draped in the usual sterile fashion. Time-out was completed. Left paraumbilical 5 mm Optiview trocar was inserted under direct visualization. CO2 insufflation was started under direct visualization. A supraumbilical 5 mm trocar, right subcostal 5 mm trocar, left subcostal 12 mm trocar, and subxiphoid 5 mm trocar were inserted. Snake retractor was inserted through the right subcostal, retracted the liver up to visualize the hiatus. Electrocautery hook cautery dissection was performed to take down the adhesion from previous hiatal hernia repair. Right crura was visualized. Right crura dissection was performed with Harmonic scalpel. The dissection was continued towards the anterior crura, then lateral crura. The herniated stomach was reduced. A segment of umbilical tape was inserted into peritoneal cavity. The umbilical tape was used around the distal esophagus for retraction. The dissection was continued into the hiatus to mobilize distal esophagus, at least 2 inch of the distal esophagus was mobilized from the hiatus. The EGD was performed, confirmed without gastroesophageal perforation. The 54-Kittitian bougie was inserted past the GE junction into the stomach. The hiatal hernia was repaired by interrupted 1-0 Surgidac with pledget. One suture was placed behind the esophagus. One suture was placed anterior to the esophagus. The new constructed hiatus loosely around the distal esophagus, which contained 54 bougie. Two marking sutures were placed on the fundus, 1 on anterior wall, 1 on posterior wall. The posterior wall suture was brought from left side to right side, retracted posterior fundus from left side to right side, 360-degree Hansel fundoplication was refashioned with 3 interrupted 1-0 Surgidac interrupted suture. The sutures were also involved in anterior muscular layer of the esophagus. The bougie was removed. Interrupted 1-0 Surgidac suture was placed between anterior crura and Hansel wrap to reconstruct esophageal phrenic ligament. Two more sutures were placed between the anterior esophagus muscular layer and inferior aspect of the wrap to avoid sliding recurrence. The surgery was completed without complication. Minimal blood loss. The EGD was reperformed, confirmed no perforation. The Snake retractor was removed. The CO2 was desufflated. All trocars were removed. The left subxiphoid trocar site fascia was closed by 0 Vicryl interrupted suture, which was placed by Rivera-Mathew needle. The skin was closed by the 4-0 Vicryl subcuticular suture. Surgical glue was applied. The operation was completed without complication. I was present during the entire operation. Electronically Signed by: Nadja Richter M.D. 11/24/2019 04:54 P Nadja Richter M.D. Date Dict: 11/20/2019/04:43 P/Nadja Richter M.D. Date Trans: 11/20/2019 06:02 P/martina [id number] Normal [facility] POC GLUCOSE LABon 11-20-2019 Glucose [Mass/Vol] 95 mg/dL Normal 70-100 [facility] Comment on above: Performed By: #### 8 [id number] #### [facility] [address] [place] [address], [facility] BASIC METABOLIC PANELon 10-22 Calcium [Mass/Vol] 9.7 mg/dL Normal 8.6-10.3 [facility] Comment on above: Performed By: #### 0 0071 #### [facility] [address] [place] [address], [facility] Chloride [Moles/Vol] 100 mmol/L Normal 98-107 [facility] Comment on above: Performed By: #### 0 0071 #### [facility] [address] [place] [address], [facility] CO2 [Moles/Vol] 27 mmol/L Normal 21-31 [facility] Comment on above: Performed By: #### 0 0071 #### [facility] [address] [place] [address], [facility] Creatinine [Mass/Vol] 0.84 mg/dL Normal 0.60-1.20 [facility] Comment on above: Performed By: #### 0 0071 #### [facility] [address] [place] [address], [facility] GFR/1.73 sq M predicted among blacks MDRD (S/P/Bld) [Vol rate/Area] mL/min/{1.73_m2} Normal >60 [facility] Comment on above: Performed By: #### 0 0071 #### [facility] [address] [facility] [place] [address], [facility] GFR/1.73 sq M predicted among non-blacks MDRD (S/P/Bld) [Vol rate/Area] mL/min/{1.73_m2} Normal >60 [facility] Comment on above: Performed By: #### 0 0071 #### [facility] [address] [place] [id number], [facility] Glucose [Mass/Vol] 101 mg/dL High 70-100 [facility] Comment on above: Performed By: #### 0 0071 #### [facility] [address] [place] [id number], [facility] Potassium [Moles/Vol] 4.5 mmol/L Normal 3.5-5.1 [facility] Comment on above: Performed By: #### 0 0071 #### [facility] [address] [facility] Sodium [Moles/Vol] 134 mmol/L Low 136-145 [facility] Comment on above: Performed By: #### 0 0071 #### [facility] [address] [place] [address], [facility] Urea nitrogen [Mass/Vol] 12 mg/dL Normal 7-25 [facility] Comment on above: Performed By: #### 0 0071 #### [facility] [address] [facility] [address] CBC COMPLETE BLOOD COUNTon 01-10-2019 Erythrocyte distribution width (RBC) [Ratio] 12.8 % Normal 11.5-15.0 [facility] Comment on above: Performed By: #### 5 0608 #### [facility] [address] Hematocrit (Bld) [Volume fraction] 42.2 % Normal 36.0-45.0 [facility] Comment on above: Performed By: #### 5 0608 #### [facility] [address] [facility]. [address] Hemoglobin (Bld) [Mass/Vol] 13.8 g/dL Normal 12.0-15.0 [facility] Comment on above: Performed By: #### 5 0608 #### [facility] [address] [place] [address], [facility] MCH (RBC) [Entitic mass] 29.6 pg Normal 27.0-33.0 [facility] Comment on above: Performed By: #### 5 0608 #### [facility] [address] [place] [address], [facility] MCHC (RBC) [Mass/Vol] 32.7 g/dL Normal 32.0-35.0 [facility] Comment on above: Performed By: #### 5 0608 #### [facility] [address] [facility] MCV (RBC) [Entitic vol] 90.6 fL Normal 82.0-98.0 [facility] Comment on above: Performed By: #### 5 0608 #### [facility] [address] Nucleated RBC/100 WBC (Bld) [Ratio] 0 % Normal 0-0 [facility] Comment on above: Performed By: #### 5 0608 #### [facility] [address] PLAT CNT 326 10*3/uL Normal 150-400 [facility] Comment on above: Performed By: #### 5 0608 #### [facility] [address] RBC (Bld) [#/Vol] 4.66 10*6/uL Normal 3.80-5.00 [facility] Comment on above: Performed By: #### 5 0608 #### [facility] [address] WBC (Bld) [#/Vol] 8.77 10*3/uL Normal 4.00-10.60 [facility] Comment on above: Performed By: #### 5 0608 #### [facility] [address] PROTHROMBIN TIMEon 9 INR Coag (PPP) [Relative time] 0.96 {INR} Normal 0.91-1.16 [facility] Comment on above: Result Comment: ACCC P RECOMMENDED INR FOR WARFARIN THERAPY ------- CONDITION INR PROPHYLAXIS OF VENOUS THROMBOSIS 2-3 (HIGH-RISK SURGERY) TREATMENT OF VENOUS THROMBOSIS 2-3 TREATMENT OF PULMONARY EMBOLISM 2-3 PREVENTION OF SYSTEMIC EMBOLISM: 2-3 ACUTE MYOCARDIAL INFARCTION TISSUE HEART VALVES VALVULAR HEART DISEASE ATRIAL FIBRILLATION RECURRENT SYSTEMIC EMBOLISM MECHANICAL HEART VALVE 2.5-3.5 FROM: ORAL ANTICOAGULANTS. MECHANISM OF ACTION, CLINICAL EFFECTIVENESS, AND OPTIMAL THERAPEUTIC RANGE. CHEST 1995;108:231S-246S. Performed By: #### 5 [id number] #### [facility] [address] [place] [address], [facility] PT Coag (PPP) [Time] 12.8 s Normal 12.3-14.8 [facility] Comment on above: Result Comment: ALL RESULTS MUST BE INTERPRETED WITH RESPECT TO BLOOD DRAWING ARTIFACT OR DILUTION ERROR OF ANTICOAGULANT AT THE TIME OF SAMPLING. Performed By: #### 5 [id number] #### [facility] [address] [place] [address], [facility] BASIC METABOLIC PANELon 10-2 Calcium [Mass/Vol] 9.7 mg/dL Normal 8.6-10.3 [facility] Comment on above: Performed By: #### 0 0071 #### [facility] [address] [facility] [place] [address], [facility] Chloride [Moles/Vol] 102 mmol/L Normal 98-107 [facility] Comment on above: Performed By: #### 0 0071 #### [facility] [address] [place] [address], [facility] CO2 [Moles/Vol] 26 mmol/L Normal 21-31 [facility] Comment on above: Performed By: #### 0 0071 #### [facility] [address] [place] [address], [facility] Creatinine [Mass/Vol] 0.74 mg/dL Normal 0.60-1.20 [facility] Comment on above: Performed By: #### 0 0071 #### [facility] [address] [place] [address], [place] GFR/1.73 sq M predicted among blacks MDRD (S/P/Bld) [Vol rate/Area] mL/min/{1.73_m2} Normal >60 [facility] Comment on above: Performed By: #### 0 0071 #### [facility] [address] [place] [address], [place] GFR/1.73 sq M predicted among non-blacks MDRD (S/P/Bld) [Vol rate/Area] mL/min/{1.73_m2} Normal >60 [facility] Comment on above: Performed By: #### 0 0071 #### [facility] [address] [place] [address], [place] Glucose [Mass/Vol] 95 mg/dL Normal 70-100 [facility] Comment on above: Performed By: #### 0 0071 #### [facility] [address] [place] [address], [place] Potassium [Moles/Vol] 4.0 mmol/L Normal 3.5-5.1 [facility] Comment on above: Performed By: #### 0 0071 #### [facility] [address] [place] [address], [place] Sodium [Moles/Vol] 136 mmol/L Normal 136-145 [facility] Comment on above: Performed By: #### 0 0071 #### [facility] [address] [place] [address], [place] Urea nitrogen [Mass/Vol] 18 mg/dL Normal 7-25 [facility] Comment on above: Performed By: #### 0 0071 #### [facility] [address] [place] [address], [place] CBC W/DIFFon 09-12-2019 ABS BASOPHILS 0.1 10*3/uL Normal 0.0-0.2 [facility] Comment on above: Performed By: #### 5 0103 #### [facility] [address] [place] [address], [facility] ABS IMM GRANS 0.0 10*3/uL Normal 0.0-0.2 [facility] Comment on above: Performed By: #### 5 0103 #### [facility] [address] [place] [address], [facility] ABS NEUTROPHILS 3.4 10*3/uL Normal 1.6-7.6 [facility] Comment on above: Performed By: #### 5 0103 #### [facility] [address] Basophils/100 WBC (Bld) 1.1 % High 0.0-1.0 [facility] Comment on above: Performed By: #### 5 0103 #### [facility] [address] [place] [address], [facility] Eosinophils (Bld) [#/Vol] 0.1 10*3/uL Normal 0.0-0.5 [facility] Comment on above: Performed By: #### 5 0103 #### [facility] [address] [place] [address], [facility] Eosinophils/100 WBC (Bld) 0.9 % Normal 0.0-6.0 [facility] Comment on above: Performed By: #### 5 0103 #### [facility] [address] Erythrocyte distribution width (RBC) [Ratio] 12.9 % Normal 11.5-15.0 [facility] Comment on above: Performed By: #### 5 3 #### [facility] [address] [place] [address], [facility] Hematocrit (Bld) [Volume fraction] 41.1 % Normal 36.0-45.0 [facility] Comment on above: Performed By: #### 5 0103 #### [facility] [address] [facility] [place] [address], [facility] Hemoglobin (Bld) [Mass/Vol] 13.6 g/dL Normal 12.0-15.0 [facility] Comment on above: Performed By: #### 5 0103 #### [facility] [address] [facility] [place] [address], [facility] IMMATURE GRANS 0.3 % Normal 0.0-1.0 [facility] Comment on above: Performed By: #### 5 3 #### [facility] [address] [place] [address], [facility] Lymphocytes (Bld) [#/Vol] 2.6 10*3/uL Normal 1.2-4.0 [facility] Comment on above: Performed By: #### 5 0103 #### [facility] [address] [place] [address], [facility] Lymphocytes/100 WBC (Bld) 40.1 % Normal 20.0-45.0 [facility] Comment on above: Performed By: #### 5 0103 #### [facility] [address] [facility] [place] [address], [facility] MCH (RBC) [Entitic mass] 30.0 pg Normal 27.0-33.0 [facility] Comment on above: Performed By: #### 5 0103 #### [facility] [address] [facility] [place] [address], [facility] MCHC (RBC) [Mass/Vol] 33.1 g/dL Normal 32.0-35.0 [facility] Comment on above: Performed By: #### 5 3 #### [facility] [address] [place] [address], [facility] MCV (RBC) [Entitic vol] 90.5 fL Normal 82.0-98.0 [facility] Comment on above: Performed By: #### 0103 #### [facility] [address] [place] [address], [facility] Monocytes (Bld) [#/Vol] 0.4 10*3/uL Normal 0.1-1.0 [facility] Comment on above: Performed By: #### 102 #### [facility] [address] [facility] [place] [address], [facility] MONOS 6.6 % Normal 5.0-12.0 [facility] Comment on above: Performed By: #### 102 #### [facility] [address] [place] [address], [facility] Neutrophils/100 WBC (Bld) 51.0 % Normal 40.0-72.0 [facility] Comment on above: Performed By: #### 102 #### [facility] [address] [facility] [place] [address], [facility] Nucleated RBC/100 WBC (Bld) [Ratio] 0 % Normal 0-0 [facility] Comment on above: Performed By: #### 5 102 #### [facility] [address] [facility] [place] [address], [facility] PLAT CNT 287 10*3/uL Normal 150-400 [facility] Comment on above: Performed By: #### 102 #### [facility] [address] [facility] [place] [address], [facility] RBC (Bld) [#/Vol] 4.54 10*6/uL Normal 3.80-5.00 [facility] Comment on above: Performed By: #### 102 #### [facility] [address] [facility] [place] [address], [facility] WBC (Bld) [#/Vol] 6.56 10*3/uL Normal 4.00-10.60 [facility] Comment on above: Performed By: #### 5 0103 #### [facility] [address] [facility]. [address] PROTHROMBIN TIMEon 9 INR Coag (PPP) [Relative time] 0.92 {INR} Normal 0.91-1.16 [facility] Comment on above: Result Comment: ACCC P RECOMMENDED INR FOR WARFARIN THERAPY ------- CONDITION INR PROPHYLAXIS OF VENOUS THROMBOSIS 2-3 (HIGH-RISK SURGERY) TREATMENT OF VENOUS THROMBOSIS 2-3 TREATMENT OF PULMONARY EMBOLISM 2-3 PREVENTION OF SYSTEMIC EMBOLISM: 2-3 ACUTE MYOCARDIAL INFARCTION TISSUE HEART VALVES VALVULAR HEART DISEASE ATRIAL FIBRILLATION RECURRENT SYSTEMIC EMBOLISM MECHANICAL HEART VALVE 2.5-3.5 FROM: ORAL ANTICOAGULANTS. MECHANISM OF ACTION, CLINICAL EFFECTIVENESS, AND OPTIMAL THERAPEUTIC RANGE. CHEST 1995;108:231S-246S. Performed By: #### 5 6101 #### [address] PT Coag (PPP) [Time] 12.3 s Normal 12.3-14.8 [facility] Comment on above: Result Comment: ALL RESULTS MUST BE INTERPRETED WITH RESPECT TO BLOOD DRAWING ARTIFACT OR DILUTION ERROR OF ANTICOAGULANT AT THE TIME OF SAMPLING. Performed By: #### 5 [id number] #### [address] NM HIDA GALLBLADDER WITH EJE CTION FRACTIONon 09-08-2019 NM HIDA GALLBLADDER WITH EJECTION FRACTION [facility] Department of Radiology [address] [place] [id number] ======== Patient Name: JAILENE FAIRBANKS : 1955 Sex: F Age: Race: White Pt. Location: Patient Status: O Ordered Date: 09/08/2019 5:00:00 AM Completed Date: 09/08/2019 03:11 PM Requesting Provider: NADJA RICHTER Attending Provider: NADJA RICHTER Report Copy To: [facility] Signs & Symptoms: R10.13 Epigastric pain I10 History: [place] mmo auth # [id number] 08/30/19-11/28/2019 [id number] *er Comments: , Appointment Date: 09/08/2019 , Appointment Time: 11 , Appointment Date: 09/08/2019 , Appointment Time: 11 , , , Ordering Provider - NADJA RICHTER MD , Exam: NM HIDA GALLBLADDER WITH EJECTION FRACTION ======== NM HIDA GALLBLADDER WITH EJECTION FRACTION 09/08/2019 3:11 PM EDT SIGNS AND SYMPTOMS: R10.13 Epigastric pain I10 TECHNOLOGIST COMMENTS: RUQ pain 8.7 mCi Tc99m Mebrofenin 8 oz boost given to obtain EF QUESTION FOR THE RADIOLOGIST: , Appointment Date: 09/08/2019 , Appointment Time: 11 , Appointment Date: 09/08/2019 , Appointment Time: 11 , , , Ordering Provider - NADJA RICHTER MD , COMPARISON: None. RADIOPHARMACEUTICAL: CHOLETEC, 8.7 Millicuries, Intravenous FINDINGS: Prompt radiopharmaceutical distribution throughout the liver. Color is visualized 15 minutes into the examination. Small bowel visualized by one hour. At 60 minutes a region of interest was defined around the gallbladder and CK was administered. Gallbladder ejection fraction calculated to be 81% which is normal. IMPRESSION: No evidence of acute cholecystitis. Gallbladder Ejection Fraction: 81% % Electronically signed by:Lenora Saleem. Transcribed by: [email or web address], User Resident: Electronically Signed by: LENORA SALEEM @ 09/08/2019 04:06 PM Normal [facility] Comment on above: Order Comment: , Kirk ointment Date: 09/08/2019 , Appointment Time: 11 , Appointment Date: 09/08/2019 , Appointment Time: 11 , , , Ordering Provider - NADJA RICHTER MD , Vital Signs Date Time Vital Sign Value Performing Clinician Facility 12-25-2024 10:11-0500 Body temperature 97.2 [degF] Abimael Gee MD Work Phone: [facility] 12-25-2024 10:11-0500 Diastolic blood pressure 74 mm[Hg] Abimael Gee MD Work Phone: [facility] 12-25-2024 10:11-0500 Heart rate 68 /min Abimael Gee MD Work Phone: [facility] 12-25-2024 10:11-0500 Respiratory rate 18 /min Abimael Gee MD Work Phone: [facility] 12-25-2024 10:11-0500 SaO2% (BldA) [Mass fraction] 97 % Abimael Gee MD Work Phone: [facility] 12-25-2024 10:11-0500 Systolic blood pressure 116 mm[Hg] Abimael Gee MD Work Phone: [facility] 12-25-2024 10:00-0500 Body mass index (BMI) [Ratio] 26.71 kg/m2 Pul 5 Work Phone: [facility] 12-25-2024 10:00-0500 Body weight 72.8 kg Pulm 5 Work Phone: [facility] 11-24-2024 10:40-0500 Body height 163.83 cm [facility] 11-24-2024 10:40-0500 Body mass index (BMI) [Ratio] 27 kg/m2 [facility] 11-24-2024 10:40-0500 Body temperature 98.4 [degF] [facility] 11-24-2024 10:40-0500 Body weight 72.57 kg [facility] 11-24-2024 10:40-0500 Diastolic blood pressure 83 mm[Hg] [facility] 11-24-2024 10:40-0500 Heart rate 78 /min [facility] 11-24-2024 10:40-0500 SaO2% (BldA) [Mass fraction] 97 % [facility] 11-24-2024 10:40-0500 Systolic blood pressure 135 mm[Hg] [facility] 11-20-2024 17:22-0500 Hourly Rounding [facility] 11-20-2024 17:22-0500 Promise to Return Andrew [facility] 11-20-2024 16:59-0500 Hourly Rounding Andrew [facility] 11-20-2024 16:59-0500 Promise to Return Andrew [facility] 11-20-2024 16:42-0500 Heart rate 59 /min Andrew [facility] 11-20-2024 16:42-0500 SaO2% (BldA) [Mass fraction] 96 % Andrew [facility] 11-20-2024 16:41-0500 Body temperature 98.06 [degF] Andrew [facility] 11-20-2024 16:41-0500 Diastolic blood pressure 67 mm[Hg] Andrew [facility] 11-20-2024 16:41-0500 Mean blood pressure 79 mm[Hg] Andrew [facility] 11-20-2024 16:41-0500 Systolic blood pressure 102 mm[Hg] Andrew [facility] 11-20-2024 15:27-0500 Hourly Rounding [facility] [facility] 15:27-0500 Promise to Return Andrew [facility]aster [facility] 11-20-2024 10:57-0500 Heart rate 63 /min Andrew [facility]aster [facility] 11-20-2024 10:57-0500 SaO2% (BldA) [Mass fraction] 96 % Andrew Paster [facility] 11-20-2024 10:56-0500 Body temperature 98.06 [degF] Andrew Paster [facility] 11-20-2024 10:56-0500 Diastolic blood pressure 63 mm[Hg] Andrew Paster [facility] 11-20-2024 10:56-0500 Mean blood pressure 73 mm[Hg] Andrew Paster [facility] 11-20-2024 10:56-0500 Systolic blood pressure 93 mm[Hg] Andrew Paster [facility] 11-20-2024 07:32-0500 Heart rate 60 /min Andrew Paster [facility] 11-20-2024 07:32-0500 SaO2% (BldA) [Mass fraction] 97 % Andrew Paster [facility] 11-20-2024 07:31-0500 Body temperature 97.34 [degF] Andrew Paster [facility] 11-20-2024 07:31-0500 Diastolic blood pressure 65 mm[Hg] Andrew Paster [facility] 11-20-2024 07:31-0500 Mean blood pressure 78 mm[Hg] Andrew Paster [facility] 11-20-2024 07:31-0500 Systolic blood pressure 105 mm[Hg] Andrew Paster [facility] 11-20-2024 00:00-0500 Body temperature 97.52 [degF] Andrew Paster [facility] 11-20-2024 00:00-0500 Heart rate 65 /min Andrew Paster [facility] 11-20-2024 00:00-0500 Mean blood pressure 85 mm[Hg] Andrew Paster [facility] 11-20-2024 00:00-0500 Respiratory rate 17 /min Andrew Paster [facility] 11-19-2024 19:00-0500 Body temperature 98.24 [degF] Andrew Paster [facility] 11-19-2024 13:41-0500 Blood Pressure Location Andrew Paster [facility] 11-19-2024 13:41-0500 Mean blood pressure 62 mm[Hg] Andrew Paster [facility] 11-19-2024 13:31-0500 Heart rate 76 /min Andrew Paster [facility] 11-19-2024 11:03-0500 Respiratory rate 16 /min Andrew Paster [facility] 11-19-2024 01:00-0500 Blood Pressure Location Andrew Paster [facility] 11-19-2024 01:00-0500 Heart rate 68 /min Andrew Paster [facility] 11-19-2024 01:00-0500 Mean blood pressure 72 mm[Hg] Andrew Paster [facility] 11-18-2024 17:37-0500 Body temperature 97.88 [degF] Andrew Paster [facility] 11-18-2024 17:37-0500 Heart rate 67 /min Andrew Paster [facility] 11-18-2024 17:03-0500 Respiratory rate 22 /min Andrew Paster [facility] 11-18-2024 16:03-0500 Respiratory rate 15 /min Andrew Paster [facility] 11-18-2024 15:08-0500 Respiratory rate 16 /min Andrew Paster [facility] 11-18-2024 06:02-0500 Body temperature 98.96 [degF] Andrew Paster [facility] 09-06-2024 08:14-0400 Body height 163.83 cm [facility] 09-06-2024 08:14-0400 Body mass index (BMI) [Ratio] 27 kg/m2 [facility] 09-06-2024 08:14-0400 Body weight 72.57 kg [facility] 09-06-2024 08:14-0400 Diastolic blood pressure 70 mm[Hg] [facility] 09-06-2024 08:14-0400 Heart rate 70 /min [facility] 09-06-2024 08:14-0400 Respiratory rate 16 /min [facility] 09-06-2024 08:14-0400 SaO2% (BldA) [Mass fraction] 97 % [facility] 09-06-2024 08:14-0400 Systolic blood pressure 100 mm[Hg] [facility] 08-25-2024 08:56-0400 Body height 163.83 cm [facility] 08-25-2024 08:56-0400 Body mass index (BMI) [Ratio] 26.9 kg/m2 [facility] 08-25-2024 08:56-0400 Body temperature 98.8 [degF] [facility] 08-25-2024 08:56-0400 Body weight 72.17 kg [facility] 08-25-2024 08:56-0400 Diastolic blood pressure 72 mm[Hg] [facility] 08-25-2024 08:56-0400 Heart rate 77 /min [facility] 08-25-2024 08:56-0400 Respiratory rate 16 /min [facility] 08-25-2024 08:56-0400 SaO2% (BldA) [Mass fraction] 97 % [facility] 08-25-2024 08:56-0400 Systolic blood pressure 104 mm[Hg] [facility] 06-20-2024 11:58-0400 Body height 165.1 cm Jhony Mercedes MD Work Phone: [facility] 06-20-2024 11:58-0400 Body mass index (BMI) [Ratio] 26.63 kg/m2 Jhony Mercedes MD Work Phone: [facility] 06-20-2024 11:58-0400 Body temperature 97.39 [degF] Jhony Mercedes MD Work Phone: [facility] 06-20-2024 11:58-0400 Body weight 72.58 kg Jhony Mercedes MD Work Phone: [facility] 06-20-2024 11:58-0400 Diastolic blood pressure 75 mm[Hg] Jhony Mercedes MD Work Phone: [facility] 06-20-2024 11:58-0400 Heart rate 60 /min Jhony Mercedes MD Work Phone: [facility] 06-20-2024 11:58-0400 Systolic blood pressure 110 mm[Hg] Jhony Mercedes MD Work Phone: [facility] 06-20-2024 09:15-0400 Body mass index (BMI) [Ratio] 26.71 kg/m2 Abimael Gee MD Work Phone: [facility] 06-20-2024 09:15-0400 Body temperature 97.39 [degF] Abimael Gee MD Work Phone: [facility] 06-20-2024 09:15-0400 Body weight 72.8 kg Abimael Gee MD Work Phone: [facility] 06-20-2024 09:15-0400 Diastolic blood pressure 75 mm[Hg] Abimael Gee MD Work Phone: [facility] 06-20-2024 09:15-0400 Heart rate 60 /min Abimael Gee MD Work Phone: [facility] 06-20-2024 09:15-0400 Respiratory rate 18 /min Abimael Gee MD Work Phone: [facility] 06-20-2024 09:15-0400 SaO2% (BldA) [Mass fraction] 95 % Abimael Gee MD Work Phone: [facility] 06-20-2024 09:15-0400 Systolic blood pressure 110 mm[Hg] Abimael Gee MD Work Phone: [facility] 05-21-2024 13:08-0400 Body height 163.83 cm [facility] 05-21-2024 13:08-0400 Body mass index (BMI) [Ratio] 26 kg/m2 [facility] 05-21-2024 13:08-0400 Body temperature 98.2 [degF] [facility] 05-21-2024 13:08-0400 Body weight 69.85 kg [facility] 05-21-2024 13:08-0400 Diastolic blood pressure 83 mm[Hg] [facility] 05-21-2024 13:08-0400 Heart rate 66 /min [facility] 05-21-2024 13:08-0400 Respiratory rate 16 /min [facility] 05-21-2024 13:08-0400 SaO2% (BldA) [Mass fraction] 93 % [facility] 05-21-2024 13:08-0400 Systolic blood pressure 119 mm[Hg] [facility] 04-05-2024 08:27-0400 Body height 163.83 cm [facility] 04-05-2024 08:27-0400 Body mass index (BMI) [Ratio] 26.9 kg/m2 [facility] 04-05-2024 08:27-0400 Body weight 72.12 kg [facility] 04-05-2024 08:27-0400 Diastolic blood pressure 75 mm[Hg] [facility] 04-05-2024 08:27-0400 Heart rate 73 /min [facility] 04-05-2024 08:27-0400 SaO2% (BldA) [Mass fraction] 97 % [facility] 04-05-2024 08:27-0400 Systolic blood pressure 107 mm[Hg] [facility] 03-24-2024 10:51-0400 Body height 163.83 cm [facility] 03-24-2024 10:51-0400 Body mass index (BMI) [Ratio] 27.2 kg/m2 [facility] 03-24-2024 10:51-0400 Body weight 73.08 kg [facility] 03-24-2024 10:51-0400 Diastolic blood pressure 75 mm[Hg] [facility] 03-24-2024 10:51-0400 Heart rate 55 /min [facility] 03-24-2024 10:51-0400 SaO2% (BldA) [Mass fraction] 95 % [facility] 03-24-2024 10:51-0400 Systolic blood pressure 107 mm[Hg] [facility] 01-21-2024 18:17-0500 Body height 163.83 cm [facility] 01-21-2024 18:17-0500 Body mass index (BMI) [Ratio] 27 kg/m2 [facility] 01-21-2024 18:17-0500 Body temperature 95.7 [degF] [facility] 01-21-2024 18:17-0500 Body weight 72.57 kg [facility] 01-21-2024 18:17-0500 Diastolic blood pressure 58 mm[Hg] [facility] 01-21-2024 18:17-0500 Heart rate 70 /min [facility] 01-21-2024 18:17-0500 Respiratory rate 18 /min [facility] 01-21-2024 18:17-0500 SaO2% (BldA) [Mass fraction] 97 % [facility] 01-21-2024 18:17-0500 Systolic blood pressure 108 mm[Hg] [facility] 01-12-2024 10:19-0500 Body height 163.83 cm [facility] 01-12-2024 10:19-0500 Body mass index (BMI) [Ratio] 26.9 kg/m2 [facility] 01-12-2024 10:19-0500 Body weight 72.29 kg [facility] 01-12-2024 10:19-0500 Diastolic blood pressure 82 mm[Hg] [facility] 01-12-2024 10:19-0500 Heart rate 71 /min [facility] 01-12-2024 10:19-0500 Systolic blood pressure 129 mm[Hg] [facility] 12-23-2023 15:28-0500 Body height 165.1 cm Kelle Wong MD Work Phone: [facility] 12-23-2023 15:28-0500 Body weight 71.85 kg Kelle Wong MD Work Phone: [facility] 12-23-2023 15:28-0500 Diastolic blood pressure 70 mm[Hg] Kelle Wong MD Work Phone: [facility] 12-23-2023 15:28-0500 Heart rate 58 /min Kelle Wong MD Work Phone: [facility] 12-23-2023 15:28-0500 SaO2% (BldA) [Mass fraction] 96 % Kelle Wong MD Work Phone: [facility] 12-23-2023 15:28-0500 Systolic blood pressure 107 mm[Hg] Kelle Wong MD Work Phone: [facility] 11-17-2023 08:30-0500 Body height 163.83 cm [facility] 11-17-2023 08:30-0500 Body mass index (BMI) [Ratio] 27 kg/m2 [facility] Other [facility] Other 11-17-2023 08:30-0500 Body weight 72.49 kg [facility] Other [facility] Other 11-17-2023 08:30-0500 Body weight 72.48 kg [facility] 11-17-2023 08:30-0500 Diastolic blood pressure 75 mm[Hg] [place] [facility] Other [facility] 11-17-2023 08:30-0500 SaO2% (BldA) [Mass fraction] 97 % [facility] Other [facility] Other 11-17-2023 08:30-0500 Systolic blood pressure 112 mm[Hg] [facility] Other [facility] 10-25-2023 08:19-0500 Body height 165.1 cm Alena Rajan MD, PhD Work Phone: [facility] 10-25-2023 08:19-0500 Body weight 74.39 kg Alena Rajan MD, PhD Work Phone: [facility] 10-25-2023 08:19-0500 Diastolic blood pressure 77 mm[Hg] Alena Rajan MD, PhD Work Phone: [facility] 10-25-2023 08:19-0500 Heart rate 67 /min Alena Rajan MD, PhD Work Phone: [facility] 10-25-2023 08:19-0500 SaO2% (BldA) [Mass fraction] 94 % Alena Rajan MD, PhD Work Phone: [facility] 10-25-2023 08:19-0500 Systolic blood pressure 118 mm[Hg] Alena Rajan MD, PhD Work Phone: [facility] 12-03-2022 14:45-0500 Body height 163.83 cm [facility] Other [facility] Other 12-03-2022 14:45-0500 Body mass index (BMI) [Ratio] 27.54 kg/m2 [facility] Other [facility] Other 12-03-2022 14:45-0500 Body weight 73.94 kg [place] [facility] Other [facility] Other 12-03-2022 14:45-0500 Diastolic blood pressure 62 mm[Hg] [facility] Other [facility] Other 12-03-2022 14:45-0500 SaO2% (BldA) [Mass fraction] 97 % [facility] Other [facility] Other 12-03-2022 14:45-0500 Systolic blood pressure 96 mm[Hg] [facility] Other [facility] Other Encounters Encounter Date Encounter Type Care Provider Facility Start: 03-23-2025 End: 03-23-2025 Refmady Wong MD Work Phone: Cardiology Comment on above: Refill Request Start: 02-26-2025 End: 02-26-[address] [facility] Start: 12-25-2024 End: 12-25-2024 Office outpatient visit 15 minutes Abimael Gee MD Work Phone: Pulmonary Medicine Comment on above: Chronic cough; Centrilobular emphysema (HCC) Start: 12-25-2024 End: 12-25-2024 Patient encounter procedure Pulm Fct Lab Main 5 Work Phone: Pulmonary Medicine Comment on above: Spirometry Start: 12-25-2024 End: 12-25-2024 ambulatory ABIMAEL GEE Facility:[facility] Start: 12-04-2024 End: 12-04-[address] [facility] Start: 11-24-2024 End: 11-24-2024 ambulatory [facility] Work Phone: Start: 11-24-2024 End: 11-24-2024 Patient encounter procedure [facility] Work Phone: Start: 11-18-2024 End: 11-20-2024 Evaluation and management of inpatient Andrew Castellanos Facility:[facility] Start: 11-18-2024 Emergency department patient visit DO Irwinmary DennsiClaudia Thomason Facility:[facility] Start: 11-18-2024 End: 11-20-2024 Evaluation and management of inpatient Andrew Castellanos [facility] Start: 09-06-2024 End: 09-06-2024 ambulatory [facility] Work Phone: Start: 09-06-2024 End: 09-06-2024 Patient encounter procedure [facility] Work Phone: Start: 08-25-2024 End: 08-25-2024 ambulatory [facility] Work Phone: Start: 08-25-2024 End: 08-25-2024 Patient encounter procedure [facility] Work Phone: Start: 06-20-2024 [facility] Work Phone: Start: 06-20-2024 End: 06-20-2024 ambulatory JHOYN MERCEDES Facility:[facility] Start: 06-20-2024 End: 06-20-2024 Office outpatient new 60 minutes Jhony Mercedes MD Work Phone: Rheumatology Comment on above: Positive SHARRI (antinu clear antibody); Systemic lupus erythematosus, unspecified SLE type, unspecified organ involvement status (HCC) Start: 06-20-2024 End: 06-20-2024 ambulatory ABIMAEL GEE Facility:[facility] Start: 06-20-2024 End: 06-20-2024 Patient encounter procedure Pulm Fct Lab 1 - A110 Work Phone: Pulmonary Medicine Comment on above: Chronic cough (Prima ry Dx); Centrilobular emphysema (HCC); Positive SHARRI (antinuclear antibody); Systemic lupus erythematosus, unspecified SLE type, unspecified organ involvement status (HCC); Snoring Start: 06-20-2024 End: 06-20-2024 ambulatory JHONY MERCEDES Pulmonary Medicine Comment on above: Spirometry Start: 06-20-2024 End: 06-20-2024 Subsequent hospital visit by physician Xr Chest Main A21 Radiology Comment on above: Dyspnea, unspecified type [R06.00] Start: 05-21-2024 End: 05-21-2024 ambulatory MD [place] Work Phone: [facility] Work Phone: Start: 05-21-2024 End: 05-21-2024 [facility] Work Phone: Start: 04-05-2024 Orders Only Abimael montano MD Work Phone: Respiratory [place] Comment on above: Post-COVID syndrome (Primary Dx); History of COVID-19 Dyspnea, unspecified type (Primary Dx) Start: 04-05-2024 End: 04-05-2024 Patient encounter procedure [facility] Work Phone: Start: 04-01-2024 Non-patient / Non-visit [facility] Work Phone: Start: 03-31-2024 Non-patient / Non-visit [facility] Work Phone: Start: 03-31-2024 End: 04-01-2024 ambulatory [place] [facility] Facility:[facility] Start: 03-24-2024 Telephone encounter Kelle Wong MD Work Phone: Cardiology Comment on above: Other Start: 03-24-2024 End: 03-24-2024 ambulatory [facility] Work Phone: Start: 03-24-2024 End: 03-24-2024 Patient encounter procedure [facility] Work Phone: Start: 02-01-2024 End: 02-01-2024 Patient encounter procedure [facility] Work Phone: Start: 01-21-2024 End: 01-21-2024 Patient encounter procedure [facility] Work Phone: Start: 01-12-2024 End: 01-12-2024 ambulatory [facility] Work Phone: Start: 01-12-2024 End: 01-12-2024 Patient encounter procedure [facility] Work Phone: Start: 01-04-2024 End: 01-04-2024 [facility] Kelle Wong MD Work Phone: Cardiology Comment on above: S/P AVR (Primary Dx) ; Essential hypertension; Disorder of artery or arteriole (HCC) Start: 12-23-2023 End: 12-23-2023 Patient encounter procedure Kelle Wong MD Work Phone: Cardiology Comment on above: S/P AVR (Primary Dx) ; Essential hypertension Start: 11-17-2023 End: 11-17-2023 ambulatory [place] [facility] Other [facility] Other Start: 11-17-2023 Office outpatient vi sit 15 minutes [facility] Start: 11-17-2023 End: 11-17-2023 Patient encounter procedure [facility] Work Phone: Start: 11-05-2023 Telephone encounter Gifty Bell [facility] Comment on above: Follow Up Phone Call (RC follow up call all clear. /) Start: 11-02-2023 Telephone encounter Gifty Bell [facility] Comment on above: Follow Up Phone Call (RC follow up call all clear. /) Start: 11-01-2023 Telephone encounter Henri Bell NOC Comment on above: Follow Up Phone Call (RC f/u 1st attempt/) Start: 10-25-2023 End: 10-25-2023 Preprocedural examination done [facility] Work Phone: [facility] Start: 10-25-2023 End: 10-25-2023 Admission to same day surgery center Anesthesia Clearance Work Phone: 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] Start: 10-25-2023 End: 10-25-2023 Patient encounter procedure Alena Rajan MD, PhD Work Phone: Cardiology Comment on above: Stenosis of prosthet ic aortic valve, initial encounter; Disorder of artery or arteriole (HCC); Pre-operative cardiovascular examination; Aortic valve disorder Encounter for preope rative anesthesiology assessment for cardiac surgery (Primary Dx) Pre-op exam (Primary Dx); Stenosis of prosthetic aortic valve, initial encounter; Disorder of artery or arteriole (HCC); Preop testing Stenosis of prosthet ic aortic valve, initial encounter; Disorder of artery or arteriole (HCC); Pre-operative cardiovascular examination; Aortic valve disorder; Respiratory failure, post-operative (HCC) Start: 10-25-2023 End: 10-28-2023 Patient encounter status Alena Rajan MD, PhD Work Phone: [facility] Start: 10-05-2023 Telephone encounter Luli Dixon MD Work Phone: Cardiothoracic Comment on above: Insurance Inquiry Start: 10-04-2023 Patient encounter status Ceci Dixon MD Work Phone: [facility] Start: 10-04-2023 Telephone encounter Luli Dixon MD Work Phone: Cardiothoracic Comment on above: Referral Information ; Cardiac Preop Checklist Start: 03-11-2023 End: 03-12-[address] PEGGY GARCIA Facility:[facility] Start: 02-15-2023 Encounter for other preprocedural examination SANTI EDWARDS [facility] Start: 02-14-2023 [facility] Start: 02-12-2023 End: 02-12-2023 Encounter for other [facility]procedural [facility] Start: 02-12-2023 End: 02-13-2023 ambulatory SANTI EDWARDS Facility:[facility] Start: 02-10-2023 End: 02-11-2023 ambulatory SANTI EDWARDS Facility:[facility] Start: 01-27-2023 End: 01-28-2023 [facility] Start: 12-17-2022 End: 12-18-2022 [facility] Start: 12-10-2022 End: 12-10-2022 ambulatory [place] [facility] Other [facility] Other Start: 12-10-2022 Telephone encounter [facility] Start: 12-03-2022 End: 12-04-[address] [facility] [facility] Other Start: 12-03-2022 Office outpatient vi sit 15 minutes [facility] Start: 09-02-2022 End: 09-03-[address] [place] [facility] Facility: Start: 11-20-2019 End: 11-21-2019 Patient encounter procedure NAJDA RICHTER Facility:[facility] Procedures Date Procedure Procedure Detail Performing Clinician Start: 12-25-2024 Nitric oxide gas determination Abimael Gee MD Work Phone: Start: 11-20-2024 Catheterization of l eft heart Andrew Castellanos Start: 06-20-2024 Brncdilat rspse spmt ry pre&post-brncdilat admn Abimael Gee MD Work Phone: Start: 06-20-2024 Radiologic exam ches t 2 views Abimael Gee MD Work Phone: Start: 04-01-2024 Blood culture for ba cteria, including anaerobic screen Start: 04-01-2024 Urinalysis Start: 01-21-2024 COVID/Influenza Anti gen (POC) Start: 10-29-2023 Lipid 1996 panel - S maye or Plasma Henri Foreman RN Start: 10-25-2023 Iadna s aureus ampli fied probe tq Luli Dixon MD Work Phone: Start: 10-25-2023 Ct angiography chest w/contrast/noncontrast Luli Dixon MD Work Phone: Start: 10-25-2023 Creatinine [Mass/vol ume] in Serum or Plasma [facility] Provider Start: 11-20-2019 Anes intraperitoneal upper abdomen w/laps nos JONO STAUFFER Start: 11-20-2019 LAPAROSCOPY FUNDOPLASTY NADJA RICHTER Aortic valve structu re (body structure) Andrew Castellanos Screening for malign ant neoplasm of breast [place] [facility] Other Plan of Treatment Date Care Activity Detail Author Start: 10-29-2028 Lipid 1996 panel - S maye or Plasma Lipid Screening [facility] Start: 10-29-2028 Lipid panel Lipid Screening [facility] Start: 03-31-2027 Diabetes Screening Diabetes Screenmd g [facility] Start: 12-23-2026 Diabetes Screening Diabetes Screenmd g [facility] Start: 10-30-2026 Diabetes Screening Diabetes Screenmd g [facility] Start: 10-27-2026 Diabetes Screening Diabetes Screenmd g [facility] Start: 10-25-2026 Diabetes Screening Diabetes Screenmd g [facility] Start: 12-25-2025 BP Controlled (<130/80) BP Controlle d (<130/80) [facility] Start: 06-20-2025 BP Controlled (<130/80) BP Controlle d (<130/80) [facility] Start: 12-23-2024 BP Controlled (<130/80) BP Controlle d (<130/80) [facility] Start: 12-18-2024 End: 12-18-2024 Patient encounter procedure 12/18/2024 10:30 AM EST Office Visit Pulmonary Medicine [address] [place] [address] Abimael Luna MD [address] [place] [address] EST post Covid pt 6 mo f/u w/Coz + PFT Pulmonary Medicine Comment on above: EST post Covid pt 6 mo f/u w/Coz + PFT Start: 12-18-2024 End: 12-18-2024 ambulatory 12/18/2024 10:15 AM EST Procedure Pulmonary Medicine [address] [place] [address] Chronic cough [R05.3] Pulmonary Medicine Comment on above: Chronic cough [R05.3 ] Start: 11-22-2024 Advance Directive Discussion Advance Directive Discussion [facility] Start: 10-29-2024 Hepatitis B surface antibody level LDL Cholesterol [facility] Start: 12-04-2024 BP Controlled (<130/80) BP Controlle d (<130/80) [facility] Start: 08-27-2024 End: 08-27-2024 Patient encounter procedure 08/27/2024 9:15 PM EDT Office Visit Neurology [address] [place] [address] Snoring [R06.83] Neurology Comment on above: Snoring [R06.83] Start: 07-23-2024 Covid-19 Vaccine () Covid-19 Vaccine () [facility] Start: 07-23-2024 Influenza vaccination Influenza Vacc ine (#1) [facility] Start: 06-20-2024 End: 09-19-2024 [facility] [employer] [facility] Comment on above: Expected: 06/20/2024 , Expires: 09/19/2024 Start: 06-20-2024 End: 09-19-2024 SHARRI BY IFA SCREEN [facility] Comment on above: Expected: 06/20/2024 , Expires: 09/19/2024 Start: 06-20-2024 End: 09-19-2024 ANTI NEUTRO CYTO AB [facility] Comment on above: Expected: 06/20/2024 , Expires: 09/19/2024 Start: 06-20-2024 End: 09-19-2024 Aspergillus fumigatus IgE Ab [Units/volume] in Serum [facility] Comment on above: Expected: 06/20/2024 , Expires: 09/19/2024 Start: 06-20-2024 End: 09-19-2024 Cyclic citrullinated peptide IgG Ab [Units/volume] in Serum or Plasma [facility] Comment on above: Expected: 06/20/2024 , Expires: 09/19/2024 Start: 06-20-2024 End: 09-19-2024 DNA ANTIBODY DS BLD [facility] Comment on above: Expected: 06/20/2024 , Expires: 09/19/2024 Start: 06-20-2024 End: 09-19-2024 Extractable nuclear Ab panel - Serum [facility] Comment on above: Expected: 06/20/2024 , Expires: 09/19/2024 Start: 06-20-2024 End: 09-19-2024 IgE [Units/volume] in Serum or Plasma [facility] Comment on above: Expected: 06/20/2024 , Expires: 09/19/2024 Start: 06-20-2024 End: 09-19-[address] [facility] Work Phone: Comment on above: Expected: 06/20/2024 , Expires: 09/19/2024 Start: 06-20-2024 End: 09-19-2024 POLYMYOSITIS AND DERMATOMYOSITIS PANEL [facility] Comment on above: Expected: 06/20/2024 , Expires: 09/19/2024 Start: 06-20-2024 End: 09-19-2024 RNA POLYMERASE III AB [facility] Comment on above: Expected: 06/20/2024 , Expires: 09/19/2024 Start: 06-20-2024 End: 09-19-2024 TH/TO ANTIBODY [facility] Comment on above: Expected: 06/20/2024 , Expires: 09/19/2024 Start: 06-20-2024 End: 06-20-2024 Patient encounter procedure 06/20/2024 9:30 AM EDT Office Visit Pulmonary Medicine [address] [place] [address] Abimael Luna MD [address] [place] [address] dyspnea covid -19 this year wheezing ,dry cough [facility] Comment on above: dyspnea covid -19 th is year wheezing ,dry cough Start: 06-20-2024 End: 06-20-2024 ambulatory Pulmonary Medicine Comment on above: dyspnea covid -19 th is year wheezing ,dry cough Start: 06-20-2024 End: 06-20-2024 Patient encounter procedure 06/20/2024 7:55 AM EDT Appointment Radiology [address] [place] [id number] post covid,dyspnea covid-19 Radiology Comment on above: post covid,dyspnea c ovid-19 Start: 05-21-2024 Bacteria identified in Urine by Culture [facility] Start: 01-21-2024 Covid-19 Vaccine () Covid-19 Vaccine () [facility] Start: 01-21-2024 Covid-19 Vaccine () Covid-19 Vaccine () [facility] Start: 11-22-2023 Advance Directive Discussion Advance Directive Discussion [facility] Start: 11-22-2023 Behavioral Health Screening Behavioral Health Screening [facility] Start: 11-22-2023 Depression Assessment Depression Ass essment [facility] Start: 10-07-2023 End: 01-06-2024 aPTT in Platelet poor plasma by Coagulation assay ACTIVATED PTT Lab Routine Stenosis of prosthetic aortic valve, 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) Pre-operative cardiovascular examination Aortic valve disorder Expected: 10/07/2023 (Approximate), Expires: 01/06/2024 [facility] Work Phone: Comment on above: Expected: 10/07/2023 (Approximate), Expires: 01/06/2024 Start: 10-07-2023 End: 01-06-2024 CBC W Auto Differential panel - Blood CBC + DIFF Lab Routine Stenosis of prosthetic aortic valve, 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) Pre-operative cardiovascular examination Aortic valve disorder Expected: 10/07/2023, Expires: 01/06/2024 [facility] Work Phone: Comment on above: Expected: 10/07/2023 , Expires: 01/06/2024 Start: 10-07-2023 End: 01-06-2024 Comprehensive metabolic 2000 panel - Serum or Plasma COMP METABOLIC PANEL Lab Routine Stenosis of prosthetic aortic valve, 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) Pre-operative cardiovascular examination Aortic valve disorder Expected: 10/07/2023, Expires: 01/06/2024 [facility] Work Phone: Comment on above: Expected: 10/07/2023 , Expires: 01/06/2024 Start: 10-07-2023 End: 01-06-2024 CONFIRM BLOOD TYPE CONFIRM BLOOD TYPE Blood Bank Routine Stenosis of prosthetic aortic valve, 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) Pre-operative cardiovascular examination Aortic valve disorder Expected: 10/07/2023, Expires: 01/06/2024 [facility] Work Phone: Comment on above: Expected: 10/07/2023 , Expires: 01/06/2024 Start: 10-07-2023 End: 01-06-2024 CREATININE BLD CREATININE BLD Lab Routine Stenosis of prosthetic aortic valve, 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) Pre-operative cardiovascular examination Aortic valve disorder Expected: 10/07/2023, Expires: 01/06/2024 [facility] Work Phone: Comment on above: Expected: 10/07/2023 , Expires: 01/06/2024 Start: 10-07-2023 End: 01-06-2024 Lactate dehydrogenase [Enzymatic activity/volume] in Serum or Plasma LD LACTATE DEHYDRO Lab Routine Stenosis of prosthetic aortic valve, 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) Pre-operative cardiovascular examination Aortic valve disorder Expected: 10/07/2023, Expires: 01/06/2024 [facility] Work Phone: Comment on above: Expected: 10/07/2023 , Expires: 01/06/2024 Start: 10-07-2023 End: 01-06-2024 PT panel - Platelet poor plasma by Coagulation assay PROTHROMBIN TIME/PT Lab Routine Stenosis of prosthetic aortic valve, 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) Pre-operative cardiovascular examination Aortic valve disorder Expected: 10/07/2023 (Approximate), Expires: 01/06/2024 [facility] Work Phone: Comment on above: Expected: 10/07/2023 (Approximate), Expires: 01/06/2024 Start: 10-07-2023 End: 01-06-2024 TYPE AND SCREEN,30 DAY TYPE AND SCREEN,30 DAY Blood Bank Routine Stenosis of prosthetic aortic valve, 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) Pre-operative cardiovascular examination Aortic valve disorder Expected: 10/07/2023, Expires: 01/06/2024 [facility] Work Phone: Comment on above: Expected: 10/07/2023 , Expires: 01/06/2024 Start: 10-07-2023 End: 01-06-2024 URINALYSIS, DIPSTICK ONLY URINALYSIS, DIPSTICK ONLY Lab Routine Stenosis of prosthetic aortic valve, 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) Pre-operative cardiovascular examination Aortic valve disorder Expected: 10/07/2023, Expires: 01/06/2024 [facility] Work Phone: Comment on above: Expected: 10/07/2023 , Expires: 01/06/2024 Start: 11-22-2022 Advance Directive Discussion Advance Directive Discussion [facility] Start: 11-22-2022 Depression Assessment Depression Ass essment [facility] Start: 2022 Bone Density Screening Bone Density Screening [facility] Start: 2022 Screening for osteoporosis Bone Dens ity Screening [facility] Start: 2017 RSV Vaccine (1 - 1-d ose 60+ series) RSV Vaccine (1 - 1-dose 60+ series) [facility] Start: 2017 RSV Vaccine (1 - Ris k 60-74 years 1-dose series) RSV Vaccine (1 - Risk 60-74 years 1-dose series) [facility] Start: 2007 Shingrix Vaccine (1 of 2) Epperson grix Vaccine (1 of 2) [facility] Start: 2002 Cologuard (FIT-DNA) Cologuard (FIT-D NA) [facility] Start: 2002 Colonoscopy Colonoscopy [facility] Start: 2002 Colorectal Cancer Screening Colorectal Cancer Screening [facility] Start: [address] [facility] Start: 2002 Fecal Occult Blood Fecal Occult Bloo d [facility] Start: 2002 Lipid 1996 panel - S maye or Plasma Lipid Screening [facility] Start: 2002 Screening for malign ant neoplasm of colon [facility] Start: 2002 Sigmoidoscopy Sigmoidoscopy [facility] Start: 1997 Mammography Mammogram Screening [facility] Start: 1997 Screening for malign ant neoplasm of breast Mammogram Screening [facility] Start: 1987 Zoledronic acid therapy Alpha- 1 Antitrypsin Deficiency Screening [facility] Start: 1976 Urine microalbumin profile DTa P,Tdap,Td Vaccine (1 - Tdap) [facility] Start: 1975 Annual PCP Team [employer] kaiden Disease Visit Annual PCP Team Chronic Disease Visit [facility] Start: 1975 Anxiety Screening Anxiety Screening [facility] Start: 1975 Depression Screening Depression Scre ening [facility] Start: 1975 Hepatitis B surface antibody level LDL Cholesterol [facility] Start: 1975 Hepatitis C Screening Hepatitis C [facility] Start: 1975 Hepatitis C screening Hepatitis C [facility] Start: 1975 HIV Screening HIV Screening [facility] Start: 1975 [facility] Start: 1968 Screening for malign ant neoplasm of cervix Cervical Cancer Screening [facility] End: 11-05-2024 Ct angiography chest w/contrast/noncontrast CTA CHEST (GATED) W IVCON Radiology Routine Stenosis of prosthetic aortic valve, 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) Pre-operative cardiovascular examination Aortic valve disorder 1 Occurrences starting 10/07/2023 until 11/05/2024 [facility] Work Phone: Comment on above: 1 Occurrences starti ng 10/07/2023 until 11/05/2024 CT Chest [facility] End: 10-07-2024 ECG COMPLETE ECG COMPLETE ECG Routine Stenosis of prosthetic aortic valve, 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) Pre-operative cardiovascular examination Aortic valve disorder 1 Occurrences starting 10/07/2023 until 10/07/2024 [facility] Work Phone: Comment on above: 1 Occurrences starti ng 10/07/2023 until 10/07/2024 End: 01-04-2025 ECG COMPLETE ECG COMPLETE ECG Routine S/P AVR 1 Occurrences starting 01/04/2024 until 01/04/2025 [facility] Work Phone: Comment on above: 1 Occurrences starti ng 01/04/2024 until 01/04/2025 End: 10-07-2024 Echocardiography ECHO Cardiology Routine Stenosis of prosthetic aortic valve, 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) Pre-operative cardiovascular examination Aortic valve disorder 1 Occurrences starting 10/07/2023 until 10/07/2024 [facility] Work Phone: Comment on above: 1 Occurrences starti ng 10/07/2023 until 10/07/2024 End: 01-04-2025 Echocardiography ECHO Cardiology Routine S/P AVR 1 Occurrences starting 01/04/2024 until 01/04/2025 [facility] Work Phone: Comment on above: 1 Occurrences starti ng 01/04/2024 until 01/04/2025 EKG 12 channel panel [facility] End: 05-05-2025 LUNG DIFFUSION CAPACITY (DLCO) LUNG DIFFUSION CAPACITY (DLCO) PFT Routine 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 1 Occurrences starting 04/05/2024 until 05/05/2025 [facility] Work Phone: Comment on above: 1 Occurrences starti ng 04/05/2024 until 05/05/2025 End: 07-21-2025 NITRIC OXIDE, EXHALED NITRIC OXIDE, EXHALED PFT Routine Chronic cough 1 Occurrences starting 06/20/2024 until 07/21/2025 [facility] Work Phone: Comment on above: 1 Occurrences starti ng 06/20/2024 until 07/21/2025 End: 06-20-2025 Polysomnogram POLYSOMNOGRAM (PSG) Procedures Routine Snoring 1 Occurrences starting 06/20/2024 until 06/20/2025 [facility] Comment on above: 1 Occurrences starti ng 06/20/2024 until 06/20/2025 End: 05-05-2025 SPIROMETRY - BASELINE AND POST DILATOR SPIROMETRY - BASELINE AND POST DILATOR PFT Routine 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 1 Occurrences starting 04/05/2024 until 05/05/2025 [facility] Comment on above: 1 Occurrences starti ng 04/05/2024 until 05/05/2025 End: 05-05-2025 SPIROMETRY WITH DILATOR IF OBSTRUCTED SPIROMETRY WITH DILATOR IF OBSTRUCTED PFT Routine Dyspnea, unspecified type 1 Occurrences starting 04/05/2024 until 05/05/2025 [facility] Work Phone: Comment on above: 1 Occurrences starti ng 04/05/2024 until 05/05/2025 End: 10-07-2024 US CAROTID ARTERIES BECK VAS LAB US CAROTID ARTERIES BECK VAS LAB Vascular Lab Routine Stenosis of prosthetic aortic valve, 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) Pre-operative cardiovascular examination Aortic valve disorder 1 Occurrences starting 10/07/2023 until 10/07/2024 [facility] Work Phone: Comment on above: 1 Occurrences starti ng 10/07/2023 until 10/07/2024 End: 05-05-2025 XR Chest PA and Lateral [facility] Comment on above: 1 Occurrences starti ng 04/05/2024 until 05/05/2025 [facility] CT & VAS [facility] Immunizations Immunization Date Immunization Notes Care Provider Fa luiz 09-22-2023 COVID-19 vaccine, ag e 12+ yr, season (PFIZER-BIONTECH) Gifty Barth RN [facility] 09-22-2023 influenza (aIIV4) vaccine, age 65+ yr, quadrivalent, PF (FLUAD QUAD) [id number] Work Phone: [facility] 09-22-2023 pneumococcal conjuga te (PCV20) vaccine, 20 valent (PREVNAR 20) [facility] Work Phone: [facility] 09-22-2023 influenza virus vaccine, unspecified formulation [facility] Work Phone: [facility] 10-23-2021 COVID-19 original vaccine, age 12+ yr, monovalent (PFIZER-BIONTECH - PURPLE TOP) Gifty Barth RN [facility] 10-23-2021 COVID-19 vaccine, unspecified formulation [facility] Work Phone: [facility] 10-23-2021 influenza virus vaccine, split virus (incl. purified surface antigen) [place] Nroth Other [facility] Other 10-23-2021 influenza virus vaccine, unspecified formulation [facility] 10-23-2021 influenza, injectabl e, quadrivalent, preservative free [facility] Work Phone: [facility] 02-06-2021 COVID-19 original vaccine, age 12+ yr, monovalent (PFIZER-BIONTECH - PURPLE TOP) Gifty Barth RN [facility] 02-06-2021 COVID-19 vaccine, unspecified formulation [facility] Work Phone: [facility] 01-16-2021 COVID-19 original vaccine, age 12+ yr, monovalent (PFIZER-BIONTECH - PURPLE TOP) Gifty Barth RN [facility] 01-16-2021 COVID-19 vaccine, unspecified formulation [facility] Work Phone: [facility] 08-22-2017 influenza virus vaccine, unspecified formulation [facility] Work Phone: [facility] 08-24-2016 influenza, high dose seasonal, preservative-free [facility] Work Phone: [facility] Payers Date Payer Category Payer Medicare [id number] 2023 Medicare (Managed Care) [facility] MEDICARE HMO [id number] 2022 Medicare [id number] 1959 Medicare [id number] 1957 Unknown [id number] 2.16.840.1.293600.3.579.2 .647 1957 Unknown [id number] 2.16.840.1.722850.3.579.2 .593 1957 Unknown [id number] 2.16.840.1.382803.3.579.2 .593 1957 Unknown [id number] 2.16.840.1.597311.3.579.2 .593 1957 Unknown [id number] 2.16.840.1.573793.3.579.2 .593 1957 Unknown [id number] 2.16.840.1.021927.3.579.2 .593 1957 Unknown [id number] 2.16.840.1.450596.3.579.2 .593 1957 Unknown [id number] 2.16.840.1.952231.3.579.2 .593 1957 Unknown [id number] 2.16.840.1.472575.3.579.2 .593 1957 Unknown [id number] 2.16.840.1.102070.3.579.2 .727 1957 Unknown [id number] 2.16.840.1.347932.3.579.2 .727 1957 Unknown [id number] 2.16.840.1.336679.3.579.2 .727 1957 Unknown [id number] 2.16.840.1.143550.3.579.2 .727 1957 Unknown [id number] 2.16.840.1.417605.3.579.2 .727 1957 Unknown [id number] 2.16.840.1.150225.3.579.2 .727 1957 Unknown [id number] 2.16.840.1.381518.3.579.2 .727 1957 Unknown [id number] 2.16.840.1.477326.3.579.2 .727 1957 Unknown [id number] 2.16.840.1.686006.3.579.2 .727 1957 Unknown [id number] 2.16.840.1.460903.3.579.2 .727 1957 Unknown [id number] 2.16.840.1.989907.3.579.2 .727 Private Health Insurance [facility]ly [facility] Insurance [employer] [id number] Self-pay Self Pay [id number] Unknown [id number] Worker's Compensation Care Works [facility] [id number] Social History Date Type Detail Facility Unknown if ever smoked [facility] Other Start: 10-25-2023 End: 12-25-2024 Sex Assigned At [facility] Start: 10-05-2023 Tobacco smoking stat [facility] Tobacco smoking consumption unknown [facility] Start: 1955 Sex Assigned At Not on file [facility] Start: 10-25-2023 End: 12-25-2024 Tobacco smoking status NHIS Ex-smoker [facility] Comment on above: quit over 2 years ag o Start: 02-20-1993 End: 11-17-2023 History of tobacco use Current smoker [facility] Start: 02-20-1993 End: 02-20-2023 History of tobacco use Cigarette Smoker [facility] Start: 10-25-2023 End: 12-25-2024 Cigarettes smoked current (pack per day) - Reported 0.3 [facility] Start: 10-25-2023 End: 12-25-2024 Tobacco use and exposure Smokeless tobacco non-user [facility] Start: 10-25-2023 End: 12-25-2024 Alcohol intake Lifetime non-drinker (finding) [facility] National Score (1-100), lower number is lower risk 61 [facility] Start: 1955 Sex Assigned At Female F [facility] Start: 11-24-2024 Sex Female (finding) [facility] Medical Equipment Procedure Code Equipment Code Equipment Original Text Equipment Identifier Dates Duarte Thk1.65mm P tfe 4x.5in Cardiovascular Sterile - [id number] Start: 10-26-2023 Valve Aortic Epi c Max 21mm - [id number] Start: 10-26-2023 Functional Status Date Assessment Result Facility 11-18-2024 Functional Status No [facility] 11-18-2024 Functional Status [facility] 10-30-2023 Are you deaf, or do you have serious difficulty hearing Yes 10/30/2023 11:22 AM Ruth Ann Carty RN Yes [facility] 10-30-2023 Are you blind, or do you have serious difficulty seeing, even when wearing glasses Yes 10/30/2023 11:22 AM Ruth Ann Carty RN Yes [facility] 10-30-2023 Do you have serious difficulty walking or climbing stairs Yes 10/30/2023 11:22 AM Ruth Ann Carty RN Yes [facility] 10-30-2023 Do you have difficul ty dressing or bathing Yes 10/30/2023 11:22 AM Ruth Ann Carty RN Yes [facility] 10-30-2023 Because of a physica l, mental, or emotional condition, do you have difficulty doing errands alone such as visiting a physician's office or shopping Yes 10/30/2023 11:22 AM Ruth Ann Carty RN Yes [facility] Mental Status Date Assessment Result Facility 10-30-2023 Because of a physica l, mental, or emotional condition, do you have serious difficulty concentrating, remembering, or making decisions Yes 10/30/2023 11:22 AM Ruth Ann Carty RN Yes [facility] Clinical Notes 12-03-2022 to 03-23-2025 Telephone Encounter - Val Caceres - 03/23/2025 11:38 AM EDTTelephone Encounter - Val Caceres - 03/23/2025 11:38 AM EDTPatient Abimael Nelson MD - 12/25/2024 10:31 AM EST Note Date & Type Note Facility 03-23-2025 Telephone encounter Note Call from pharmacy requesting refill. Requested Prescriptions Pending Prescriptions Disp Refills rosuvastatin (CRESTOR) 40 mg tablet [Pharmacy Med Name: ROSUVASTATIN CALCIUM 40 MG TAB] 90 tablet 3 Sig: TAKE 1 TABLET BY MOUTH EVERY DAY Patient last seen 01/04/2024 Val Caceres [facility] 03-23-2025 Miscellaneous Notes Call from pharmacy requesting refill. Requested Prescriptions Pending Prescriptions Disp Refills rosuvastatin (CRESTOR) 40 mg tablet [Pharmacy Med Name: ROSUVASTATIN CALCIUM 40 MG TAB] 90 tablet 3 Sig: TAKE 1 TABLET BY MOUTH EVERY DAY Patient last seen 01/04/2024 Val Caceres documented in this encounter [facility] 02-26-2025 Note [place] Cardiology - [facility] Subjective Jailene Fairbanks is a 69 y.o. year old female patient being seen for chest pain patient states this happened about 3 days ago. Patient states when it happens she gets lightheaded. Patient complains of dyspnea on exertion. Patient feels palpitations when she lays on her left side. Denies swelling in legs. 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 Malaise and fatigue Vascular headache, not elsewhere classified Migraine variant, intractable Multiple joint pain Numbness of foot Osteoporosis Pericardial effusion Peripheral polyneuropathy Ptosis of eyelid, left Systemic lupus erythematosus (CMS/HCC) Temporary memory loss Urinary tract infectious disease Visual disturbance Vitamin D deficiency Amaurosis fugax, right eye Complaints of memory disturbance Other localized visual field defect, right eye Sensorineural hearing loss (SNHL) of right ear Aortic valve disease Atelectasis Cardiac insufficiency following cardiac surgery Coagulopathy COPD without exacerbation (CMS/HCC) Depression Discharge planning issues Postoperative pain Prosthetic aortic valve stenosis Family History Problem Relation Name Age of Onset Coronary artery disease Mother Coronary artery disease Father Social History Tobacco Use Smoking status: Former Current packs/day: 0.00 Types: Cigarettes Quit date: 03/10/2023 Years since quittin.9 Smokeless tobacco: Never Substance Use Topics Alcohol use: Not Currently HPI Jailene is seen in follow-up. She is a 69-year-old woman with prior history of bioprosthetic aortic valve replacement in 2013 due to trileaflet aortic valve stenosis [Minimally invasive aortic valve replacement using a 23-mm pericardial Trifecta [place] bioprosthesis], mild coronary artery disease, hypertension, hyperlipidemia and dilatation of the aorta. She developed degeneration of the bioprosthetic aortic valve and underwent redo surgical aortic valve replacement at the [facility] on 10/26/2023. She was admitted in October 2024 at [facility] with back discomfort and headache, uncontrolled hypertension and mild elevation of high-sensitivity troponin following which she underwent cardiac catheterization that showed minimal coronary artery disease. Echocardiogram showed normal function of the aortic valve. Today she is seen in follow-up. She reports that she has been having episodes of chest discomfort with exertion. Those happen on and off. She describes them as a discomfort feeling in the center of the chest. She says that this is different from her heartburn for which she takes omeprazole. Omeprazole is not helping with this type of discomfort. Otherwise she has some mild shortness of breath on exertion but no edema. She has occasional palpitations. Review of Systems Cardiovascular: Positive for chest pain, dyspnea on exertion and palpitations. All other systems reviewed and are negative. Objective Visit Vitals BP 112/75 (BP Location: Right arm, Patient Position: Sitting) Pulse 64 Ht 1.651 m (5' 5 ) Wt 74.4 kg (164 lb) SpO2 95% BMI 27.29 kg/m??? OB Status Postmenopausal Smoking Status Former BSA 1.85 m??? Physical Exam Constitutional: Appearance: She is well-developed. She is not ill-appearing. HENT: Head: Normocephalic and atraumatic. Nose: Nose normal. Eyes: General: No scleral icterus. Pupils: Pupils are equal, round, and reactive to light. Neck: Thyroid: No thyromegaly. Vascular: No JVD. Cardiovascular: Rate and Rhythm: Normal rate and regular rhythm. Pulses: Radial pulses are 2+ on the right side and 2+ on the left side. Heart sounds: Murmur heard. Systolic (RUSB) murmur is present with a grade of 1/6. No friction rub. No gallop. Pulmonary: Effort: Pulmonary effort is normal. No respiratory distress. Breath sounds: Normal breath sounds. No wheezing or rales. Chest: Chest wall: No tenderness. Abdominal: General: Bowel sounds are normal. There is no distension. Palpations: Abdomen is soft. Tenderness: There is no abdominal tenderness. Musculoskeletal: General: No swelling. Cervical back: Neck supple. Skin: General: Skin is warm and dry. Neurological: General: No focal deficit present. Mental Status: She is alert and oriented to person, place, and time. Psychiatric: Mood and Affect: Mood normal. Behavior: Behavior is cooperative. Judgment: Judgment normal. Allergies Allergies Al (more content not included)... [facility] 12-25-2024 Instructions Abimael Luna MD - 12/25/2024 10:53 AM EST Your symptoms have improved significantly. - Continue using Trelegy. - Follow up with your Count Team Clerk regarding the fluttering and ask whether a Holter might be useful. documented in this encounter [facility] 12-25-2024 Note HNO ID: [id number] Author: ABIMAEL LUNA MD Service: ? Author Type: Physician Type: Progress Notes Filed: 12/25/2024 11:06 Note Text: . DEPARTMENT OF PULMONARY MEDICINE OUTPATIENT VISIT DATE December 25, 2024 OUTPATIENT VISIT TYPE ESTABLISHED PATIENT Ms. Fairbanks is a 69 year old female who presents to the [facility] [place] for follow up on chronic cough and shortness of breath. HPI: 69 year old female with past medical history of hypertension, hyperlipidemia, possible lupus, and aortic valve replacement who is here today for follow up on cough and shortness of breath. She was recently admitted to the hospital for concern of ACS and pneumonia. She was hospitalized for 3 days. She reported her symptoms were shortness of breath and pain in the mid back. Since then, she reports shortness of breath that occurs at rest. She describes it is associated with fluttering sensation in the chest. She has not had a Holter in several years. She is doing well from the respiratory standpoint. She is using the inhaler on a regular basis. The cough has improved significantly. Review of Systems: GEN: No fevers/chills, night sweats, or weight changes HENT: No rhinorrhea, pharyngitis, sinus drainage, congestion, or oral ulcers EYES: No sudden vision changes CV: No chest pain, palpitations RESP: As above GI: No nausea/vomiting/constipation/diarrhe a, no acid reflux : No dysuria, no hematuria MSK: No joint swelling NEURO: No sudden weakness or numbness SKIN: No rash Past Medical History: PAST MEDICAL HISTORY Diagnosis Date AAA (abdominal aortic aneurysm) (HCC) Coronary artery disease Dyslipidemia Fibromyalgia Hypertension Irregular heart beat Peripheral neuropathy Prosthetic aortic valve stenosis Systemic lupus erythematosus (HCC) TIA (transient ischemic attack) Unsure when- Comfirmed with Neurology Past Surgical History: PAST SURGICAL HISTORY Procedure Laterality Date ANKLE SURGERY HX Left HEMORRHOID;BAND LIGAT, SNGL/MUL HYSTERECTOMY LEFT HEART CATH,PERCUTANEOUS multiple PAST SURGICAL HISTORY OF 10/25/2014 AVR PAST SURGICAL HISTORY OF C section x2 PAST SURGICAL HISTORY OF R tibia and fibula surgery Work and Social Histories: Social History Tobacco Use Smoking status: Former Current packs/day: 0.00 Average packs/day: 0.3 packs/day for 30.0 years (7.5 ttl pk-yrs) Types: Cigarettes Start date: 02/1993 Quit date: 02/2023 Years since quittin.8 Smokeless tobacco: Never Substance Use Topics Alcohol use: Never Drug use: Never Occupation/Exposures: Unchanged since last office visit Family History: FAMILY HISTORY Problem Relation Age of Onset Heart Attack Mother Heart disease Father leaky valve Kidney failure Father Coronary Artery Disease Father Diabetes Father No Known Problems Sister No Known Problems Sister No Known Problems Sister No Known Problems Sister No Known Problems Sister No Known Problems Sister No Known Problems Sister No Known Problems Sister No Known Problems Brother Stroke Maternal Grandmother Heart Attack Maternal Grandfather Stroke Paternal Grandmother No Known Problems Paternal Grandfather other (Bicuspid aortic valve) Niece Heart Attack Maternal Aunt Heart Attack Maternal Aunt Arrhythmia Maternal Uncle PPM Coronary Artery Disease Maternal Uncle Bypass other (RBBB) Son No Known Problems Daughter Allergies: Alendronate, Latex, Meloxicam, Morphine, Pravastatin, Sulfa (Sulfonamide Antibiotics), and Tramadol Outpatient Medications: rosuvastatin (CRESTOR) 40 mg tablet Take 1 tablet by mouth once daily. omeprazole (PRILOSEC) 40 mg capsule Take 40 mg by mouth. citalopram (CELEXA) 40 mg tablet Take 1 tablet by mouth every afternoon. aspirin, enteric coated (ASPIRIN, ENTERIC COATED) 81 mg EC tablet Take 81 mg by mouth. ntmlcguosyb-ktgzpudtg-xvibhndc (TRELEGY ELLIPTA) 200-62.5-25 mcg inhalation powder Inhale 1 Puff as instructed once daily. metoprolol tartrate, short acting, (LOPRESSOR) 25 mg tablet Take 0.5 tablets by mouth once daily. PHYSICAL EXAMINATION BP 116/74 Pulse 68 Temp (Src) 97.2 (Temporal) Resp 18 SpO2 97% General appearance: well appearing, in no acute distress, and alert Skin: skin color, texture, turgor normal, no rashes or lesions Respiratory: Lungs clear to auscultation. No wheezing, rhonchi, rales. Percussion normal, good diaphragmatic excursion. Cardiovascular: RRR without murmur, gallop, or rubs. No ectopy S1, S2 normal. Neurological Examination: Alert and Oriented to Place, Person, Time and Situation and Patient follows commands.. Exhibits full strength in all four extremities. Labs / Imaging / Diagnostic Studies: All radiography listed below personally reviewed by me Data Reviewed from [facility] (in addition to that noted in HPI, and Past histories above): CMP, CBC WBC 5.81 06/20/2024 RBC 4.48 06/20 (more content not included)... [facility] 12-25-2024 History of Present illness Narrative Images from the original note were not included. . DEPARTMENT OF PULMONARY MEDICINE OUTPATIENT VISIT DATE December 25, 2024 OUTPATIENT VISIT TYPE ESTABLISHED PATIENT Ms. Feasel is a 69 year old female who presents to the [facility] [place] for follow up on chronic cough and shortness of breath. HPI: 69 year old female with past medical history of hypertension, hyperlipidemia, possible lupus, and aortic valve replacement who is here today for follow up on cough and shortness of breath. She was recently admitted to the hospital for concern of ACS and pneumonia. She was hospitalized for 3 days. She reported her symptoms were shortness of breath and pain in the mid back. Since then, she reports shortness of breath that occurs at rest. She describes it is associated with fluttering sensation in the chest. She has not had a Holter in several years. She is doing well from the respiratory standpoint. She is using the inhaler on a regular basis. The cough has improved significantly. Review of Systems: GEN: No fevers/chills, night sweats, or weight changes HENT: No rhinorrhea, pharyngitis, sinus drainage, congestion, or oral ulcers EYES: No sudden vision changes CV: No chest pain, palpitations RESP: As above GI: No nausea/vomiting/constipation/diarrhe a, no acid reflux : No dysuria, no hematuria MSK: No joint swelling NEURO: No sudden weakness or numbness SKIN: No rash Past Medical History: PAST MEDICAL HISTORY Diagnosis Date AAA (abdominal aortic aneurysm) (HCC) Coronary artery disease Dyslipidemia Fibromyalgia Hypertension Irregular heart beat Peripheral neuropathy Prosthetic aortic valve stenosis Systemic lupus erythematosus (HCC) TIA (transient ischemic attack) Unsure when- Comfirmed with Neurology Past Surgical History: PAST SURGICAL HISTORY Procedure Laterality Date ANKLE SURGERY HX Left HEMORRHOID;BAND LIGAT, SNGL/MUL HYSTERECTOMY LEFT HEART CATH,PERCUTANEOUS multiple PAST SURGICAL HISTORY OF 10/25/2014 AVR PAST SURGICAL HISTORY OF C section x2 PAST SURGICAL HISTORY OF R tibia and fibula surgery Work and Social Histories: Social History Tobacco Use Smoking status: Former Current packs/day: 0.00 Average packs/day: 0.3 packs/day for 30.0 years (7.5 ttl pk-yrs) Types: Cigarettes Start date: 02/1993 Quit date: 02/2023 Years since quittin.8 Smokeless tobacco: Never Substance Use Topics Alcohol use: Never Drug use: Never Occupation/Exposures: Unchanged since last office visit Family History: FAMILY HISTORY Problem Relation Age of Onset Heart Attack Mother Heart disease Father leaky valve Kidney failure Father Coronary Artery Disease Father Diabetes Father No Known Problems Sister No Known Problems Sister No Known Problems Sister No Known Problems Sister No Known Problems Sister No Known Problems Sister No Known Problems Sister No Known Problems Sister No Known Problems Brother Stroke Maternal Grandmother Heart Attack Maternal Grandfather Stroke Paternal Grandmother No Known Problems Paternal Grandfather other (Bicuspid aortic valve) Niece Heart Attack Maternal Aunt Heart Attack Maternal Aunt Arrhythmia Maternal Uncle PPM Coronary Artery Disease Maternal Uncle Bypass other (RBBB) Son No Known Problems Daughter Allergies: Alendronate, Latex, Meloxicam, Morphine, Pravastatin, Sulfa (Sulfonamide Antibiotics), and Tramadol Outpatient Medications: rosuvastatin (CRESTOR) 40 mg tablet Take 1 tablet by mouth once daily. omeprazole (PRILOSEC) 40 mg capsule Take 40 mg by mouth. citalopram (CELEXA) 40 mg tablet Take 1 tablet by mouth every afternoon. aspirin, enteric coated (ASPIRIN, ENTERIC COATED) 81 mg EC tablet Take 81 mg by mouth. oyoeqrzggks-ghnjxieep-zzoszoql (TRELEGY ELLIPTA) 200-62.5-25 mcg inhalation powder Inhale 1 Puff as instructed once daily. metoprolol tartrate, short acting, (LOPRESSOR) 25 mg tablet Take 0.5 tablets by mouth once daily. PHYSICAL EXAMINATION BP 116/74 Pulse 68 Temp (Src) 97.2 (Temporal) Resp 18 SpO2 97% General appearance: well appearing, in no acute distress, and alert Skin: skin color, texture, turgor normal, no rashes or lesions Respiratory: Lungs clear to auscultation. No wheezing, rhonchi, rales. Percussion normal, good diaphragmatic excursion. Cardiovascular: RRR without murmur, gallop, or rubs. No ectopy S1, S2 normal. Neurological Examination: Alert and Oriented to Place, Person, Time and Situation and Patient follows commands.. Exhibits full strength in all four extremities. Labs / Imaging / Diagnostic Studies: All radiography listed below personally reviewed by me Data Reviewed from [facility] (in addition to that noted in HPI, and Past histories above): CMP, CBC WBC 5.81 06/20/2024 RBC 4.48 06/20/2024 Hemoglobin 13.1 06/20/2024 Hematocrit 40.5 06/20/2024 MCV 90.4 06/20/2024 MCH 29.2 06/20/2024 MCHC 32.3 06/20/2024 RDW-CV 13.2 06/20/2024 Platelet Count 291 06/20/2024 MPV 9.5 06/20/2024 Neutrophils % 45.0 06/20/2024 Lymphocytes % 44.8 06/20/2024 Monocytes % 6.4 06/20/2024 Eosinophils % 2.6 06/20/2024 Basophils % 1.0 06/20/2024 Abs Neut 2.62 06/20/2024 Abs Grant 0.37 06/20/2024 Abs Eosin 0.15 06/20/2024 Abs Baso 0.06 06/20/2024 Glucose (mg/dL) Date Value 03/31/2024 96 Potassium (mmol/L) Date Value 03/31/2024 3.9 Sodium (mmol/L) Date Value 03/31/2024 137 Chloride (mmol/L) Date Value 03/31/2024 103 CO2 (mmol/L) Date Value 03/31/2024 22 Creatinine (mg/dL) Date Value 03/31/2024 0.77 Creatinine (POCT) (mg/dL) Date Value 10/25/2023 0.90 BUN (mg/dL) Date Value 03/31/2024 13 Anion Gap (mmol/L) Date Value 03/31/2024 12 Calcium, Total (mg/dL) Date Value 03/31/2024 9.1 Protein, Total (g/dL) Date Value 03/31/2024 7.0 Albumin (g/dL) Date Value 03/31/2024 4.2 Bilirubin, Total (mg/dL) Date Value 03/31/2024 0.6 Alkaline Phosphatase (U/L) Date Value 03/31/2024 77 AST (U/L) Date Value 03/31/2024 19 ALT (U/L) Date Value 03/31/2024 12 PFT: PFT: Date 06/20/24. No obstruction. Significant response to bronchodilator. DLCO is moderately reduced. CT Chest: Last CT Chest - Impression Only CT CHEST WO IVCON Exam End: 04/01/2024 5:33 AM (Final result) Impression: IMPRESSION: No CT evidence of acute abnormality. No thoracic lymphadenopathy. ... Echo: Last Echocardiogram ECHO Collected: 04/01/2024 5:53 AM (Final result) Narrative: Echocardiography Report: Transthoracic Echo [facility] ER Date of service: 04/01/2024 5:53:35 AM SUPERVISOR Ordering physician: MARK BUENROSTRO Indication: Shortness of Breath Technologist: Beto Suarez [facility] Fellow: Luis Collazo MD Interpreting physician: Barry Vizcarra MD PATIENT: Name: JAILENE FAIRBANKS : 1955 Age: 68 years Gender: F History of hypertension, dyslipidemia, coronary artery disease and valvular heart disease. Previous cardiovascular interventions: Aortic valve replacement (10/26/2023, 2013) Primary rhythm: sinus. Height: 165.10 cm BSA: 1.82 m Weight: 72.12 kg BMI: 26.5 kg/m Heart rate 60 bpm Blood pressure 117/70 mmHg Technically difficult exam due to suboptimal positioning, body habitus and no access to contrast. Color Doppler was utilized to interrogate the cardiac valves assessed and spectral Doppler was utilized to determine the flow velocities and pressure gradients reported in this exam. MEASUREMENTS: Value Indexed Normal Max aortic dimension 3.8 cm Ao < 3.8 Left atrial volume 45 ml (4ch A-L) 25 ml/m Rossi <= 34 LV ID (diastole) 4.6 cm (2D) 2.53 cm/m LV ID (systole) 2.7 cm (2D) 1.48 cm/m IVS, leaflet tips 1.0 cm (2D) Posterior wall thickness 0.7 cm (2D) Left ventricular mass 128 g (2D) 70 g/m Ejection Fraction 55 % (visual est.) EF > 54 FINDINGS: LEFT VENTRICLE Left ventricular systolic function is normal. Grade I left ventricular diastolic dysfunction. The findings are consistent with normal filling pressures. Mitral annular lateral E/e': 8.0. Mitral annular septal E/e': 11.0. Wall Motion: All scored segments are normal. RIGHT VENTRICLE The right ventricle is normal in size. Right ventricular systolic function is low normal. RV systolic tissue Doppler velocity is 6.4 cm/s. Estimated right ventricular systolic pressure is likely underestimated due to a weak or incomplete tricuspid regurgitation signal and is, at least, 37 mmHg consistent with mild pulmonary hypertension. Estimated right atrial pressure is 8 mmHg based on IVC assessment. LEFT ATRIUM The left atrial cavity is normal in size. Pulmonary Veins: The pulmonary venous pattern showed normal systolic flow. RIGHT ATRIUM The right atrial cavity is normal in size. Inferior Vena Cava: The inferior vena cava appears normal measuring 1.3 cm. The vessel decreases less than 50 percent with inspiration. MITRAL VALVE The mitral valve leaflets are structurally normal. There is mild mitral annular calcification observed posterior. There is no mitral valve regurgitation. The pressure half time is 70 msec. The peak mitral E/A ratio is 0.86. The average mitral E/e' ratio is 9.5. The mitral flow deceleration time is 242 msec. TRICUSPID VALVE The tricuspid valve leaflets are structurally normal. There is mild (1+) tricuspid valve regurgitation. AORTIC VALVE Epic#21 prosthetic valve. There is no aortic valve regurgitation. The peak gradient is 12 mmHg (peak velocity = 176.0 cm/s). The mean gradient is 7 mmHg. The LVOT mean velocity is 68.6 cm/s. The aortic VTI is 39.1 cm. The mean velocity in the aortic valve is 126.0 cm/s. The dimensionless valve index is 0.59. PULMONIC VALVE The pulmonic valve was not seen or not interrogated. There is no pulmonic valve regurgitation. AORTA The visualized aorta is borderline dilated. Measurements - Mid ascending aorta 3.8 cm. Impression: CONCLUSIONS: - Technically difficult exam due to suboptimal positioning, body habitus and no access to contrast. - Exam indication: Shortness of Breath - Left ventricular systolic function is normal. EF = 55 5% (visual est.) Grade I left ventricular diastolic dysfunction. - The right ventricle is normal in size. Right ventricular systolic function is low normal. - The visualized aorta is borderline dilated with a maximal dimension of 3.8 cm. - Epic#21 prosthetic aortic valve. There is no aortic valve regurgitation. The peak gradient is 12 mmHg, the mean gradient is 7 mmHg and the dimensionless valve index is 0.59. - Exam was compared with the prior echocardiographic exam performed on 12/23/23; similar findings. * * * Final * * * Assessment: Ms. Fairbanks is a 69 year old female who presents to the [facility] [place] for evaluation of the following problems: Problems: (R05.3) Chronic cough (J43.2) Centrilobular emphysema (HCC) Cough has improved significantly. COPD symptoms stable on Trelegy. Continue this regimen. Refills sent for 1 year. Patient complaining of palpitations, advised to discuss with Count Team Clerk about Holter monitor. I spent a total of 27 minutes on the date of the service which included preparing to see the patient, [id number] patient care, completing clinical documentation, performing a medically appropriate examination, ordering medications, tests, or procedures, and communicating results to the patient/family/caregiver Abimael Kim MD, [facility] Pulmonary and Critical Care Medicine Staff [facility] [place], [facility] December 25, 2024 10:32 AM documented in this encounter [facility] 12-25-2024 Note HNO ID: [id number] Author: TROY CACERES RRT Service: ? Author Type: Registered Resp Therapist Type: Procedures Filed: 12/25/2024 10:05 Note Text: ALLERGY AND IMMUNOLOGY ORAL EXHALED NITRIC OXIDE SERVICE DATE: 12/25/2024 SERVICE TIME: 10:04 AM Oral Exhaled Nitric Oxide measurement: 6.0 (ppb) Normal: Adult <25 ppb, pediatric (<12 years) <20 ppb High Normal / Increased: Adult 25-50 ppb, pediatric (<12 years) 20-35 ppb Moderately raised exhaled Nitric Oxide may indicate underlying inflammation, but note that: Cold and influenza can raise exhaled Nitric Oxide and some patients have higher baseline exhaled Nitric Oxide levels than others. High: Adult >50 ppb, pediatric (<12 years) >35 ppb Indicative of ongoing eosinophilic inflammation. Symptomatic patient likely to respond to steroids. Possible causes (if already on steroids): Poor compliance, recent allergen exposure, steroid dose inadequate, and steroid resistance. Note that not all patients with high exhaled nitric oxide levels display symptoms. Oral Exhaled Nitric Oxide measurement (Previous Encounters) Test Date Oral Exhaled Nitric Oxide (ppb) 12/25/2024 6.0 NAME: Troy Caceres RRT PATIENT NAME: Jailene Fairbanks DATE: December 25, 2024 TIME: 10:04 AM [facility] 12-25-2024 Procedure note Associated Ord er(s): NITRIC OXIDE, EXHALED ALLERGY AND IMMUNOLOGY ORAL EXHALED NITRIC OXIDE SERVICE DATE: 12/25/2024 SERVICE TIME: 10:04 AM Oral Exhaled Nitric Oxide measurement: 6.0 (ppb) Normal: Adult <25 ppb, pediatric (<12 years) <20 ppb High Normal / Increased: Adult 25-50 ppb, pediatric (<12 years) 20-35 ppb Moderately raised exhaled Nitric Oxide may indicate underlying inflammation, but note that: Cold and influenza can raise exhaled Nitric Oxide and some patients have higher baseline exhaled Nitric Oxide levels than others. High: Adult >50 ppb, pediatric (<12 years) >35 ppb Indicative of ongoing eosinophilic inflammation. Symptomatic patient likely to respond to steroids. Possible causes (if already on steroids): Poor compliance, recent allergen exposure, steroid dose inadequate, and steroid resistance. Note that not all patients with high exhaled nitric oxide levels display symptoms. Oral Exhaled Nitric Oxide measurement (Previous Encounters) Test Date Oral Exhaled Nitric Oxide (ppb) 12/25/2024 6.0 NAME: Troy Caceres RRT PATIENT NAME: Jailene Fairbanks DATE: December 25, 2024 TIME: 10:04 AM [facility] 12-25-2024 Procedure note Associated Ord er(s): NITRIC OXIDE, EXHALED ALLERGY AND IMMUNOLOGY ORAL EXHALED NITRIC OXIDE SERVICE DATE: 12/25/2024 SERVICE TIME: 10:04 AM Oral Exhaled Nitric Oxide measurement: 6.0 (ppb) Normal: Adult <25 ppb, pediatric (<12 years) <20 ppb High Normal / Increased: Adult 25-50 ppb, pediatric (<12 years) 20-35 ppb Moderately raised exhaled Nitric Oxide may indicate underlying inflammation, but note that: Cold and influenza can raise exhaled Nitric Oxide and some patients have higher baseline exhaled Nitric Oxide levels than others. High: Adult >50 ppb, pediatric (<12 years) >35 ppb Indicative of ongoing eosinophilic inflammation. Symptomatic patient likely to respond to steroids. Possible causes (if already on steroids): Poor compliance, recent allergen exposure, steroid dose inadequate, and steroid resistance. Note that not all patients with high exhaled nitric oxide levels display symptoms. Oral Exhaled Nitric Oxide measurement (Previous Encounters) Test Date Oral Exhaled Nitric Oxide (ppb) 12/25/2024 6.0 NAME: Troy Caceres RRT PATIENT NAME: Jailene Fairbanks DATE: December 25, 2024 TIME: 10:04 AM documented in this encounter [facility] 12-25-2024 Note HNO ID: [id number] Author: TROY CACERES RRT Service: ? Author Type: Registered Resp Therapist Type: Progress Notes Filed: 12/25/2024 10:05 Note Text: PULM FUNCTION: Provider: Abimael Luna MD Exhaled Nitric Oxide: 1 System: [facility] - [id number] [facility] 12-25-2024 History of Present illness Narrative PULM FUNCTION: Provider: Abimael Luna MD Exhaled Nitric Oxide: 1 System: [facility] - [id number] documented in this encounter [facility] 12-04-2024 Note [place] Cardiology - [facility] Subjective Jailene Fairbanks is a 69 y.o. year old female patient being seen for Valve Disorder, Hypertension , Hyperlipidemia , Post-Cath (Had heart cath 2 weeks ago while admitted to [facility] for NSTEMI. 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 Malaise and fatigue Vascular headache, not elsewhere classified Migraine variant, intractable Multiple joint pain Numbness of foot Osteoporosis Pericardial effusion Peripheral polyneuropathy Ptosis of eyelid, left Systemic lupus erythematosus (CMS/HCC) Temporary memory loss Urinary tract infectious disease Visual disturbance Vitamin D deficiency Amaurosis fugax, right eye Complaints of memory disturbance Other localized visual field defect, right eye Sensorineural hearing loss (SNHL) of right ear Aortic valve disease Atelectasis Cardiac insufficiency following cardiac surgery Coagulopathy (CMS/HCC) COPD without exacerbation ([facility]/HCC) Depression Discharge planning issues Postoperative pain Prosthetic aortic valve stenosis HPI 12/04/2024 Patient with history of bioprosthetic aortic valve replacement in 2013 due to aortic stenosis, she is status post redo surgical aortic valve replacement at [facility] 10/26/2023, minimal coronary artery disease, hypertension, hyperlipidemia and dilatation of the aorta. She had COVID in December or January 2024. Recently she was admitted to [facility] after she woke up with mid back discomfort and headache. Her blood pressure were significantly elevated to 180/100 with heart rate of 100. Elevation of the blood pressure is unusual for her. She was found to have mild elevation of high-sensitivity troponin and she underwent cardiac catheterization which showed minimal coronary artery disease. Her echo showed normal function of the aortic valve. Next Apparently she was on metoprolol which was discontinued yesterday because her blood pressure was 80/50 yesterday. She felt little weird with at but no specific symptoms. She does ordinary physical activities at home. She denies chest pain or shortness of breath at rest or with exertion. She denies orthopnea or paroxysmal nocturnal dyspnea or palpitations or legs edema. She sees a pulmonary physician in [facility] and sleep study was recommended Patient reports that she drinks 1-1 and half cup of coffee a day but she drinks almost 64 ounce of water a day ROS All systems were reviewed and they were negative except for the positive findings noted above in the history Past Medical History: Diagnosis Date Asthma COPD (chronic obstructive pulmonary disease) ([facility]) Coronary artery disease Heart valve disease Hyperlipidemia Hypertension Myocardial infarction ([facility]) Stroke ([facility]) Past Surgical History: Procedure Laterality Date AORTIC VALVE REPLACEMENT ARTERIAL ANEURYSM REPAIR CARDIAC CATHETERIZATION CARDIAC VALVE REPLACEMENT Family History Problem Relation Name Age of Onset Coronary artery disease Mother Coronary artery disease Father Social History Tobacco Use Smoking status: Former Current packs/day: 0.00 Types: Cigarettes Quit date: 03/10/2023 Years since quittin.7 Smokeless tobacco: Never Substance Use Topics Alcohol use: Not Currently Allergies Allergies Allergen Reactions Meloxicam Other Shaking and memory changes Tramadol Other Latex Rash Alendronate Other severe leg cramps Morphine Other BP changes Sulfa (Sulfonamide Antibiotics) Other Unknown childhood Medications Current Outpatient Medications: aspirin 81 mg chewable tablet, Chew 162 mg in the morning., Disp: , Rfl: citalopram (CeleXA) 40 mg tablet, Take 40 mg by mouth in the morning., Disp: , Rfl: ergocalciferol (Vitamin D-2) 1.25 MG (92999 Units) capsule, Take 50,000 Int'l Units by mouth., Disp: , Rfl: omeprazole (PriLOSEC) [address] capsule, Take 40 mg by mouth before breakfast. Do not crush or chew., Disp: , Rfl: rosuvastatin (Crestor) 40 mg tablet, Take 1 tablet (40 mg) by mouth in the morning., Disp: 90 tablet, Rfl: 3 Trelegy Ellipta 200-62.5-25 mcg blister with device, INHALE 1 PUFF INSTRUCTED ONCE DAILY., Disp: , Rfl: Objective Visit Vitals BP 126/90 (BP Location: Left arm, Patient Position: Sitting) Pulse 66 Ht 1.651 m (5' 5 ) Wt 73.9 kg (163 lb) SpO2 98% BMI 27.12 kg/m??? OB Status Postmenopausal Smoking Status Former BSA (more content not included)... [facility] 11-25-2024 Note Microbiology PROCEDURE: Blood Culture Charcoal [R1] SOURCE: Blood BODY SITE: Hand R COLLECTED DATE/TIME: 11/18/2024 07:22 EST RECEIVED DATE/TIME: 11/18/2024 08:41 EST START DATE/TIME: 11/18/2024 08:41 EST FREE TEXT SOURCE: Ryan Lange DO, DO, John FINAL REPORTS Final Report [] Verified Date/Time: 11/25/2024 09:00 EST No growth at 7 days. Performing Locations R1: This test was performed at: [facility], [address] [place] [address], [id number] , , [facility] Comment on above: Performed By: #### 1 [id number] #### [facility] [address] [place] [id number] 11-25-2024 Note Microbiology PROCEDURE: Blood Culture Charcoal [R1] SOURCE: Blood BODY SITE: Hand L COLLECTED DATE/TIME: 11/18/2024 07:21 EST RECEIVED DATE/TIME: 11/18/2024 08:41 EST START DATE/TIME: 11/18/2024 08:41 EST FREE TEXT SOURCE: Ryan Lange DO, DO, John FINAL REPORTS Final Report [] Verified Date/Time: 11/25/2024 09:00 EST No growth at 7 days. Performing Locations R1: This test was performed at: [facility], [address] [place] [address], [id number]- , [place], [facility] Comment on above: Performed By: #### 1 [id number] #### [facility] [address] [place] [address] 11-20-2024 Note Discharge Summary Admission and Discharge Information Admit Date/Time:11/18/2024 08:41 Admitting Physician - Andrew Castellanos DO Consulting Physician - Fara MALHOTRA, Khanh Shields [facility] Cardio, XXXX Admitting Diagnoses: 1. Pneumonia, 11/18/2024 2. NSTEMI (non-ST elevated myocardial infarction), 11/18/2024 Discharge Order Date Discharge Patient - Ordered -- 11/20/24 17:27:00 EST, can be discharged as soon as echo is read Discharge Diagnoses 1. Pneumonia, 11/18/2024 2. NSTEMI (non-ST elevated myocardial infarction), 11/18/2024 3. Elevated d-dimer, 11/19/2024 4. Aortic valve stenosis, 11/18/2024 5. Anemia, 11/19/2024 6. COPD with asthma, 11/19/2024 7. Hypertension, 11/18/2024 8. HLD (hyperlipidemia), 11/18/2024 9. Depression, 11/18/2024 10. Chronic GERD, 11/18/2024 11. History of TIA (transient ischemic attack), 11/19/2024 12. On deep vein thrombosis (DVT) prophylaxis, 11/19/2024 Back pain, 11/18/2024 Chills, 11/18/2024 Shortness of breath, 11/18/2024 Procedure History Cardiac catheterization, left heart (11/20/2024), Aortic valve, Aortic valve. Hospital Course 69-year-old female with past medical history of CAD, HLD, AAA, hypertension, irregular heart beat, COPD/asthma, peripheral neuropathy, aortic valve stenosis status post replacement, TIA, presented to ER on 11/18 due to back pain that woke her up this morning was accompanied with shortness of breath. Patient states she has had worsening chest pain over the last week or 2. Patient states she has had cough as well as malaise recently. By the time i spoke with patient pain had resolved. Patient states she has had clean cardiac catheterizations in the past. Patient denies any history of heart attack. Patient states she has history of TIA which was told to her by neurologist because she had small lesions in her brain. Family history is positive for cardiac issues including mother with heart attack in father with heart disease. In ED patient had mildly elevated troponin at 36 and then did increase to 71. No ischemic signs on EKG. BNP 122. Chest x-ray was concerning with right-sided pneumonia. Patient was started on azithromycin and Rocephin in ER. Patient was admitted for further workup and treatment. Troponins continued to be trended and did increase to as high as 190. Due to patient's history cardiology was consulted and followed patient. Due to patient's history cardiology recommended heart cath. D-dimer was done and was negative so PE was ruled out. IV antibiotics were continued for pneumonia treatment. Patient remained on room air throughout stay. Labs were monitored. Patient had left heart cath on 11/20 which was negative. Echo was done and was negative for acute findings. Patient will be discharged with p.o. antibiotics to finish course for pneumonia. Patient did give sputum culture 11/20 and was instructed to call in 2 days to see about culture. Discussed diagnosis and treatment plan with patient and family who agree and accept plan of treatment. Patient stable at discharge. Medication changes Azithromycin for 4 more days to complete 7-day course Augmentin for 4 days to complete 7-day course Stop metoprolol due to low heart rate and BP throughout stay, follow up with PCP Vitamin D 10295 units weekly for 4 weeks due to low Vit D level Follow-up appointments Cardiology 2 weeks PCP within 3 to 5 days Discharge time 35 minutes which included extensive conversation with patient and family about diagnosis and treatment plan. Along with communication with consultants, nursing, case management. Services Consulted Consult to Cardiology - Ordered -- 11/18/24 13:55:00 EST, Possible NSTEMI, Consult and Co-manage, [facility] Consult to Bookkeeping Clerks Supervisor - Ordered -- 11/18/24 17:54:30 EST Physical Exam Vitals & Measurements T: 36.7 ???C(Axillary) TMIN: 36.3 ???C(Axillary) TMAX: 36.8 ???C(Oral) HR: 59(Monitored) RR: 17 BP: 102/67 SpO2: 96% WT: 74 kg General: Looks well, no acute distress, well-nourished, well-kept Skin: Warm, dry Head: No trauma, normocephalic Neck: Trachea midline, supple, negative for JVD Eye: Conjunctive are clear, clear sclera , EOMI ENMT: oral mucosa moist, no lesions or edema nose or external ears Cardiovascular: Regular rate and rhythm, S1-S2 present, negative for murmurs rubs or gallops Respiratory: Lungs clear to auscultation, bilateral symmetric movement, negative for wheezes rales or rhonchi Chest wall: no deformity. Gastrointestinal: Abdomen soft, bowel sounds present, nontender to palpation Back: No tenderness Extremities: Range of motion intact, no edema Neurological: awake, alert, speech normal, cranial nerves II through XII intact, no sensory defects, alert and oriented x3 Psychiatric: cooperative, affect appropriate for age, pleasant Tests Performed Legionella Antigen Urine -- Results Pending -- Sputum Culture -- Results Pending -- CV Cardiovascular -- Results Pending -- Ec (more content not included)... [facility] Comment on above: Result Comment: Elec tronically Signed By: Andrew Castellanos DO\.br\Date and Time Signed: 11/20/24 17:33 EST 11-20-2024 Note Echocardiology Procedure Exam Date/Time Accession # Ordering Dr. Johns Transthoracic 11/20/2024 10:35 EST [id number] Andrew Castellanos DO Complete CPT code 85231 [id number] Reason for Exam (Echo Transthoracic Complete) Chest pain Report [address] [address] Adult Echocardiogram Report Name: JAILENE FAIRBANKS Study Date: 11/20/2024 09:51 AM BP: 112/72 mmHg Patient Location: [id number] [facility] Bed(s) [facility] HR: 65 : 1955 Gender: Female Height: 64 in Age: 69 yrs Ethnicity: T Weight: 165 lb Reason For Study: Chest pain BSA: 1.8 m2 History: HTN,CAD,COPD,,ME,AAA, AVR bioprosthetic 10/2023 Ordering Physician: Shayy Performed By: Deysi Ramsey, BO Interpretation Summary There is a bioprosthetic aortic valve. Bioprosthetic leaflets are thin and move normally. The left ventricle is grossly normal. Ejection Fraction = 65. Grade I diastolic dysfunction, (abnormal relaxation pattern). Procedure A complete two-dimensional transthoracic echocardiogram was performed (2D, M-mode, spectral and color flow Doppler). Left Ventricle The left ventricle is grossly normal. The left ventricular ejection fraction is normal. Ejection Fraction = 65. Grade I diastolic dysfunction, (abnormal relaxation pattern). Left Atrium The left atrium is moderately dilated. Echocardiology Report Right Atrium The right atrium is grossly normal. Right Ventricle The right ventricular systolic function is normal. The right ventricle is mildly dilated. The right ventricular wall motion is normal. Aortic Valve The aortic valve is trileaflet. No aortic regurgitation. There is no aortic stenosis. There is a bioprosthetic aortic valve. Bioprosthetic leaflets are thin and move normally. Mitral Valve The mitral valve is normal in structure and function. There is no mitral regurgitation noted. No mitral valve stenosis. Tricuspid Valve Structurally normal tricuspid valve. There is mild tricuspid regurgitation. Arteries The aortic root is normal in size. Effusion There is no pericardial effusion. There is no pleural effusion noted on this exam. MMode/2D Measurements & Calculations RVDd: 3.6 cm LVIDd: 5.0 cm FS: 36.1 % Ao root diam: 2.9 cm IVSd: 0.88 cm LVIDs: 3.2 cm EDV(Teich): 120.5 ml Ao root area: 6.5 cm2 LVPWd: 0.92 cm ESV(Teich): 41.6 ml LA dimension: 4.0 cm EF(Teich): 65.5 % asc Aorta Diam: 4.2 cm LVOT diam: 1.7 cm LVLd ap4: 7.7 cm EDV(MOD-sp2): 51.4 ml LVOT area: 2.4 cm2 EDV(MOD-sp4): 77.7 ml ESV(MOD-sp2): 27.9 ml LVLs ap4: 6.1 cm EF(MOD-sp2): 45.7 % ESV(MOD-sp4): 29.7 ml EF(MOD-sp4): 61.8 % SV(MOD-sp4): 48.0 ml TAPSE: 1.00 cm IVC Diam: 2.2 cm RVIDd/LVIDd: 0.71 EF (MOD-bp): 55.6 % LA Vol Index: 19.8 ml/m2 Doppler Measurements & Calculations MV E max kimberly: 68.1 cm/sec MV dec time: 0.26 sec Ao V2 max: 210.0 cm/sec LV V1 max P.9 mmHg MV A max kimberly: 75.8 cm/sec Ao max P.6 mmHg LV V1 mean P.0 mmHg MV E/A: 0.90 Ao V2 mean: 142.0 cm/sec LV V1 max: 98.5 cm/sec Lat Peak E' Kimberly: 6.6 cm/sec Ao mean P.0 mmHg LV V1 mean: 61.7 cm/sec Echocardiology Report E/E' Lat: 10.3 Ao V2 VTI: 49.9 cm LV V1 VTI: 23.1 cm Med Peak E' Kimberly: 5.2 cm/sec CORNELIUS(I,D): 1.1 cm2 E/E' Med: 13.0 CORNELIUS(V,D): 1.1 cm2 SV(LVOT): 55.3 ml TR max kimberly: 261.7 cm/sec RAP systole: 8.0 mmHg AV VR: 0.47 TR max P.4 mmHg CORNELIUS(VTI)/BSA_phl: 0.58 RVSP(TR): 35.4 mmHg FINAL REPORT Dictated: 11/20/2024 9:51 am Khanh Chaudhari MD Signed (Electronic Signature): 11/20/2024 5:25 pm Signed by: Khanh Chaudhari MD Transcribed by: [facility] Technologist: LUMA [facility] 11-20-2024 Hospital Discharge instructions Patient Education 11/20/2024 14:07:52 CV - Cardiovascular Discharge Instructions(CUSTOM) [place], [place] CARDIOVASCULAR DISCHARGE INSTRUCTIONS Diet: Resume pre-procedure diet. Increase water intake the next 2 days to flush dye out of the body. Activity: If groin access: Limit activity today. Do not operate a vehicle, machinery or power tools. NO LIFTING OVER 10 POUNDS (a gallon of milk weighs 8 pounds) for 3 days. Limit climbing stairs, bending, squatting and stooping for 3 days. May resume driving in 24 hours. No sexual activity for 1 week. Let pain/discomfort guide your activity. If you are having pain, stop. Return to the Emergency Room if you have trouble breathing, walking or nausea and vomiting. If radial access: Limit your activity today. Do not operate a vehicle, machinery or power tools. NO LIFTING OVER 3 POUNDS for 3 days. Do not bend your wrist for 24 hours. May resume driving in 24 hours. No sexual activity for 1 week. Let pain/discomfort guide your activity. If you are having pain, stop. Return to the Emergency Room if you have trouble breathing, walking or nausea and vomiting. Medications: Resume pre-procedure medication, unless otherwise directed. Hold the following medications for 48 hours post procedure: Actoplus MetGlucophageGlucophage XR GlucovanceAvandametFortamet Zdp-qcypbvnpxVihnfoGmqh-ligevvkwr GlumetzaJanumetMetaglip RiometGlycomet *Minimal pain, soreness and/or discomfort is expected. *You may take OTC non-steroidal anti-inflammatory to manage discomfort, unless contraindicated. If pain is not controlled with the above medications, contact your physician. Site Care: Do not remove dressing for 24 hours unless it becomes saturated, then replace. Keep site clean and dry; inspect site daily. Do not use any lotions, powders, or ointments at the groin or wrist site for 1 week. May shower 24 hours after the procedure. Clean site with soap and water. Pat dry and apply band aid. No tub baths, swimming or hot tubs for 3 days Post Procedure: Soreness and tenderness to the site can last up to one week. Bruising may occur to site. A responsible adult should be with you for the first 24 hours after you arrive home. Keep follow-up appointment. No smoking for 24 hours as it increases the risk of developing blood clots. If you are interested in smoking cessation, contact [facility] at [phone], ext. [phone]. In the event you are unable to reach your physician, please call Miya at [phone] and the teletype operator will assist you. Seek Immediate Medical Care for: Bleeding: Apply continuous pressure to the site and Call 911. Should the arm or leg become cold, numb, blue or white call your physician immediately. Signs of infection are redness, warmth, swelling, increased tenderness, colored drainage, fever or chills Chest pain 11/20/2024 14:07:02 Community-Acquired Pneumonia, Adult, Qmek-el-Jqkh Community-Acquired Pneumonia, Adult Pneumonia is an infection of the lungs. It causes irritation and swelling in the airways of the lungs. Mucus and fluid may also build up inside the airways. This may cause coughing and trouble breathing. One type of pneumonia can happen while you are in a hospital. A different type can happen when you are not in a hospital (community-acquired pneumonia). What are the causes? This condition is caused by germs (viruses, bacteria, or fungi). Some types of germs can spread from person to person. Pneumonia is not thought to spread from person to person. What increases the risk? You have a long-term (chronic) disease, such as: ?Disease of the lungs. This may be chronic obstructive pulmonary disease (COPD) or asthma. ?Heart failure. ?Cystic fibrosis. ?Diabetes. ?Kidney disease. ?Sickle cell disease. ?HIV. You have other health problems, such as: ?Your body's defense system (immune system) is weak. ?A condition that may cause you to breathe in fluids from your mouth and nose. You had your spleen taken out. You do not take good care of your teeth and mouth (poor dental hygiene). You use or have used tobacco products. You go where the germs that cause this illness are common. You are older than 65 years of age. What are the signs or symptoms? A cough. A fever. Sweating or chills. Chest pain, often when you breathe deeply or cough. Breathing problems, such as: ?Fast breathing. ?Trouble breathing. ?Shortness of breath. Feeling tired (fatigued). Muscle aches. How is this treated? Treatment for this condition depends on many things, such as: The cause of your illness. Your medicines. Your other health problems. Most adults can be treated at home. Sometimes, treatment must happen in a hospital. Treatment may include medicines to kill germs. Medicines may depend on which germ caused your illness. Very bad pneumonia is rare. If you get it, you may: Have a machine to help you breathe. Have fluid taken away from around your lungs. Follow these instructions at home: Medicines Take gygk-nqw-lyitbyl and prescription medicines only as told by your doctor. Take cough medicine only if you are losing sleep. Cough medicine can keep your body from taking mucus away from your lungs. If you were prescribed antibiotics, take them as told by your doctor. Do not stop taking them even if you start to feel better. Lifestyle Do not smoke or use any products that contain nicotine or tobacco. If you need help quitting, ask your doctor. Do not drink alcohol. Eat a healthy diet. This includes a lot of vegetables, fruits, whole grains, low-fat dairy products, and low-fat (lean) protein. General instructions Rest a lot. Sleep for at least 8 hours each night. Sleep with your head and neck raised. Put a few pillows under your head or sleep in a reclining chair. Return to your normal activities as told by your doctor. Ask your doctor what activities are safe for you. Drink enough fluid to keep your pee (urine) pale yellow. If your throat is sore, gargle with a mixture of salt and water 3 4 times a day or as needed. To make salt water, completely dissolve 1 tsp (3 6 g) of salt in 1 cup (237 mL) of warm water. Keep all follow-up visits. How is this prevented? Getting the pneumonia shot (vaccine). These shots have different types and schedules. Ask your doctor what works best for you. Think about getting this shot if: ?You are older than 65 years of age. ?You are 19 65 years of age and: ?You are being treated for cancer. ?You have long-term lung disease. ?You have other problems that affect your body's defense system. Ask your doctor if you have one of these. Getting your flu shot every year. Ask your doctor which type of shot is best for you. Going to the dentist as often as told. Washing your hands often with soap and water for at least 20 seconds. If you cannot use soap and water, use hand safety and health manager. Contact a doctor if: You have a fever. You lose sleep because your cough medicine does not help. Get help right away if: You are short of breath and this gets worse. You have more chest pain. Your sickness gets worse. This is very serious if: ?You are an older adult. ?Your body's defense system is weak. You cough up blood. These symptoms may be an emergency. Get help right away. Call 911. Do not wait to see if the symptoms will go away. Do not drive yourself to the hospital. Summary Pneumonia is an infection of the lungs. Community-acquired pneumonia affects people who have not been in the hospital. Certain germs can cause this infection. This condition may be treated with medicines that kill germs. For very bad pneumonia, you may need a hospital stay and treatment to help with breathing. This information is not intended to replace advice given to you by your health care provider. Make sure you discuss any questions you have with your health care provider. Document Revised: 01/06/2023 Document Reviewed: 01/06/2023 In [employer] Patient Education 2023 [employer] Follow Up Care 11/18/2024 06:00:55 With:Follow up with Count Team Clerk Address:Unknown When: Unknown With:MADISON NORTH MD, FAM Address: [address] [place] [address]- When:3 to 5 days Comments:Call for followup appointment [facility] 11-20-2024 Evaluation + Plan note Extrac bob from: Title:Discharge Note Author:Andrew Castellanos DO Date:11/20/24 Prescriptions Augmentin 875 mg oral tablet, 1 tab(s), Oral, q12hr azithromycin 250 mg Tab, 500 mg= 2 tab(s), Oral, Daily ergocalciferol 50,000 intl units Cap, 51702 International_Unit= 1 cap(s), Oral, qWeek Home Albuterol (Eqv-ProAir HFA) 90 mcg/inh inhalation aerosol aspirin 81 mg Oral EC Tab, 81 mg= 1 tab(s), Oral, Daily citalopram 40 mg Tab, 40 mg= 1 tab(s), Oral, Daily omeprazole 40 mg Cap-DR, 40 mg= 1 cap(s), Oral, Daily rosuvastatin 40 mg Tab, 40 mg= 1 tab(s), Oral, Daily Trelegy Ellipta 200 mcg-62.5 mcg-25 mcg/inh inhalation powder, 1 inh, Inhalation, Daily With When Contact Information Follow up with Count Team Clerk Additional Instructions: CAN MALHOTRA, NATALY WALLACE Within 3 to 5 days [address] [place] [address]- Additional Instructions: Call for followup appointment CV - Cardiovascular Discharge Instructions(CUSTOM) Community-Acquired Pneumonia, Adult, Hoqb-tb-Lqzw Extracted from: Title:APSO Note Author:SALVATORE TERESA-Munira GUY ate:11/19/24 1. Pneumonia (J18.9: Pneumon ia, unspecified organism) Dx. suspected CAP -Stable on RA at present -COVID Ag, Flu A/B. PCT - neg -CXR reviewed: + R lung opacities -MRSA swab: pending -IV azithro/ceftriaxone - rx. to dose -Add Med nebs, flutter device, mucinex, supplemental 02 -Chest physiotherapy if warranted -Sputum cx. - pending -Bl. cx. - pending -Legionella antigen - pending -Recommend repeat CXR in 4 weeks as outpatient 2. NSTEMI (non-ST elevated myocardial infarction) (I21.4: Non-ST elevation (NSTEMI) myocardial infarction) Known CAD -> currently denies anginal complaints -Max trop. 195 -12 lead ECG reviewed: RSR, RBBB, no prior ECG for comparison -Echo - pending -Asa 81mg daily, rosuvastatin 40mg daily -IV morphine, SL ngt prn CP -Lipid panel - Cholesterol 124, triglycerides 109, HDL 71, LDL direct 32, VLDL 22, LDH 183 Consult cardiology - FT H/V: -Plan for cardiac cath 11/19 3. Elevated d-dimer (R79.89: Other specified abnormal findings of blood chemistry) + 547 -Age adjusted: 89 -> no need for additional w/u 4. Aortic valve stenosis (I35.0: Nonrheumatic aortic (valve) stenosis) Remote AV replacement -Cardiac meds as above 5. Anemia (D64.9: Anemia, unspecified) 2/2 B12 def. -Baseline hgb. level - unknown, no recent labs for comparison -No acute bleeding noted, hemodynamically stable -Hemoccult stool - pending -Hepatic panel - mildly elevated total bili -Anemia panel -> B12 supplement -Trend labs -Outpt. f/u w/ GI for possible scopes - defer to PCP 6. 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 as above 7. Hypertension (I10: Essential (primary) hypertension) -Metoprolol 8. HLD (hyperlipidemia) (E78.5: Hyperlipidemia, unspecified) -Statin 9. Depression (F32.A: Depression, unspecified) Stable, denies SI/HI -Citalopram 10. Chronic GERD (K21.9: Gastro-esophageal reflux disease without esophagitis) -PPI 11. History of TIA (transient ischemic attack) (Z86.73: Personal history of transient ischemic attack (TIA), and cerebral infarction without residual deficits) -Asa, statin 12. On deep vein thrombosis (DVT) prophylaxis (Z79.899: Other keno terminal operator (current) drug therapy) -Lovenox, early ambulation Orders: aspirin, 81 mg = 1 tab(s), Tab-EC, Oral, Daily, NOW, Start date 11/19/24 11:06:00 EST, 11/19/24 11:06:00 EST atorvastatin, 80 mg = 2 tab(s), Tab, Oral, Daily, Routine, Start date 11/20/24 9:00:00 EST, 11/19/24 11:07:00 EST citalopram, 40 mg = 2 tab(s), Tab, Oral, Daily, NOW, Start date 11/19/24 11:06:00 EST, 11/19/24 11:06:00 EST cyanocobalamin, 1,000 microgram = 1 tab(s), Tab, Oral, Daily, Routine, Start date 11/20/24 9:00:00 EST, 11/19/24 13:30:00 EST metoprolol, 12.5 mg = 0.5 tab(s), Tab-ER, Oral, Daily, NOW, Start date 11/19/24 11:06:00 EST, Hold for sbp 110 or less or HR 55 or less pantoprazole, 40 mg = 1 tab(s), Tab-DR, Oral, Daily, Routine, Start date 11/20/24 9:00:00 EST, 11/19/24 11:06:00 EST Ferritin Flutter Valve Folate Level Hepatic Function Panel Iron Level Lactate Dehydrogenase Legionella Antigen Urine Lipid Panel MRSA Screen NPO Diet Oxygen Desaturation Study Reticulocyte Count Stool Occult Blood TIBC Calculated TSH With T4fr Reflex Vitamin B12 Level -Plan discussed w/ patient, nursing staff and CRM. This report was transcribed using voice recognition software. Every effort was made to ensure accuracy, however, inadvertently computerized field attendant mistakes may be present. Extracted from: Title:Cardiology consult Author:Kofi Chaudhari MD Date:11/18/24 1. Pneumonia (J18.9: Pneumon ia, unspecified organism) 2. NSTEMI (non-ST elevated myocardial infarction) (I21.4: Non-ST elevation (NSTEMI) myocardial infarction) For left heart catheterization in the morning risks and benefits of the procedure explained to the patient as above. No active heart failure symptomatology no harsh murmurs that I can appreciate on examination. Echocardiogram is pending. 3. Depression (F32.A: Depression, unspecified) 4. Chronic GERD (K21.9: Gastro-esophageal reflux disease without esophagitis) 5. COPD without exacerbation (J44.9: Chronic obstructive pulmonary disease, unspecified) 6. Hypertension (I10: Essential (primary) hypertension) 7. HLD (hyperlipidemia) (E78.5: Hyperlipidemia, unspecified) 8. Aortic valve stenosis (I35.0: Nonrheumatic aortic (valve) stenosis) Extracted from: Title:Admission H & P Author:Andrew Castellanos DO Date:11/18/24 Patient will be admitted und er inpatient status due to estimated length of stay greater than 2 midnights. All images, labs, EKGs were reviewed dvt ppx- PAS b/l, heparin diet- cardiac code status- FULL CODE 1. Pneumonia (J18.9: Pneumonia, unspecified organism) Chest x-ray concerning for pneumonia Check sputum culture Check Pro-Rui No white count Azithromycin and Rocephin started 11/18 Ordered: Initial Hospital Care/Day Moderate 55 Minutes [id number] 2. NSTEMI (non-ST elevated myocardial infarction) (I21.4: Non-ST elevation (NSTEMI) myocardial infarction) Troponins continue to trend up Patient is not hypoxic Telemetry Likely will need echo Continue to trend troponins Consult cardio Elevated BNP, no history of DVTs/PEs but will check D-dimer May need CTA 3. Depression (F32.A: Depression, unspecified) Citalopram 4. Chronic GERD (K21.9: Gastro-esophageal reflux disease without esophagitis) PPI 5. COPD without exacerbation (J44.9: Chronic obstructive pulmonary disease, unspecified) On Trelegy at home DuoNebs as needed 6. Hypertension (I10: Essential (primary) hypertension) Monitor Mild soft systolic blood pressure in the ER which patient states is chronic Metoprolol daily 7. HLD (hyperlipidemia) (E78.5: Hyperlipidemia, unspecified) Statin 8. Aortic valve stenosis (I35.0: Nonrheumatic aortic (valve) stenosis) History of aortic valve replacement Orders: acetaminophen, 975 mg = 3 tab(s), Tab, Oral, TID PRN Pain, Routine, Start date 11/18/24 11:19:00 EST, 11/18/24 11:19:00 EST azithromycin, 500 mg = 2 tab(s), Tab, Oral, Daily, Routine, Start date 11/19/24 9:00:00 EST, 11/18/24 11:22:00 EST ceftriaxone + Sodium Chloride 0.9% intravenous solution 50 mL, 1,000 mg = 1 EA, Injection, IV Piggyback, Daily, Routine, Start date 11/19/24 9:00:00 EST, 100 mL/hr, Infuse over 30 minute(s) enoxaparin, 40 mg = 0.4 mL, Injection, SubCutaneous, Daily for 30 day(s), Stop date 12/19/24 8:59:00 EST, Routine, Start date 11/19/24 9:00:00 EST, 11/18/24 11:19:00 EST guaifenesin, 1,200 mg = 2 tab(s), Tab-ER, Oral, BID, Routine, Start date 11/18/24 21:00:00 EST, 11/18/24 11:21:00 EST hydrALAZINE, 10 mg = 0.5 mL, Injection, IV Push, q6hr PRN Other (see comment), Routine, Start date 11/18/24 11:19:00 EST, 11/18/24 11:19:00 EST ondansetron, 4 mg = 2 mL, Injection, IV Push, q6hr PRN Nausea, Routine, Start date 11/18/24 11:19:00 EST, 11/18/24 11:19:00 EST senna, 17.2 mg = 2 tab(s), Tab, Oral, BID PRN Other (see comment), Routine, Start date 11/18/24 11:19:00 EST Activity As Tolerated Ambulate with Assistance Basic Metabolic Panel Below the Knee Intermittent Pneumatic Compression Device Cardiac Diet Cardiac Monitoring CBC w/ Auto Diff Consult to Cardiology D-Dimer Incentive Spirometry Pneumonia Quality Measures Procalcitonin Pulse Oximetry Resuscitation Status - Full Sputum Culture Troponin Troponin 3 Hr. Vital Signs Weight Addendum by Joe Castellanos DO, am on November 18, 2024 16:47:33 EST Patient's D-dimer was 547 which when age-adjusted is not positive and still negative. Will continue to trend troponin. If troponin starts to get any higher and does not appear to plateau will need likely heparin drip. Cardio consulted Extracted from: Title:ED Note Author:Paco Thomason DO Date :11/18/24 Shortness of breath (R06.02: Shortness of breath) Orders: B-Type Natriuretic Peptide Basic Metabolic Panel CBC w/ Auto Diff ECG 12 Lead Adult ED Cardiac Monitoring eGFR Influenza A&B Ag Oxygen Saturation Oxygen Therapy PT & PTT Rapid COVID Antigen ([facility]) Saline Lock Insert Troponin 0 Hr. Troponin 1 Hr. XR Chest Single View Addendum by Ryan Lange DO on November 18, 2024 07:19:59 EST Patient signed out to me by the prior physician I did review full workup here in the emergency department. Blood cultures and lactate were obtained because of the patchy right-sided infiltrates on the chest x-ray. Patient is started on IV Rocephin given Zithromax discussed with the hospitalist for admission. Additional diagnosis: Chest pain, pneumonia, abnormal cardiac enzyme Diagnostic Tests Pending * Sputum Culture 11/20/24 * Legionella Antigen Urine 11/19/24 [facility] 12-30-2024 NoteOperative Report Left heart catheterization procedure report DATE OF PROCEDURE: #2023 WAREHOUSE RECEIVING SUPERVISOR Khanh Chaudhari MD [facility] INDICATION: Non-ST elevation myocardial infarction BRIEF HISTORY: 69-year-old female awoke with back discomfort history of valve replacement SAVR at [facility] 2022 with chest heaviness and profound shortness of breath at rest pulmonary embolism ruled out given her symptoms and troponin elevation rising trend elected for left heart catheterization. PROCEDURE(S) PERFORMED: Left Heart Catheterization Selective Coronary Angiography Moderate Sedation PRE-PROCEDURAL INFORMED CONSENT: The procedure and conscious sedation were discussed in detail withthe patient/next of kin/durable power of including the indications, expected outcomes, potential treatment options based upon the results, alternative treatment options and benefits, risks and possible complications associated with the procedure. The patient/next of kin/durable power of expressed an understanding of the information provided and willingness to proceed. Signed, informed consent forthe procedure was obtained for all of the above. DESCRIPTION OF THE PROCEDURE: In the postabsorptive state, the patient was brought to the Adult [employer] Flatbed Driver and placed on the table. The planned puncture sites/areas were prepped and draped in usual sterile fashion and a safety time-out was performed. Moderate Sedation was given by the [employer] Flatbed Driver RN. RIGHT RADIAL ARTERY ACCESS: The puncture site was infiltrated with 1% lidocaine. The modified Seldinger technique was performed to access the right radial artery using a 21G needle radial access kit.A wire was threaded into the radial artery followed by upsizing to a 5/6F slender 10cm sheath. Verapamil 2.5 mg was administered into the sheath. The sheath was then flushed with heparinized saline and IV UFH was administered via peripheral IV by the wood and wood products labourer RN after the catheter crossed into the ascending aorta. Selective left and right coronary artery angiography : Under fluoroscopic guidance, a 5 kazakh shiva diagnostic catheter was then advanced over the 0.035 260cm J-tipped guidewire to the level of theaortic valve. 5 F pigtail 4 diagnostic catheter was advanced over the guidewire across the Aortic valve and into the left ventricle. Hemodynamic measurements were then obtained. Left ventriculographywas performed. The 5 Kittitian pigtail catheter was then pulled back into the ascending aorta for assessment of LV-Ao gradient. The Shiva diagnostic catheter was then be used to selectively engage the RCA ostium and angiographic images under multiple projections were obtained. Under fluoroscopic guidance, the shiva diagnostic catheter was then be used to selectively engage the LCA ostium and angiographic images under multiple projections were obtained. The procedure was concluded by removal of all the catheters, wires and sheaths. Accesses were managed as outlined below. No immediate complications COMPLICATIONS: None ESTIMATED BLOOD LOSS: <50cc CONTRAST ADMINISTERED: Please see Adult [employer] Flatbed Driver Log for further details FINDINGS: SELECTIVE CORONARY ANGIOGRAPHY: Right dominant System Left Main: Normal LAD: 20% proximal calcific disease D1: Normal LCx: Normal OM2: 20% calcific proximal disease RCA: Normal rPDA: Normal rPLB: Normal LEFT HEART CATHETERIZATION: LVEDP: 13 mmHg LV EJECTION FRACTION and WALL MOTION: In the [place] projection left ventriculography revealed excellent left ventricular end-diastolic function of 65%. There is no mitral regurgitation and no aortic stenosis noted on pullback from aorta. There is no aortic insufficiency. ACCESS MANAGEMENT: Primary: Right Radial Artery: Vasc Band; successful hemostasis achieved. CONCLUSIONS: Nonobstructive coronary disease normal functioning aortic valve prosthetic bioprosthetic normal LV systolic function. Normal left ventricular end-diastolic pressure consistent with compliant left ventricle. RECOMMENDATIONS: Noncardiac workup Standard post-cath management as per hospital protocol Cardiovascular Risk Factor modificationParkview HealthComment on above:Result Comment: Electronically Signed By: Fara MALHOTRA, Khanh Shields\.br\Date and Time Signed: 11/20/24 09:22 [id number] NoteProgress Note-Physician Assessment/Plan 1. Pneumonia (J18.9: Pneumonia, unspecified organism) Dx. suspected CAP -Stable on RA at present -COVID Ag, Flu A/B. PCT - neg -CXR reviewed: + R lung opacities -MRSA swab: pending -IV azithro/ceftriaxone - rx. to dose -Add Med nebs, flutter device, mucinex, supplemental 02 -Chest physiotherapy if warranted -Sputum cx. - pending -Bl. cx. - pending -Legionella antigen - pending -Recommend repeat CXR in 4 weeks as outpatient 2. NSTEMI (non-ST elevated myocardial infarction) (I21.4: Non-ST elevation (NSTEMI) myocardial infarction) Known CAD -> currently denies anginal complaints -Max trop. 195 -12 lead ECG reviewed: RSR, RBBB, no prior ECG for comparison -Echo - pending -Asa 81mg daily, rosuvastatin 40mg daily -IV morphine, SL ngt prn CP -Lipid panel - Cholesterol 124, triglycerides 109, HDL 71, LDL direct 32, VLDL 22, LDH 183 Consult cardiology - FT H/V: -Plan for cardiac cath 11/19 3. Elevated d-dimer (R79.89: Other specified abnormal findings of blood chemistry) + 547 -Age adjusted: 89 -> no need for additional w/u 4. Aortic valve stenosis (I35.0: Nonrheumatic aortic (valve) stenosis) Remote AV replacement -Cardiac meds as above 5. Anemia (D64.9: Anemia, unspecified) 2/2 B12 def. -Baseline hgb. level - unknown, no recent labs for comparison -No acute bleeding noted, hemodynamically stable -Hemoccult stool - pending -Hepatic panel - mildly elevated total bili -Anemia panel -> B12 supplement -Trend labs -Outpt. f/u w/ GI for possible scopes - defer to PCP 6. 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 as above 7. Hypertension (I10: Essential (primary) hypertension) -Metoprolol 8. HLD (hyperlipidemia) (E78.5: Hyperlipidemia, unspecified) -Statin 9. Depression (F32.A: Depression, unspecified) Stable, denies SI/HI -Citalopram 10. Chronic GERD (K21.9: Gastro-esophageal reflux disease without esophagitis) -PPI 11. History of TIA (transient ischemic attack) (Z86.73: Personal history of transient ischemic attack (TIA), and cerebral infarction without residual deficits) -Asa, statin 12. On deep vein thrombosis (DVT) prophylaxis (Z79.899: Other keno terminal operator (current) drug therapy) -Lovenox, early ambulation Orders: aspirin, 81 mg = 1 tab(s), Tab-EC, Oral, Daily, NOW, Start date 11/19/24 11:06:00 EST, 11/19/24 11:06:00 EST atorvastatin, 80 mg = 2 tab(s), Tab, Oral, Daily, Routine, Start date 11/20/24 9:00:00 EST, 11/19/24 11:07:00 EST citalopram, 40 mg = 2 tab(s), Tab, Oral, Daily, NOW, Start date 11/19/24 11:06:00 EST, 11/19/24 11:06:00 EST cyanocobalamin, 1,000 microgram = 1 tab(s), Tab, Oral, Daily, Routine, Start date 11/20/24 9:00:00 EST, 11/19/24 13:30:00 EST metoprolol, 12.5 mg = 0.5 tab(s), Tab-ER, Oral, Daily, NOW, Start date 11/19/24 11:06:00 EST, Hold for sbp 110 or less or HR 55 or less pantoprazole, 40 mg = 1 tab(s), Tab-DR, Oral, Daily, Routine, Start date 11/20/24 9:00:00 EST, 11/19/24 11:06:00 EST Ferritin Flutter Valve Folate Level Hepatic Function Panel Iron Level Lactate Dehydrogenase Legionella Antigen Urine Lipid Panel MRSA Screen NPO Diet Oxygen Desaturation Study Reticulocyte Count Stool Occult Blood TIBC Calculated TSH With T4fr Reflex Vitamin B12 Level -Plan discussed w/ patient, nursing staff and CRM. This report was transcribed using voice recognition software. Every effort was made to ensure accuracy, however, inadvertently computerized field attendant mistakes may be present. Subjective No acute events overnight. Patient states breathing is improving, she denies CP, pressure, palpitations, N/V, or paresthesia. Review of Systems Constitutional: + fatigue Respiratory: Breathing improved today, Cardiovascular: No anginal complaints at present Gastrointestinal: Denies abd pain. Passing flatus. Last BM: 11/18 Additional ROS info: Except as noted in the above Review of Systems and in the History of Present Illness all other systems have been reviewed and are negative or noncontributory Objective Vitals & Measurements T: 36.5 ???C(Axillary) TMIN: 36.5 ???C(Axillary) TMAX: 36.6 ???C(Oral) HR: 76(Apical) RR: 16 BP: 85/55 SpO2: 93% HT: 162.56 cm HT: 162 cm WT: 75.0 kg Intake & Output This visit (24 hour periods starting at 07:00 EST) 11/19/24 * 11/18/24 11/17/24 Total Summary Intake mL -- 230 -- Output mL -- -- -- Fluid Balance -- 230 -- Intake (2) Oral Intake mL -- 180 -- Sodium Chloride 0.9%, ceftriaxone mL -- 50 -- Total -- 230 -- Output (0) Counts (1) Urine Count -- 2 -- * This column has not completed the indicated time period. Physical Exam General: Calm, able to communicate needs, NAD Head: Normocephalic/atraumatic Eyes: Pupil (more content not included)...Parkview HealthComment on above:Result Comment: Electronically Signed By: Munira KAPLAN\.br\Date and Time Signed: 11/19/24 13:36 EST\.br\Electronically Co-Signed By: Frankie Lepe DO\.br\Date and Time Co-Signed: 11/19/24 19:05 [id number] Note Progress Note-Physician Nursing staff alerted me that patient's daughter has arrived to her room, she is requesting transfer to [facility] where her mother gets her primary cardiac care. When I entered the room patient's daughter expressed that they had been told in the past if she hadany cardiac issues that people in clinic should be called, she states that she spoke with a medicalprovider at [facility] who told her to have me call them to discuss care. She was unable to provide me a name of who she spoke with. She did provide me #[phone] when I called this number it is a direct number to cardiology office, I spoke with an acid pump operator who states there is no one further to speak with unless the on-call physician is requested to be paged and it is not her primary painter plate today. On further discussion with the patient she states she is completely comfortable here with Dr. Chaudhari performing her heart catheterization, she is not interested in a transfer to the [facility] at this time. I did provide Dr. Chaudhari her primary painter plate Dr. Polanco phone #[phone]. Conversation witnessed by primary RN Kacey.Parkview HealthComment on above:Result Comment: Electronically Signed By: Munira KAPLAN\.br\Date and Time Signed: 11/19/24 16:13 EST\.br\Electronically Co-Signed By: Frankie Lepe DO\.br\Date and Time Co-Signed: 11/19/24 19:03 EST 11-19-2024 NoteConsultation Note Chief Complaint Awakened by upper back tightness, difficulty breathing and freezing. Reason for Consultation Awakened by upper back tightness, difficulty breathing and freezing. [1] abnormal troponins History of Present Illness 69-year-old female with past medical history of CAD, HLD, AAA, hypertension, irregular heart beat, COPD/asthma, peripheral neuropathy, aortic valve stenosis status post replacement, TIA, presented toER on 11/18 due to back pain that woke her up this morning was accompanied with shortness of breath. Patient states she has had worsening chest pain over the last week or 2. Patient states she has had cough as well as malaise recently. By the time i spoke with patient pain had resolved. Patient states she has had clean cardiac catheterizations in the past. Patient denies any history of heart attack. Patient states she has history of TIA which was told to her by neurologist because she had small lesions in her brain. Family history is positive for cardiac issues including mother with heart attack in father with heart disease. In ED patient had mildly elevated troponin at 36 and then did increase to 71. No ischemic signs on EKG. BNP 122. Chest x-ray was concerning with right-sided pneumonia. Patient was started on azithromycin and Rocephin in ER. Discussed CODE STATUS with patient would like to be full code. Patient's blood pressure mildly soft in ER which patient states is normal for her. [2] On my discussion with the patient she has had a history of aortic valve replacement with bioprosthetic valve x 2 most recently in October 2023 at the [facility] she was referred from the [facility] as best I can understand because she was a redo valve procedure she was thought to have no significant obstructive coronary disease on 2 catheterization in the past but now has awoken with chest tightness going to her back this was not associated with fevers or chills fromwhat she tells me she is quite conversant and knowledgeable about her health care and she has no active heart failure on examination she looks comfortable heart catheterization was performed tomorrowto rule out any obstructive coronary disease. The risk and benefits of the procedure explained to the patient and the patient agreed freely to proceed. These risks include stroke heart attack kidney dysfunction which need to be a be temporary or permanent, contrast use. She gives informed consent freely. Review of Systems 10 point review of system reviewed otherwise unremarkable. No signs or symptoms of infection. Physical Exam Vitals & Measurements T: 37.2 ???C(Oral) HR: 79(Monitored) RR: 16 BP: 109/60 SpO2: 95% HT: 162.56 cm WT: 72.57 kg HEENT: Normocephalic atraumatic pupils round reactive to light Neck: neck is supple no lymphadenopathy no bruits Cardiovascular: Normal S1 and S2 Lungs: Clear Abdomen: Scaphoid normoactive bowel sounds Extremities: No cyanosis clubbing or edema Assessment/Plan 1. Pneumonia (J18.9: Pneumonia, unspecified organism) 2. NSTEMI (non-ST elevated myocardial infarction) (I21.4: Non-ST elevation (NSTEMI) myocardial infarction) For left heart catheterization in the morning risks and benefits of the procedure explained to the patient as above. No active heart failure symptomatology no harsh murmurs that I can appreciate on examination. Echocardiogram is pending. 3. Depression (F32.A: Depression, unspecified) 4. Chronic GERD (K21.9: Gastro-esophageal reflux disease without esophagitis) 5. COPD without exacerbation (J44.9: Chronic obstructive pulmonary disease, unspecified) 6. Hypertension (I10: Essential (primary) hypertension) 7. HLD (hyperlipidemia) (E78.5: Hyperlipidemia, unspecified) 8. Aortic valve stenosis (I35.0: Nonrheumatic aortic (valve) stenosis) Problem List/Past Medical History Ongoing Aortic valve stenosis Chronic GERD COPD without exacerbation Depression HLD (hyperlipidemia) Hypertension Historical No qualifying data Procedure/Surgical History Aortic valve, Aortic valve. Medications Inpatient acetaminophen 325 mg Tab, 975 mg= 3 tab(s), Oral, TID, PRN azithromycin 250 mg Tab, 500 mg= 2 tab(s), Oral, Daily ceftriaxone additive + Sodium Chloride 0.9% intravenous solution 50 mL enoxaparin 40 mg/0.4 mL SC Stephany, 40 mg= 0.4 mL, SubCutaneous, Daily hydrALAZINE 20 mg/mL Inj, 10 mg= 0.5 mL, IV Push, q6hr, PRN Mucinex 600 mg Tab-ER, 1200 mg= 2 tab(s), Oral, BID Senokot 8.6 mg Tab, 17.2 mg= 2 tab(s), Oral, BID, PRN Zofran 4 mg/2 mL Injection, 4 mg= 2 mL, IV Push, q6hr, PRN Home No active home medications Allergies Fosamax (Leg cramps) Latex (Rash) meloxicam (Tremors) morphine (Unsure) sulfa drugs (Unsure) Social History Alcohol - Denies Alcohol Use, 11/18/2024 Substance Abuse - Denies Substance Abuse, 11/18/2024 Tobacco - Denies Tobacco Use, 11/18/2024 Former smoker, quit more than 30 days ago Tobacco Use:., 11/18/2024 [1] Admiss (more content not included)...Park[facility] HealthComment on above:Result Comment: Electronically Signed By: Fara MALHOTRA, Khanh Shields\.br\Date and Time Signed: 11/19/24 13:42 [id number] NoteHistory and Physical Basic Information Admit Date/Time:11/18/2024 08:41 Chief Complaint Awakened by upper back tightness, difficulty breathing and freezing. History of Present Illness 69-year-old female with past medical history of CAD, HLD, AAA, hypertension, irregular heart beat, COPD/asthma, peripheral neuropathy, aortic valve stenosis status post replacement, TIA, presented toER on 11/18 due to back pain that woke her up this morning was accompanied with shortness of breath. Patient states she has had worsening chest pain over the last week or 2. Patient states she has had cough as well as malaise recently. By the time i spoke with patient pain had resolved. Patient states she has had clean cardiac catheterizations in the past. Patient denies any history of heart attack. Patient states she has history of TIA which was told to her by neurologist because she had small lesions in her brain. Family history is positive for cardiac issues including mother with heart attack in father with heart disease. In ED patient had mildly elevated troponin at 36 and then did increase to 71. No ischemic signs on EKG. BNP 122. Chest x-ray was concerning with right-sided pneumonia. Patient was started on azithromycin and Rocephin in ER. Discussed CODE STATUS with patient would like to be full code. Patient's blood pressure mildly soft in ER which patient states is normal for her. Review of Systems Scoring Massey Fall Risk Score: 20 (11/18/24) Physical Exam Vitals & Measurements T: 37.2 ???C(Oral) HR: 64(Monitored) RR: 20 BP: 85/57 SpO2: 92% HT: 162.56 cm WT: 72.57 kg General: Looks well, no acute distress, well-nourished, well-kept Skin: Warm, dry Head: No trauma, normocephalic Neck: Trachea midline, supple, negative for JVD Eye: Conjunctive are clear, clear sclera , EOMI ENMT: oral mucosa moist, no lesions or edema nose or external ears Cardiovascular: Regular rate and rhythm, S1-S2 present, negative for murmurs rubs or gallops Respiratory: Lungs clear to auscultation, bilateral symmetric movement, negative for wheezes rales or rhonchi Chest wall: no deformity. Gastrointestinal: Abdomen soft, bowel sounds present, nontender to palpation Back: No tenderness Extremities: Range of motion intact, no edema Neurological: awake, alert, speech normal, cranial nerves II through XII intact, no sensory defects, alert and oriented x3 Psychiatric: cooperative, affect appropriate for age, pleasant Lab Results WBC: 8.3 E9/L (11/18/24 06:13:00) RBC: 4.2 E12/L Low (11/18/24 06:13:00) HGB: 12.5 gm/dL (11/18/24 06:13:00) Hct: 36.6 % (11/18/24 06:13:00) MCV: 87.1 fL (11/18/24 06:13:00) MCH: 29.8 pg (11/18/24 06:13:00) MCHC: 34.2 gm/dL (11/18/24 06:13:00) RDW: 14.3 % High (11/18/24 06:13:00) Platelet: 198 E9/L (11/18/24 06:13:00) MPV: 7 fL (11/18/24 06:13:00) Neutro Auto: 83.6 % High (11/18/24 06:13:00) Lymph Auto: 11.6 % Low (11/18/24 06:13:00) Grant Auto: 3.8 % Low (11/18/24 06:13:00) Eos Auto: 0.4 % (11/18/24 06:13:00) Basophil Auto: 0.6 % (11/18/24 06:13:00) Neutro Absolute: 7 E9/L (11/18/24 06:13:00) Lymph Absolute: 1 E9/L (11/18/24 06:13:00) Grant Absolute: 0.3 E9/L (11/18/24 06:13:00) Eos Absolute: 0 E9/L (11/18/24 06:13:00) Basophil Absolute: 0.1 E9/L (11/18/24 06:13:00) PT: 9.6 second(s) (11/18/24 06:13:00) INR: 0.86 (11/18/24 06:13:00) PTT: 27.5 second(s) (11/18/24 06:13:00) Glucose Lvl: 108 mg/dL (11/18/24 06:13:00) BUN: 16 mg/dL (11/18/24 06:13:00) Creatinine: 0.7 mg/dL (11/18/24 06:13:00) eGFR: 95 mL/min/1.73 m2 (11/18/24 06:13:00) BUN/Creat Ratio: 23 High (11/18/24 06:13:00) Sodium Lvl: 138 mmol/L (11/18/24 06:13:00) Potassium Lvl: 3.9 mmol/L (11/18/24 06:13:00) Chloride: 108 mmol/L (11/18/24 06:13:00) CO2: 22 mmol/L (11/18/24 06:13:00) AGAP: 12 mEq/L (11/18/24 06:13:00) Calcium Lvl: 8.6 mg/dL Low (11/18/24 06:13:00) Lactic Acid Lvl: 1.9 mmol/L (11/18/24 07:21:00) Troponin HS: 156.4 pg/mL Critical (11/18/24 11:57:00) BNP: 122 pg/mL High (11/18/24 06:13:00) Procalcitonin: 0.11 ng/mL (11/18/24 06:13:00) Influenzae A Ag: NEGATIVE1 (11/18/24 06:11:00) Influenzae B Ag: NEGATIVE1 (11/18/24 06:11:00) Rapid COVID Ag: Not Detected (11/18/24 06:11:00) Rapid COV Int NEG Ctl: Pass (11/18/24 06:11:00) Rapid COV Int POS Ctl: Pass (11/18/24 06:11:00) Assessment/Plan Patient will be admitted under inpatient status due to estimated length of stay greater than 2 midnights. All images, labs, EKGs were reviewed dvt ppx- PAS b/l, heparin diet- cardiac code status- FULL CODE 1. Pneumonia (J18.9: Pneumonia, unspecified organism) Chest x-ray concerning for pneumonia Check sputum culture Check Pro-Rui No white count Azithromycin and Rocephin started 11/18 Ordered: Initial Hospital Care/Day Moderate 55 Minutes 22204 2. NSTEMI (non-ST elevated myocardial infarction) (I21.4: Non-ST elevation (NSTEMI) myocardial infarction) Troponins continue to trend up Patient is not hypoxic (more content not included)...[facility] Comment on above:Result Comment: Electronically Signed By: Andrew Castellanos DO\.br\Date and Time Signed: 11/18/24 16:48 [id number] NoteHistory and Physical Basic Information Admit Date/Time:11/18/2024 08:41 Chief Complaint Awakened by upper back tightness, difficulty breathing and freezing. History of Present Illness 69-year-old female with past medical history of CAD, HLD, AAA, hypertension, irregular heart beat, COPD/asthma, peripheral neuropathy, aortic valve stenosis status post replacement, TIA, presented toER on 11/18 due to back pain that woke her up this morning was accompanied with shortness of breath. Patient states she has had worsening chest pain over the last week or 2. Patient states she has had cough as well as malaise recently. By the time i spoke with patient pain had resolved. Patient states she has had clean cardiac catheterizations in the past. Patient denies any history of heart attack. Patient states she has history of TIA which was told to her by neurologist because she had small lesions in her brain. Family history is positive for cardiac issues including mother with heart attack in father with heart disease. In ED patient had mildly elevated troponin at 36 and then did increase to 71. No ischemic signs on EKG. BNP 122. Chest x-ray was concerning with right-sided pneumonia. Patient was started on azithromycin and Rocephin in ER. Discussed CODE STATUS with patient would like to be full code. Patient's blood pressure mildly soft in ER which patient states is normal for her. Review of Systems Scoring Massey Fall Risk Score: 20 (11/18/24) Physical Exam Vitals & Measurements T: 37.2 ???C(Oral) HR: 64(Monitored) RR: 20 BP: 85/57 SpO2: 92% HT: 162.56 cm WT: 72.57 kg General: Looks well, no acute distress, well-nourished, well-kept Skin: Warm, dry Head: No trauma, normocephalic Neck: Trachea midline, supple, negative for JVD Eye: Conjunctive are clear, clear sclera , EOMI ENMT: oral mucosa moist, no lesions or edema nose or external ears Cardiovascular: Regular rate and rhythm, S1-S2 present, negative for murmurs rubs or gallops Respiratory: Lungs clear to auscultation, bilateral symmetric movement, negative for wheezes rales or rhonchi Chest wall: no deformity. Gastrointestinal: Abdomen soft, bowel sounds present, nontender to palpation Back: No tenderness Extremities: Range of motion intact, no edema Neurological: awake, alert, speech normal, cranial nerves II through XII intact, no sensory defects, alert and oriented x3 Psychiatric: cooperative, affect appropriate for age, pleasant Lab Results WBC: 8.3 E9/L (11/18/24 06:13:00) RBC: 4.2 E12/L Low (11/18/24 06:13:00) HGB: 12.5 gm/dL (11/18/24 06:13:00) Hct: 36.6 % (11/18/24 06:13:00) MCV: 87.1 fL (11/18/24 06:13:00) MCH: 29.8 pg (11/18/24 06:13:00) MCHC: 34.2 gm/dL (11/18/24 06:13:00) RDW: 14.3 % High (11/18/24 06:13:00) Platelet: 198 E9/L (11/18/24 06:13:00) MPV: 7 fL (11/18/24 06:13:00) Neutro Auto: 83.6 % High (11/18/24 06:13:00) Lymph Auto: 11.6 % Low (11/18/24 06:13:00) Grant Auto: 3.8 % Low (11/18/24 06:13:00) Eos Auto: 0.4 % (11/18/24 06:13:00) Basophil Auto: 0.6 % (11/18/24 06:13:00) Neutro Absolute: 7 E9/L (11/18/24 06:13:00) Lymph Absolute: 1 E9/L (11/18/24 06:13:00) Grant Absolute: 0.3 E9/L (11/18/24 06:13:00) Eos Absolute: 0 E9/L (11/18/24 06:13:00) Basophil Absolute: 0.1 E9/L (11/18/24 06:13:00) PT: 9.6 second(s) (11/18/24 06:13:00) INR: 0.86 (11/18/24 06:13:00) PTT: 27.5 second(s) (11/18/24 06:13:00) Glucose Lvl: 108 mg/dL (11/18/24 06:13:00) BUN: 16 mg/dL (11/18/24 06:13:00) Creatinine: 0.7 mg/dL (11/18/24 06:13:00) eGFR: 95 mL/min/1.73 m2 (11/18/24 06:13:00) BUN/Creat Ratio: 23 High (11/18/24 06:13:00) Sodium Lvl: 138 mmol/L (11/18/24 06:13:00) Potassium Lvl: 3.9 mmol/L (11/18/24 06:13:00) Chloride: 108 mmol/L (11/18/24 06:13:00) CO2: 22 mmol/L (11/18/24 06:13:00) AGAP: 12 mEq/L (11/18/24 06:13:00) Calcium Lvl: 8.6 mg/dL Low (11/18/24 06:13:00) Lactic Acid Lvl: 1.9 mmol/L (11/18/24 07:21:00) Troponin HS: 156.4 pg/mL Critical (11/18/24 11:57:00) BNP: 122 pg/mL High (11/18/24 06:13:00) Procalcitonin: 0.11 ng/mL (11/18/24 06:13:00) Influenzae A Ag: NEGATIVE1 (11/18/24 06:11:00) Influenzae B Ag: NEGATIVE1 (11/18/24 06:11:00) Rapid COVID Ag: Not Detected (11/18/24 06:11:00) Rapid COV Int NEG Ctl: Pass (11/18/24 06:11:00) Rapid COV Int POS Ctl: Pass (11/18/24 06:11:00) Assessment/Plan Patient will be admitted under inpatient status due to estimated length of stay greater than 2 midnights. All images, labs, EKGs were reviewed dvt ppx- PAS b/l, heparin diet- cardiac code status- FULL CODE 1. Pneumonia (J18.9: Pneumonia, unspecified organism) Chest x-ray concerning for pneumonia Check sputum culture Check Pro-Rui No white count Azithromycin and Rocephin started 11/18 Ordered: Initial Hospital Care/Day Moderate 55 Minutes 45455 2. NSTEMI (non-ST elevated myocardial infarction) (I21.4: Non-ST elevation (NSTEMI) myocardial infarction) Troponins continue to trend up Patient is not hypoxic (more content not included)...[facility] Comment on above:Result Comment: Electronically Signed By: Andrew Castellanos DO\.tim\Date and Time Signed: 11/18/24 14:07 [id number] Evaluation note* Diagnosis Onset Date Resolution Status Admit Date Mastoiditis of left side acute September 06, 2024 9:38am Elevated d-dimer acute November 24, 2024 10:28am Hospital discharge follow-up noneact trish November 24, 2024 10:28am [facility] Work Phone: [phone] Instructions* Patient Instructions* Jhony Tobin MD - 06/21/2024 7:11 PM EDT For now, will continue to manage Raynaud's with lifestyle modifications avoiding cold temperatures and temperature fluctuations; alleviating stress; adopting measures to keep the body warm, includingadequate clothing (eg, using multiple layers, wearing thermal underwear and a warm hat); and keeping the fingers warm (e.g., by using mittens or electric hand warmers instead of gloves). Placing the hands under warm water or rotating the arms in a windmill pattern. Both active and passive smoking should also be avoided as well as sympathomimetic drugs (eg, decongestants, stimulants, and anorexiants). If all the above interventions are suboptimal then we could try a calcium channel todd, such as Nifedipine (Procardia XL) 30 mg or Amlodipine (Norvasc) 2.5 mg tablet daily, especially during the winter months. [ For further information, please refer to this link: [email or web address] ] documented in this [facility] NoteHNO ID: [id number] Author: JHONY TOBIN MD Service: ? Author Type: Physician Type: Progress Notes Filed: 06/21/2024 19:11 Note Text: Rheumatology Office Visit Note Date of Service: June 20, 2024 Reason for Consultation: Concern for lupus Consult Requested By: Abimael Luna MD HPI: This is a 68 year old female with PMH significant for COPD/emphysema, HTN, hyperlipidemia and aortic valve replacement who presents for concern of lupus Patient first diagnosed with presumed lupus around 10 years ago Symptoms included Raynaud's in hands/feet, photsensiitivity and + SHARRI Started on plaquenil which she took for 3 years, did not noticed any difference so eventually weaned herself of it. Since, raynauds has continued during winter time without digital ulcers. Otherwise, has been struggling with LONGO, had improved with aortic valve replacement last year but following surgery symptoms returned. 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 Started on trelegy with improvement in symptoms. Otherwise, denies active oral/nasal ulcers, sinus symptoms, sicca symptoms, lymphadenopathy, fever/weight changes, chest pain/palpitations, pleurisy, hemoptysis, raynaud's, digital ulcers, skin thickening or other rashes, clots or miscarriages, joint pain/swelling. Family Hx - cousin with MS. Emery non contributory PAST MEDICAL HISTORY Diagnosis Date AAA (abdominal aortic aneurysm) (HCC) Coronary artery disease Dyslipidemia Fibromyalgia Hypertension Irregular heart beat Peripheral neuropathy Prosthetic aortic valve stenosis Systemic lupus erythematosus (HCC) TIA (transient ischemic attack) Unsure when- Comfirmed with Neurology PAST SURGICAL HISTORY Procedure Laterality Date ANKLE SURGERY HX Left HEMORRHOID;BAND LIGAT, SNGL/MUL HYSTERECTOMY LEFT HEART CATH,PERCUTANEOUS multiple PAST SURGICAL HISTORY OF 10/25/2014 AVR PAST SURGICAL HISTORY OF C section x2 PAST SURGICAL HISTORY OF R tibia and fibula surgery FAMILY HISTORY Problem Relation Age of Onset Heart Attack Mother Heart disease Father leaky valve Kidney failure Father Coronary Artery Disease Father Diabetes Father No Known Problems Sister No Known Problems Sister No Known Problems Sister No Known Problems Sister No Known Problems Sister No Known Problems Sister No Known Problems Sister No Known Problems Sister No Known Problems Brother Stroke Maternal Grandmother Heart Attack Maternal Grandfather Stroke Paternal Grandmother No Known Problems Paternal Grandfather other (Bicuspid aortic valve) Niece Heart Attack Maternal Aunt Heart Attack Maternal Aunt Arrhythmia Maternal Uncle PPM Coronary Artery Disease Maternal Uncle Bypass other (RBBB) Son No Known Problems Daughter Social History Tobacco Use Smoking status: Former Packs/day: 0.25 Years: 30.00 Additional pack years: 0.00 Total pack years: 7.50 Types: Cigarettes Quit date: 02/2023 Years since quittin.3 Smokeless tobacco: Never Substance Use Topics Alcohol use: Never Drug use: Never Current Outpatient Medications Medication Sig sluupowyqsn-edzfwzsfo-sptgnklt (TRELEGY ELLIPTA) 200-62.5-25 mcg inhalation powder Inhale 1 Puff as instructed once daily. metoprolol tartrate, short acting, (LOPRESSOR) 25 mg tablet Take 0.5 tablets by mouth once daily. rosuvastatin (CRESTOR) 40 mg tablet Take 1 tablet by mouth once daily. omeprazole (PRILOSEC) 40 mg capsule Take 40 mg by mouth. citalopram (CELEXA) 40 mg tablet Take 1 tablet by mouth every afternoon. aspirin, enteric coated (ASPIRIN, ENTERIC COATED) 81 mg EC tablet Take 81 mg by mouth. No current facility-administered medications for this visit. No data to display Review Of Systems: A complete 14 review of system was performed and otherwise unremarkable except as detailed above. PHQ9 No data to display Reference Values for PHQ9 0 - 4: Minimal Depression 5 - 9: Mild Depression 10 - 14: Moderate Depression 15 - 19: Moderately Severe Depression 20 - 27: Severe Depression Physical Exam: BP 110/75 Pulse 60 Temp 36.3 ?C (97.4 ?F) (Temporal) Ht 165.1 cm (5' 5 ) Wt 72.6 kg (160 lb) BMI 26.63 kg/m? Physical Exam Constitutional: Appearance: Normal appearance. HENT: Head: Normocephalic and atraumatic. Nose: Nose normal. Mouth/Throat: Mouth: Mucous membranes are moist. Pharynx: Oropharynx is clear. Eyes: Extraocular Movements: Extraocular movements intact. Conjunctiva/sclera: Conjunctivae normal. Pupils: Pupils are equal, round, and reactive to light. Cardiovascular: Rate and Rhythm: Normal rate and regular rhythm. Pulses: Normal pulses. Heart sounds: Normal heart sounds. Pulmonary: Effort: Pulmonary effort is normal. Breath sounds: Normal breath sounds. Musculoskeletal: General: No swelling, tenderness, deformity or signs of injury. Normal range of motion. C (more content not included)...[facility]07-30-2024 History of Present illness Narrative* Jhony Tobin MD - 06/20/2024 12:08 PM EDT Images from the original note were not included. Rheumatology Office Visit Note Date of Service: June 20, 2024 Reason for Consultation: Concern for lupus Consult Requested By: Abimael Luna MD HPI: This is a 68 year old female with PMH significant for COPD/emphysema, HTN, hyperlipidemia and aortic valve replacement who presents for concern of lupus Patient first diagnosed with presumed lupus around 10 years ago Symptoms included Raynaud's in hands/feet, photsensiitivity and + SHARRI Started on plaquenil which she took for 3 years, did not noticed any difference so eventually weaned herself of it. Since, raynauds has continued during winter time without digital ulcers. Otherwise, has been struggling with LONGO, had improved with aortic valve replacement last year but following surgery symptoms returned. 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 Started on trelegy with improvement in symptoms. Otherwise, denies active oral/nasal ulcers, sinus symptoms, sicca symptoms, lymphadenopathy, fever/weight changes, chest pain/palpitations, pleurisy, hemoptysis, raynaud's, digital ulcers, skin thickening or other rashes, clots or miscarriages, joint pain/swelling. Family Hx - cousin with MS. Emery non contributory PAST MEDICAL HISTORY Diagnosis Date AAA (abdominal aortic aneurysm) (HCC) Coronary artery disease Dyslipidemia Fibromyalgia Hypertension Irregular heart beat Peripheral neuropathy Prosthetic aortic valve stenosis Systemic lupus erythematosus (HCC) TIA (transient ischemic attack) Unsure when- Comfirmed with Neurology PAST SURGICAL HISTORY Procedure Laterality Date ANKLE SURGERY HX Left HEMORRHOID;BAND LIGAT, SNGL/MUL HYSTERECTOMY LEFT HEART CATH,PERCUTANEOUS multiple PAST SURGICAL HISTORY OF 10/25/2014 AVR PAST SURGICAL HISTORY OF C section x2 PAST SURGICAL HISTORY OF R tibia and fibula surgery FAMILY HISTORY Problem Relation Age of Onset Heart Attack Mother Heart disease Father leaky valve Kidney failure Father Coronary Artery Disease Father Diabetes Father No Known Problems Sister No Known Problems Sister No Known Problems Sister No Known Problems Sister No Known Problems Sister No Known Problems Sister No Known Problems Sister No Known Problems Sister No Known Problems Brother Stroke Maternal Grandmother Heart Attack Maternal Grandfather Stroke Paternal Grandmother No Known Problems Paternal Grandfather other (Bicuspid aortic valve) Niece Heart Attack Maternal Aunt Heart Attack Maternal Aunt Arrhythmia Maternal Uncle PPM Coronary Artery Disease Maternal Uncle Bypass other (RBBB) Son No Known Problems Daughter Social History Tobacco Use Smoking status: Former Packs/day: 0.25 Years: 30.00 Additional pack years: 0.00 Total pack years: 7.50 Types: Cigarettes Quit date: 02/2023 Years since quittin.3 Smokeless tobacco: Never Substance Use Topics Alcohol use: Never Drug use: Never Current Outpatient Medications Medication Sig icgkcdvdlpq-uhlyssiyv-dkfpyfbi (TRELEGY ELLIPTA) 200-62.5-25 mcg inhalation powder Inhale 1 Puff asinstructed once daily. metoprolol tartrate, short acting, (LOPRESSOR) 25 mg tablet Take 0.5 tablets by mouth once daily. rosuvastatin (CRESTOR) 40 mg tablet Take 1 tablet by mouth once daily. omeprazole (PRILOSEC) 40 mg capsule Take 40 mg by mouth. citalopram (CELEXA) 40 mg tablet Take 1 tablet by mouth every afternoon. aspirin, enteric coated (ASPIRIN, ENTERIC COATED) 81 mg EC tablet Take 81 mg by mouth. No current facility-administered medications for this visit. No data to display Review Of Systems: A complete 14 review of system was performed and otherwise unremarkable except as detailed above. PHQ9 No data to display Reference Values for PHQ9 0 - 4: Minimal Depression 5 - 9: Mild Depression 10 - 14: Moderate Depression 15 - 19: Moderately Severe Depression 20 - 27: Severe Depression Physical Exam: BP 110/75 Pulse 60 Temp 36.3 C (97.4 F) (Temporal) Ht 165.1 cm (5' 5 ) Wt 72.6 kg (160 lb) BMI 26.63 kg/m Physical Exam Constitutional: Appearance: Normal appearance. HENT: Head: Normocephalic and atraumatic. Nose: Nose normal. Mouth/Throat: Mouth: Mucous membranes are moist. Pharynx: Oropharynx is clear. Eyes: Extraocular Movements: Extraocular movements intact. Conjunctiva/sclera: Conjunctivae normal. Pupils: Pupils are equal, round, and reactive to light. Cardiovascular: Rate and Rhythm: Normal rate and regular rhythm. Pulses: Normal pulses. Heart sounds: Normal heart sounds. Pulmonary: Effort: Pulmonary effort is normal. Breath sounds: Normal breath sounds. Musculoskeletal: General: No swelling, tenderness, deformity or signs of injury. Normal range of motion. Cervical back: Normal range of motion and neck supple. Right lower leg: No edema. Left lower leg: No edema. Skin: General: Skin is warm. Capillary Refill: Capillary refill takes less than 2 seconds. Coloration: Skin is not jaundiced or pale. Findings: No bruising, erythema, lesion or rash. Neurological: General: No focal deficit present. Mental Status: She is alert and oriented to person, place, and time. Psychiatric: Mood and Affect: Mood normal. Behavior: Behavior normal. Labs: RELEVANT PREVIOUS INVESTIGATIONS Latest Ref Rng & Units 10/25/2023 04/01/2024 Urinalysis Protein, Urine Negative 1+ Negative RBC, Urine 0-2 /HPF 0-2 /HPF Latest Ref Rng & Units 10/30/2023 11/10/2023 12/23/2023 03/31/2024 CBC WBC 3.70 - 11.00 k/uL 6.62 7.14 6.26 11.01 Hemoglobin 11.5 - 15.5 g/dL 11.1 11.9 12.5 12.3 Hematocrit 36.0 - 46.0 % 32.9 37.1 37.3 36.7 Platelet Count 150 - 400 k/uL 205 522 263 233 Abs Neut (ANC) 1.45 - 7.50 k/uL 7.40 Abs Lymph 1.00 - 4.00 k/uL 2.91 Latest Ref Rng & Units 11/10/2023 12/23/2023 03/31/2024 CMP Sodium 136 - 144 mmol/L 137 137 137 Potassium 3.7 - 5.1 mmol/L 4.3 4.5 3.9 Chloride 97 - 105 mmol/L 101 101 103 CO2 22 - 30 mmol/L 25 24 22 Glucose 74 - 99 mg/dL 115 93 96 BUN 7 - 21 mg/dL 12 14 13 Creatinine 0.58 - 0.96 mg/dL 0.68 0.73 0.77 Calcium 8.5 - 10.2 mg/dL 9.7 9.6 9.1 AST 13 - 35 U/L 26 24 19 ALT 7 - 38 U/L 18 19 12 Alkaline Phosphatase 34 - 123 U/L 105 77 77 Latest Ref Rng & Units 10/25/2023 10/26/2023 Antibodies PT Sec 9.7 - 13.0 sec 10.1 11.4 PT INR 0.9 - 1.3 0.9 1.1 APTT 23.0 - 32.4 sec 28.2 27.2 Last Lupus Anticoag Panel Interpretation No lab values to display. Imaging: Reviewed Assessment: In summary, this is a 68 year old female with PMH significant for COPD/emphysema who presents for for evaluation of lupus R76.8 Positive SHARRI (antinuclear antibody) M32.9 Systemic lupus erythematosus, unspecified SLE type, unspecified organ involvement status (HCC) Comment: Patient presents with presumed history of SLE based on Raynaud's, photosensitivity and presumed + SHARRI. Managed in the past with HCQ and eventually DC. On evaluation today, overall low suspicion for SLE considering she lacks specific symptoms such as alopecia, oral/nasal ulcers, pleurisy, synovitis, exam unremarkable and no evidence to date of kidney/[employer] involvement nor cytopenias in recent bloodwork. Would be atypical to have SLE for a decade without treatment and no complications to date However, will check lupus activity markers and wait for pending work up from pulmonology including SHARRI by IFA with reflex and rest of serologies before drawing further conclusions. No role from my standpoint to initiate immunosuppressive therapy at this visit. In terms of Raynauds, may be primary given long standing history of it without digital ulcers. Willcheck for secondary causes. For now, manage with conservative strategies as per after visit summary Plan: - C3 COMPLEMENT, C4 COMPLEMENT, URINALYSIS, WITH MICROSCOPIC, PROTEIN / CREATININE RATIO, LUPUS ANTICOAG PL - Will follow SHARRI, RAMON panel, dsDNA, CBC and CMP - Next steps based on results Jhony Mercedes MD Pager [phone] We spent a total of 60 minutes on the date of the service which included preparing to see the patient, completing clinical documentation, obtaining and/or reviewing separately obtained history, counseling and educating the patient/family/caregiver, ordering medications, tests, or procedures, communi cating with other HCPs (not separately reported), independently interpreting results (not separately reported), communicating results to the patient/family/caregiver and care coordination (not separately reported). documented in this encounterJ.[facility]. [facility]07-30-[facility]24 Instructions* Patient Instructions* Abimael Luna MD - 06/20/2024 10:37 AM EDT - Your testing and symptoms are consistent with asthma/COPD overlap. Start Trelegy, one puff once a day. Bloodwork on your way out Additional breathing tests today to have as baseline. - Referral placed to Rheumatology for history of Lupus - Sleep study ordered. How to use the Trellegy Ellipta device: 1. Hold your inhaler upright and open the cap all the way back until it clicks. Every time you openthe cap, a dose is loaded. If you open and close the cover without inhaling the medicine, you will lose the dose 2. Breathe out fully away from the inhaler. 3. Put the mouthpiece in your mouth and close your lips around it. Do not block the mouthpiece withyour teeth or tongue. Do not block the vent above the mouthpiece with your lips or fingers. 4. Breathe in quickly and deeply through your mouth. 5. Remove the inhaler from your mouth. 6. Hold your breath for 5-10 seconds, and then breathe out. 7. Close the cap after each dose. 8. Rinse mouth thoroughly with water after taking medication to decrease the risk of a mouth infection. Spit out the water. Do not swallow it. How to clean the device: You can clean the mouthpiece of your Trellegy Ellipta inhaler with a dry cloth or tissue. Do not wash or put your inhaler in water. documented in this encounterJ.W. [facility]07-30-[facility]24 NoteHNO ID: [id number] Author: ABIMAEL LUNA MD Service: ? Author Type: Physician Type: Progress Notes Filed: 06/20/2024 11:03 Note Text: . DEPARTMENT OF PULMONARY MEDICINE OUTPATIENT VISIT DATE June 20, 2024 OUTPATIENT VISIT TYPE CONSULTATION Ms. Fairbanks [facility] Respiratory [place], consultation requested by Dr. Madison North for an opinion regarding cough and shortness of breath. My final recommendations/evaluation will be communicated back to the requesting physician by way of shared medical record or letter via US mail. HPI: Ms. Fairbanks is a 68 year old female with past medical history of hypertension, hyperlipidemia, possible lupus, and aortic valve replacement who is here today for evaluation of cough and shortness of breath. The patient reports that she was having exertional shortness of breath prior to surgery. It improved after surgery, however, she notices a decline again. She describes the episodes as shortness of breath on exertion, not associated with chest pain, nausea, vomiting, diaphoresis, lightheadedness. At times, she has an intermittent cough. She endorses postnasal drip. She has allergies for which she takes an antihistamine. She also endorses reflux that is managed with omeprazole. She used to smoke about a half pack per day for about 30 years, quit a year ago. Patient denies symptoms consistent with childhood asthma and reports limitation to exercise during teenage years. She has a strong family history of asthma. She snores and has witnessed episodes of apnea. She reports clear triggers to her symptoms including humid weather, strong smells, exposure to cats. Review of Systems: GEN: No fevers/chills, night sweats, or weight changes HENT: No rhinorrhea, pharyngitis, sinus drainage, congestion, or oral ulcers EYES: No sudden vision changes CV: No chest pain, palpitations RESP: As above GI: No nausea/vomiting/constipation/diarrhea, : No dysuria, no hematuria MSK: No joint swelling NEURO: No sudden weakness or numbness SKIN: No rash The remainder of the review of systems is noncontributory Past Medical History: PAST MEDICAL HISTORY Diagnosis Date AAA (abdominal aortic aneurysm) (HCC) Coronary artery disease Dyslipidemia Fibromyalgia Hypertension Irregular heart beat Peripheral neuropathy Prosthetic aortic valve stenosis Systemic lupus erythematosus (HCC) TIA (transient ischemic attack) Unsure when- Comfirmed with Neurology Past Surgical History: PAST SURGICAL HISTORY Procedure Laterality Date ANKLE SURGERY HX Left HEMORRHOID;BAND LIGAT, SNGL/MUL HYSTERECTOMY LEFT HEART CATH,PERCUTANEOUS multiple PAST SURGICAL HISTORY OF 10/25/2014 AVR PAST SURGICAL HISTORY OF C section x2 PAST SURGICAL HISTORY OF R tibia and fibula surgery Work and Social Histories: Social History Tobacco Use Smoking status: Former Packs/day: 0.25 Years: 30.00 Additional pack years: 0.00 Total pack years: 7.50 Types: Cigarettes Quit date: 02/2023 Years since quittin.3 Smokeless tobacco: Never Substance Use Topics Alcohol use: Never Drug use: Never Occupation/Exposures: 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 Home Environment: Visible mold No, water damage No. Family History: FAMILY HISTORY Problem Relation Age of Onset Heart Attack Mother Heart disease Father leaky valve Kidney failure Father Coronary Artery Disease Father Diabetes Father No Known Problems Sister No Known Problems Sister No Known Problems Sister No Known Problems Sister No Known Problems Sister No Known Problems Sister No Known Problems Sister No Known Problems Sister No Known Problems Brother Stroke Maternal Grandmother Heart Attack Maternal Grandfather Stroke Paternal Grandmother No Known Problems Paternal Grandfather other (Bicuspid aortic valve) Niece Heart Attack Maternal Aunt Heart Attack Maternal Aunt Arrhythmia Maternal Uncle PPM Coronary Artery Disease Maternal Uncle Bypass other (RBBB) Son No Known Problems Daughter Allergies: Alendronate, Latex, Meloxicam, Morphine, Sulfa (Sulfonamide Antibiotics), and Tramadol Outpatient Medications: rosuvastatin (CRESTOR) 40 mg tablet Take 1 tablet by mouth once daily. omeprazole (PRILOSEC) 40 mg capsule Take 40 mg by mouth. citalopram (CELEXA) 40 mg tablet Take 1 tablet by mouth every afternoon. aspirin, enteric coated (ASPIRIN, ENTERIC COATED) 81 mg EC tablet Take 81 mg by mouth. vddzbwokgjq-zasgteroo-jmfrreve (TRELEGY ELLIPTA) 200-62.5-25 mcg inhalation powder Inhale 1 Puff as instructed once daily. metoprolol tartrate, short acting, (LOPRESSOR) 25 mg tablet Take 0.5 tablets by mouth once daily. PHYSICAL EXAMINATION BP 110/75 Pulse 60 Temp (Src) 97.4 (Temporal) (more content not included)...[facility]07-30-2024 History of Present illness Narrative* Abimael Luna MD - 06/20/2024 9:56 AM EDT Images from the original note were not included. . DEPARTMENT OF PULMONARY MEDICINE OUTPATIENT VISIT DATE June 20, 2024 OUTPATIENT VISIT TYPE CONSULTATION Ms. Fairbanks presents to the [facility] [place], consultation requested by Dr. Madison North for an opinion regarding cough and shortness of breath. My final recommendations/evaluation will be communicated back to the requesting physician by way ofshared medical record or letter via US mail. HPI: Ms. Fairbanks is a 68 year old female with past medical history of hypertension, hyperlipidemia, possible lupus, and aortic valve replacement who is here today for evaluation of cough and shortnessof breath. The patient reports that she was having exertional shortness of breath prior to surgery.It improved after surgery, however, she notices a decline again. She describes the episodes as shortness of breath on exertion, not associated with chest pain, nausea, vomiting, diaphoresis, lightheadedness. At times, she has an intermittent cough. She endorses postnasal drip. She has allergies forwhich she takes an antihistamine. She also endorses reflux that is managed with omeprazole. She used to smoke about a half pack per day for about 30 years, quit a year ago. Patient denies symptoms consistent with childhood asthma and reports limitation to exercise during teenage years. She has a strong family history of asthma. She snores and has witnessed episodes of apnea. She reports clear triggers to her symptoms including humid weather, strong smells, exposure to cats. Review of Systems: GEN: No fevers/chills, night sweats, or weight changes HENT: No rhinorrhea, pharyngitis, sinus drainage, congestion, or oral ulcers EYES: No sudden vision changes CV: No chest pain, palpitations RESP: As above GI: No nausea/vomiting/constipation/diarrhea, : No dysuria, no hematuria MSK: No joint swelling NEURO: No sudden weakness or numbness SKIN: No rash The remainder of the review of systems is noncontributory Past Medical History: PAST MEDICAL HISTORY Diagnosis Date AAA (abdominal aortic aneurysm) (HCC) Coronary artery disease Dyslipidemia Fibromyalgia Hypertension Irregular heart beat Peripheral neuropathy Prosthetic aortic valve stenosis Systemic lupus erythematosus (HCC) TIA (transient ischemic attack) Unsure when- Comfirmed with Neurology Past Surgical History: PAST SURGICAL HISTORY Procedure Laterality Date ANKLE SURGERY HX Left HEMORRHOID;BAND LIGAT, SNGL/MUL HYSTERECTOMY LEFT HEART CATH,PERCUTANEOUS multiple PAST SURGICAL HISTORY OF 10/25/2014 AVR PAST SURGICAL HISTORY OF C section x2 PAST SURGICAL HISTORY OF R tibia and fibula surgery Work and Social Histories: Social History Tobacco Use Smoking status: Former Packs/day: 0.25 Years: 30.00 Additional pack years: 0.00 Total pack years: 7.50 Types: Cigarettes Quit date: 02/2023 Years since quittin.3 Smokeless tobacco: Never Substance Use Topics Alcohol use: Never Drug use: Never Occupation/Exposures: 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 Home Environment: Visible mold No, water damage No. Family History: FAMILY HISTORY Problem Relation Age of Onset Heart Attack Mother Heart disease Father leaky valve Kidney failure Father Coronary Artery Disease Father Diabetes Father No Known Problems Sister No Known Problems Sister No Known Problems Sister No Known Problems Sister No Known Problems Sister No Known Problems Sister No Known Problems Sister No Known Problems Sister No Known Problems Brother Stroke Maternal Grandmother Heart Attack Maternal Grandfather Stroke Paternal Grandmother No Known Problems Paternal Grandfather other (Bicuspid aortic valve) Niece Heart Attack Maternal Aunt Heart Attack Maternal Aunt Arrhythmia Maternal Uncle PPM Coronary Artery Disease Maternal Uncle Bypass other (RBBB) Son No Known Problems Daughter Allergies: Alendronate, Latex, Meloxicam, Morphine, Sulfa (Sulfonamide Antibiotics), and Tramadol Outpatient Medications: rosuvastatin (CRESTOR) 40 mg tablet Take 1 tablet by mouth once daily. omeprazole (PRILOSEC) 40 mg capsule Take 40 mg by mouth. citalopram (CELEXA) 40 mg tablet Take 1 tablet by mouth every afternoon. aspirin, enteric coated (ASPIRIN, ENTERIC COATED) 81 mg EC tablet Take 81 mg by mouth. nlzezoogrit-lakxnxcgd-ktuwqjij (TRELEGY ELLIPTA) 200-62.5-25 mcg inhalation powder Inhale 1 Puff asinstructed once daily. metoprolol tartrate, short acting, (LOPRESSOR) 25 mg tablet Take 0.5 tablets by mouth once daily. PHYSICAL EXAMINATION BP 110/75 Pulse 60 Temp (Src) 97.4 (Temporal) Resp 18 Wt 160 lb 7.9 oz (72.8kg) SpO2 95% General appearance: well appearing, in no acute distress, and alert Skin: skin color, texture, turgor normal, no rashes or lesions Eyes: Anicteric sclera. Pupils are equally round and reactive to light. Extraocular movements are intact. Nose/Sinuses: Nares normal, septum midline, mucosa normal, no drainage or sinus tenderness Oropharynx: Lips, mucosa, and tongue normal, teeth and gums normal, oropharynx normal Neck: Supple, no adenopathy; thyroid symmetric, normal size, no bruits Respiratory: Lungs clear to auscultation. No wheezing, rhonchi, rales. Percussion normal, good diaphragmatic excursion. Cardiovascular: RRR without murmur, gallop, or rubs. No ectopy S1, S2 normal. no jugular venous distention. Edema: None. Gastrointestinal: Abdomen soft, non-tender. Bowel sounds normal. No masses, organomegaly Musculoskeletal: No deformities, edema, skin discoloration, clubbing or cyanosis. Good capillary refill. Neurological Examination: Alert and Oriented to Place, Person, Time and Situation and Patient follows commands..Speech fluent and appropriate Exhibits full strength in all four extremities. Labs / Imaging / Diagnostic Studies: All radiography listed below personally reviewed by me Data Reviewed from [facility] (in addition to that noted in HPI, and Past histories above): WBC 11.01 03/31/2024 Hemoglobin 12.3 03/31/2024 Hematocrit 36.7 03/31/2024 Platelet Count 233 03/31/2024 Eosinophils % 1.3 03/31/2024 Abs Eosin 0.14 03/31/2024 Glucose 96 03/31/2024 Potassium 3.9 03/31/2024 Sodium 137 03/31/2024 Chloride 103 03/31/2024 CO2 22 03/31/2024 Creatinine (POCT) 0.77 03/31/2024 BUN 13 03/31/2024 Anion Gap 12 03/31/2024 Calcium, Total 9.1 03/31/2024 Protein, Total 7.0 03/31/2024 Albumin 4.2 03/31/2024 Bilirubin, Total 0.6 03/31/2024 Alkaline Phosphatase 77 03/31/2024 AST 19 03/31/2024 ALT 12 03/31/2024 No results found for this basename: IGE PFT: Date 06/20/24. No obstruction. Significant response to bronchodilator. DLCO is moderately reduced. CXR: Date: 06/20/24, shows no acute abnormalities CT Chest: 04/01/24 Lung parenchyma and airways: Mildly hyperinflated lungs with centrilobular emphysematous changes with mild peribronchial thickening consistent with chronic bronchitis/COPD. The central airways are patent. Bilateral peripheral groundglass and bandlike opacities most compatible with atelectasis/scarring. Mild subpleural reticulation in the anterior left upper lobe (4:83), unchanged from prior CTA 10/25/2023. No new focal consolidation. Last CT Chest - Impression Only CT CHEST WO IVCON Exam End: 04/01/2024 5:33 AM (Final result) Impression: IMPRESSION: No CT evidence of acute abnormality. No thoracic lymphadenopathy. ... Echo: Last Echocardiogram ECHO Collected: 04/01/2024 5:53 AM (Final result) Narrative: Echocardiography Report: Transthoracic Echo [facility] ER Date of service: 04/01/2024 5:53:35 AM SUPERVISOR Ordering physician: MARK BUENROSTRO Indication: Shortness of Breath Technologist: Beto Suarez [facility] Fellow: Luis Collazo MD Interpreting physician: Barry Vizcarra MD PATIENT: Name: JAILENE FAIRBANKS : 1955 Age: 68 years Gender: F History of hypertension, dyslipidemia, coronary artery disease and valvular heart disease. Previous cardiovascular interventions: Aortic valve replacement (10/26/2023, 2013) Primary rhythm: sinus. Height: 165.10 cm BSA: 1.82 m Weight: 72.12 kg BMI: 26.5 kg/m Heart rate 60 bpm Blood pressure 117/70 mmHg Technically difficult exam due to suboptimal positioning, body habitus and no access to contrast. Color Doppler was utilized to interrogate the cardiac valves assessed and spectral Doppler was utilized to determine the flow velocities and pressure gradients reported in this exam. MEASUREMENTS: Value Indexed Normal Max aortic dimension 3.8 cm Ao < 3.8 Left atrial volume 45 ml (4ch A-L) 25 ml/m Rossi <= 34 LV ID (diastole) 4.6 cm (2D) 2.53 cm/m LV ID (systole) 2.7 cm (2D) 1.48 cm/m IVS, leaflet tips 1.0 cm (2D) Posterior wall thickness 0.7 cm (2D) Left ventricular mass 128 g (2D) 70 g/m Ejection Fraction 55 % (visual est.) EF > 54 FINDINGS: LEFT VENTRICLE Left ventricular systolic function is normal. Grade I left ventricular diastolic dysfunction. The findings are consistent with normal filling pressures. Mitral annular lateral E/e': 8.0. Mitral annular septal E/e': 11.0. Wall Motion: All scored segments are normal. RIGHT VENTRICLE The right ventricle is normal in size. Right ventricular systolic function is low normal. RV systolic tissue Doppler velocity is 6.4 cm/s. Estimated right ventricular systolic pressure is likely underestimated due to a weak or incomplete tricuspid regurgitation signal and is, at least, 37 mmHg consistent with mild pulmonary hypertension. Estimated right atrial pressure is 8 mmHg based on IVC assessment. LEFT ATRIUM The left atrial cavity is normal in size. Pulmonary Veins: The pulmonary venous pattern showed normal systolic flow. RIGHT ATRIUM The right atrial cavity is normal in size. Inferior Vena Cava: The inferior vena cava appears normal measuring 1.3 cm. The vessel decreases less than 50 percent with inspiration. MITRAL VALVE The mitral valve leaflets are structurally normal. There is mild mitral annular calcification observed posterior. There is no mitral valve regurgitation. The pressure half time is 70 msec. The peak mitral E/A ratio is 0.86. The average mitral E/e' ratio is 9.5. The mitral flow deceleration time is 242 msec. TRICUSPID VALVE The tricuspid valve leaflets are structurally normal. There is mild (1+) tricuspid valve regurgitation. AORTIC VALVE Epic#21 prosthetic valve. There is no aortic valve regurgitation. The peak gradient is 12 mmHg (peak velocity = 176.0 cm/s). The mean gradient is 7 mmHg. The LVOT mean velocity is 68.6 cm/s. The aortic VTI is 39.1 cm. The mean velocity in the aortic valve is 126.0 cm/s. The dimensionless valve index is 0.59. PULMONIC VALVE The pulmonic valve was not seen or not interrogated. There is no pulmonic valve regurgitation. AORTA The visualized aorta is borderline dilated. Measurements - Mid ascending aorta 3.8 cm. Impression: CONCLUSIONS: - Technically difficult exam due to suboptimal positioning, body habitus and no access to contrast. - Exam indication: Shortness of Breath - Left ventricular systolic function is normal. EF = 55 5% (visual est.) Grade I left ventricular diastolic dysfunction. - The right ventricle is normal in size. Right ventricular systolic function is low normal. - The visualized aorta is borderline dilated with a maximal dimension of 3.8 cm. - Epic#21 prosthetic aortic valve. There is no aortic valve regurgitation. The peak gradient is 12 mmHg, the mean gradient is 7 mmHg and the dimensionless valve index is 0.59. - Exam was compared with the prior echocardiographic exam performed on 12/23/23; similar findings. * * * Final * * * Assessment: Ms. Fairbanks is a 68 year old female who presents to the [facility] [place] for evaluation of the following problems: Problems: (R05.3) Chronic cough (primary encounter diagnosis) (J43.2) Centrilobular emphysema (HCC) (R76.8) Positive SHARRI (antinuclear antibody) (M32.9) Systemic lupus erythematosus, unspecified SLE type, unspecified organ involvement status (HCC) (R06.83) Snoring Patient has asthma/COPD overlap. I think she would benefit from initiation of triple therapy. Starting Trelegy 1 puff once a day. Instructed on the proper use of the inhaler. Will also order alpha-1 antitrypsin and FeNO, 6-minute walk test, and allergic profiling. Patient has history of lupus. She has not follow-up in several years. Think it would be advisable for her to be reevaluated by rheumatology. Autoimmune profile reordered. Ordering sleep study. I spent a total of 56 minutes on the date of the service which included preparing to see the patient, [id number] patient care, completing clinical documentation, performing a medically appropriate examination, ordering medications, tests, or procedures, and communicating results to the patient/fam christel/caregiver Abimael Kim MD, [facility] Pulmonary and Critical Care Medicine Staff Respiratory [place], [facility] June 20, 2024 9:56 AM documented in this encounterJ.W. [facility] NoteHNO ID: [id number] Author: PORSCHE AMOS RRT Service: ? Author Type: Registered Resp Therapist Type: Progress Notes Filed: 06/20/2024 09:07 Note Text: PULM FUNCTION: Provider: Abimael Luna MD Spirometry w/BD: 1 [facility] History of Present illness Narrative * Porsche Amos RRT - 06/20/2024 9:06 AM EDT PULM FUNCTION: Provider: Abimael Luna MD Spirometry w/BD: 1 DLCO: 1 documented in this encounterJ.W. Ruby [facility]07-30-[facility] History of Present illness Narrative* Gudelia Reyes RT(Kaela) - 06/20/2024 7:55 AM EDT Radiology Service Progress Note PATIENT NAME: Jailene Fairbanks DATE OF SERVICE: June 20, 2024 TIME: 8:31 AM PATIENT IDENTITY VERIFICATION COMPLETED USING TWO (2) IDENTIFIERS: Name and Date of confirmedby patient verbally. FALL SCREENING: Has the patient had 2 falls in the last year or 1 fall with injury or currently using an Ambulatory Assistive Device (Walker, Cane, Wheelchair, Crutches, etc.)? No PATIENT GENDER DATA: Female. status: : No status: NO. PATIENT RELEVANT IMPLANT DATA REVIEWED: Not Applicable PATIENT PRESENTS WITH AN IMPLANTABLE OR ATTACHED MEDICAL ACCOUNTANT: No RADIOLOGY DEPARTMENT: General X-ray: Exam(s) Completed: Chest X-Ray PERIPHERAL IV DATA: Not applicable SIGNED BY: JOSE Hernandez) June 20, 2024 8:31 AM documented in this encounterJ.W. [facility]07-30-2024 NoteHNO ID: [id number] Author: GUDELIA REYES RT (R) Service: ? Author Type: Technologist Type: Progress Notes Filed: 06/20/2024 08:31 Note Text: Radiology Service Progress Note PATIENT NAME: Jailene Fairbanks DATE OF SERVICE: June 20, 2024 TIME: 8:31 AM PATIENT IDENTITY VERIFICATION COMPLETED USING TWO (2) IDENTIFIERS: Name and Date of confirmed by patient verbally. FALL SCREENING: Has the patient had 2 falls in the last year or 1 fall with injury or currently using an Ambulatory Assistive Device (Walker, Cane, Wheelchair, Crutches, etc.)? No PATIENT GENDER DATA: Female. status: : No status: NO. PATIENT RELEVANT IMPLANT DATA REVIEWED: Not Applicable PATIENT PRESENTS WITH AN IMPLANTABLE OR ATTACHED MEDICAL ACCOUNTANT: No RADIOLOGY DEPARTMENT: General X-ray: Exam(s) Completed: Chest X-Ray PERIPHERAL IV DATA: Not applicable SIGNED BY: JOSE Hernandez) June 20, 2024 8:31 [place] [id number] NoteHNO ID: [id number] Author: DEB RUIZ RT(R) Service: Radiology Author Type: Technologist Type: Progress Notes Filed: 04/01/2024 05:37 Note Text: Radiology Service Progress Note PATIENT NAME: Jailene Fairbanks DATE OF SERVICE: April 01, 2024 TIME: 5:37 AM PATIENT IDENTITY VERIFICATION COMPLETED USING TWO (2) IDENTIFIERS: Name and Date of confirmed by patient verbally and Name and Date of confirmed by identification band. FALL SCREENING: Has the patient had 2 falls in the last year or 1 fall with injury or currently using an Ambulatory Assistive Device (Walker, Cane, Wheelchair, Crutches, etc.)? Emergency Room Patient: Screened in ED PATIENT GENDER DATA: Female. status: : No status: NO. PATIENT RELEVANT IMPLANT DATA REVIEWED: Yes PATIENT PRESENTS WITH AN IMPLANTABLE OR ATTACHED MEDICAL ACCOUNTANT: No RADIOLOGY DEPARTMENT: CT; Exam(s) Completed: Chest PERIPHERAL IV DATA: Not applicable SIGNED BY: RT Julia(R) April 01, 2024 5:37 [facility]05-11-2024 NoteHNO ID: [id number] Author: JEANIE ZENDEJAS RRT Service: Emergency Medicine Author Type: Registered Resp Therapist Type: Progress Notes Filed: 04/01/2024 04:59 Note Text: RESPIRATORY THERAPY PROGRESS NOTE SERVICE DATE: 04/01/2024 SERVICE TIME: 0458 Patient being admitted to CDU with complaints of chest pain. Breath sounds bilaterally clear. Patient states no pulmonary history or medications. Patient able to speak full sentences and appears in no respiratory distress at this time. HR 67, RR 12, pulse ox 95% RA. Will continue to monitor patient. SIGNATURE: Jeanie Zendejas RRT PATIENT NAME: Jailene Fairbanks DATE: April 01, 2024 TIME: 4:58 AM PAGER/CONTACT #: [phone] NoteHNO ID: [id number] Author: VIVIANA BOWMAN MD Service: Cardiovascular Medicine Author Type: Fellow Type: Plan of Care Filed: 04/01/2024 04:20 Note Text: Ms. 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 Pt reports intermittent diaphoresis and lightheadedness with accompanying bradycardia/hypotension. These symptoms worsened in the past few days which prompted her to seek care. No syncope. Last echo 12/2023 with preserved LV and RV systolic function, well functioning AVR with stable gradients ECG non ischemic with no acute changes. Sinus rhythm with RBBB same as baseline HsTNT negative. WBC slightly elevated at 11 Impression: - Likely long covid albeit diagnosis of exclusion. Current workup very reassuring from cardiac standpoint Recommendation: - monitor in CDU on telemetry - TTE in the AM - Orthostatic vital signs - ESR/CRP - Consider CT chest non-con to look for pulmonary fibrosis from covid. Viviana Bowman MD Cardiovascular Medicine Fellow Pager: [phone] Hospital05-10-2024 NoteHNO ID: [id number] Author: JEANIE ZENDEJAS RRT Service: Emergency Medicine Author Type: Registered Resp Therapist Type: Progress Notes Filed: 04/01/2024 00:35 Note Text: RESPIRATORY THERAPY PROGRESS NOTE SERVICE DATE: 04/01/2024 SERVICE TIME: 2250 Pt arrived to ED with c/o Chest pain. Pt has history of aortic valve replacement. Pt states they feel SOB on exertion and this has been happening since they had Covid in January. Pt sat 98% on RA, RR 18, HR 67, breath sounds clear, pt denies SOB at this moment. SIGNATURE: Jeanie Zendejas RRT PATIENT NAME: Jailene Fairbanks DATE: April 01, 2024 TIME: 12:32 AM PAGER/CONTACT #: [phone] Hospital05-03-2024 Telephone encounter Note* Telephone Encounter - Emy Garcia PA-C - 03/24/2024 4:59 PM EDT Called patient and she notes she saw her local doctor and got an EKG done. Her doctor said her heart rate was low (in the 50s). Patient doesn't know what the EKG strip showed. She also has been experiencing dizziness. Discussed taking 6.25 mg BID but would be difficult to cut her pill into quarters. I advised then to take her metoprolol 12.5 mg once daily instead of twice to see how she feels. Advised to monitor heart rate in the morning and at night time to see how it runs. If it starts to runhigh in the evening time, can trial switching to long acting metoprolol. Patient verbalized understanding and will reach out with further questions or concerns. Emy Garcia PA-C [facility] Work Phone: [phone]) 296-700405-03-2024 Miscellaneous Notes* Telephone Encounter - Emy Garcia PA-C - 03/24/2024 4:59 PM EDT Called patient and she notes she saw her local doctor and got an EKG done. Her doctor said her heart rate was low (in the 50s). Patient doesn't know what the EKG strip showed. She also has been experiencing dizziness. Discussed taking 6.25 mg BID but would be difficult to cut her pill into quarters. I advised then to take her metoprolol 12.5 mg once daily instead of twice to see how she feels. Advised to monitor heart rate in the morning and at night time to see how it runs. If it starts to runhigh in the evening time, can trial switching to long acting metoprolol. Patient verbalized understanding and will reach out with further questions or concerns. Emy Garcia PA-C * Telephone Encounter - Madison Bullock - 03/24/2024 12:25 PM EDT March 24, 2024 Patient Contact Number: [phone] Patient last seen within the last year: yes Date of last office visit: 12/23/2023 Reason For Call: Dizziness Physician: Kelle Polanco Patient was informed that non-urgent calls may be returned within the next three business days. Yes Patient went to [facility] and HR is in the 50's had EKG Has been feeling dizzy for a few weeks Madison Bullock [facility] Telephone encounter Note * Telephone Encounter - Madison Bullock - 03/24/2024 12:25 PM EDT March 24, 2024 Patient Contact Number: [phone] Patient last seen within the last year: yes Date of last office visit: 12/23/2023 Reason For Call: Dizziness Physician: Kelle Polanco Patient was informed that non-urgent calls may be returned within the next three business days. Yes Patient went to [facility] and HR is in the 50's had EKG Has been feeling dizzy for a few weeks Madison Bullock [facility]02-13-2024 History of Present illness Narrative* Kelle De Leon MD - 01/04/2024 12:00 PM EST Heart, Vascular & Thor[facility] [place] Department of Cardiovascular Medicine TELEPHONE VISIT (audio only) PROGRESS NOTE This is a telephone encounter initiated for an established patient. The patient, parent or guardianis not originating from a related Evaluation & Management service provided within the previous 7 days nor leading to an Evaluation & Management service or procedure within the next 24 hours or soonest available appointment. I have communicated my name and active licensure. The patient's identity and physical location wereverified at the time of this visit. Either the patient or their legal event representative has been informed of the risks and benefits of -- and alternatives to -- treatment through a remote evaluation andconsents to proceed with the evaluation remotely. Jailene Fairbanks has consented to this telephone encounter. Persons Present: patient Chief Complaint/Reason: follow up. 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 She was previously seen with complaints of muscular pain on her chest. In addition, it was noticed bradycardia with HR at 52 bpm, and it was recommended to down titrate metoprolol to 12.5 mg bid. She continues to have the muscular pain, but overall is less intense and frequent. Her heart rate is fluctuating in 60s and low 70s with the medication adjustment. Overall, she feels good and is recovering satisfactorily. 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 Here for postoperative follow up. Surgical Pathology/Microbiology: Final diagnosis: A. Aortic valve, excision: - Bioprosthetic valve with severe calcification and cuspal tears (gross examination only). Gross Description: A. AORTIC VALVE Received in formalin, labeled with the patient's name, medical record number and aortic valve is a bioprosthetic bovine pericardial valve with the sewing ring diameter of 3.0 cm. It demonstrates three markedly calcified leaflets, all of which are torn at the commissural attachments. Moderate panus formation is present. There are no vegetations present. No sections are submitted. She endorses mild chest discomfort on her left side and back, that she thinks is muscular in nature. She denies fevers, edema, syncope or oozing from the sternal wound. She started cardiac rehab and is completing the session without limitations. Data Reviewed: Most recent labs and imaging results. Last ECHO Result Conclusion ECHO Collected: 12/23/2023 3:56 PM (Final result) Impression: CONCLUSIONS: - Exam indication: s/p AVR - The left ventricle is normal in size. Left ventricular systolic function is normal. EF = 57 5% (2D biplane) Indeterminate left ventricular diastolic dysfunction. - The right ventricle is normal in size. Right ventricular systolic function is low normal. - The visualized aorta is dilated with a maximal dimension of 4.0 cm. - Epic Max prosthetic aortic valve (size #21). There is no aortic valve regurgitation. The peak gradient is 15 mmHg, the mean gradient is 9 mmHg and the dimensionless valve index is 0.51. Prior peak gradient of 19 mmHg. - Exam was compared with the prior echocardiographic exam performed on 10/26/2023 ([facility]). * * * Final * * * Last EKG Result Conclusion ECG COMPLETE Collected: 12/23/2023 1:47 PM (Preliminary result) Impression: SINUS BRADYCARDIA COMPLETE RIGHT BUNDLE BRANCH BLOCK ABNORMAL ECG Last CT Result Conclusion CTA CHEST (GATED) W IVCON Exam End: 10/25/2023 12:02 PM (Final result) Impression: IMPRESSION: Status post aortic valve replacement. Severe leaflet calcifications, as described Normal dimensions of thoracic aorta Mercerizing Range Feeder[facility] Transcribe Date/Time: Oct 25 2023 12:03P Dictated by : TONY JOHNSTON MD This examination was interpreted and the report reviewed and electronically signed by: TONY JOHNSTON MD on Oct 25 2023 1:30PM EST I have reviewed her echocardiogram. 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 PLAN AND RECOMMENDATIONS: Status post redo SAVR 21 mm Epic Max - Continue metoprolol tartrate 12.5 mg bid. Refills provided. - Overall satisfactory recovery with good echocardiographic results. - SBE prophylaxis. - Continue rehab. 2. DLP - Continue Crestor 40 mg every day. 3. Dilated aorta. - Monitor. RTC in person in 1 year with ECG and echocardiogram. Total Time Spent: 5-10 minutes Kelle Foy MD Clinical Staff. Section of Cardiovascular Imaging. [facility] Department of Cardiovascular Medicine Heart [facility] V[facility] [place] [facility] / documented in this encounterJ[facility]. [facility] NoteHNO ID: [id number] Author: KELLE DE LEON MD Service: ? Author Type: Physician Type: Progress Notes Filed: 01/04/2024 12:16 Note Text: Heart, Vascular AND Thoracic [place] Department of Cardiovascular Medicine TELEPHONE VISIT (audio only) PROGRESS NOTE This is a telephone encounter initiated for an established patient. The patient, parent or guardian is not originating from a related Evaluation AND Management service provided within the previous 7 days nor leading to an Evaluation AND Management service or procedure within the next 24 hours or soonest available appointment. I have communicated my name and active licensure. The patient's identity and physical location were verified at the time of this visit. Either the patient or their legal event representative has been informed of the risks and benefits of -- and alternatives to -- treatment through a remote evaluation and consents to proceed with the evaluation remotely. Jailene Fairbanks has consented to this telephone encounter. Persons Present: patient Chief Complaint/Reason: follow up. 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 She was previously seen with complaints of muscular pain on her chest. In addition, it was noticed bradycardia with HR at 52 bpm, and it was recommended to down titrate metoprolol to 12.5 mg bid. She continues to have the muscular pain, but overall is less intense and frequent. Her heart rate is fluctuating in 60s and low 70s with the medication adjustment. Overall, she feels good and is recovering satisfactorily. 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 Here for postoperative follow up. Surgical Pathology/Microbiology: Final diagnosis: A. Aortic valve, excision: - Bioprosthetic valve with severe calcification and cuspal tears (gross examination only). Gross Description: A. AORTIC VALVE Received in formalin, labeled with the patient's name, medical record number and aortic valve is a bioprosthetic bovine pericardial valve with the sewing ring diameter of 3.0 cm. It demonstrates three markedly calcified leaflets, all of which are torn at the commissural attachments. Moderate panus formation is present. There are no vegetations present. No sections are submitted. She endorses mild chest discomfort on her left side and back, that she thinks is muscular in nature. She denies fevers, edema, syncope or oozing from the sternal wound. She started cardiac rehab and is completing the session without limitations. Data Reviewed: Most recent labs and imaging results. Last ECHO Result Conclusion ECHO Collected: 12/23/2023 3:56 PM (Final result) Impression: CONCLUSIONS: - Exam indication: s/p AVR - The left ventricle is normal in size. Left ventricular systolic function is normal. EF = 57 ? 5% (2D biplane) Indeterminate left ventricular diastolic dysfunction. - The right ventricle is normal in size. Right ventricular systolic function is low normal. - The visualized aorta is dilated with a maximal dimension of 4.0 cm. - Epic Max prosthetic aortic valve (size #21). There is no aortic valve regurgitation. The peak gradient is 15 mmHg, the mean gradient is 9 mmHg and the dimensionless valve index is 0.51. Prior peak gradient of 19 mmHg. - Exam was compared with the prior CC echocardiographic exam performed on 10/26/2023 ([facility]). * * * Final * * * Last EKG Result Conclusion ECG COMPLETE Collected: 12/23/2023 1:47 PM (Preliminary result) Impression: SINUS BRADYCARDIA COMPLETE RIGHT BUNDLE BRANCH BLOCK ABNORMAL ECG Last CT Result Conclusion CTA CHEST (GATED) W IVCON Exam End: 10/25/2023 12:02 PM (Final result) Impression: IMPRESSION: Status post aortic valve replacement. Severe leaflet calcifications, as described Normal dimensions of thoracic aorta Mercerizing Range Feeder: [facility] Transcribe Date/Time: Oct 25 2023 12:03P Dictated by : TONY JOHNSTON MD This examination was interpreted and the report reviewed and electronically signed by: TONY JOHNSTON MD on Oct 25 2023 1:30PM EST I have reviewed her echocardiogram. 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 PLAN AND RECOMMENDATIONS: Status post redo SAVR 21 mm Epic Max - Continue metoprolol tartrate 12.5 mg bid. Refills provided. - Overall satisfactory recovery with good echocardiographic results. - SBE prophylaxis. - Continue rehab. 2. DLP - Continue Crestor 40 mg ev (more content not included)...[facility]02-01-2024 History of Present illness Narrative* Kelle De Leon MD - 12/23/2023 2:30 PM EST Images from the original note were not included. Heart [facility] V[facility] [place] [facility] Department of Cardiovascular Medicine SECTION OF CARDIOVASCULAR IMAGING OUTPATIENT VISIT DATE October 22, 2023 OUTPATIENT VISIT TYPE CONSULTATION PRIMARY CARE PHYSICIAN: To use this Smartlink, specify the provider ID whose address you want to display, e.g., .PROVADDR[1(where 1 is the provider ID). 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 Here for postoperative follow up. Surgical Pathology/Microbiology: Final diagnosis: A. Aortic valve, excision: - Bioprosthetic valve with severe calcification and cuspal tears (gross examination only). Gross Description: A. AORTIC VALVE Received in formalin, labeled with the patient's name, medical record number and aortic valve is a bioprosthetic bovine pericardial valve with the sewing ring diameter of 3.0 cm. It demonstrates three markedly calcified leaflets, all of which are torn at the commissural attachments. Moderate panus formation is present. There are no vegetations present. No sections are submitted. She endorses mild chest discomfort on her left side and back, that she thinks is muscular in nature. She denies fevers, edema, syncope or oozing from the sternal wound. She started cardiac rehab and is completing the session without limitations. PRIOR NOTE Cardiac consultation at the request of Dr. Luli Dixon. A copy of this consultation note will beprovided to the requesting physician by way of shared Medical record or letter to requesting physician via US mail. Ms. Fairbanks is a 67 year old female who is seen today for pre-op evaluation. She had a Trifecta AVR in 2013, which is now stenosed. On a background of hypertension, hyperlipidemia, peripheral neuropathy, abdominal aortic aneurysm, and SLE and fibromyalgia. She has had some transient lower quadrant visual field defects over the last few years, but has seen Neuro and Ophthalmology who have cleared her for cardiac surgery. She is symptomatic with fatigue and exertional dyspnea. She denies chest pain, orthopnea, cough, edema, palpitations, PND, lightheadedness or syncope. PAST MEDICAL HISTORY Diagnosis Date AAA (abdominal aortic aneurysm) (HCC) Coronary artery disease Dyslipidemia Fibromyalgia Hypertension Irregular heart beat Peripheral neuropathy Prosthetic aortic valve stenosis Systemic lupus erythematosus (HCC) TIA (transient ischemic attack) Unsure when- Comfirmed with Neurology PAST SURGICAL HISTORY Procedure Laterality Date ANKLE SURGERY HX Left HEMORRHOID;BAND LIGAT, SNGL/MUL HYSTERECTOMY LEFT HEART CATH,PERCUTANEOUS multiple PAST SURGICAL HISTORY OF 10/25/2014 AVR PAST SURGICAL HISTORY OF C section x2 PAST SURGICAL HISTORY OF R tibia and fibula surgery SOCIAL HISTORY Social History Tobacco Use Smoking status: Former Packs/day: 0.25 Years: 30.00 Additional pack years: 0.00 Total pack years: 7.50 Types: Cigarettes Quit date: 02/2023 Years since quittin.8 Smokeless tobacco: Never Substance Use Topics Alcohol use: Never Drug use: Never FAMILY HISTORY Problem Relation Age of Onset Heart Attack Mother Heart disease Father leaky valve Kidney failure Father Coronary Artery Disease Father Diabetes Father No Known Problems Sister No Known Problems Sister No Known Problems Sister No Known Problems Sister No Known Problems Sister No Known Problems Sister No Known Problems Sister No Known Problems Sister No Known Problems Brother Stroke Maternal Grandmother Heart Attack Maternal Grandfather Stroke Paternal Grandmother No Known Problems Paternal Grandfather other (Bicuspid aortic valve) Niece Heart Attack Maternal Aunt Heart Attack Maternal Aunt Arrhythmia Maternal Uncle PPM Coronary Artery Disease Maternal Uncle Bypass other (RBBB) Son No Known Problems Daughter ALLERGIES: ALLERGIES Allergen Reactions Alendronate Unknown Latex Unknown Meloxicam Unknown Morphine Unknown Sulfa (Sulfonamide * Unknown Tramadol Unknown MEDICATIONS: bisacodyl EC (DULCOLAX) 5 mg EC tablet Take 2 tablets by mouth once daily. (Patient taking differently: Take 5 mg by mouth once daily.) metoprolol tartrate, short acting, (LOPRESSOR) 25 mg tablet Take 1 tablet by mouth every 12 hours. rosuvastatin (CRESTOR) 40 mg tablet Take 40 mg by mouth. omeprazole (PRILOSEC) 40 mg capsule Take 40 mg by mouth. citalopram (CELEXA) 40 mg tablet Take 1 tablet by mouth every afternoon. aspirin, enteric coated (ASPIRIN, ENTERIC COATED) 81 mg EC tablet Take 81 mg by mouth. REVIEW OF SYSTEMS: Positive in BOLD GENERAL: Negative for: Weight loss or gain, Fever or Chills, Weakness and Sleep difficulties. HEENT: Negative for: Headache, Impaired Vision, Glasses, Hearing Impairment, Ringing in Ears, Nosebleeds, Dental Problems, Bleeding Gums, Dentures NECK: Negative for: Swelling, Pain, Stiffness RESPIRATORY: Negative for: Cough, Blood in Sputum, Shortness of breath, Wheezing, Apnea GASTROINTESTINAL: Negative for: Trouble swallowing, Heartburn, Change in bowel habits, Blood in stool, Dark black stools MUSCULOSKELETAL: Negative for: Muscle or joint pain, Stiffness , Joint swelling NEUROLOGIC/PSYCHIATRIC: Negative for: Weakness, Paralysis, Numbness, Tingling, Tremor, Nervousness, Depressed mood, Anxiety, Memory loss SKIN: Negative for: Rashes, Itching HEMATOLOGICAL/LYMPHATIC: Negative for: Easy bruising , Easy bleeding ENDOCRINE: Negative for: Heat or cold intolerance, Excessive sweating, Frequent urination, Frequent thirst PHYSICAL EXAMINATION: BP 107/70 Pulse (!) 58 Ht 165.1 cm (5' 5 ) Wt 71.8 kg (158 lb 6.4 oz) SpO2 96% BMI 26.36 kg/m General: Well appearing, in no acute distress. Skin: No clubbing, no cyanosis.Well healing sternal wound. Eyes: Extra ocular movements intact Oropharynx: Teeth in good repair. Neck: No jugular venous distention, no carotid bruits, carotids have a normal upstroke, no palpablethyromegaly. Lungs: Clear to auscultation bilaterally, no wheezing or rhonchi. Heart: Regular rhythm, PMI not displaced, S1, S2 normal, no S3, no S4, no heaves, no rub and 4/6 ESmurmur. Abdomen: Soft, nontender, bowel sounds normal, no palpable organomegaly, no bruits. Extremities: No peripheral edema . Grade 2/4 distal pulses bilaterally. Neuro: Oriented to person, place and time, alert, cooperative, gait coordinated. CARDIOVASCULAR MEDICINE TESTING: Recent Labs 12/23/23 1403 WBC 6.26 HB 12.5 HCT 37.3 PLT 263 No results found for this basename: hba1c No results found for this basename: pbnp:4 Glucose, Point of Care 123 10/29/2023 Glucose, Point of Care 128 10/28/2023 Glucose, Point of Care 120 10/28/2023 Glucose, Point of Care 121 10/27/2023 Glucose, Point of Care 126 10/27/2023 Cholesterol, Total 112 10/29/2023 HDL Cholesterol 50 10/29/2023 LDL Cholesterol 30 10/29/2023 Triglyceride 161 10/29/2023 No results found for this basename: tsh,t3,t4,cor TTE preliminary 12/23/23 Exam indication: s/p AVR - The left ventricle is normal in size. Left ventricular systolic function is normal. EF = 57 5% (2D biplane) Indeterminate left ventricular diastolic dysfunction. - The right ventricle is normal in size. Right ventricular systolic function is low normal. - The visualized aorta is dilated with a maximal dimension of 4.0 cm. - Epic Max prosthetic aortic valve (size #21). There is no aortic valve regurgitation. The peak gradient is 15 mmHg, the mean gradient is 9 mmHg and the dimensionless valve index is 0.51. Prior peak gradient of 19 mmHg. - Exam was compared with the prior CC echocardiographic exam performed on 10/26/2023 ([facility]). Last CT Result Conclusion CTA CHEST (GATED) W IVCON Exam End: 10/25/2023 12:02 PM (Final result) Impression: IMPRESSION: Status post aortic valve replacement. Severe leaflet calcifications, as described Normal dimensions of thoracic aorta Mercerizing Range Feeder: [facility] Transcribe Date/Time: Oct 25 2023 12:03P Dictated by : TONY JOHNSTON MD This examination was interpreted and the report reviewed and electronically signed by: TONY JOHNSTON MD on Oct 25 2023 1:30PM EST I have reviewed her ECG and echocardiogram. 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 Here for postoperative follow up. Euvolemic on exam without abnormal auscultatory findings. Well healing sternal wound. ECG with SB and stable RBBB, no st or OR interval changes. TTE today showed normal biventricular size and function. Well seated AVR with gradients 15/9 mmHg, DI 0.51. PLAN AND RECOMMENDATIONS: Status post redo SAVR 21 mm Epic Max - Decreasing metoprolol to 12.5 mg bid. Follow up with phone encounter in two weeks. - Overall satisfactory recovery with good echocardiographic results. - Monitor symptoms of chest discomfort. - SBE prophylaxis. - Continue rehab. Phone encounter in two weeks. CONTACT INFORMATION: Kelle Foy MD Clinical Staff. Section of Cardiovascular Imaging. [facility] Department of Cardiovascular Medicine Heart and Vascular [place] [facility] / documented in this encounterJ[facility]12[facility] Evaluation note* Encounter Date Diagnosis Assessment Notes Treatment Notes Treatment Clinical Notes Oct, Elevated platelet count (ICD-10 - R79.89) Reviewed labs from [facility] - they recommend recheck CBC and CMP this week. She will see them again on 12/23. Oct, Elevated glucose level (ICD-10 - R73.09) as above Oct, Stenosis of prosthetic aortic valve, initial encounter (ICD-10 - T82.857A) Reviewed history and d/w Naren. Take meds as prescribed. Updated history Followup here in 3 months, sooner if needed. [place] Other [id number] Miscellaneous Notes* Telephone Encounter - Gifty Barth RN - 11/05/2023 2:50 PM EST We are calling to check on how you are doing since our last phone call. Are you having any medical concerns we can help you with today? -No new medical concerns today. Call Outcome: All Clear All clear and closing statement given. PD RN verified patients name and date of . Gifty Barth RN documented in this encounterJ.W. [facility]12-12-2023 Miscellaneous Notes* Telephone Encounter - Sylwia Skaggs RN - 11/02/2023 4:38 PM EST [facility] Contact Center Inbound Phone Encounter DATE of SERVICE: 11/02/2023 TIME of SERVICE: 4:38 PM Status: FY Service/Provider: Cardiac Surgery Efra Dixon M.D. Reason for call: Education Reinforcement Contact information: [phone] Resolution: Reinforced education Comments: Patient called with questions regarding post-op recovery. Sternal precautions, and incision care per discharge instructions reviewed with patient and she voiced understanding. Sylwia Skaggs RN Date of Resolution: 11/02/2023 Time of Resolution 4:38 PM documented in this encounterJ.W. [facility]12-12-2023 Miscellaneous Notes* Telephone Encounter - Gifty Barth RN - 11/02/2023 2:57 PM EST 1. Have you noticed any increase in shortness of breath since you left the hospital? -No 2. Have you noticed any increased swelling in your feet , ankles, or stomach? (Skip for vascular pts) -No 3. Have you gained more than 2-3 pounds since discharge? (Skip for vascular & EP pts) -No 4. Have you noticed any change in your incision or wound since you were discharged? (as we want youto be aware of any signs of infection) -No 5. Are you having any increased pain since discharge? If yes: What type of pain and where? (pressure, sharp pain, dull pain, etc.) -No 6. Have you had any unplanned trips to the emergency department or hospital since you were discharged? If yes - why? -No 7. Do you have any questions about your medications? -No 8. Were you able to fill all of the prescribed medications? -Yes 9. Do you have a doctor s appointment scheduled or is someone working on getting you a follow-up appointment? -Yes All clear and closing statement given. RN verified patients name and date of . Gifty Barth RN documented in this encounterJ[facility]. [facility] Miscellaneous Notes* Telephone Encounter - Henri Foreman RN - 11/01/2023 11:54 AM EST PD nurse called patient for follow up from recent hospital discharge, but no answer. Left message on [employer] including resource nurse phone number. Henri Foreman RN documented in this encounterJ.W. [facility]12-05-[facility] History of Present illness Narrative* Luli Dixon MD - 10/26/2023 6:46 PM EST Images from the original note were not included. Heart, V[facility] Thoracic [place] DEPARTMENT OF CARDIAC SURGERY OUTPATIENT VISIT DATE October 26, 2023 OUTPATIENT VISIT SERVICE DATE: 10/26/2023 SERVICE TIME: 6:46 PM [facility] [address] [place] [id number] Referring Physician: Luli Dixon [id number] [facility] [id number] Patient Type: New Visit to Determine Surgery: Yes HPI: Ms. Jailene Fairbanks is a 67 year old female seen regarding candidacy for cardiac surgery. She is currently symptomatic and complains of shortness of breath Comorbidities include prosthetic valve stenosis. I have personally reviewed and analyzed all records that pertain to the patient's prior course in addition to the following studies: cardiac catheterization. Last CT Result Conclusion CTA CHEST (GATED) W IVCON Exam End: 10/25/2023 12:02 PM (Final result) Impression: IMPRESSION: Status post aortic valve replacement. Severe leaflet calcifications, as described Normal dimensions of thoracic aorta Mercerizing Range Feeder: [facility] Transcribe Date/Time: Oct 25 2023 12:03P Dictated by : TONY JOHNSTON MD This examination was interpreted and the report reviewed and electronically signed by: TONY JOHNSTON MD on Oct 25 2023 1:30PM EST Last ECHO Result Conclusion ECHO Collected: 10/25/2023 2:35 PM (Final result) Impression: CONCLUSIONS: - Technically difficult exam due to body habitus. - Exam indication: Pre-op redo AVR, H/o AVR (2013) - The left ventricle is normal in size. Left ventricular systolic function is normal. EF = 63 5% (2D biplane) - The right ventricle is normal in size. Right ventricular systolic function is normal. - The visualized aorta is borderline dilated with a maximal dimension of 4.0 cm. - There is moderate (2+) tricuspid valve regurgitation. - Trifecta prosthetic aortic valve (size #23). There is mild (1+) aortic valve regurgitation. There is severe aortic valve stenosis. The peak gradient is 66 mmHg, the mean gradient is 43 mmHg and the dimensionless valve index is 0.22. - Estimated right ventricular systolic pressure is likely underestimated due to a weak or incomplete tricuspid regurgitation signal and is, at least, 39 mmHg consistent with mild pulmonary hypertension. Estimated right atrial pressure is 3 mmHg based on IVC assessment. - The patient has not had a prior CC echocardiographic exam for comparison. * * * Final * * * Impression: Prosthetic aortic valve stenosis Plan: Operative: redo avr Based on my evaluation she is a low risk for cardiac surgery. The risks, benefits and anticipated outcomes of the procedure, the risks and benefits of the alternatives to the procedure, and the roles and tasks of the personnel to be involved, were discussed with the patient, and the patient consents to the procedure and agrees to proceed. We discussed the possibility that there could be two patients undergoing surgery in two separate rooms (concurrent surgery) and that I would be present for the critical components of all operations. We also discussed that in an emergency situation, a qualified backup surgeon is available and in the rare event of such aserious situation, that colleague might take over the operation. These findings will be communicated back to the requesting physician via electronic medical record Luli Dixon MD documented in this encounterJ.W. [facility]12-04-[facility] History of Present illness Narrative* Viviane Smart RN - 10/25/2023 5:08 PM EST AMBULATORY PATIENT EDUCATION READINESS TO LEARN Cognitive Ability: Alert and oriented Motivation To Learn: Interested Family Support: High - Very involved in pt care Instruction Provided To: Patient & Family Patient Learns Best By: Multiple Methods Factors Affecting Learning: None Physical Limitations Affecting Learning: None LEARNING RESPONSE Diagnosis: OHS Education Topic: Pre-Op Open Heart Surgery Instructions Teaching Points: Logistics / Protocols /Complication Prevention How prepared do you feel you are for this visit: 5 Instruction/Supplemental Materials: Cardiac Surgery Information Binder Individual Instruction Patient/Family Response: Well prepared Follow up plan: Patient/Family to call [facility] with any further questions Referral (Recommendation): None Teach completed, topic: PREOP OHS EDUCATION AND INFORMATION documented in this encounterJ.W. [facility]12-04-2023 History and physical note * Viviane Smart RN - 10/25/2023 5:04 PM EST CHART COPY-DO NOT DISCARD CARDIOVASCULAR SURGERY PRE-OPERATIVE ASSESSMENT NAME: Jailene Fairbanks Alert Notes: DATE: 10/25/2023 SEX: female : 1955 AGE: [age] year old Estimated body mass index is 27.29 kg/m as calculated from the following: Height as of an earlier encounter on 10/25/23: 165.1 cm (5' 5 ). Weight as of an earlier encounter on 10/25/23: 74.4 kg (164 lb). STS Score No data recorded No data recorded Patient scheduled for surgery on: No data recorded [facility] MD: Alena Rajan M.D. CHIEF COMPLAINT: Pre-Op Open Heart Surgery MEDICATIONS: Current Outpatient Medications Medication Sig rosuvastatin (CRESTOR) 40 mg tablet Take 40 mg by mouth. omeprazole (PRILOSEC) 40 mg capsule Take 40 mg by mouth. citalopram (CELEXA) 40 mg tablet Take 1 tablet by mouth every afternoon. aspirin, enteric coated (ASPIRIN, ENTERIC COATED) 81 mg EC tablet Take 81 mg by mouth. amLODIPine (NORVASC) 2.5 mg tablet Take 2.5 mg by mouth. (Patient not taking: Reported on 10/25/2023) No current facility-administered medications for this visit. ALLERGIES: ALLERGIES Allergen Reactions Alendronate Unknown Latex Unknown Meloxicam Unknown Morphine Unknown Sulfa (Sulfonamide * Unknown Tramadol Unknown LATEX ALLERGY: Yes SKIN BLISTERS FOOD SENSITIVITIES: No ANTICOAGULANTS: REMAIN ON 81 MG ASA PREOP STEROIDS: No HISTORIES: FAMILY HISTORY Problem Relation Age of Onset Heart Attack Mother Heart disease Father leaky valve Kidney failure Father Coronary Artery Disease Father Diabetes Father No Known Problems Sister No Known Problems Sister No Known Problems Sister No Known Problems Sister No Known Problems Sister No Known Problems Sister No Known Problems Sister No Known Problems Sister No Known Problems Brother Stroke Maternal Grandmother Heart Attack Maternal Grandfather Stroke Paternal Grandmother No Known Problems Paternal Grandfather other (Bicuspid aortic valve) Niece Heart Attack Maternal Aunt Heart Attack Maternal Aunt Arrhythmia Maternal Uncle PPM Coronary Artery Disease Maternal Uncle Bypass other (RBBB) Son No Known Problems Daughter PAST MEDICAL HISTORY Diagnosis Date AAA (abdominal aortic aneurysm) (HCC) Coronary artery disease Dyslipidemia Fibromyalgia Hypertension Irregular heart beat Peripheral neuropathy Prosthetic aortic valve stenosis Systemic lupus erythematosus (HCC) TIA (transient ischemic attack) Unsure when- Comfirmed with Neurology PAST SURGICAL HISTORY Procedure Laterality Date ANKLE SURGERY HX Left HEMORRHOID;BAND LIGAT, SNGL/MUL HYSTERECTOMY LEFT HEART CATH,PERCUTANEOUS multiple PAST SURGICAL HISTORY OF 10/25/2014 AVR PAST SURGICAL HISTORY OF C section x2 PAST SURGICAL HISTORY OF R tibia and fibula surgery Social History Tobacco Use Smoking status: Former Packs/day: 0.25 Years: 30.00 Additional pack years: 0.00 Total pack years: 7.50 Types: Cigarettes Quit date: 02/2023 Years since quittin.6 Smokeless tobacco: Never Substance Use Topics Alcohol use: Never Drug use: Never REVIEW OF SYSTEMS: GEN: Fatigue INTERMITTENTS HEENT: Glasses / WHEN LYING DOWN FEELS LIKE A FLAPPER IN THROAT AND FEELS LIKE CLOSING UP DERM: Denies Dermatological Complaints ALUMINUM 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 PERFUSION INDEX: Pacer Check: NA CARDIAC EVALUATION: Cardiac Cath: Date - OSH Ultrasound: Date - CAROTIDS 01/05/23 PFT: Date - NA ECHO: Last ECHO Result Conclusion ECHO Collected: 10/25/2023 2:35 PM (Final result) Impression: CONCLUSIONS: - Technically difficult exam due to body habitus. - Exam indication: Pre-op redo AVR, H/o AVR (2013) - The left ventricle is normal in size. Left ventricular systolic function is normal. EF = 63 5% (2D biplane) - The right ventricle is normal in size. Right ventricular systolic function is normal. - The visualized aorta is borderline dilated with a maximal dimension of 4.0 cm. - There is moderate (2+) tricuspid valve regurgitation. - Trifecta prosthetic aortic valve (size #23). There is mild (1+) aortic valve regurgitation. There is severe aortic valve stenosis. The peak gradient is 66 mmHg, the mean gradient is 43 mmHg and the dimensionless valve index is 0.22. - Estimated right ventricular systolic pressure is likely underestimated due to a weak or incomplete tricuspid regurgitation signal and is, at least, 39 mmHg consistent with mild pulmonary hypertension. Estimated right atrial pressure is 3 mmHg based on IVC assessment. - The patient has not had a prior CC echocardiographic exam for comparison. * * * Final * * * CT Scan: Last CT Result Conclusion CTA CHEST (GATED) W IVCON Exam End: 10/25/2023 12:02 PM (Final result) Impression: IMPRESSION: Status post aortic valve replacement. Severe leaflet calcifications, as described Normal dimensions of thoracic aorta Mercerizing Range Feeder: JONI Transcribe Date/Time: Oct 25 2023 12:03P Dictated by : TONY JOHNSTON MD This examination was interpreted and the report reviewed and electronically signed by: TONY JOHNSTON MD on Oct 25 2023 1:30PM EST MRI: CXR: No results found. EK10/25/23 Dental: Cleared ? Recent Labs 10/25/23 1129 10/25/23 1044 WBC -- 6.00 HB -- 13.5 HCT -- 40.6 PLT -- 237 INR -- 0.9 APTT -- 28.2 PTSEC -- 10.1 NA -- 140 K -- 5.1 BUN -- 15 CREAT 0.90 0.92 Pre Op Instructions per protocol reviewed and handout given to patient . Patient Education completed and documented. Instructed to start Bactroban per protocol. Emotional support provided to patient and family. All questions and concerns adressed. Signature: Viviane Smart RN See Cardiology History and Physical dated 10/25/23 documented in this encounterJ.W. [facility]12-04-[facility] History of Present illness Narrative* Efra Siegel MD - 10/25/2023 4:20 PM EST Images from the original note were not included. Cardiothoracic Anesthesiology Preoperative Assessment Service Date: 10/25/2023 Service Time: 4:26 PM Primary Care Physician: No primary care provider on file. Subjective Patient Entered Data: Scheduled procedure: Re-do AVR Surgeon: Efra Dixon Scheduled date: 10/26/2023 HPI: Patient is a 67 year old F with PMH of bioprosthetic aortic valve replacement in 2013 due to trileaflet aortic valve stenosis, coronary artery disease, hypertension, TIA, hyperlipidemia, peripheral neuropathy, abdominal aortic aneurysm, and SLE and secondary fibromyalgia. Per Echocardiogram 01/27/23, EF 60-65% and Bioprosthetic aortic valve is well-seated. Doppler flow suggests severe bioprosthetic valve stenosis. Patient presents today for pre-operative evaluation for the above surgery. Today we discussed the anesthetic plan, what to expect, and any questions or concerns the patient may have had. We additionally discussed perioperative medications and recommended that they take their medications as prescribed. Review no known heparin intolerance not taking anticoagulant/antiplatelet medication no non-cardiac IEDs present no known esophageal disorders blood transfusion consented - COVID-19 Immunization Status Covid-19 Vaccine (Series Information) Completed 09/22/2023 Outside Immunization: COVID-19, mRNA, LNP-S, PF, parul-sucrose, 30 mcg/0.3 mL 10/23/2021 Outside Immunization: COVID-19, mRNA, LNP-S, PF, 30 mcg/0.3 mL dose 02/06/2021 Outside Immunization: COVID-19, mRNA, LNP-S, PF, 30 mcg/0.3 mL dose Only the first 3 history entries have been loaded, but more history exists. The patient has the following: ACTIVE PROBLEM LIST Prosthetic Aortic Valve Stenosis Discharge Planning Issues Preop Testing PAST MEDICAL HISTORY Diagnosis Date AAA (abdominal aortic aneurysm) (HCC) Coronary artery disease Dyslipidemia Fibromyalgia Hypertension Irregular heart beat Peripheral neuropathy Prosthetic aortic valve stenosis Systemic lupus erythematosus (HCC) TIA (transient ischemic attack) Unsure when- Comfirmed with Neurology PAST SURGICAL HISTORY Procedure Laterality Date ANKLE SURGERY HX Left HEMORRHOID;BAND LIGAT, SNGL/MUL HYSTERECTOMY LEFT HEART CATH,PERCUTANEOUS multiple PAST SURGICAL HISTORY OF 10/25/2014 AVR PAST SURGICAL HISTORY OF C section x2 PAST SURGICAL HISTORY OF R tibia and fibula surgery FAMILY HISTORY Problem Relation Age of Onset Heart Attack Mother Heart disease Father leaky valve Kidney failure Father Coronary Artery Disease Father Diabetes Father No Known Problems Sister No Known Problems Sister No Known Problems Sister No Known Problems Sister No Known Problems Sister No Known Problems Sister No Known Problems Sister No Known Problems Sister No Known Problems Brother Stroke Maternal Grandmother Heart Attack Maternal Grandfather Stroke Paternal Grandmother No Known Problems Paternal Grandfather other (Bicuspid aortic valve) Niece Heart Attack Maternal Aunt Heart Attack Maternal Aunt Arrhythmia Maternal Uncle PPM Coronary Artery Disease Maternal Uncle Bypass other (RBBB) Son No Known Problems Daughter Social History Tobacco Use Smoking status: Former Packs/day: 0.25 Years: 30.00 Additional pack years: 0.00 Total pack years: 7.50 Types: Cigarettes Quit date: 02/2023 Years since quittin.6 Smokeless tobacco: Never Substance Use Topics Alcohol use: Never Drug use: Never Prior to Admission medications as of 10/25/23 0818 Medication Sig Last Dose Taking rosuvastatin (CRESTOR) 40 mg tablet Take 40 mg by mouth. omeprazole (PRILOSEC) 40 mg capsule Take 40 mg by mouth. citalopram (CELEXA) 40 mg tablet Take 1 tablet by mouth every afternoon. aspirin, enteric coated (ASPIRIN, ENTERIC COATED) 81 mg EC tablet Take 81 mg by mouth. amLODIPine (NORVASC) 2.5 mg tablet Take 2.5 mg by mouth. Patient not taking: Reported on 10/25/2023 No medication comments found. ALLERGIES Allergen Reactions Alendronate Unknown Latex Unknown Meloxicam Unknown Morphine Unknown Sulfa (Sulfonamide * Unknown Tramadol Unknown Objective Pain Assessment: Vitals: There were no vitals taken for this visit. Diagnostic tests reviewed for today's visit: Lab Value Units Date High Low HB 13.5 g/dL 10/25/2023 15.5 11.5 HCT 40.6 % 10/25/2023 46.0 36.0 WBC 6.00 k/uL 10/25/2023 11.00 3.70 PLT 237 k/uL 10/25/2023 400 150 NA No results within date range. K No results within date range. GLUC No results within date range. BUN No results within date range. CREAT 0.90 mg/dL 10/25/2023 1.4 0.7 PTSEC 10.1 sec 10/25/2023 13.0 9.7 INR 0.9 no uni* 10/25/2023 1.3 0.9 APTT 28.2 sec 10/25/2023 32.4 23.0 ALT No results within date range. AST No results within date range. TBILI No results within date range. TSH No results within date range. Lab Value Units Date High Low HCGQT No results within date range. UHCG No results within date range. HCG, BODY* No results within date range. Lab Value Units Date High Low ABORHD No results within date range. ABSCREEN No results within date range. No results found for: HBA1C Recent Results (from the past 8760 hour(s)) CTA CHEST (GATED) W IVCON Collection Time: 10/25/23 12:02 PM Impression IMPRESSION: Status post aortic valve replacement. Severe leaflet calcifications, as described Normal dimensions of thoracic aorta Mercerizing Range Feeder: JONI Transcribe Date/Time: Oct 25 2023 12:03P Dictated by : TONY JOHNSTON MD This examination was interpreted and the report reviewed and electronically signed by: TONY JOHNSTON MD on Oct 25 2023 1:30PM EST ECG COMPLETE Collection Time: 10/25/23 9:50 AM Impression NORMAL SINUS RHYTHM COMPLETE RIGHT BUNDLE BRANCH BLOCK ABNORMAL ECG Assessment No problem-specific Assessment & Plan notes found for this encounter. ANESTHESIA FINDINGS: Intubation History: Significant Anesthesia Considerations: Airway History: Prepared for Surgery: The Following Tests/Procedures Have Been Initiated: Orders Placed This Encounter mupirocin (BACTROBAN) 2 % ointment Sig: Apply a small amount in each nostril using a cotton swab twice the day before surgery and oncethe morning of surgery. Dispense: 22 g Refill: 0 Order Comments: Supply patient with Q-tips and instruction sheet ASA Class: 4 Planned Anesthetic: general I - PHYSICAL EVALUATION AIRWAY Patient intubated: No. Tracheostomy tube not present Mallampati: II. TM distance: >3 FB. Neck ROM: full ROM without neurological symptoms. Mouth opening: adequate. Short neck: no. Thick neck: no DENTAL Dental findings: missing tooth/teeth. II - ANESTHESIA PLAN ASA Score: 4 Anesthetic Plan: general Airway type: ETT Beta Todd Monitoring Plan Post Procedure Analgesic Plan Informed Consent Anesthetic risks, benefits, alternatives, personnel and consent discussed: yes. Patient / Responsible Democrat agrees to proceed: yes Patient / Surrogate agrees to blood products: Yes Instructions Given to Patient: Instructions located in the after visit summary. Patient given verbal and written preop instructions and voices comprehension and compliance. Signature: Lalita Medina MD Patient Name: Jailene Fairbanks Date: October 25, 2023 Time: 4:26 PM Pager/Contact #: documented in this encounterJ.W. [facility]12-04-20[facility] History of Past illness Narrative* Problem Noted Date Diagnosed Date Resolved Date Preop testing 10/25/2023 10/28/2023 Overview[facility] PRE-OP CHECKLIST [...] No Cardiac Surgical prep: N/A SIGNATURE: Viviane Smatr RN DATE of SERVICE: 10/25/2023 TIME of SERVICE: 2:24 PM CHECKED BY: documented as of this encounter (statuses as of 11/01/2023) [facility] History of Past illness Narrative* Problem Noted Date Diagnosed Date Resolved Date Preop testing 10/25/2023 10/28/2023 Overview: [facility] PRE-OP CHECKLIST [...] TIME of SERVICE: 2:24 PM CHECKED BY: documented as of this encounter (statuses as of 11/03/2023) [facility] History of Past illness Narrative* Problem Noted Date Diagnosed Date Resolved Date Preop testing 10/25/2023 10/28/2023 Overview: [facility] PRE-OP CHECKLIST [...] TIME of SERVICE: 2:24 PM CHECKED BY: documented as of this encounter (statuses as of 11/03/2023) [facility] History of Past illness Narrative* Problem Noted Date Diagnosed Date Resolved Date Preop testing 10/25/2023 10/28/2023 Overview: [facility] PRE-OP CHECKLIST [...] Dental: Cleared PFT's: N/A Recent Labs 10/25/23 11210/25/23 1044 WBC -- 6.00 HB -- 13.5 [...] TIME of SERVICE: 2:24 PM CHECKED BY: documented as of this encounter (statuses as of 11/06/2023) [facility] History of Past illness Narrative* Problem Noted Date Diagnosed Date Resolved Date Preop testing 10/25/2023 10/28/2023 Overview: [facility] PRE-OP CHECKLIST [...] TIME of SERVICE: 2:24 PM CHECKED BY: documented as of this encounter (statuses as of 12/24/2023) [facility] History of Past illness Narrative* Problem Noted Date Diagnosed Date Resolved Date Preop testing 10/25/2023 10/28/2023 Overview: [facility] PRE-OP CHECKLIST [...] Note: N/A Pacer Check: NA Implants: yes: 2014 MINI AVR Consults: NA DM: No Cardiac Surgical prep: N/A SIGNATURE: Viviane Smart RN DATE of SERVICE: 10/25/2023 TIME of SERVICE: 2:24 PM CHECKED BY: documented as of this encounter (statuses as of 01/04/2024) [facility] History of Present illness Narrative* Florinda Eason RN - 10/25/2023 12:00 PM EST Radiology Service Progress Note DATE OF SERVICE: October 25, 2023 TIME: 11:24 AM PATIENT WEIGHT: 165 LBS PATIENT IDENTITY VERIFICATION COMPLETED USING TWO (2) STANDARD IDENTIFIERS: Name and Date of confirmed by patient verbally and Name and Date of confirmed by identification band. FALL SCREENING: Has the patient had 2 falls in the last year or 1 fall with injury or currently using an Ambulatory Assistive Device (Walker, Cane, Wheelchair, Crutches, etc.)? No PATIENT GENDER DATA: Female. status: : No status: NO. ALLERGIES: Reviewed and unchanged CONTRAST ALLERGY: No EXAM: CT -CONTRAST INDUCED NEPHROPATHY RISK FACTORS: Patient age > 60 years CREATININE: Creatinine (POCT) Date Value Ref Range Status 10/25/2023 0.90 0.7 - 1.4 mg/dL Final eGFR (POCT) Date Value Ref Range Status 10/25/2023 >60 mL/min/1.73 m2 Final P.O.C.T. RESULTS: POC done: Yes, See Lab Tab October 25, 2023 TREATMENT: No Hydration needed. IV SITE: Ambulatory: A peripheral IV was started in the Right antecubital site with a Angio cath: 20 gauge. and A Saline lock was inserted per protocol IV SITE APPEARANCE: Clean,Dry and Intact SIGNATURE: Florinda Eason RN PATIENT NAME: Jailene Fairbanks DATE: October 25, 2023 TIME: 11:24 AM Dang Vasquez RT(R) - 10/25/2023 12:00 PM EST Radiology Service Progress Note PATIENT NAME: Jailene Fairbanks DATE OF SERVICE: October 25, 2023 TIME: 11:55 AM PATIENT IDENTITY VERIFICATION COMPLETED USING TWO (2) IDENTIFIERS: Name and Date of confirmedby patient verbally and Name and Date of confirmed by identification band. FALL SCREENING: Has the patient had 2 falls in the last year or 1 fall with injury or currently using an Ambulatory Assistive Device (Walker, Cane, Wheelchair, Crutches, etc.)? No PATIENT GENDER DATA: Female. status: : No status: NO. PATIENT RELEVANT IMPLANT DATA REVIEWED: Yes RADIOLOGY DEPARTMENT: CT; Exam(s) Completed: Cardiac PERIPHERAL IV DATA: Site assessment: Clean,Dry and Intact, Site disposition Discontinued SIGNED BY: RT Tommy(Kaela) October 25, 2023 11:55 AM documented in this encounterJ.W. Ruby [facility]12-04-2023 History of Present illness Narrative* Alena Rajan MD, PhD - 10/25/2023 8:00 AM EST Images from the original note were not included. [facility] [place] [facility] Department of Cardiovascular Medicine SECTION OF CARDIOVASCULAR IMAGING OUTPATIENT VISIT DATE October 22, 2023 OUTPATIENT VISIT TYPE CONSULTATION PRIMARY CARE PHYSICIAN: To use this Smartlink, specify the provider ID whose address you want to display, e.g., .PROVADDR[1(where 1 is the provider ID). REFERRING PHYSICIAN Luli Dixon [id number] [facility] [id number] CHIEF COMPLAINT: Prosthetic HISTORY OF PRESENT ILLNESS: Cardiac consultation at the request of Dr. Luli Dixon. A copy of this consultation note will beprovided to the requesting physician by way of shared Medical record or letter to requesting physician via US mail. Ms. Fairbanks is a 67 year old female who is seen today for pre-op evaluation. She had a Trifecta AVR in 2013, which is now stenosed. On a background of hypertension, hyperlipidemia, peripheral neuropathy, abdominal aortic aneurysm, and SLE and fibromyalgia. She has had some transient lower quadrant visual field defects over the last few years, but has seen Neuro and Ophthalmology who have cleared her for cardiac surgery. She is symptomatic with fatigue and exertional dyspnea. She denies chest pain, orthopnea, cough, edema, palpitations, PND, lightheadedness or syncope. NURSING INTAKE HISTORY: Ms. Fairbanks is a 67 year old female from [place], [place] being seen in the clinic today for cardiac evaluation for pre op clearance. Pt is scheduled for surgery with Dr. Dixon on 10/26/2023 for a redo AVR Office visit note Peggy Garcia MD - 09/10/2023 8:30 AM EDT H&P reviewed. The patient was examined and there are no changes to the H&P. Source Note - Leonardo Venegas MD - 08/31/2023 2:15 PM EDT Subjective Patient ID: Jailene Fairbanks is a 67 y.o. female who presents for Follow-up (SAVR- Was waiting onNeurology clearance seen 03/09, 04/27). HPI Ms. Fairbanks ia 67-year-old woman with prior history of bioprosthetic aortic valve replacement in 2013 due to trileaflet aortic valve stenosis. Her PMH is significant for coronary artery disease, hypertension, hyperlipidemia, peripheral neuropathy, abdominal aortic aneurysm, and SLE and secondary fibr omyalgia. Per Echocardiogram 01/27/23 EF 60-65% and Bioprosthetic aortic valve is well- seated. Doppler flow suggest severe bioprosthetic valve stenosis [DVI 0.28, aortic valve area 0.8 cm , mean gradient 45 mmHg, peak velocity 4.3 m/s ( previously DVI 0.29, mean gradient 23 mmHg on 08/27/2021)]. Mild perivalvular regurgitation. Patient was awaiting dental and neurology clearance prior to scheduling date for SAVR surgery due to history of Tia's and dizziness. On 08/10, she was cleared by neurology and received dental clearance on 04/07. Ischemic cerebrovascular disease found was on previous brain MRI, but recent CTA of neck and head is unremarkable. Today, she still endorses prior symptoms fatigue, gastric reflux that is not relieved by omeprazole, palpitations, dizziness, orthopnea and presyncopal episodes. Ms. Garcia has Consulted with multiple thoracic surgereons. She denies any chest pain during today visit, her vitals are WNL PMH consist of: CAD, HTN, HLD, Peripheral Neuropathy, Abdominal Aortic Aneurysm, Aortic valve insufficiency s/p AVR 2013 due to trileaflet aortic valve stenosis, and SLE and secondary fibromyalgia, former smoker. Pt present with complaints of pain in her upper back, lightheadedness, dizziness, palpitations, shortness of breath, tiredness Pt denies chest pain, edema, syncope, near syncope episodes, Pt currently does not work , does follow a regular diet, does not participate in exercise OUTSIDE CARDIOVASCULAR TESTING PFTs Impression: No obstructive ventilatory impairment, no restrictive ventilatory impairment and mild reduction in DLCo causing impairment in gas transfer based on DLCo. Low DLCo can be from multiple causes which should be further investigated, if clinically indicated. Clinical correlation suggested. Right heart cath 09/10/2023 Right heart catheterization. Access into the right internal jugular vein under ultrasound guidance. Methods: Procedure was explained to the patient with risks and benefits; she signed informed consent. The patient was brought to labour market economist in a fasting state. The right neck area was prepped and draped in usual fashion. Micropuncture technique was used for access under ultrasound guidance into the right internal jugular vein. A 6-Kittitian x 11 cm sheath was placed. A 6-Kittitian De La Cruz catheter was used for right heart catheterization and measurement of pressures and calculation of cardiac output using the estimated Dorcas method. De La Cruz catheter was removed. Hemostasis was achieved by manual compression in the internal jugular vein. she tolerated the procedure well and was transferred back to the cardiovascular recovery area. Hemodynamic Data: RA: 0 RV: 23/-2, 2 PA: 20/3 (11) PCWP: 5 CO: 4.13 CI: 2.26 O2 Sat: PA sat: 62%, AO sat: 95% BP: 124/75 (89) Impression/Findings: Normal left filling pressures. Normal right filling pressures. no pulmonary hypertension. Reduced cardiac output and cardiac index. Uncontrolled systemic hypertension. [facility] 02/15/23 (Images not available for review) CORONARY FINDINGS: LMCA - This vessel arises from the left coronary cusp and bifurcates into the left anterior descending and left circumflex coronary arteries. It is angiographically patent and without significant stenosis. LAD - Angiographically patent and without significant stenosis. LCX - Angiographically patent and without significant stenosis. RCA - This arises from the right coronary cusp. It is a dominant vessel giving rise to a PDA and PLB branch. It is angiographically patent and without significant stenosis. CT Chest 03/09/2023 Impression Impression: *Stable aneurysmal dilatation of the ascending thoracic aorta, measuring 4 cm in diameter, unchanged from previous examination dated 11/29/2014. *Otherwise normal CT angiogram of the thoracic aorta. PAST MEDICAL HISTORY Diagnosis Date AAA (abdominal aortic aneurysm) (HCC) Coronary artery disease Dyslipidemia Fibromyalgia Hypertension Peripheral neuropathy Prosthetic aortic valve stenosis Systemic lupus erythematosus (HCC) TIA (transient ischemic attack) No past surgical history on file. SOCIAL HISTORY Social History Tobacco Use Smoking status: Unknown No family history on file. ALLERGIES: ALLERGIES Allergen Reactions Alendronate Unknown Latex Unknown Meloxicam Unknown Morphine Unknown Sulfa (Sulfonamide * Unknown Tramadol Unknown MEDICATIONS: tiZANidine (ZANAFLEX) 4 mg tablet Take 4 mg by mouth every 6 hours as needed. rosuvastatin (CRESTOR) 40 mg tablet Take 40 mg by mouth. predniSONE (DELTASONE) 2.5 mg tablet Take 2.5 mg by mouth. omeprazole (PRILOSEC) 40 mg capsule Take 40 mg by mouth. hydrOXYchloroQUINE (PLAQUENIL) 200 mg tablet Take 400 mg by mouth. gabapentin (NEURONTIN) 400 mg capsule Take 400 mg by mouth. evolocumab 140 mg/mL Inject 140 mg subcutaneously every 2 weeks. cycloSPORINE (RESTASIS) 0.05 % ophthalmic emulsion 1 Drop. citalopram (CELEXA) 40 mg tablet Take 1 tablet by mouth every afternoon. calcium carbonate-Vit D3-minerals (CALTRATE) 600 mg calcium- 400 unit tab Take by mouth as directed. buPROPion XL (WELLBUTRIN XL) 150 mg 24 hr tablet Take 150 mg by mouth. aspirin, enteric coated (ASPIRIN, ENTERIC COATED) 81 mg EC tablet Take 162 mg by mouth. amLODIPine (NORVASC) 2.5 mg tablet Take 2.5 mg by mouth. REVIEW OF SYSTEMS: Positive in BOLD GENERAL: Negative for: Weight loss or gain, Fever or Chills, Weakness and Sleep difficulties. HEENT: Negative for: Headache, Impaired Vision, Glasses, Hearing Impairment, Ringing in Ears, Nosebleeds, Dental Problems, Bleeding Gums, Dentures NECK: Negative for: Swelling, Pain, Stiffness RESPIRATORY: Negative for: Cough, Blood in Sputum, Shortness of breath, Wheezing, Apnea GASTROINTESTINAL: Negative for: Trouble swallowing, Heartburn, Change in bowel habits, Blood in stool, Dark black stools MUSCULOSKELETAL: Negative for: Muscle or joint pain, Stiffness , Joint swelling NEUROLOGIC/PSYCHIATRIC: Negative for: Weakness, Paralysis, Numbness, Tingling, Tremor, Nervousness, Depressed mood, Anxiety, Memory loss SKIN: Negative for: Rashes, Itching HEMATOLOGICAL/LYMPHATIC: Negative for: Easy bruising , Easy bleeding ENDOCRINE: Negative for: Heat or cold intolerance, Excessive sweating, Frequent urination, Frequent thirst PHYSICAL EXAMINATION: BP 118/77 (BP Site: Left Arm, BP Position: Sitting) Pulse 67 Ht 165.1 cm (5' 5 ) Wt 74.4 kg (164 lb) SpO2 94% BMI 27.29 kg/m General: Well appearing, in no acute distress. Skin: No clubbing, no cyanosis. Eyes: Extra ocular movements intact Oropharynx: Teeth in good repair. Neck: No jugular venous distention, no carotid bruits, carotids have a normal upstroke, no palpablethyromegaly. Lungs: Clear to auscultation bilaterally, no wheezing or rhonchi. Heart: Regular rhythm, PMI not displaced, S1, S2 normal, no S3, no S4, no heaves, no rub and 4/6 ESmurmur. Abdomen: Soft, nontender, bowel sounds normal, no palpable organomegaly, no bruits. Extremities: No peripheral edema . Grade 2/4 distal pulses bilaterally. Neuro: Oriented to person, place and time, alert, cooperative, gait coordinated. CARDIOVASCULAR MEDICINE TESTING: ECG 10/25/2023 SR RBBB ECHO 10/25/2023 - The left ventricle is normal in size. Left ventricular systolic function is normal. EF = 63 5% (2D biplane) - The right ventricle is normal in size. Right ventricular systolic function is normal. - The visualized aorta is borderline dilated with a maximal dimension of 4.0 cm. - There is moderate (2+) tricuspid valve regurgitation. - Trifecta prosthetic aortic valve (size #23). There is mild (1+) aortic valve regurgitation. There is severe aortic valve stenosis. The peak gradient is 66 mmHg, the mean gradient is 43 mmHg and the dimensionless valve index is 0.22. - Estimated right ventricular systolic pressure is likely underestimated due to a weak or incomplete tricuspid regurgitation signal and is, at least, 39 mmHg consistent with mild pulmonary hypertension. Estimated right atrial pressure is 3 mmHg based on IVC assessment. - The patient has not had a prior CC echocardiographic exam for comparison. Carotid duplex: pending I have personally reviewed the Electrocardiogram, Echocardiogram, and Cardiac CT Angiography. IMPRESSION: Ms. Fairbanks is a 67 year old female who is seen today for pre-op evaluation. She had a Trifecta AVR in 2013, which is now stenosed. On a background of hypertension, hyperlipidemia, peripheral neuropathy, abdominal aortic aneurysm, and SLE and fibromyalgia. She has had some transient lower quadrant visual field defects over the last few years, but has seen Neuro and Ophthalmology who have cleared her for cardiac surgery. She is symptomatic with fatigue and exertional dyspnea. Echo today confirms severe prosthetic , with preserved biventricular function. Moderate TR 2+. Mild PHT. Mildly dilated ascending aorta 4.1 cm. Small hiatus hernia. PLAN AND RECOMMENDATIONS: Scheduled for surgery tomorrow with Dr Dixon Await carotid duplex results Routine post-op F/U I personally interviewed, confirmed and edited the above information as obtained by others. Alena Rajan MD, PhD CONTACT INFORMATION: Dr. Alena Rajan MD PhD [facility] Staff Count Team Clerk Section of Cardiovascular Imaging Department of Cardiovascular Medicine J1-5 Heart and Vascular [place] [facility] [address] [place] [address] [phone] documented in this encounterJ.W. Ruby [facility]11-16-2023 Miscellaneous Notes* Telephone Encounter - Kristine Herrera RN - 10/07/2023 1:41 PM EST Schedule surgery: Redo AVR (2) 10/25-Cards, testing, TCI, add Zack 10/26-[facility] PLEASE MAIL A DENTAL CLEARANCE FORM Patient accepted surgery date of 10/26. Cardiology, testing, TCI and meet with Dr. Dixon on 10/25. Patient had an aborted CONSTANZA probe insertion locally on 02/15/23. Dr. Gaming will be available morning of surgery to help pass probe if needed. Patient will stop her OTC products on 10/21, and decrease her ASA 81 to one/day, and verbalized understanding. Patient will obtain dental clearance.Kristine Herrera RN Cardiac Surgery PreOp Checklist Patient Name: Jailene Fairbanks OR Surgery Date: 10/26/23 TCI Appt. Date: 10/25/23 Primary Care Provider: No primary care provider on file. Definition Comments Diabetes/Insulin Pump A1-c and Endo consult (need for pump pt) n/a Hypothyroid/thyroid nodules TSH/US of thyroid if new nodule n/a Stroke (CVA) Neurology consult n/a Dysphagia, stricture w/no recent dilation, Cameron's Esophagus GI consult Dr. Gaming to help insert CONSTANZA probe in OR if needed Von Willebrand/thrombocytopenia/ Blood... Hematology consult n/a Abnormal labs from outside Place any necessary consults n/a Cardiac Cath Correct birthday/include all images/moving if outside cath OSH 02/11/23 Redo [facility]/Robotic surgery/radiation to chest CT or CTA/if outside CT will need in-house CXR, CardiacMRI ordered Mechanical valve Admit for Heparin/Lovenox bridge n/a Female <50 y/o HCG n/a Heparin allergy hx of HIT Vascular Medicine consult n/a Nickel/Metal allergy Dermatology consult n/a Breast implants/Robotic candidates Plastic Surgery consult n/a Urinary strictures Urology consult/Urology consult to OR n/a All stimulators/spinal stimulator Type of stimulator n/a PPM/AICD Device check n/a Valve/TAVR/TEVAR/Myectomy/ascending aorta Dental clearance/Dental Consult at F Will obtain CABG surgery with previous CABG/varicose vein/vein stripping Leg vein mapping n/a LMT disease > 30% or Carotid Bruits Carotid ultrasound n/a Descending Aneurysm/TEVAR/TAA Pre-admit/hydration/spinal drain to be placed: IR/OR/Not Needed n/a Dialysis patient IHD day prior to O[facility] n/a CABG with no ECHO results Discussion w/surgeon results for dental clearance: preop/postop n/a Advanced Directives Instructions given to patient Not discussed FMLA Forward to AA n/a Test/Consult not needed Communicate in Epic or Access n/a Record of decreased PFTs, known lung disease Any pulmonary consult n/a Pulmonary embolectomy Needs US/Duplex BLE, VQ scan RHC, possible LHC, Pulmonary and/or Vascular consult n/a Abnormal CT All>1cm if further workup/consult needed n/a CC-Bio Repostitory Notification of packet and general knowledge given to pt n/a * Telephone Encounter - Kristine Herrera RN - 10/05/2023 9:45 AM EST Chart reviewed October 05, 2023. File given to Dr. Dixon for his review/plan of care. Jailene Fairbanks [id number] 67 year old Diagnosis: Mod-Sev prosthetic , CAD Secondary Dx: HTN, HLD, peripheral neuropathy, AAA, SLE, fibromyalgia, H/O TIA Previous Surgeries: S/P Mini AVR 2013 (#23 Trifecta) Symptoms: dizziness, SOB EF%: 60 Thinners: ASA 81 Smoking status: unknown Kristine Herrera RN * Telephone Encounter - Adriano Hand Akanksha - 10/04/2023 3:24 PM EST LOCAL PATIENT 10/01/23 - Recvd referral from Dr. Venegas to Dr. Dixon. Everything in epic. documented in this encounterJ.W. [facility]11-14-2023 Miscellaneous Notes* Telephone Encounter - Thuy Orellana - 10/05/2023 9:22 AM EST IN documented in this encounterJ.W. Ruby [facility]01-26-2023 NoteCARDIAC STRESS TEST Requesting Physician: Procedure Date:12/23/2022 LEXISCAN CARDIOLITE STRESS TEST INDICATIONS: Chest pain. METHODS: After risks, benefits and alternatives were explained, written informed consent was obtained. The patient was brought to the Stress Lab in a resting and fasting state. She was connected to the appropriate hemodynamic and electrocardiographic monitoring. Lexiscan 0.4 mg was infused intravenously. She was monitored for the standard duration and transferred to the Nuclear Lab for imaging. There were no complications. FINDINGS: HEMODYNAMICS: Resting heart rate was 67 beats per minute, increasing to a maximum of 99 beats per minute. Resting blood pressure was 110/78, with a minimum blood pressure of 108/74. ELECTROCARDIOGRAPHY: Rest EKG: Sinus bradycardia, 56 beats per minute, right bundle branch block, abnormal EKG. During infusion and recovery: No significant ST-T wave changes noted. No significant arrhythmia seen. FINAL IMPRESSIONS: 1. No ischemic EKG changes seen on Lexiscan Cardiolite Stress Test. 2. Nuclear images are to be read, interpreted and relayed in a separate dictation.[facility] [id number] Evaluation note* Encounter Date Diagnosis Assessment Notes Treatment Notes Treatment Clinical Notes Nov, GERD without esophagitis (ICD-10 - K21.9) Patient requests resubmission for long-term disability. patient brings paperwork with her. Nov, Other fatigue (ICD-10 - R53.83) Pt gives a approval to send notes to [facility] Other Evaluation noteNo InformationNortDuke [facility] Other Evaluation note* Diagnosis Disorder of artery or arteriole (HCC)- Primary Unspecified disorders of arteries and arterioles Stenosis of prosthetic aortic valve, initial encounter Pre-operative cardiovascular examination Aortic valve disorder Aortic valve disorders Stenosis of prosthetic aortic valve, 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) Unspecified disorders of arteries and arterioles Pre-operative cardiovascular examination Aortic valve disorder Aortic valve disorders documented in this encounter [facility]* Diagnosis Stenosis of prosthetic aortic valve, 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) Unspecified disorders of arteries and arterioles Pre-operative cardiovascular examination Aortic valve disorder Aortic valve disorders [facility] Encounter for preoperative anesthesiology assessment for cardiac surgery- Primary [facility]* Diagnosis Pre-op exam- Primary Preoperative examination, unspecified Stenosis of prosthetic aortic valve, 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) Unspecified disorders of arteries and arterioles Preop testing Preoperative examination, unspecified [facility] Diagnosis Stenosis of prosthetic aortic valve, 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) Unspecified disorders of arteries and arterioles Pre-operative cardiovascular examination Aortic valve disorder Aortic valve disorders [facility] Diagnosis Stenosis of prosthetic aortic valve, 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) Unspecified disorders of arteries and arterioles Pre-operative cardiovascular examination Aortic valve disorder Aortic valve disorders Respiratory failure, post-operative (HCC) Acute respiratory failure following trauma and surgery [facility] Diagnosis S/P AVR- Primary Heart valve replaced by other means Essential hypertension Unspecified essential hypertension documented in this encounter [facility]* Diagnosis S/P AVR- Primary Heart valve replaced by other means Essential hypertension Unspecified essential hypertension Disorder of artery or arteriole (HCC) Unspecified disorders of arteries and arterioles documented in this encounter [facility] HospitalEvaluation noteNo assessment information availableVan [facility] Work Phone: evaluation note* Diagnosis Onset Date Resolution Status H/O aortic valve replacement acute Right-sided chest wall pain acute Viral URI with cough acute Contact with and (suspected) exposure to covid-19 noneactive COVID-19 acute Sinusitis, acute maxillary a cute Bradycardia acute Right shoulder pain acute [facility] Work Phone: evaluation note* Diagnosis Post-COVID syndrome- Primary History of COVID-19 documented in this encounter [facility] note* Diagnosis Dyspnea, unspecified type- Primary documented in this encounter [facility] note* Diagnosis Onset Date Resolution Status Bradycardia acute Right shoulder pain acute Thoracic back pain acute Urinary frequency noneactive [facility] Work Phone: evaluation note* Diagnosis Onset Date Resolution Status Bradycardia acute Right shoulder pain acute Thoracic back pain acute Acute UTI (urinary tract infection) [facility] Work Phone: evaluation note* Diagnosis History of COVID-19- Primary Post-COVID syndrome documented [facility] this encounter [facility]* Diagnosis History of COVID-19- Primary Post-COVID syndrome documented in this encounter [facility] note* Diagnosis Chronic cough- Primary Cough Centrilobular emphysema (HCC) Other emphysema Positive SHARRI (antinuclear antibody) Other and unspecified nonspecific immunological findings Systemic lupus erythematosus, unspecified SLE type, unspecified organ involvement status (HCC) Snoring Other dyspnea and respiratory abnormality documented in this encounter [facility] note* Diagnosis Dyspnea, unspecified type documented in this encounter [facility] note* Diagnosis Positive SHARRI (antinuclear antibody) Other and unspecified nonspecific immunological findings Systemic lupus erythematosus, unspecified SLE type, unspecified organ involvement status (HCC) documented in this encounter [facility] note* Diagnosis Onset Date Resolution Status Bronchitis acute Mastoiditis of left side acu te [facility] Work Phone: evaluation note* Diagnosis Chronic cough- Primary Cough documented in this encounter [facility] note* Diagnosis Chronic cough Cough Centrilobular emphysema (HCC) Other emphysema documented [facility] this encounter [facility] N[facility]ative - Reported* Type Description Date Medical History Depression Medical History Constipation Medical History Hypercholesterolemia Medical History Back pain Medical History Hiatal hernia Medical History Osteoporosis Surgical History MAEGAN & BSO 1993 Surgical History hand surgery/left left Surgical History inguinal hernia repair/right 19 95 Surgical History hemorrhoidectomy Surgical History 2 c-sections 1976 1981 Surgical History salpingectomy 1987 Surgical History permanent dental darin dge with a pin and a crown/27 years ago [facility] Other History general Narrative - Reported* Type Description Date Medical History Depression Medical History Constipation Medical History Hypercholesterolemia Medical History Back pain Medical History Hiatal hernia Medical History Osteoporosis Surgical History MAEGAN & BSO 1993 Surgical History hand surgery/left left Surgical History inguinal hernia repair/right 19 95 Surgical History hemorrhoidectomy Surgical History 2 c-sections 1976 1981 Surgical History salpingectomy 1987 Surgical History permanent dental darin dge with a pin and a crown/27 years ago Surgical History Heart valve replacement 10/26/20 [facility] Other Hospital course Narrative No data available for this section [facility] Progress note No data available for this section [facility] Reason for referral (narrative)* Outpatient Procedure (Routine) - Pending Review Specialty Diagnoses / Procedures Referred By Santo bee Referred To Contact [facility] [place] Diagnoses Stenosis of prosthetic aortic valve, 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) Pre-operative cardiovascular examination Aortic valve disorder Procedures US CAROTID ARTERIES BECK VAS LAB DUPLEX SCAN EXTRACRANIAL ART COMPL BI STUDY Luli Dixon MD [address] [place] [address] [id number] [place] [address] Referral ID Status Reason Start Date Expiration Date Visits Requested Visits Authorized [id number] Pending Review Auto-Generat ed Referral 3 10/06/2024 1 1 * MRI/CT (Routine) - Pending Review Specialty Diagnoses / Procedures Referred By Santo bee Referred To Contact CT IMAGING Diagnoses Stenosis of prosthetic aortic valve, 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) Pre-operative cardiovascular examination Aortic valve disorder Procedures CTA CHEST (GATED) W IVCON CT ANGIOGRAPHY CHEST W/CONTRAST/NONCONTRAST Luli Dixon MD [address] [place] [id number] [facility] [place] [address] Referral ID Status Reason Start Date Expiration Date Visits Requested Visits Authorized [id number] Pending Review Auto-Generat ed Referral 3 11/05/2024 1 1 * Outpatient Procedure (Routine) - Pending Review Specialty Diagnoses / Procedures Referred By Contac t Referred To [facility] Diagnoses Stenosis of prosthetic aortic valve, 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) Pre-operative cardiovascular examination Aortic valve disorder Procedures ECHO ECHO TTHRC R-T 2D W/WOM-MODE COMPL SPEC&[place] [address] [place], [place] [address] [address] [address] [place] [id number] Referral ID Status Reason Start Date Expiration Date Visits Requested Visits Authorized [id number] Pending Review Auto-Generat ed Referral 3 10/06/2024 1 1 * Outpatient Procedure (Routine) - Pending Review Specialty Diagnoses / Procedures Referred By Contac t Referred To [facility] Diagnoses Stenosis of prosthetic aortic valve, 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) Pre-operative cardiovascular examination Aortic valve disorder Procedures ECG COMPLETE ECG ROUTINE ECG W/LEAST 12 LDS W/I&R Luli Dixon MD [id number] [place] [address] Referral ID Status Reason Start Date Expiration Date Visits Requested Visits Authorized [id number] Pending Review Auto-Generat ed Referral 3 10/06/2024 1 1 * Consult, Test, Treat (Routine) - Pending Review Specialty Diagnoses / Procedures Referred By Santo t Referred To Contact Cardiac Surg Diagnoses Stenosis of prosthetic aortic valve, 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) Pre-operative cardiovascular examination Aortic valve disorder Procedures CARDIOTHORACIC PREOP EVALUATION OFFICE/OUTPATIENT [facility] 60-74 MINUTES Luli Dixon MD [address] [place] [address] Referral ID Status Reason Start Date Expiration Date Visits Requested Visits Authorized [id number] Pending Review PCP Requested Referral 3 10/06/2024 1 1 * Consult, Test, Treat (Routine) - Pending Review Specialty Diagnoses / Procedures Referred By Santo t Referred To Contact Cardiology Diagnoses Stenosis of prosthetic aortic valve, 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) Pre-operative cardiovascular examination Aortic valve disorder Procedures CONSULT TO CARDIOLOGY OFFICE/OUTPATIENT [facility] 60-74 MINUTES Luli Dixon MD [address] [id number] Referral ID Status Reason Start Date Expiration Date Visits Requested Visits Authorized [id number] Pending Review PCP Requested Referral 3 10/06/2024 1 1 [facility] for referral (narrative)* Outpatient Procedure (Routine) - Pending Review Specialty Diagnoses / Procedures Referred By Santo bee Referred To [facility] Diagnoses S/P AVR Procedures ECG COMPLETE ECG ROUTINE ECG W/LEAST 12 LDS W/I&R Kelle De Leon MD [address] [place] [address] [facility] [place] [address] [place] [address] Referral ID Status Reason Start Date Expiration Date Visits Requested Visits Authorized [id number] Pending Review Auto-Generat ed Referral 01/04/2024 01/03/2025 1 1 * Outpatient Procedure (Routine) - Pending Review Specialty Diagnoses / Procedures Referred By Contac t Referred To [facility] Diagnoses S/P AVR Procedures ECHO ECHO TTHRC R-T 2D W/WOM-MODE COMPL SPEC&COLR D Kelle De Leon MD [address] [place] [address] [facility] [place] [address] Referral ID Status Reason Start Date Expiration Date Visits Requested Visits Authorized [id number] Pending Review Auto-Generat ed Referral 01/04/2024 01/03/2025 1 1 * Transition of Care (Routine) - Ref Not Required Specialty Diagnoses / Procedures Referred By Contac t Referred To Contact Procedures CARDIOVASCULAR MEDICINE OP FOLLOW UP APPT ORDER Kelle De Leon MD [address] [place] [address] Referral ID Status Reason Start Date Expiration Date Visits Requested Visits Authorized [id number] Ref Not Required PCP Requested Referral 01/04/2024 01/03/2025 1 1 [facility] for referral (narrative)* Outpatient Procedure (Routine) - Authorized Specialty Diagnoses / Procedures Referred By Contac t Referred To Contact [facility] Diagnoses 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 Procedures SPIROMETRY - BASELINE AND POST DILATOR BRNCDILAT RSPSE SPMTRY PRE&POST-BRNCDILAT ADMN Abimael Luna MD [address] [place] [address] [facility] [place] [address] [place], [place] [address] [address] Referral ID Status Reason Start Date Expiration Date Visits Requested Visits Authorized [id number] Authorized Auto-Generat ed Referral 04/05/2024 05/05/2025 1 1 * Outpatient Procedure (Routine) - Authorized Specialty Diagnoses / Procedures Referred By Contac t Referred To Contact [facility] Diagnoses 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 Procedure (Routine) - Pending Review Specialty Diagnoses / Procedures Referred By Contac t Referred To Contact [facility] Diagnoses Dyspnea, unspecified type Procedures SPIROMETRY WITH DILATOR IF OBSTRUCTED BRNCDILAT RSPSE SPMTRY PRE&POST-BRNCDILAT ADMN Abimael Luna MD [address] [place] [address] [place] [address] Referral ID Status Reason Start Date Expiration Date Visits Requested Visits Authorized [id number] Pending Review Auto-Generat ed Referral 04/05/2024 05/05/2025 1 1 [facility] Summary Purpose Family History Relationship Condition Age at Onset Recorded Date/T sara father Unknown Not Specified Unknown Diabetes mellitus Unknown Relationship Condition Age at Onset Recorded Date/T sara father Unknown mother Unknown Diabetes mellitus Unknown Advance Directives Advance Directive Response Recorded Date/ Time Advance Directives No September 09, 2017 1:13pm Advance Directive Response Recorded Date/ Time Advance Directives No September 09, 2017 2:13pm Hospital Course Note MR#: [id number] 2 [facility] Pt. Name: Jailene Fair[place] Admitted: 11/20/2019 Discharged: 11/21/2019 Date of : 1955 Physician: Nadja Richter M.D. DISCHARGE SUMMARY ADMISSION DIAGNOSES: Recurrent hiatal hernia, gastroesophageal reflux disease. DISCHARGE DIAGNOSES: Recurrent hiatal hernia, gastroesophageal reflux disease. HOSPITAL COURSE: The patient is a 64-year-old white female, developed recurrent hiatal hernia and reflux. Laparoscopic redo hiatal hernia repair, Hansel fundoplication was offered to the patient. Informed consent was obtained. The patient underwent the surgery on November 20, 2019, without complication. She was admitted for overnight observation. Overnight, the patient was uneventful. Vital signs stable. On postoperative day #1, the patient was started on full liquid diet and the patient well tolerated the full liquid diet and ready to be discharged to home on full liquid diet for 2 weeks. She also was prescribed Zofran 4 mg every (more content not included)... Note MR#: [id number] [facility] Pt. Name: Jailene Fairbanks Surgery Date: 09/06/2019 Room #: Z0 Date of : 1955 PROCEDURE NOTE ATTENDING: Nadja Richter M.D. PREOPERATIVE DIAGNOSIS: Epigastric pain, status post hiatal hernia repair with Hansel fundoplication. POSTOPERATIVE DIAGNOSIS: Recurrent small hiatal hernia and irregular Z-line. PROCEDURE PERFORMED: Esophagogastroduodenoscopy. ANESTHESIA: Conscious sedation. INDICATION: The patient is a 63-year-old white female status post hiatal hernia repair and Hansel fundoplication. She had chronic epigastric pain and upper endoscopy was offered to the patient. Informed consent was obtained. PROCEDURE: The patient was brought to the endoscopy suite, laid on the bed in the left decubitus position. After conscious sedation and completion of time-out, the flexible endoscopy was advanced through the mouth, the esophagus, then into the stomach, then passed the pylorus into the duodenum without duodenal ulcer or inf (more content not included)... Procedure Findings Note MR#: [id number] [facility] Pt. Name: Jailene Fairbanks Surgery Date: 09/06/2019 Room #: Z0 Date of : 1955 PROCEDURE NOTE ATTENDING: Nadja Richter M.D. PREOPERATIVE DIAGNOSIS: Epigastric pain, status post hiatal hernia repair with Hansel fundoplication. POSTOPERATIVE DIAGNOSIS: Recurrent small hiatal hernia and irregular Z-line. PROCEDURE PERFORMED: Esophagogastroduodenoscopy. ANESTHESIA: Conscious sedation. INDICATION: The patient is a 63-year-old white female status post hiatal hernia repair and Hansel fundoplication. She had chronic epigastric pain and upper endoscopy was offered to the patient. Informed consent was obtained. PROCEDURE: The patient was brought to the endoscopy suite, laid on the bed in the left decubitus position. After conscious sedation and completion of time-out, the flexible endoscopy was advanced through the mouth, the esophagus, then into the stomach, then passed the pylorus into the duodenum without duodenal ulcer or inf (more content not included)... Reason for Referral Specialty Diagnoses / Procedures Referred By Santo bee Referred To Contact Rheumatology Diagnoses Chronic cough Centrilobular emphysema (HCC) Positive SHARRI (antinuclear antibody) Systemic lupus erythematosus, unspecified SLE type, unspecified organ involvement status (HCC) Procedures CONSULT TO RHEUM/IMMUN DISEASE OFFICE/OUTPATIENT [facility] 60 MINUTES Abimael Luna MD [address] [place] [address] Referral ID Status Reason Start Date Expiration Date V isits Requested Visits Authorized [id number] Closed PCP Requested Referral 06/20/2024 06/20/2025 1 1 Specialty Diagnoses / Procedures Referred By Santo bee Referred To Contact [facility] Diagnoses Chronic cough Procedures NITRIC OXIDE, EXHALED NITRIC OXIDE GAS DETERMINATION Abimael Luna MD [address] [place] [address] [facility] [place] [address] [place] [address] Referral ID Status Reason Start Date Expiration Date Visits Requested Visits Authorized [id number] Authorized Auto-Generat ed Referral 06/20/2024 07/20/2025 1 1 Specialty Diagnoses / Procedures Referred By Santo bee Referred To Contact CT IMAGING Diagnoses Stenosis of prosthetic aortic valve, 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) Pre-operative cardiovascular examination Aortic valve disorder Procedures CTA CHEST (GATED) W IVCON CT ANGIOGRAPHY CHEST W/CONTRAST/NONCONTRAST Luli Dixon MD [address] [place] [address] Ct Imaging [facility] Referral ID Status Reason Start Date Expiration Date V isits Requested Visits Authorized [id number] Closed Auto-Generate d Referral 10/07/2023 11/05/2024 1 1 Specialty Diagnoses / Procedures Referred By Contac t Referred To Contact Procedures CARDIOVASCULAR MEDICINE OP FOLLOW UP APPT ORDER Alena Rajan MD, PhD [address] [place] [address] Referral ID Status Reason Start Date Expiration Date Visits Requested Visits Authorized [id number] Ref Not Required PCP Requested Referral 10/25/2023 10/24/2024 1 1 Chief Complaint and Reason for Visit Chief Complaint Check Up Back Pain Chief Complaint Back Pain sore throat, congestion, cough Possibly COVID Positive- [phone] shoulder pain - sob Reason for Visit H/O aortic valve rep lacement Right-sided chest wall pain Viral URI with cough Contact with and (suspected) exposure to covid-19 COVID-19 Sinusitis, acute maxillary Bradycardia Right shoulder pain Chief Complaint shoulder pain - sob [facility] ER FOLLOW UP Possible UTI Reason for Visit Bradycardia Right shoulder pain Thoracic back pain Urinary frequency Chief Complaint shoulder pain - sob [facility] ER FOLLOW UP Possible UTI R35.0 Reason for Visit Bradycardia Right shoulder pain Thoracic back pain Acute UTI (urinary tract infection) Chief Complaint Sore Throat Chief Complaint Sore Throat ear pain not getting better, neck pain Reason for Visit Bronchitis Mastoiditis of left side Chief Complaint Admit Date ear pain not getting better, neck pain O ctober 2023 9:38am [facility]:Phemonia/lung problems November 24, 2024 10:28am Reason for Visit Admit Date Mastoiditis of left side September 06 9:38am Elevated d-dimer November 24, 2024 10 :28am Hospital discharge follow-up November 10:28am Additional Source Comments INFORMATION SOURCE (unrecogn ized section and content) DATE CREATED AUTHOR 08/21/2020 [facility] DATE CREATED AUTHOR AUTHOR'S ORGANIZ ATION 03/15/2023 [facility] DATE CREATED AUTHOR AUTHOR'S ORGANIZ ATION 05/26/2024 [facility] DATE CREATED AUTHOR AUTHOR'S ORGANIZ ATION 11/19/2024 [facility] DATE CREATED AUTHOR AUTHOR'S ORGANIZ ATION 11/20/2024 [facility] DATE CREATED AUTHOR AUTHOR'S ORGANIZ ATION 11/22/2024 [facility] DATE CREATED AUTHOR AUTHOR'S ORGANIZ ATION 11/23/2024 [facility] DATE CREATED AUTHOR AUTHOR'S ORGANIZ ATION 11/24/2024 [facility] DATE CREATED AUTHOR AUTHOR'S ORGANIZ ATION 12/02/2024 [facility] DATE CREATED AUTHOR AUTHOR'S ORGANIZ ATION 12/26/2024 [facility] DATE CREATED AUTHOR AUTHOR'S ORGANIZ ATION 02/05/2025 [facility] DATE CREATED AUTHOR AUTHOR'S ORGANIZ ATION 02/27/2025 [facility] REASON FOR VISIT (unrecogniz ed section and content) Reason Comments Insurance Inquiry Reason Comments Referral Information Cardiac Preop Checklist Specialty Diagnoses / Procedures Referred By Santo bee Referred To Contact Cardiology Diagnoses Stenosis of prosthetic aortic valve, 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) Pre-operative cardiovascular examination Aortic valve disorder Procedures CONSULT TO CARDIOLOGY OFFICE/OUTPATIENT [facility] 60-74 MINUTES Luli Dixon MD [address] [place] [address] Referral ID Status Reason Start Date Expiration Date Visits Requested Visits Authorized [id number] Pending Review PCP Requested Referral 3 10/06/2024 1 1 Reason Comments Patient Education Reason Comments Radiology CT Specialty Diagnoses / Procedures Referred By Santo bee Referred To Contact CT IMAGING Diagnoses Stenosis of prosthetic aortic valve, 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) Pre-operative cardiovascular examination Aortic valve disorder Procedures CTA CHEST (GATED) W IVCON CT ANGIOGRAPHY CHEST W/CONTRAST/NONCONTRAST Luli Dixon MD [address] [place] [address] Ct Imaging [address] [address] Referral ID Status Reason Start Date Expiration Date V isits Requested Visits Authorized [id number] Closed Auto-Generate d Referral 10/07/2023 11/05/2024 1 1 Specialty Diagnoses / Procedures Referred By Contac t Referred To Contact Cardiac Surg Diagnoses Stenosis of prosthetic aortic valve, 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 Procedures SPIROMETRY - BASELINE AND POST DILATOR BRNCDILAT RSPSE SPMTRY PRE&[place] [address] [place] [address] [place] [address] Referral ID Status Reason Start Date Expiration Date V isits Requested Visits Authorized [id number] Closed Auto-Generate d Referral 04/05/2024 05/05/2025 1 1 Specialty Diagnoses / Procedures [facility] Diagnoses 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 Procedures LUNG DIFFUSION CAPACITY (DLCO) DIFFUSING CAPACITY Abimael Luna MD [address] [place] [address] [place] [address] Referral ID Status Reason Start Date Expiration Date V isits Requested Visits Authorized [id number] Closed Auto-Generate d Referral 04/05/2024 05/05/2025 1 1 Reason Comments New Reason Comments Radio Gen A21 Specialty Diagnoses / Procedures Referred By Contac t Referred To Contact Rheumatology Diagnoses Chronic cough Centrilobular emphysema (HCC) Positive SHARRI (antinuclear antibody) Systemic lupus erythematosus, unspecified SLE type, unspecified organ involvement status (HCC) Procedures CONSULT TO RHEUM/IMMUN DISEASE OFFICE/OUTPATIENT [facility] 60 MINUTES Abimael Luna MD [address] [id number] Referral ID Status Reason Start Date Expiration Date V isits Requested Visits Authorized [id number] Closed PCP Requested Referral 06/20/2024 06/20/2025 1 1 Specialty Diagnoses / Procedures Referred By Contac t Referred To Contact [facility] Diagnoses Chronic cough Procedures NITRIC OXIDE, EXHALED NITRIC OXIDE GAS DETERMINATION Abimael Luna MD [address] [id number] [facility] [place] [address] [place], [place] [id number] Referral ID Status Reason Start Date Expiration Date V isits Requested Visits Authorized [id number] Closed Auto-Generate d Referral 06/20/2024 07/20/2025 1 1 Reason Comments Recheck Reason Comments Refill Request Source Comments (unrecognize d section and content) In the event this informatio n is protected by the Federal Confidentiality of Alcohol and Drug Abuse Patient Records regulations: The Federal rules restrict any use of the information to criminally investigate or prosecute any alcohol or drug abuse patient.[facility] the event this information is protected by the Federal Confidentiality of Alcohol and Drug Abuse Patient Records regulations: The Federal rules restrict any use of the information to criminally investigate or prosecute any alcohol or drug abuse patient.[facility] the event this information is protected by the Federal Confidentiality of Alcohol and Drug Abuse Patient Records regulations: The Federal rules restrict any use of the information to criminally investigate or prosecute any alcohol or drug abuse patient.[facility] the event this information is protected by the Federal Confidentiality of Alcohol and Drug Abuse Patient Records regulations: The Federal rules restrict any use of the information to criminally investigate or prosecute any alcohol or drug abuse patient.[facility] the event this information is protected by the Federal Confidentiality of Alcohol and Drug Abuse Patient Records regulations: The Federal rules restrict any use of the information to criminally investigate or prosecute any alcohol or drug abuse patient.[facility] the event this information is protected by the Federal Confidentiality of Alcohol and Drug Abuse Patient Records regulations: The Federal rules restrict any use of the information to criminally investigate or prosecute any alcohol or drug abuse patient.[facility] the event this information is protected by the Federal Confidentiality of Alcohol and Drug Abuse Patient Records regulations: The Federal rules restrict any use of the information to criminally investigate or prosecute any alcohol or drug abuse patient.[facility] the event this information is protected by the Federal Confidentiality of Alcohol and Drug Abuse Patient Records regulations: The Federal rules restrict any use of the information to criminally investigate or prosecute any alcohol or drug abuse patient.[facility] the event this information is protected by the Federal Confidentiality of Alcohol and Drug Abuse Patient Records regulations: The Federal rules restrict any use of the information to criminally investigate or prosecute any alcohol or drug abuse patient.[facility] the event this information is protected by the Federal Confidentiality of Alcohol and Drug Abuse Patient Records regulations: The Federal rules restrict any use of the information to criminally investigate or prosecute any alcohol or drug abuse patient.[facility] the event this information is protected by the Federal Confidentiality of Alcohol and Drug Abuse Patient Records regulations: The Federal rules restrict any use of the information to criminally investigate or prosecute any alcohol or drug abuse patient.[facility] the event this information is protected by the Federal Confidentiality of Alcohol and Drug Abuse Patient Records regulations: The Federal rules restrict any use of the information to criminally investigate or prosecute any alcohol or drug abuse patient.[facility] the event this information is protected by the Federal Confidentiality of Alcohol and Drug Abuse Patient Records regulations: The Federal rules restrict any use of the information to criminally investigate or prosecute any alcohol or drug abuse patient.[facility] the event this information is protected by the Federal Confidentiality of Alcohol and Drug Abuse Patient Records regulations: The Federal rules restrict any use of the information to criminally investigate or prosecute any alcohol or drug abuse patient.[facility] the event this information is protected by the Federal Confidentiality of Alcohol and Drug Abuse Patient Records regulations: The Federal rules restrict any use of the information to criminally investigate or prosecute any alcohol or drug abuse patient.[facility] the event this information is protected by the Federal Confidentiality of Alcohol and Drug Abuse Patient Records regulations: The Federal rules restrict any use of the information to criminally investigate or prosecute any alcohol or drug abuse patient.[facility] Hospital[facility] the event this information is protected by the Federal Confidentiality of Alcohol and Drug Abuse Patient Records regulations: The Federal rules restrict any use of the information to criminally investigate or prosecute any alcohol or drug abuse patient.[facility] Hospital[facility] the event this information is protected by the Federal Confidentiality of Alcohol and Drug Abuse Patient Records regulations: The Federal rules restrict any use of the information to criminally investigate or prosecute any alcohol or drug abuse patient.[facility] Hospital[facility] the event this information is protected by the Federal Confidentiality of Alcohol and Drug Abuse Patient Records regulations: The Federal rules restrict any use of the information to criminally investigate or prosecute any alcohol or drug abuse patient.[facility] HospitalIn the event this information is protected by the Federal Confidentiality of Alcohol and Drug Abuse Patient Records regulations: The Federal rules restrict any use of the information to criminally investigate or prosecute any alcohol or drug abuse patient.[facility] HospitalIn the event this information is protected by the Federal Confidentiality of Alcohol and Drug Abuse Patient Records regulations: The Federal rules restrict any use of the information to criminally investigate or prosecute any alcohol or drug abuse patient.[facility] Hospital[facility] the event this information is protected by the Federal Confidentiality of Alcohol and Drug Abuse Patient Records regulations: The Federal rules restrict any use of the information to criminally investigate or prosecute any alcohol or drug abuse patient.[facility] HospitalIn the event this information is protected by the Federal Confidentiality of Alcohol and Drug Abuse Patient Records regulations: The Federal rules restrict any use of the information to criminally investigate or prosecute any alcohol or drug abuse patient.[facility] HospitalIn the event this information is protected by the Federal Confidentiality of Alcohol and Drug Abuse Patient Records regulations: The Federal rules restrict any use of the information to criminally investigate or prosecute any alcohol or drug abuse patient.[facility] HospitalIn the event this information is protected by the Federal Confidentiality of Alcohol and Drug Abuse Patient Records regulations: The Federal rules restrict any use of the information to criminally investigate or prosecute any alcohol or drug abuse patient.[facility] Care Teams (unrecognized sec tion and content) Team Status: Active Member Role Status Dates Madison North MD Primary Care Provider Active Team Status: Inactive Member Role Status Dates Madison North MD Primary Care Provide r, Attending Provider Active Start: September 06, 2024 End: September 06, 2024 Team Status: Inactive Member Role Status Dates Madison North MD Primary Care Provide r, Attending Provider Active Start: November 24, 2024 End: November 24, 2024 Team Status: Active Member Role Status Dates Madison North MD Primary Care Provider Active Start: June 20, 2024 Jhony Mercedes MD Attending Provider Active Start: June 20, 2024 Team Status: Inactive Member Role Status Dates Madison North MD Primary Care Provide r, Attending Provider Active Start: August 25, 2024 End: August 25, 2024 Enrollment Management Manager Relationship Specialty Start Date End Date Luli Dixon MD [address] [place] [address] Surgeon Cardiac Surg 10/04/23 Leonardo Venegas MD [address] [place] [address] Referring Cardiac Surg 10/04/23 Enrollment Management Manager Relationship Specialty Start Date End Date Luli Dixon MD [address] [place] [address] Surgeon Cardiac Surg 10/04/23 Leonardo Venegas MD [address] [place] [address] Referring Cardiac Surg 10/04/23 Enrollment Management Manager Relationship Specialty Start Date End Date Madison North MD [address] [place] [phone] PCP - General Family Medicine 10/25/23 Luli Dixon MD [address] [facility] [address] Surgeon Cardiac Surg 10/04/23 Leonardo Venegas MD [address] [place] [address] Referring Cardiac Surg 10/04/23 Alena Rajan MD, PhD [address] [facility] [address] Cardiology 10/08/23 Alena Rajan MD, PhD [address] [place] [address] Primary Staff Physician Cardiology 10/25/23 Enrollment Management Manager Relationship Specialty Start Date End Date Madison North MD [address] [place] [phone] PCP - General Family Medicine 10/25/23 Luli Dixon MD [address] [facility] [place] [address] Surgeon Cardiac Surg 10/04/23 Leonardo Venegas MD [address] [place] [address] Referring Cardiac Surg 10/04/23 Alena Rajan MD, PhD [address] [place] [address] Cardiology 10/08/23 Alena Rajan MD, PhD [address] [place] [address] Primary Staff Physician Cardiology 10/25/23 Enrollment Management Manager Relationship Specialty Start Date End Date Madison North MD [address] [place] [address] PCP - General Family Medicine 10/25/23 Luli Dixon MD [address] [place] [address] Surgeon Cardiac Surg 10/04/23 Leonardo Venegas MD [address] [place] [address] Referring Cardiac Surg 10/04/23 Alena Rajan MD, PhD [address] [place] [address] Cardiology 10/08/23 Alena Rajan MD, PhD [address] [place] [address] Primary Staff Physician Cardiology 10/25/23 Enrollment Management Manager Relationship Specialty Start Date End Date Madison North MD [address] [place] [address] PCP - General Family Medicine 10/25/23 Luli Dixon MD [address] [place] [address] Surgeon Cardiac Surg 10/04/23 Leonardo Venegas MD [address] [place] [address] Referring Cardiac Surg 10/04/23 Alena Rajan MD, PhD [address] [place] [address] Cardiology 10/08/23 Alena Rajan MD, PhD [address] [place] [address] Primary Staff Physician Cardiology 10/25/23 Enrollment Management Manager Relationship Specialty Start Date End Date Madison North MD [address] [place] [address] PCP - General Family Medicine 10/25/23 Luli Dixon MD [address] [place] [address] Surgeon Cardiac Surg 10/04/23 Leonardo Venegas MD [address] [place] [address] Referring Cardiac Surg 10/04/23 Alena Rajan MD, PhD [address] [place] [address] Cardiology 10/08/23 Alena Rajan MD, PhD [address] [place] [address] Primary Staff Physician Cardiology 10/25/23 Enrollment Management Manager Relationship Specialty Start Date End Date Madison North MD [address] [place] [address] PCP - General Family Medicine 10/25/23 Luli Dixon MD [address] [place] [address] Surgeon Cardiac Surg 10/04/23 Leonardo Venegas MD [address] [place] [address] Referring Cardiac Surg 10/04/23 Alena Rajan MD, PhD [address] [place] [address] Cardiology 10/08/23 Alena Rajan MD, PhD [address] [place] [address] Primary Staff Physician Cardiology 10/25/23 Enrollment Management Manager Relationship Specialty Start Date End Date Madison North MD [address] [place] [phone] PCP - General Family Medicine 10/25/23 Luli Dixon MD [address] [place] [address] Surgeon Cardiac Surg 10/04/23 Leonardo Venegas MD [address] [place] [address] Referring Cardiac Surg 10/04/23 Alena Rajan MD, PhD [address] [place] [address] Cardiology 10/08/23 Alena Rajan MD, PhD [address] [place] [address] Primary Staff Physician Cardiology 10/25/23 Enrollment Management Manager Relationship Specialty Start Date End Date Madison North MD [address] [place] [phone] PCP - General Family Medicine 10/25/23 Luli Dixon MD [address] [facility] [address] Surgeon Cardiac Surg 10/04/23 Leonardo Venegas MD [address] [place] [address] Referring Cardiac Surg 10/04/23 Alena Rajan MD, PhD [address] [facility] [address] Cardiology 10/08/23 Alena Rajan MD, PhD [address] [facility] [address] Primary Staff Physician Cardiology 10/25/23 Enrollment Management Manager Relationship Specialty Start Date End Date Madison North MD [address] [place] [address] PCP - General Family Medicine 10/25/23 Luli Dixon MD [address] [place] [address] Surgeon Cardiac Surg 10/04/23 Leonardo Venegas MD [address] [place] [address] Referring Cardiac Surg 10/04/23 Alena Rajan MD, PhD [address] [place] [address] Cardiology 10/08/23 Alena Rajan MD, PhD [address] [place] [address] Primary Staff Physician Cardiology 10/25/23 Enrollment Management Manager Relationship Specialty Start Date End Date Madison North MD [address] [place] [address] PCP - General Family Medicine 10/25/23 Luli Dixon MD [address] [place] [address] Surgeon Cardiac Surg 10/04/23 Leonardo Venegas MD [address] [place] [address] Referring Cardiac Surg 10/04/23 Alena Rajan MD, PhD [address] [place] [address] Cardiology 10/08/23 Alena Rajan MD, PhD [address] [place] [address] Primary Staff Physician Cardiology 10/25/23 Enrollment Management Manager Relationship Specialty Start Date End Date Madison North MD [address] [place] [address] PCP - General Family Medicine 10/25/23 Luli Dixon MD [address] [facility] [place] [address] Surgeon Cardiac Surg 10/04/23 Leonardo Venegas MD [address] [place] [address] Referring Cardiac Surg 10/04/23 Alena Rajan MD, PhD [address] [place] [address] Cardiology 10/08/23 Alena Rajan MD, PhD [address] [place] [address] Primary Staff Physician Cardiology 10/25/23 Team Status: Inactive Member Role Status Dates Madison North MD Attending Provider Active St art: November 17, 2023 End: November 17, 2023 Team Status: Inactive Member Role Status Dates Madison North MD Primary Care Provide r, Attending Provider Active Start: January 12, 2024 End: January 12, 2024 Enrollment Management Manager Relationship Specialty Start Date End Date Madison North MD [address] [place] [address] PCP - General Family Medicine 10/25/23 Luli Dixon MD [address] [facility] [place] [address] Surgeon Cardiac Surg 10/04/23 Leonardo Venegas MD [address] [place] [address] Referring Cardiac Surg 10/04/23 Alena Rajan MD, PhD [address] [place] [address] Cardiology 10/08/23 Alena Rajan MD, PhD [facility] [place] [address] Primary Staff Physician Cardiology 10/25/23 Team Status: Inactive Member Role Status Dates Madison North MD Primary Care Provider Active Start: January 21, 2024 End: January 21, 2024 Emy Root APRN Attending Provider Active S tart: January 21, 2024 End: January 21, 2024 Team Status: Inactive Member Role Status Dates Madison North MD Primary Care Provide r, Attending Provider Active Start: February 01, 2024 End: February 01, 2024 Team Status: Inactive Member Role Status Dates Madison North MD Primary Care Provide r, Attending Provider Active Start: March 24, 2024 End: March 24, 2024 Enrollment Management Manager Relationship Specialty Start Date End Date Madison North MD [address] [place] [phone] PCP - General Family Medicine 10/25/23 Luli Dixon MD [address] [place], [place] [phone] Surgeon Cardiac Surg 10/04/23 Leonardo Venegas MD [address] [place] [address] Referring Cardiac Surg 10/04/23 Alena Rajan MD, PhD [address] [place] [address] Cardiology 10/08/23 Alena Rajan MD, PhD [address] [place] [address] Primary Staff Physician Cardiology 10/25/23 Team Status: Active Member Role Status Dates Madison North MD Primary Care Provide r, Attending Provider Active Start: March 31, 2024 Team Status: Active Member Role Status Dates Madison North MD Primary Care Provide r, Attending Provider Active Start: April 01, 2024 Team Status: Inactive Member Role Status Dates Madison North MD Primary Care Provide r, Attending Provider Active Start: April 05, 2024 End: April 05, 2024 Team Status: Inactive Member Role Status Dates Madison North MD Primary Care Provider Active Start: May 21, 2024 End: May 21, 2024 Bia Richardson APRN Attending Provider Active Start: May 21, 2024 End: May 21, 2024 Enrollment Management Manager Relationship Specialty Start Date End Date Madison North MD [address] [place] [address] PCP - General Family Medicine 10/25/23 Luli Dixon MD [address] [place] [phone] Surgeon Cardiac Surg 10/04/23 Leonardo Venegas MD [address] [place] [address] Referring Cardiac Surg 10/04/23 Alena Rajan MD, PhD [address] [place] [address] Cardiology 10/08/23 Alena Rajan MD, PhD [address] [place] [address] Primary Staff Physician Cardiology 10/25/23 Enrollment Management Manager Relationship Specialty Start Date End Date Madison North MD [address] [place] [address] PCP - General Family Medicine 10/25/23 Luli Dixon MD [address] [place] [address] Surgeon Cardiac Surg 10/04/23 Leonardo Venegas MD [address] [place] [address] Referring Cardiac Surg 10/04/23 Alena Rajan MD, PhD [address] [place] [address] Cardiology 10/08/23 Alena Rajan MD, PhD [address] [place] [address] Primary Staff Physician Cardiology 10/25/23 Enrollment Management Manager Relationship Specialty Start Date End Date Madison North MD [address] [place] [phone] PCP - General Family Medicine 10/25/23 Luli Dixon MD [address] [place] [address] Surgeon Cardiac Surg 10/04/23 Leonardo Venegas MD [address] [place] [address] Referring Cardiac Surg 10/04/23 Alena Rajan MD, PhD [address] [place] [address] Cardiology 10/08/23 Alena Rajan MD, PhD [address] [place] [address] Primary Staff Physician Cardiology 10/25/23 Enrollment Management Manager Relationship Specialty Start Date End Date Madison North MD [address] [place] [address] PCP - General Family Medicine 10/25/23 Luli Dixon MD [address] [place] [address] Surgeon Cardiac Surg 10/04/23 Leonardo Venegas MD [address] [place] [address] Referring Cardiac Surg 10/04/23 Alena Rajan MD, PhD [address] [place] [address] Cardiology 10/08/23 Alena Rajan MD, PhD [address] [place] [address] Primary Staff Physician Cardiology 10/25/23 Enrollment Management Manager Relationship Specialty Start Date End Date Madison North MD [address] [place] [address] PCP - General Family Medicine 10/25/23 Luli Dixon MD [address] [place] [address] Surgeon Cardiac Surg 10/04/23 Leonardo Venegas MD [address] [place] [address] Referring Cardiac Surg 10/04/23 Alena Rjaan MD, PhD [address] [place] [address] Cardiology 10/08/23 Alena Rajan MD, PhD [address] [place] [address] Primary Staff Physician Cardiology 10/25/23 Enrollment Management Manager Relationship Specialty Start Date End Date Madison North MD [address] [place] [phone] PCP - General Family Medicine 10/25/23 [place] [address] [place], [place] [phone] Surgeon Cardiac Surg 10/04/23 Leonardo Venegas MD [address] [place] [address] Referring Cardiac Surg 10/04/23 Alena Rajan MD, PhD [address] [place] [address] Cardiology 10/08/23 Alena Rajan MD, PhD [address] [place] [address] Primary Staff Physician Cardiology 10/25/23 Goals (unrecognized section and content) Goals may be documented in a n alternate section FOR RECORDS PERTAINING TO PATIENTS WHO ARE OR HAVE BEEN ENROLLED IN A CHEMICAL DEPENDENCY/SUBSTANCEABUSE PROGRAM, SOME INFORMATION MAY BE OMITTED. This clinical summary was aggregated from multiple sources. Caution should be exercised in using it in the provision of clinical care. This summary normalizes information from multiple sources, and as a consequence, information in this document may materially change the coding, format and clinical context of patient data. In addition, data may be omitted in some cases. CLINICAL DECISIONS SHOULD BE BASED ON THE PRIMARY CLINICAL RECORDS. [employer] [facility]. provides no warranty or guarantee of the accuracy or completeness of information in this document.
[2025-07-17 12:39] LABS: Hematocrit 40.0 % (36.0-48.0); Hemoglobin 13.4 g/dL (12.0-16.0); Mean Corpuscular HGB Conc 33.5 g/dL (29.9-35.2); Mean Corpuscular Hemoglobin 29.1 pg (26.7-34.0); Mean Corpuscular Volume 87.0 fL (81.0-99.0); Platelet Count 220 10^3/uL (150-450); Red Blood Count 4.60 10^6/uL (4.20-5.40); White Blood Count 14.4 10^3/uL (4.0-11.0)
[2025-07-17 13:00] LABS: INR 0.94; Partial Thromboplastin Time 27.3 sec (22.3-36.2); Prothrombin Time 10.0 sec (9.0-11.6)
[2025-07-17 13:02] LABS: Anion Gap 16.2; Blood Urea Nitrogen 11.0 mg/dL (7.0-18.0); Calcium 8.7 mg/dL (8.5-10.1); Carbon Dioxide 21.2 mmol/L (21.0-32.0); Chloride 105 mmol/L (98-107); Estimated GFR (African America >60 (>=60 mL/min/1.73m^2); Estimated GFR (Non-African Ame 53 (>=60 mL/min/1.73m^2); Glucose 128 mg/dL (74-106); Magnesium 1.9 mg/dL (1.8-2.4); Potassium 3.4 mmol/L (3.5-5.1); Sodium 139 mmol/L (136-145)
[2025-07-17 13:03] LABS: NT Pro B Type Natriuretic Pept 686.0 pg/mL (<=900.0)
--- NOTE | 2025-07-17 16:58 | ED.GENADUL1 ---
HPI HPI - General Adult General Chief complaint: Chest Pain Stated complaint: CHEST PAIN Time Seen by Provider: 07/17/25 11:55 Source: patient Mode of arrival: Wheelchair History of Present Illness HPI narrative: 69-year-old female presenting to the emergency department for concerns of shortness of breath and back pain. Patient states her symptoms started around 4 in the morning, approximately 10 hours ago. She states that the symptoms have been intermittent since the onset, but acutely worsened over the last hour or so. She states she has pain with a deep breath. She denies any associated chest pain. No fevers or chills. No URI symptoms, cough, abdominal pain, nausea, vomiting, or other systemic symptoms. She denies history of DVT/PE. She denies hemoptysis, leg swelling, recent immobilization/surgeries. She denies history of NH, but does have history of valve replacement. Related Data Allergies Allergy/AdvReac Type Severity Reaction Status Date / Time alendronate sodium (From Allergy Severe Unknown Verified 07/17/25 12:09 Fosamax) latex Allergy Severe Rash Verified 07/17/25 12:09 meloxicam (From Mobic) Allergy Severe Shakiness Verified 07/17/25 12:09 morphine Allergy Severe Unknown Verified 07/17/25 12:09 tramadol (From Ultram) Allergy Severe Shakiness Verified 07/17/25 12:21 Review of Systems ROS Status of ROS 10 or more systems reviewed and unremarkable except as noted in history and below [facility] Social History Little interest or pleasure in doing things: not at all Feeling down, depressed, or hopeless: not at all Exam Narrative Exam Narrative: CONSTITUTIONAL: Well-appearing, answering questions and following commands appropriately SKIN: Was warm and dry. EYES: No conjunctival pallor EARS, NOSE, THROAT: There was no jugular venous distention. RESPIRATORY: Clear to auscultation bilaterally, no wheezes, crackles, or stridor, no use of accessory muscles CARDIOVASCULAR: Tachycardic rate and regular rhythm. There is no S3, S4, murmur, rub. GASTROINTESTINAL: Abdomen was soft, non-tender, and non-distended. There is no guarding or rebound tenderness MUSCULOSKELETAL: There was no lower extremity edema, erythema, or tenderness. NEUROLOGIC: Patient is awake and alert. Facies were symmetrical. Constitutional Vital Signs, click to edit/add: Last Vital Signs Temp 99.8 F 07/17/25 11:57 Pulse 93 H 07/17/25 14:00 Resp 6 L 07/17/25 14:00 BP 118/71 07/17/25 14:00 Pulse Ox 88 L 07/17/25 14:00 O2 Del Method Nasal Cannula 07/17/25 12:25 O2 Flow Rate 2 07/17/25 12:25 Course Vital Signs Vital signs: Vital Signs Temperature 99.8 F 07/17/25 11:57 Pulse Rate 104 H 07/17/25 11:57 Respiratory Rate 20 07/17/25 11:57 Blood Pressure 119/86 07/17/25 11:57 Pulse Oximetry 91 L 07/17/25 11:57 Oxygen Delivery Method Room Air 07/17/25 11:57 Temperature 99.8 F 07/17/25 11:57 Pulse Rate 93 H 07/17/25 14:00 Respiratory Rate 6 L 07/17/25 14:00 Blood Pressure 118/71 07/17/25 14:00 Pulse Oximetry 88 L 07/17/25 14:00 Oxygen Delivery Method Nasal Cannula 07/17/25 12:25 Oxygen Delivery Flow Rate 2 07/17/25 12:25 Medical Decision Making MDM Narrative Medical decision making narrative: Patient is a 69-year-old female presenting to the emergency department with acute dyspnea and back pain beginning approximate 10 hours ago. Vital signs on arrival are significant for tachycardia and hypoxia to 88% on room air. She has clear breath sounds bilaterally and is in no respiratory distress. She has normal physical examination otherwise. Differential diagnosis includes pulmonary embolism, ACS, pneumonia, pneumothorax, or other electrolyte/metabolic derangement. Patient does have a history of valvular heart disease s/p replacement.I did consider etiologies such as mitral valve prolapse, however her symptoms were acute in onset and she has no physical exam findings to suggest acute heart failure. IV was established and laboratory studies were obtained. CT thorax for PE was obtained. 12 Lead EKG: Sinus tachycardia at a rate of [address] segment elevations. Prolonged QRS interval with RSR' configuration in leads V1 and V2, consistent with right bundle branch block. Unchanged compared to prior EKG from 03/24/2024. Final impression: Sinus tachycardia with chronic right bundle branch block. No evidence of acute myocardial ischemia. CT angiography of the chest independently reviewed/interpreted by myself and reviewed by radiology demonstrated scattered areas of tree-in-bud ground glass, infectious process with bronchiolitis is suspected. No evidence of acute pulmonary embolism. Laboratory studies were significant for mild leukocytosis. No anemia or thrombocytopenia. Mild hypokalemia. No evidence of acute renal injury. Troponin and BNP not elevated. On reevaluation, patient's vitals have normalized. She is on room air saturating 95%. Her tachycardia is resolved, is now 95 bpm. Given the patient's CT findings, her presentation is likely secondary to viral URI/bronchiolitis. No evidence of ACS, PE, or heart failure to explain her symptoms. I do believe the patient is stable for discharge at this time. They were instructed to follow up with her PCP in the next 3 to 5 days for further care. Return precautions were given including any new or worsening symptoms. Patient understands and agrees to the plan. FINAL IMPRESSION: #Acute dyspnea, likely bronchiolitis DISPOSITION: Discharged home CONDITION: Good Medical Records Medical records reviewed: Yes I reviewed the patient's medical records Lab Data Lab results reviewed: Yes I reviewed the patient's lab results Labs: Lab Results 07/17/25 Range/Units 12:16 WBC 14.4 H (4.0-11.0) 10^3/uL RBC 4.60 (4.20-5.40) 10^6/uL Hgb 13.4 (12.0-16.0) g/dL Hct 40.0 (36.0-48.0) % MCV 87.0 (81.0-99.0) fL MCH 29.1 (26.7-34.0) pg MCHC 33.5 (29.9-35.2) g/dL RDW 13.9 (11.0-15.0) % Plt Count 220 (150-450) 10^3/uL MPV 9.3 L (9.5-13.5) fL PT 10.0 (9.0-11.6) sec INR 0.94 APTT 27.3 (22.3-36.2) sec Sodium 139 (136-145) mmol/L Potassium 3.4 L (3.5-5.1) mmol/L Chloride 105 (98-107) mmol/L Carbon Dioxide 21.2 (21.0-32.0) mmol/L Anion Gap 16.2 BUN 11.0 (7.0-18.0) mg/dL Creatinine 1.04 H (0.55-1.02) mg/dL Est GFR ( Amer) >60 (>=60 mL/min/1.73m^2) Est GFR (Non-Af Amer) 53 L (>=60 mL/min/1.73m^2) BUN/Creatinine Ratio 10.6 Glucose 128 H (74-106) mg/dL Calcium 8.7 (8.5-10.1) mg/dL Magnesium 1.9 (1.8-2.4) mg/dL Troponin I High Sens 5.8 (4.0-51.3) pg/mL NT-Pro-B Natriuret Pep 686.0 (<=900.0) pg/mL Blood Type A Positive Antibody Screen Positive Imaging Data CTA thorax: Attestation: I personally reviewed and interpreted this imaging study as follows: Radiologist's impression: ITS Impressions Chest CTA 07/17/25 12:03 IMPRESSION: NO EVIDENCE OF ACUTE PULMONARY EMBOLISM. SCATTERED AREAS OF TREE-IN-BUD GROUNDGLASS. AN INFECTIOUS PROCESS WITH BRONCHIOLITIS IS SUSPECTED. CT FOLLOW-UP IS RECOMMENDED TO ENSURE RESOLUTION. MODERATE SIZE HIATAL HERNIA WITH FLUID SEEN WITHIN THE DISTAL ESOPHAGUS.. Impression dictated by: Troy Rojas Jr., D.O. 07/17/2025 1:35 PM Dictation Location: [place] [address] Electronically authenticated by: [id number] Y Date: 07/17/2025 13:35 ECG Data Attestation: I personally reviewed and interpreted this ECG as follows: Discharge Plan Discharge Chief Complaint: Chest Pain Clinical Impression: Acute dyspnea Patient Disposition: Home, Self-Care Time of Disposition Decision: 13:47 Condition: Good Mode of Transportation: Private Vehicle Print Language: Spanish Instructions: Dyspnea (ED) Referrals: Raina Anne MD [Primary Care Provider, Family Practice] - 1 week Discharge Date/Time: 07/17/25 14:13
== END 2025-07-17 14:13 | disposition home or self-care (01) ==
PROVIDERS: Emergency Provider Student in an Organized Health Care Education/Training Program; PCP Family Medicine
DX: R06.00 Dyspnea, unspecified (principal); Z95.2 Presence of prosthetic heart valve
CPT/HCPCS: 36415; 71275; 80048; 83735; 83880; 84484; 85027; 85610; 85730; 86850; 86900; 86901; 93005; 99284; Q9967